=== PATIENT | male | born 1950 ===

== ENCOUNTER 2018-02-16 21:03 | Emergency (ER) | payer SELFPAY ==
[2018-02-16 21:11] VITALS: TEMP 98.4
[2018-02-16] MEDS ORDERED: Sodium Chloride 0.9% 1,000 ML IV STA (21:47)
[2018-02-16 22:34] LABS: BASO # 0.1 K/uL (0.0-0.2); BASO % 1.1 % (0.0-2.0); EOS # 0.2 K/uL (0.0-0.7); EOS % 3.4 % (0.0-4.0); HEMOGLOBIN 13.1 g/dL (12.0-18.0); LYMPH # 2.1 K/uL (1.0-4.3); LYMPH % 35.3 % (20.0-40.0); MEAN CELL VOLUME 96.8 fl (80.0-94.0); MEAN CORPUSCULAR HEMOGLOBIN 33.2 pg (27.0-31.0); MEAN CORPUSCULAR HGB CONC 34.3 g/dL (33.0-37.0); MEAN PLATELET VOLUME 9.1 fl (7.2-11.7); MONO # 0.5 K/uL (0.0-0.8); MONO % 8.6 % (0.0-10.0); NEUT % 51.6 % (50.0-75.0); NRBC % 0.1 % (0.0-0.0); RBC 3.94 Mil/uL (4.40-5.90); WHITE BLOOD COUNT 5.9 K/uL (4.8-10.8)
[2018-02-16 22:41] LABS: ALB/GLOB RATIO 1.3 (1.0-2.1); ALBUMIN 3.8 g/dL (3.5-5.0); ALT/SGPT 24 U/L (21-72); AST/SGOT 20 U/L (17-59); BLOOD UREA NITROGEN 29 mg/dl (9-20); GFR AFRICAN-AMERICAN > 60; GFR NON-AFRICAN AMERICAN 55
--- NOTE | 2018-02-16 23:06 | ED PDOC ---
HPI: Psych/Substance Abuse Time Seen by Provider: 02/16/18 21:17 Chief Complaint (Nursing): Alcohol Ingestion History Per: Patient (Felix is 68 yo male who is brought to the ER by EMS because of inability to walk due to chronic back pain. Patient has also been drinking. ) Past Medical History Reviewed: Historical Data, Nursing Documentation, Vital Signs Vital Signs: Last Vital Signs Temp 98.4 F 02/16/18 21:11 Pulse 81 02/16/18 21:11 Resp 18 02/16/18 21:11 BP 102/63 02/16/18 21:11 Pulse Ox 95 02/16/18 21:11 - Medical History PMH: No Chronic Diseases, Back Problems - Surgical History Surgical History: Coronary Stent - Family History Family History: States: No Known Family Hx - Living Arrangements Living Arrangements: Alone - Social History Alcohol: > 2 Drinks/Day Drugs: Denies - Allergies Allergies/Adverse Reactions: Allergies Allergy/AdvReac Type Severity Reaction Status Date / Time No Known Allergies Allergy Verified 02/16/18 21:02 Review of Systems ROS Statement: Except As Marked, All Systems Reviewed And Found Negative Constitutional: Negative for: Fever, Chills Musculoskeletal: Positive for: Back Pain Physical Exam - Reviewed Nursing Documentation Reviewed: Yes Vital Signs Reviewed: Yes - Physical Exam Appears: Positive for: Well, Non-toxic, No Acute Distress Head Exam: Positive for: ATRAUMATIC, NORMAL INSPECTION, NORMOCEPHALIC Skin: Positive for: Normal Color, Warm, DRY Eye Exam: Positive for: EOMI, Normal appearance, PERRL ENT: Positive for: Normal ENT Inspection Neck: Positive for: Normal, Painless ROM Cardiovascular/Chest: Positive for: Regular Rate, Rhythm Respiratory: Positive for: CNT, Normal Breath Sounds Gastrointestinal/Abdominal: Positive for: Normal Exam, Soft Back: Positive for: Normal Inspection Extremity: Positive for: Normal ROM Neurologic/Psych: Positive for: Alert, Oriented - Laboratory Results Result Diagrams: 02/16/18 22:20 02/16/18 22:20 - ECG O2 Sat by Pulse Oximetry: 95 Disposition - Clinical Impression Clinical Impression: Alcohol abuse - Patient ED Disposition Is Patient to be Admitted: No - Disposition Disposition: Routine/Home Disposition Time: 22:45 Condition: IMPROVED Instructions: Alcohol Abuse and Alcoholism (DC) - POA Present On Arrival: None
[2018-02-16 23:43] VITALS: BP 121/83; PULSE 84; RESP 20; O2SAT 99
== END 2018-02-16 23:44 | disposition home or self-care (01) ==
LOC: H.ER 21:03
DX: F10.10 Alcohol abuse, uncomplicated (principal); G89.29 Other chronic pain; Z95.5 Presence of coronary angioplasty implant and graft
CPT/HCPCS: 80053; 82948; 85025; 96360; 99283; G0480; J1885; J7030

== ENCOUNTER 2018-07-09 13:13 | Inpatient (IN) | payer MEDICARE, MEDICAID ==
[2018-07-09] MEDS ORDERED: Labetalol 5 mg/ml Inj 20ML IVP STA (13:58)
[2018-07-09] MEDS ORDERED: Labetalol 5mg/ml (4ml) IVP STA (14:04)
[2018-07-09 14:11] LABS: VENOUS BLOOD GAS BASE EXCESS -4.1 mmol/L (0.0-2.0); VENOUS BLOOD GAS PCO2 41 mmHg (40-60); VENOUS BLOOD GAS PO2 17 mm/Hg (30-55); VENOUS BLOOD PH 7.33 (7.32-7.43)
[2018-07-09] MEDS ORDERED: Insulin Regular 100 units/ml SC STA (14:12)
[2018-07-09 14:13] LABS: BASO # 0.1 K/uL (0.0-0.2); EOS # 0.1 K/uL (0.0-0.7); HEMOGLOBIN 13.4 g/dL (12.0-18.0); LYMPH # 0.9 K/uL (1.0-4.3); LYMPH % 13.7 % (20.0-40.0); MEAN CELL VOLUME 99.1 fl (80.0-94.0); MEAN CORPUSCULAR HEMOGLOBIN 32.4 pg (27.0-31.0); MEAN CORPUSCULAR HGB CONC 32.7 g/dL (33.0-37.0); MEAN PLATELET VOLUME 11.1 fl (7.2-11.7); MONO # 0.6 K/uL (0.0-0.8); MONO % 9.8 % (0.0-10.0); NEUT # 4.8 K/uL (1.8-7.0); NEUT % 74.5 % (50.0-75.0); NRBC % 0.2 % (0.0-0.0); RBC 4.13 Mil/uL (4.40-5.90); WHITE BLOOD COUNT 6.4 K/uL (4.8-10.8)
--- NOTE | 2018-07-09 14:19 | ED PDOC ---
HPI: SOB/CHF/COPD Time Seen by Provider: 07/09/18 13:35 Chief Complaint (Nursing): Shortness Of Breath Chief Complaint (Provider): Shortness Of Breath History Per: Non Destructive Evaluation Manager ([id number]) History/Exam Limitations: no limitations Onset/Duration Of Symptoms: Days (x2 weeks ) Additional Complaint(s): Felix Casas is a 68 year old male with a past medical history of type 2 diabetes and HTN, who presents to the emergency department complaining of worsening shortness of breath. Patient denies cough but states that since that time he has increased weakness. When asked about leg swelling he states he was treated for cellulitis of the legs for the last x2 months. At follow up patient still has the same compliant. Patient did have a stent placed x15 years ago but reports to have no cardiac complications since then. He further denies any chest pain, nausea or vomiting. PMD: Bolivar Zapata Past Medical History Reviewed: Historical Data, Nursing Documentation, Vital Signs Vital Signs: Last Vital Signs Temp 97 F L 07/09/18 13:18 Pulse 128 H 07/09/18 13:34 Resp 22 07/09/18 13:34 BP 135/89 07/09/18 13:34 Pulse Ox 95 07/09/18 13:37 - Medical History PMH: Asthma, Back Problems, Diabetes, HTN - Surgical History Surgical History: Coronary Stent - Family History Family History: States: Unknown Family Hx - Immunization History Hx Tetanus Toxoid Vaccination: No Hx Influenza Vaccination: No Hx Pneumococcal Vaccination: No - Home Medications Home Medications: Ambulatory Orders Medication Instructions Recorded Hydrocortisone 1% Cream [Cortizone 1 applic EXT BID #1 tube 04/23/18 1% Cream] - Allergies Allergies/Adverse Reactions: Allergies Allergy/AdvReac Type Severity Reaction Status Date / Time No Known Allergies Allergy Verified 07/09/18 13:17 Review of Systems ROS Statement: Except As Marked, All Systems Reviewed And Found Negative Cardiovascular: Negative for: Chest Pain Respiratory: Positive for: Cough, Shortness of Breath Gastrointestinal: Negative for: Nausea, Vomiting Neurological: Positive for: Weakness Physical Exam - Reviewed Nursing Documentation Reviewed: Yes Vital Signs Reviewed: Yes - Physical Exam Appears: Positive for: In Acute Distress Head Exam: Positive for: ATRAUMATIC, NORMOCEPHALIC Skin: Positive for: Normal Color, Warm, Dry Cardiovascular/Chest: Positive for: Tachycardia, Irregularly Irregular. Negative for: Gallop, Murmur, Friction Rub Respiratory: Positive for: Crackles (bilateral), Respiratory Distress (mild ), Other (O2 saturation fluctuating between 92-97% while on 4L nasal canula ) Gastrointestinal/Abdominal: Positive for: Normal Exam, Soft. Negative for: Tenderness Extremity: Positive for: Pedal Edema (bilateral pitting pedal edema from foot to knee), Other (no indication of cellulitis ) - Laboratory Results Result Diagrams: 07/09/18 14:06 07/09/18 14:36 - ECG O2 Sat by Pulse Oximetry: 95 (RA) Pulse Ox Interpretation: Normal Medical Decision Making Medical Decision Making: Time: 1358 A/P: 68 year old male with past medical history of HTN and diabetes, in A-fib (unclear if new onset), also with bilateral edema of the legs). Work up for CHF/fluid overload. Labetatol, Lasic, and labs including cardaic enzymes, Chest xray. --Type and screen --VBG --Ekg --Bmp --Bnp --Troponin I --Cbc with differential --PTT PT --Chest xray --Lasix 40 m gIVP --Insulin Human regular 4 units SC --Labetatol 20 mg IVp --Influenza A B Chest xray FINDINGS: LUNGS: Overall bronchovascular markings and interstitial markings appear slightly increased mainly right perihilar lesser left perihilar locations. No dense consolidation seen. Surgical clips right paratracheal, PLEURA: No significant pleural effusion identified, no pneumothorax apparent. CARDIOVASCULAR: There is absence of aortic atherosclerotic calcification on x-ray. Cardiomegaly . Mild pulmonary venous congestion. Midline sternotomy and coronary artery bypass clips present. OSSEOUS STRUCTURES: No significant abnormalities. VISUALIZED UPPER ABDOMEN: Normal. OTHER FINDINGS: None. IMPRESSION: Cardiomegaly and mild pulmonary venous congestion. Midline sternotomy coronary bypass surgery inferred. No consolidation pneumothorax or pleural effusion noted. 1556 Troponin level is 0.6 and chest xray shows bilateral infiltrates and cardi omegaly, most likely fluid overload with CHF. Vitals have improved with heart rate at 100 after Lasix. Will give additional Lasix and cardiology consultation was placed. Repeat EKG was ordered and patient will be admitted. [address] Upton who will evaluate the patient in the morning and suggests continuing with lasix for diuresis. Spoke with Dr. Olsen (Dr. Bhatti is out of town who normally admits for Dr. Jasmine). Pt to be admitted to telemetry. - Scribe Attestation: Documented by Davis Mayes, acting as a scribe for Amada Bloom MD. Provider Scribe Attestation: All medical record entries made by the Scribe were at my direction and personally dictated by me. I have reviewed the chart and agree that the record accurately reflects my personal performance of the history, physical exam, medical decision making, and the department course for this patient. I have also personally directed, reviewed, and agree with the discharge instructions and di sposition. Disposition - Disposition
[2018-07-09 14:20] LABS: INR 1.2
[2018-07-09 14:22] LABS: PARTIAL THROMBOPLASTIN TIME 30.6 Seconds (25.6-37.1)
[2018-07-09 14:24] LABS: PROTHROMBIN TIME 13.6 Seconds (9.8-13.1)
[2018-07-09 14:54] LABS: ALBUMIN 3.4 g/dL (3.5-5.0); CALCIUM 8.6 mg/dL (8.4-10.2)
[2018-07-09] MEDS ORDERED: Labetalol 5mg/ml (4ml) ONE (15:08)
[2018-07-09] MEDS ORDERED: Insulin Regular 100 units/ml ONE (15:09)
--- NOTE | 2018-07-09 15:27 | RAD ---
Date of service: 07/09/2018 HISTORY: possible admission COMPARISON: No prior. FINDINGS: LUNGS: Overall bronchovascular markings and interstitial markings appear slightly increased mainly right perihilar lesser left perihilar locations. No dense consolidation seen. Surgical clips right paratracheal, PLEURA: No significant pleural effusion identified, no pneumothorax apparent. CARDIOVASCULAR: There is absence of aortic atherosclerotic calcification on x-ray. Cardiomegaly . Mild pulmonary venous congestion. Midline sternotomy and coronary artery bypass clips present. OSSEOUS STRUCTURES: No significant abnormalities. VISUALIZED UPPER ABDOMEN: Normal. OTHER FINDINGS: None. IMPRESSION: Cardiomegaly and mild pulmonary venous congestion. Midline sternotomy coronary bypass surgery inferred. No consolidation pneumothorax or pleural effusion noted.
[2018-07-09 15:30] LABS: TROPONIN I 0.626 ng/mL (0.00-0.120)
--- NOTE | 2018-07-09 16:36 | CP.PCM.HP ---
History of Present Illness - History of Present Illness History of Present Illness: 68 y/o M with PMHx of DM-2, HTN, CAD, HLD presents to ED complaining of shortness of breath. Shortness of breath started about 2 weeks ago which progressively worsened up to the point when patient is feeling SOB with minimal walking/exertion and also reports feeling weak. He also reports cough with yellowish productive sputum for last 2 days. Patient also has bilateral lower extremity swelling. Patient has H/O stent placement 15 years ago and used to F/U with Dr. Aguillon in the past. Currently only taking Losartan and metformin. D enies any fever, chills, chest pain, headache, abdominal pain, nausea, vomiting, diarrhea or urinary symptoms. PMD: Dr. Jasmine Wood Drill Operator: Dr. Aguillon PMHx: CAD, HTN, DM, HLD PSHx: CABG, Colonoscopy Allergies: Denies F/H: Mother and father of heart disease in 70s, Brother and sister with as [facility] Social Hx - , Lives with brother, sister in law and 3 kids. Used to work in [employer] in past. - Reports drinking 10-15 beer on weekends, Denies smoking or illicit drug use Medications: Losartan 25 mg daily, Metformin 500 mg QD ED Course: - Vitals: Temp 97, HR 130, BP 135/73, RR 20, O2 100% RA - CBC, BMP, BNP, Troponin I, VBG, - CXR: bilateral infiltrates and cardiomegaly, most likely fluid overload with CHF - Medications: Lasix 40 m gIVP, Insulin Human regular 4 units SC, Labetatol 20 mg IVP - Influenza A B: Negative Patient to be admitted to Telemetry. Present on Admission - Present on Admission Any Indicators Present on Admission: Yes History of DVT/PE: No History of Uncontrolled Diabetes: No Urinary Catheter: No Decubitus Ulcer Present: No Review of Systems - Review of Systems Systems not reviewed;Unavailable: Respiratory Distress - Constitutional Constitutional: Weakness. absent: Fever, Headache - EENT Eyes: absent: Change in Vision - Cardiovascular Cardiovascular: Dyspnea, Dyspnea on Exertion, Pedal Edema. absent: Chest Pain, Chest Pain at Rest - Respiratory Respiratory: Cough, Dyspnea, Dyspnea on Exertion - Gastrointestinal Gastrointestinal: absent: Abdominal Pain, Constipation, Diarrhea, Nausea, Vomiting - Genitourinary Genitourinary: absent: Change in Urinary Stream Past Patient History - Past Social History Smoking Status: Never Smoked - CARDIAC Hx Hypertension: Yes - PULMONARY Hx Asthma: Yes - ENDOCRINE/METABOLIC Hx Diabetes Mellitus Type 2: Yes - PSYCHIATRIC Hx Substance Use: No - SURGICAL HISTORY Hx Coronary Stent: Yes - ANESTHESIA Hx Anesthesia: Yes Hx Anesthesia Reactions: No Hx Malignant Hyperthermia: No Meds Allergies/Adverse Reactions: Allergies Allergy/AdvReac Type Severity Reaction Status Date / Time No Known Allergies Allergy Verified 07/09/18 13:17 Physical Exam - Constitutional Appears: No Acute Distress - Head Exam Head Exam: ATRAUMATIC, NORMOCEPHALIC - Eye Exam Eye Exam: EOMI - ENT Exam ENT Exam: Mucous Membranes Moist - Neck Exam Neck exam: Positive for: Full Rom - Respiratory Exam Respiratory Exam: Rales, Respiratory Distress. absent: Decreased Breath Sounds, Rhonchi, Wheezes - Cardiovascular Exam Cardiovascular Exam: Tachycardia, Irregular Rhythm, +S1, +S2. absent: JVD - GI/Abdominal Exam GI & Abdominal Exam: Normal Bowel Sounds, Soft. absent: Distended, Tenderness - Extremities Exam Extremities exam: Positive for: pedal edema. Negative for: calf tenderness, tenderness Additional comments: +1 pitting edema B/L LE - Neurological Exam Neurological exam: Alert, Altered, Oriented x3 - Psychiatric Exam Psychiatric exam: Normal Affect, Normal Mood - Skin Skin Exam: Dry, Intact, Normal Color, Warm Results - Vital Signs Recent Vital Signs: Last Vital Signs Temp 98.6 F 07/09/18 16:35 Pulse 98 H 07/09/18 16:12 Resp 27 H 07/09/18 16:12 BP 111/79 07/09/18 16:15 Pulse Ox 95 07/09/18 16:26 - Labs Result Diagrams: 07/09/18 14:06 07/09/18 14:36 Labs: Laboratory Results - last 24 hr 07/09/18 07/09/18 07/09/18 14:00 14:06 14:06 WBC 6.4 RBC 4.13 L Hgb 13.4 Hct 41.0 MCV 99.1 H D MCH 32.4 H MCHC 32.7 L RDW 13.0 Plt Count 169 MPV 11.1 Neut % (Auto) 74.5 Lymph % (Auto) 13.7 L [place] % (Auto) 9.8 Eos % (Auto) 1.0 Baso % (Auto) 1.0 Neut # (Auto) 4.8 Lymph # (Auto) 0.9 L [place] # (Auto) 0.6 Eos # (Auto) 0.1 Baso # (Auto) 0.1 PT INR APTT pO2 17 L VBG pH 7.33 VBG pCO2 41 VBG HCO3 19.6 VBG Total CO2 22.9 VBG O2 Sat (Calc) 21.9 L VBG Base Excess -4.1 L VBG Potassium 4.5 Sodium 136.0 Chloride 105.0 Glucose 231 H Lactate 1.3 FiO2 21.0 Potassium Carbon Dioxide Anion Gap BUN Creatinine Est GFR ( Amer) Est GFR (Non-Af Amer) Random Glucose Calcium Total Bilirubin AST ALT Alkaline Phosphatase Troponin I NT-Pro-B Natriuret Pep Total Protein Albumin Globulin Albumin/Globulin Ratio Venous Blood Potassium 4.5 Influenza Typ A,B (EIA) Negative for flu a/b Blood Type Blood Type Confirm Antibody Screen BBK History Checked 07/09/18 07/09/18 07/09/18 14:06 14:06 14:36 WBC RBC Hgb Hct MCV MCH MCHC RDW Plt Count MPV Neut % (Auto) Lymph % (Auto) [place] % (Auto) Eos % (Auto) Baso % (Auto) Neut # (Auto) Lymph # (Auto) [place] # (Auto) Eos # (Auto) Baso # (Auto) PT 13.6 H INR 1.2 APTT 30.6 pO2 VBG pH VBG pCO2 VBG HCO3 VBG Total CO2 VBG O2 Sat (Calc) VBG Base Excess VBG Potassium Sodium 138 Chloride 108 H Glucose Lactate FiO2 Potassium 4.6 Carbon Dioxide 22 Anion Gap 13 BUN 44 H Creatinine 1.8 H Est GFR ( Amer) 46 Est GFR (Non-Af Amer) 38 Random Glucose 210 H Calcium 8.6 Total Bilirubin 1.1 AST 43 ALT 52 Alkaline Phosphatase 87 Troponin I 0.6260 H* NT-Pro-B Natriuret Pep 7210 H Total Protein 6.7 Albumin 3.4 L Globulin 3.3 Albumin/Globulin Ratio 1.0 Venous Blood Potassium Influenza Typ A,B (EIA) Blood Type O POSITIVE Blood Type Confirm Antibody Screen Negative BBK History Checked No verified bt 07/09/18 15:05 WBC RBC Hgb Hct MCV MCH MCHC RDW Plt Count MPV Neut % (Auto) Lymph % (Auto) [place] % (Auto) Eos % (Auto) Baso % (Auto) Neut # (Auto) Lymph # (Auto) [place] # (Auto) Eos # (Auto) Baso # (Auto) PT INR APTT pO2 VBG pH VBG pCO2 VBG HCO3 VBG Total CO2 VBG O2 Sat (Calc) VBG Base Excess VBG Potassium Sodium Chloride Glucose Lactate FiO2 Potassium Carbon Dioxide Anion Gap BUN Creatinine Est GFR ( Amer) Est GFR (Non-Af Amer) Random Glucose Calcium Total Bilirubin AST ALT Alkaline Phosphatase Troponin I NT-Pro-B Natriuret Pep Total Protein Albumin Globulin Albumin/Globulin Ratio Venous Blood Potassium Influenza Typ A,B (EIA) Blood Type Blood Type Confirm O POSITIVE Antibody Screen BBK History Checked Assessment & Plan - Assessment and Plan (Free Text) Assessment: 68 year old male with PMHx of HTN, diabetes, Stent 15 years ago, CFH presents with shortness of breath that started 2 weeks ago. Patient in A-fib (unclear if new onset), CHF/fluid overload and LUIS ARMANDO vs CKD type 3. Plan: CFH exacerbation - Admitted to telemetry - S/P Lasix 40mg, Insulin Human regular 4 units SC, Labetatol 20 mg IVP in ED - CXR: bilateral infiltrates and cardiomegaly, most likely fluid overload with CHF - On ASA, Lopressor 50 mg BID, Losartan. - Cardiology consulted. - Monitor vitals, strict I & Os, 2g Na diet, Fluid restriction 1500 ml Atrial fibrillation - Chronic vs New onset - Cardiology Dr. Gonzalez consulted: Appreciate recs - start Lopressor 50 mg BID - start Heparin 5000 SC BID - F/U TSH, trops x 2, cbc, bmp LUIS ARMANDO vs CKD III - BUN/Cr 44/1.8 - Monitor bmp HTN - Uncontrolled - C/W Losartan 25 mg PO daily - Start Lopressor 50 mg BID - Monitor vitals DM-2 - Uncontrolled - On sliding scale and hypoglycemic protocol - Metformin on hold due to LUIS ARMANDO/CKD - Monitor glucose ACHS - F/U A1c HLD - Started on atorvastatin 40 mg daily - F/U lipid panel DVT prophylaxis -Heparin 5000 unit SC BID -GI: Protonix 40 mg po daily Diet heart healthy, 2g Na, with fluid restriction 1500ml
[2018-07-09] MEDS ORDERED: Glucagon Recombinant 1 mg Inj IM PRN (17:25)
[2018-07-09] MEDS ORDERED: Dextrose 50% SYRINGE Inj (50 ml) IV PRN (17:25)
[2018-07-09] MEDS ORDERED: Pneumococcal 23-Valent Vaccine IM ONE (18:54)
[2018-07-09] MEDS ORDERED: Influenza Vaccine (5 YR UP)/PF 60 MCG/0.5 ML SYR IM ONE (18:55)
[2018-07-09] MEDS: Insulin Regular 100 units/ml SC SCH (22:58)
[2018-07-10 06:24] LABS: BASO % 0.7 % (0.0-2.0); EOS # 0.2 K/uL (0.0-0.7); EOS % 3.1 % (0.0-4.0); HEMOGLOBIN 12.6 g/dL (12.0-18.0); LYMPH # 1.3 K/uL (1.0-4.3); LYMPH % 19.7 % (20.0-40.0); MEAN CORPUSCULAR HEMOGLOBIN 32.5 pg (27.0-31.0); MEAN CORPUSCULAR HGB CONC 32.8 g/dL (33.0-37.0); MEAN PLATELET VOLUME 10.7 fl (7.2-11.7); MONO # 0.7 K/uL (0.0-0.8); MONO % 11.2 % (0.0-10.0); NEUT # 4.2 K/uL (1.8-7.0); NEUT % 65.3 % (50.0-75.0); NRBC % 0.1 % (0.0-0.0); RBC 3.87 Mil/uL (4.40-5.90); WHITE BLOOD COUNT 6.4 K/uL (4.8-10.8)
[2018-07-10 06:33] LABS: CALCIUM 8.7 mg/dL (8.4-10.2)
[2018-07-10] MEDS: Insulin Regular 100 units/ml SC SCH ×4 (08:57→22:00)
--- NOTE | 2018-07-10 10:03 | CARD ---
APPROVED REPORT Date of service: 07/10/2018 EXAM: Two-dimensional and M-mode echocardiogram with Doppler and color Doppler. Other Information Quality : GoodRhythm : Atrial Fibrillation INDICATION Dyspnea Hypertension/HCVD Congestive Heart Failure 2D DIMENSIONS IVSd1.26 (0.7-1.1cm)LVDd5.49 (3.9-5.9cm) LVOT Diameter1.68 (1.8-2.4cm)PWd0.86 (0.7-1.1cm) IVSs1.18 (0.8-1.2cm)LVDs5.63 (2.5-4.0cm) FS (%) 2.5 %PWs0.72 (0.8-1.2cm) M-Mode DIMENSIONS Left Atrium (MM)5.25 (2.5-4.0cm)IVSd0.84 (0.7-1.1cm) Aortic Root3.31 (2.2-3.7cm)LVDd6.13 (4.0-5.6cm) Aortic Cusp Exc.2.19 (1.5-2.0cm)PWd0.75 (0.7-1.1cm) IVSs0.72 cmFS (%) 11 % LVDs5.44 (2.0-3.8cm)PWs0.81 cm Mitral Valve E/A ratio0.0 TDI E/Lateral E'0.0E/Medial E'0.0 Tricuspid Valve TR Peak [id number]/sRAP [id number] Peak Gr.22mmHg [id number] LEFT VENTRICLE The Left Ventricle is moderately dilated. There is normal left ventricular wall thickness. Left ventricle systolic function is severely impaired. LVEF is 10-15%. There was mod to severe generalised hypokinesia particularly pronounced in the septum Could not be assesed due to A Fib. RIGHT VENTRICLE The right ventricle is normal size. There is normal right ventricular wall thickness. The right ventricular systolic function is normal. ATRIA The left atrium is moderately dilated. The right atrium is mildly dilated. AORTIC VALVE The aortic valve is normal in structure. No aortic regurgitation is present. There is no aortic valvular stenosis. MITRAL VALVE The mitral valve is normal in structure. There is no evidence of mitral valve prolapse. There is no mitral valve stenosis. Mitral regurgitation is moderate. TRICUSPID VALVE The tricuspid valve is normal in structure. There is mild to moderate tricuspid regurgitation. Right ventricular systolic pressure is estimated at 46 mmHg. There is mild-moderate pulmonary hypertension. PULMONIC VALVE The pulmonary valve is normal in structure. There is no pulmonic valvular regurgitation. GREAT VESSELS The aortic root is mildly enlarged. Due to poor image quality, the IVC could not be assessed. PERICARDIAL EFFUSION The pericardium appears normal. <Conclusion> The Left Ventricle is moderately dilated. There is normal left ventricular wall thickness. There was mod to severe generalised hypokinesia particularly pronounced in the septum Left ventricle systolic function is severely impaired. LVEF is 10-15%. Mitral regurgitation is moderate. There is mild-moderate pulmonary hypertension. The left atrium is moderately dilated.
--- NOTE | 2018-07-10 10:30 | CP.PCM.CON ---
History of Present Illness - History of Present Illness History of Present Illness: this 68-year-old man came to the emergency room after developing gradually worsening dyspnea with minimal exertion and describes walking in the room produced severe shortness of breath and he finally came to the emergency room. He is a long-standing hypertensive and diabetic and has undergone coronary bypass graft surgery 15 years back following a myocardial infarction. He had moved to [place] and had seen physicians erratically. He moved back to [place] 3 months back and was planning to resume seeing his physicians in July. The patient does admit to eating salty food every now and then. He is an ex-smoker. He denies any chest pain but admits to having experienced orthopnea. He denies any palpitations. The patient was found to be in atrial fibrillation with fast heart rates on arriving in the emergency room. Having received metoprolol and intravenous Diuretics the patient reports marked improvement his dyspnea. The telemetry shows persistent atrial fibrillation with a heart rate of 80-90 bpm. The patient was able to breathe comfortably while propped up in bed at 16 breaths per minute. His blood pressure was 120/70 mmHg. His jugular venous pressure was mildly elevated and there was no edema over his lower extremities. The pedal pulses were feeble felt but distinct of present. There were no carotid bruits. A scar of sternotomy was evident. The apex was in this 60 slightly heaving in character there was a faint S3 gallop. There were 5 basal rales. An apical systolic murmur of mitral regurgitation audible. His electro-cardiogram shows atrial fibrillation with evidence of an old septal wall myocardial infarction. There were diffuse T-wave inversions in chest leads. his echocardiogram reveals severe left ventricular wall motion abnormality in presence of moderate mitral regurgitation and a calculated pulmonary artery systolic pressure of 46 mmHg. his lab data was noted. From the time of his arrival in the emergency room the troponin levels have been elevated essentially the same amount during repeated assessment. His BUN/creatinine were elevated with a GFR suggestive of chronic kidney disease stage III. Impression: coronary artery disease with old septal wall myocardial infarction and states his post artery bypass graft surgery. Atrial fibrillation ( probably new onset )with congestive cardiac failure which was left ventricular systolic and acute on chronic. Chronic kidney disease stage III. Hypertension and diabetes. His heart rate is controlled with a beta becca and I have started the patient on an oral anticoagulation. The patient may be switched from intravenous diuretics to oral diuretics, when he is found to be euvolemic. The patient plans to see his medical lab technologist in early July. Past Patient History - Past Social History Smoking Status: Never Smoked - CARDIAC Hx Hypertension: Yes - PULMONARY Hx Asthma: Yes - ENDOCRINE/METABOLIC Hx Diabetes Mellitus Type 2: Yes - MUSCULOSKELETAL/RHEUMATOLOGICAL Hx Falls: No - PSYCHIATRIC Hx Substance Use: No - SURGICAL HISTORY Hx Coronary Stent: Yes - ANESTHESIA Hx Anesthesia: Yes Hx Anesthesia Reactions: No Hx Malignant Hyperthermia: No Meds Allergies/Adverse Reactions: Allergies Allergy/AdvReac Type Severity Reaction Status Date / Time No Known Allergies Allergy Verified 07/09/18 13:17 - Medications Medications: Current Medications Aspirin (Aspirin Chewable) 81 mg PO DAILY [facility] Last Admin: 07/10/18 08:59 Dose: 81 mg Atorvastatin Calcium (Lipitor) 40 mg PO DAILY [facility] Last Admin: 07/10/18 09:00 Dose: 40 mg Dextrose (Dextrose 50% Inj) 0 ml IV STAT PRN; Protocol PRN Reason: Hypoglycemia Protocol Dextrose (Glutose 15) 0 gm PO ONCE PRN; Protocol PRN Reason: Hypoglycemia Protocol Glucagon (Glucagen Diagnostic Kit) 0 mg IM STAT PRN; Protocol PRN Reason: Hypoglycemia Protocol Insulin Human Regular (Humulin R) 0 units SC ACCU-CHECK [facility]; Protocol Last Admin: 07/10/18 08:57 Dose: Not Given Losartan Potassium (Cozaar) 25 mg PO DAILY [facility] Last Admin: 07/10/18 08:59 Dose: 25 mg Metformin HCl (Glucophage) 500 mg PO DAILY [facility] Metoprolol Tartrate (Lopressor) 50 mg PO Q12 [facility] Last Admin: 07/10/18 09:00 Dose: 50 mg Rivaroxaban (Xarelto) 15 mg PO QD5 [facility]; Protocol Results - Vital Signs Recent Vital Signs: Last Vital Signs Temp 97.4 F L 07/10/18 08:14 Pulse 110 H 07/10/18 09:00 Resp 18 07/10/18 08:14 BP 113/77 07/10/18 09:00 Pulse Ox 97 07/10/18 08:14 - Labs Result Diagrams: 07/10/18 04:45 07/10/18 04:45 Labs: Laboratory Results - last 24 hr 07/09/18 07/09/18 07/09/18 14:00 14:06 14:06 WBC 6.4 RBC 4.13 L Hgb 13.4 Hct 41.0 MCV 99.1 H D MCH 32.4 H MCHC 32.7 L RDW 13.0 Plt Count 169 MPV 11.1 Neut % (Auto) 74.5 Lymph % (Auto) 13.7 L [place] % (Auto) 9.8 Eos % (Auto) 1.0 Baso % (Auto) 1.0 Neut # (Auto) 4.8 Lymph # (Auto) 0.9 L [place] # (Auto) 0.6 Eos # (Auto) 0.1 Baso # (Auto) 0.1 PT INR APTT pO2 17 L VBG pH 7.33 VBG pCO2 41 VBG HCO3 19.6 VBG Total CO2 22.9 VBG O2 Sat (Calc) 21.9 L VBG Base Excess -4.1 L VBG Potassium 4.5 Sodium 136.0 Chloride 105.0 Glucose 231 H Lactate 1.3 FiO2 21.0 Potassium Carbon Dioxide Anion Gap BUN Creatinine Est GFR ( Amer) Est GFR (Non-Af Amer) POC Glucose (mg/dL) Random Glucose Calcium Phosphorus Magnesium Total Bilirubin AST ALT Alkaline Phosphatase Troponin I NT-Pro-B Natriuret Pep Total Protein Albumin Globulin Albumin/Globulin Ratio Triglycerides Cholesterol LDL Cholesterol Direct HDL Cholesterol TSH 3rd Generation Venous Blood Potassium 4.5 Influenza Typ A,B (EIA) Negative for flu a/b Blood Type Blood Type Confirm Antibody Screen BBK History Checked 07/09/18 07/09/18 07/09/18 14:06 14:06 14:36 WBC RBC Hgb Hct MCV MCH MCHC RDW Plt Count MPV Neut % (Auto) Lymph % (Auto) [place] % (Auto) Eos % (Auto) Baso % (Auto) Neut # (Auto) Lymph # (Auto) [place] # (Auto) Eos # (Auto) Baso # (Auto) PT 13.6 H INR 1.2 APTT 30.6 pO2 VBG pH VBG pCO2 VBG HCO3 VBG Total CO2 VBG O2 Sat (Calc) VBG Base Excess VBG Potassium Sodium 138 Chloride 108 H Glucose Lactate FiO2 Potassium 4.6 Carbon Dioxide 22 Anion Gap 13 BUN 44 H Creatinine 1.8 H Est GFR ( Amer) 46 Est GFR (Non-Af Amer) 38 POC Glucose (mg/dL) Random Glucose 210 H Calcium 8.6 Phosphorus Magnesium Total Bilirubin 1.1 AST 43 ALT 52 Alkaline Phosphatase 87 Troponin I 0.6260 H* NT-Pro-B Natriuret Pep 7210 H Total Protein 6.7 Albumin 3.4 L Globulin 3.3 Albumin/Globulin Ratio 1.0 Triglycerides Cholesterol LDL Cholesterol Direct HDL Cholesterol TSH 3rd Generation Venous Blood Potassium Influenza Typ A,B (EIA) Blood Type O POSITIVE Blood Type Confirm Antibody Screen Negative BBK History Checked No verified bt 07/09/18 07/09/18 07/09/18 15:05 19:00 20:23 WBC RBC Hgb Hct MCV MCH MCHC RDW Plt Count MPV Neut % (Auto) Lymph % (Auto) [place] % (Auto) Eos % (Auto) Baso % (Auto) Neut # (Auto) Lymph # (Auto) [place] # (Auto) Eos # (Auto) Baso # (Auto) PT INR APTT pO2 VBG pH VBG pCO2 VBG HCO3 VBG Total CO2 VBG O2 Sat (Calc) VBG Base Excess VBG Potassium Sodium Chloride Glucose Lactate FiO2 Potassium Carbon Dioxide Anion Gap BUN Creatinine Est GFR ( Amer) Est GFR (Non-Af Amer) POC Glucose (mg/dL) Random Glucose Calcium Phosphorus 4.3 Magnesium 1.8 Total Bilirubin AST ALT Alkaline Phosphatase Troponin I 0.8270 H* NT-Pro-B Natriuret Pep Total Protein Albumin Globulin Albumin/Globulin Ratio Triglycerides Cholesterol LDL Cholesterol Direct HDL Cholesterol TSH 3rd Generation 1.39 Venous Blood Potassium Influenza Typ A,B (EIA) Blood Type Blood Type Confirm O POSITIVE Antibody Screen BBK History Checked 07/09/18 07/10/18 07/10/18 21:13 02:52 04:45 WBC 6.4 RBC 3.87 L Hgb 12.6 Hct 38.3 MCV 99.0 H MCH 32.5 H MCHC 32.8 L RDW 13.0 Plt Count 146 MPV 10.7 Neut % (Auto) 65.3 Lymph % (Auto) 19.7 L [place] % (Auto) 11.2 H Eos % (Auto) 3.1 Baso % (Auto) 0.7 Neut # (Auto) 4.2 Lymph # (Auto) 1.3 [place] # (Auto) 0.7 Eos # (Auto) 0.2 Baso # (Auto) 0.0 PT INR APTT pO2 VBG pH VBG pCO2 VBG HCO3 VBG Total CO2 VBG O2 Sat (Calc) VBG Base Excess VBG Potassium Sodium Chloride Glucose Lactate FiO2 Potassium Carbon Dioxide Anion Gap BUN Creatinine Est GFR ( Amer) Est GFR (Non-Af Amer) POC Glucose (mg/dL) 186 H Random Glucose Calcium Phosphorus Magnesium Total Bilirubin AST ALT Alkaline Phosphatase Troponin I 0.8280 H* NT-Pro-B Natriuret Pep Total Protein Albumin Globulin Albumin/Globulin Ratio Triglycerides Cholesterol LDL Cholesterol Direct HDL Cholesterol TSH 3rd Generation Venous Blood Potassium Influenza Typ A,B (EIA) Blood Type Blood Type Confirm Antibody Screen BBK History Checked 07/10/18 07/10/18 07/10/18 04:45 05:28 08:06 WBC RBC Hgb Hct MCV MCH MCHC RDW Plt Count MPV Neut % (Auto) Lymph % (Auto) [place] % (Auto) Eos % (Auto) Baso % (Auto) Neut # (Auto) Lymph # (Auto) [place] # (Auto) Eos # (Auto) Baso # (Auto) PT INR APTT pO2 VBG pH VBG pCO2 VBG HCO3 VBG Total CO2 VBG O2 Sat (Calc) VBG Base Excess VBG Potassium Sodium 138 Chloride 106 Glucose Lactate FiO2 Potassium 3.8 Carbon Dioxide 21 L Anion Gap 15 BUN 46 H Creatinine 1.7 H Est GFR ( Amer) 49 Est GFR (Non-Af Amer) 40 POC Glucose (mg/dL) 127 H Random Glucose 143 H Calcium 8.7 Phosphorus Magnesium Total Bilirubin AST ALT Alkaline Phosphatase Troponin I 0.7180 H* NT-Pro-B Natriuret Pep Total Protein Albumin Globulin Albumin/Globulin Ratio Triglycerides 48 Cholesterol 99 LDL Cholesterol Direct 49 HDL Cholesterol 55 TSH 3rd Generation Venous Blood Potassium Influenza Typ A,B (EIA) Blood Type Blood Type Confirm Antibody Screen BBK History Checked
--- NOTE | 2018-07-10 11:15 | CP.PCM.PN ---
<Rodney Casey - Last Filed: 07/10/18 13:37> Subjective - Date & Time of Evaluation Date of Evaluation: 07/10/18 Time of Evaluation: 08:55 - Subjective Subjective: Patient seen and evaluated in Telemetry during morning rounds. No acute events overnight. Patient reports significant improvement in shortness of breath and LE edema compare to yesterday. Patient able to walk to bathroom w/o getting SOB. Denies any chest pain, nausea, vomiting, dizziness, abdominal pain. Patient tolerating diet well PO. 1 BM yesterday, voiding well w/o difficulties. Objective - Vital Signs/Intake and Output Vital Signs (last 24 hours): Temp Pulse Resp BP Pulse Ox 97.4 F L 110 H 18 113/77 97 07/10/18 08:14 07/10/18 09:00 07/10/18 08:14 07/10/18 09:00 07/10/18 08:14 - Medications Medications: Current Medications Aspirin (Aspirin Chewable) 81 mg PO DAILY [facility] Last Admin: 07/10/18 08:59 Dose: 81 mg Atorvastatin Calcium (Lipitor) 40 mg PO DAILY [facility] Last Admin: 07/10/18 09:00 Dose: 40 mg Dextrose (Dextrose 50% Inj) 0 ml IV STAT PRN; Protocol PRN Reason: Hypoglycemia Protocol Dextrose (Glutose 15) 0 gm PO ONCE PRN; Protocol PRN Reason: Hypoglycemia Protocol Glucagon (Glucagen Diagnostic Kit) 0 mg IM STAT PRN; Protocol PRN Reason: Hypoglycemia Protocol Insulin Human Regular (Humulin R) 0 units SC ACCU-CHECK [facility]; Protocol Last Admin: 07/10/18 08:57 Dose: Not Given Losartan Potassium (Cozaar) 25 mg PO DAILY [facility] Last Admin: 07/10/18 08:59 Dose: 25 mg Metformin HCl (Glucophage) 500 mg PO DAILY [facility] Metoprolol Tartrate (Lopressor) 50 mg PO Q12 [facility] Last Admin: 07/10/18 09:00 Dose: 50 mg Rivaroxaban (Xarelto) 15 mg PO QD5 [facility]; Protocol - Labs Labs: 07/10/18 04:45 07/10/18 04:45 PT 13.6 Seconds (9.8-13.1) H 07/09/18 14:06 INR 1.2 07/09/18 14:06 APTT 30.6 Seconds (25.6-37.1) 07/09/18 14:06 - Constitutional Appears: Non-toxic, No Acute Distress - Head Exam Head Exam: ATRAUMATIC, NORMOCEPHALIC - Eye Exam Eye Exam: EOMI, Normal appearance - ENT Exam ENT Exam: Mucous Membranes Moist - Neck Exam Neck Exam: Full ROM - Respiratory Exam Respiratory Exam: Rales. absent: Prolonged Expiratory Phase, Respiratory D istress - Cardiovascular Exam Cardiovascular Exam: Tachycardia, Irregular Rhythm, JVD, +S1, +S2 - GI/Abdominal Exam GI & Abdominal Exam: Soft, Normal Bowel Sounds. absent: Distended, Tenderness - Extremities Exam Extremities Exam: Calf Tenderness, Pedal Edema. absent: Tenderness Additional comments: Trace B/L pedal edema - Neurological Exam Neurological Exam: Alert, Awake, Oriented x3 - Psychiatric Exam Psychiatric exam: Normal Affect, Normal Mood - Skin Skin Exam: Dry, Intact, Normal Color, Warm Assessment and Plan - Assessment and Plan (Free Text) Assessment: 68 year old male with PMHx of HTN, diabetes, HLD, CABG 15 years ago admitted for acute on chronic CHF exacerbation and atrial fibrillation(possibly new onset). Plan: Acute on chronic congestive heart failure, systolic dysfunction CAD with old septal wall DC Atrial fibrillation(Most likely new onset) - Dyspnea improving, Still tachycardic - Troponins: 0.62>0.8270>0.8280>0.7180 - EKG(07/09): AFib w/RVR, anteroseptal infract age undetermined, ST abnormality - EKG (07/10): Afib w/RVR, septal infract - CXR: bilateral infiltrates and cardiomegaly, most likely fluid overload with CHF - Echocardiogram: LV moderately dilated, Normal LV wall thickness, Mod-Severe septal hypokinesia, LVEF 10-15%, Moderate MR, RVSP 46 mm hg. - C/W ASA 81 mg, Lopressor 50 mg BID, Losartan 25 mg QD and Atorvastatin 40mg QD. - Started on Xarelto 15 mg PO QD - Started on Lasix 20 mg PO daily - Cardiology Dr. Gonzalez consulted: Will follow recs. - Monitor vitals, strict I & Os, 2g Na diet, Fluid restriction 1500 ml Chronic kidney disease, stage III - BUN/Cr 46/1.7 - Monitor bmp HTN - C/W Losartan 25 mg PO daily - C/W Lopressor 50 mg BID - Monitor vitals DM-2 - A1c 7.9 - On sliding scale and hypoglycemic protocol - Metformin DC due to CKD - Monitor glucose ACHS HLD - Started on atorvastatin 40 mg daily - F/U lipid panel DVT prophylaxis -D/C Heparin 5000 unit SC BID, Pt started on Xarelto Diet heart healthy, 2g Na, with fluid restriction 1500ml <Fadia Bacon - Last Filed: 07/12/18 00:33> Objective - Vital Signs/Intake and Output Vital Signs (last 24 hours): Temp Pulse Resp BP Pulse Ox 97.3 F L 104 H 20 102/75 98 07/11/18 12:22 07/11/18 12:22 07/11/18 12:22 07/11/18 12:22 07/11/18 12:22 Intake and Output: 07/11/18 07/12/18 18:59 06:59 Intake Total 600 Output Total 425 Balance 175 - Labs Labs: 07/11/18 04:50 07/11/18 04:50 PT 13.6 Seconds (9.8-13.1) H 07/09/18 14:06 INR 1.2 07/09/18 14:06 APTT 30.6 Seconds (25.6-37.1) 07/09/18 14:06 Attending/Attestation - Attestation I have personally seen and examined this patient.: Yes I have fully participated in the care of the patient.: Yes I have reviewed all pertinent clinical information, including history, physical exam and plan: Yes Notes (Text): 07/12/18 00:33 agree with findings and plan as above
--- NOTE | 2018-07-10 18:05 | CARD ---
APPROVED REPORT Date of service: 07/09/2018 EKG Measurement Heart [id number] <Conclusion> Atrial fibrillation with rapid ventricular response Septal infarct, age undetermined ST & T wave abnormality, consider lateral ischemia Abnormal ECG
--- NOTE | 2018-07-10 18:43 | CARD ---
APPROVED REPORT Date of service: 07/09/2018 EKG Measurement Heart [id number] <Conclusion> Atrial fibrillation Anteroseptal infarct, age undetermined T wave abnormality, consider lateral ischemia Abnormal ECG
--- NOTE | 2018-07-10 23:10 | CARD ---
APPROVED REPORT Date of service: 07/10/2018 EKG Measurement Heart [id number] <Conclusion> Atrial fibrillation with rapid ventricular response Septal infarct, age undetermined ST & T wave abnormality, consider lateral ischemia Abnormal ECG
--- NOTE | 2018-07-10 23:46 | CARD ---
APPROVED REPORT Date of service: 07/09/2018 EKG Measurement Heart [id number] <Conclusion> Atrial fibrillation with rapid ventricular response Anteroseptal infarct, age undetermined ST & T wave abnormality, consider lateral ischemia Abnormal ECG
[2018-07-11 06:08] LABS: BASO % 0.6 % (0.0-2.0); EOS # 0.3 K/uL (0.0-0.7); EOS % 3.6 % (0.0-4.0); HEMOGLOBIN 13.2 g/dL (12.0-18.0); LYMPH # 1.4 K/uL (1.0-4.3); LYMPH % 18.5 % (20.0-40.0); MEAN CELL VOLUME 97.2 fl (80.0-94.0); MEAN CORPUSCULAR HEMOGLOBIN 32.4 pg (27.0-31.0); MEAN CORPUSCULAR HGB CONC 33.4 g/dL (33.0-37.0); MEAN PLATELET VOLUME 10.9 fl (7.2-11.7); MONO # 0.8 K/uL (0.0-0.8); MONO % 10.2 % (0.0-10.0); NEUT # 5.1 K/uL (1.8-7.0); NEUT % 67.1 % (50.0-75.0); NRBC % 0.1 % (0.0-0.0); RBC 4.07 Mil/uL (4.40-5.90); RED CELL DISTRIBUTION WIDTH 12.7 % (11.5-14.5); WHITE BLOOD COUNT 7.6 K/uL (4.8-10.8)
[2018-07-11 06:23] LABS: CALCIUM 8.8 mg/dL (8.4-10.2)
[2018-07-11] MEDS: Insulin Regular 100 units/ml SC SCH ×2 (06:39→12:25)
[2018-07-11 07:54] VITALS: RESP 20; TEMP 97.3
[2018-07-11 12:04] VITALS: BP 102/75; PULSE 104
[2018-07-11 12:23] VITALS: O2SAT 98
--- NOTE | 2018-07-11 13:00 | RAD ---
Date of service: 07/11/2018 PROCEDURE: CHEST RADIOGRAPH, 1 VIEW HISTORY: CHF, dyspnea with activity COMPARISON: 07/09/2018 FINDINGS: LUNGS: Clear. PLEURA: No pneumothorax or pleural fluid seen. CARDIOVASCULAR: CABG. No congestive change. No atherosclerotic calcification of the thoracic aorta. OSSEOUS STRUCTURES: No significant abnormalities. VISUALIZED UPPER ABDOMEN: Normal. OTHER FINDINGS: None. IMPRESSION: No active disease.
--- NOTE | 2018-07-11 13:36 | US ---
Date of service: 07/11/2018 PROCEDURE: Ultrasound of the Kidneys HISTORY: abnormal renal function COMPARISON: None available. TECHNIQUE: Sonogram of the kidneys. FINDINGS: RIGHT KIDNEY: Measures: 10.5 cm. Normal in size, contour and echogenicity. No stone, solid mass lesion or hydronephrosis visualized. LEFT KIDNEY: Evaluation limited. Possible atrophic renal parenchyma. Moderate hydronephrosis. No definite mass. No calculus. OTHER FINDINGS: Left pleural effusion. IMPRESSION: Left hydronephrosis. Possible atrophic left kidney. Left pleural effusion.
--- NOTE | 2018-07-11 17:18 | CP.PCM.DIS ---
Provider - Provider Date of Admission: 07/09/18 16:04 Attending physician: Lisa Olsen MD Consults: 07/09/18 15:57 Cardiology Consult Stat Comment: Consulting Provider: [place] Gonzalez V Consulting Physician: Washington Gonzalez V Reason for Consult: Afib, CHF Time Spent in preparation of Discharge (in minutes): 35 Diagnosis - Discharge Diagnosis (1) Acute exacerbation of CHF (congestive heart failure) Status: Acute (2) Atrial fibrillation, new onset Status: Acute (3) CAD (coronary atherosclerotic disease) Status: Chronic (4) HTN (hypertension) Status: Chronic Hospital Course - Lab Results Lab Results: Most Recent Lab Values WBC 7.6 K/uL (4.8-10.8) 07/11/18 04:50 RBC 4.07 Mil/uL (4.40-5.90) L 07/11/18 04:50 Hgb 13.2 g/dL (12.0-18.0) 07/11/18 04:50 Hct 39.6 % (35.0-51.0) 07/11/18 04:50 MCV 97.2 fl (80.0-94.0) H 07/11/18 04:50 MCH 32.4 pg (27.0-31.0) H 07/11/18 04:50 MCHC 33.4 g/dL (33.0-37.0) 07/11/18 04:50 RDW 12.7 % (11.5-14.5) 07/11/18 04:50 Plt Count 143 K/uL (130-400) 07/11/18 04:50 MPV 10.9 fl (7.2-11.7) 07/11/18 04:50 Neut % (Auto) 67.1 % (50.0-75.0) 07/11/18 04:50 Lymph % (Auto) 18.5 % (20.0-40.0) L 07/11/18 04:50 [place] % (Auto) 10.2 % (0.0-10.0) H 07/11/18 04:50 Eos % (Auto) 3.6 % (0.0-4.0) 07/11/18 04:50 Baso % (Auto) 0.6 % (0.0-2.0) 07/11/18 04:50 Neut # (Auto) 5.1 K/uL (1.8-7.0) 07/11/18 04:50 Lymph # (Auto) 1.4 K/uL (1.0-4.3) 07/11/18 04:50 [place] # (Auto) 0.8 K/uL (0.0-0.8) 07/11/18 04:50 Eos # (Auto) 0.3 K/uL (0.0-0.7) 07/11/18 04:50 Baso # (Auto) 0.0 K/uL (0.0-0.2) 07/11/18 04:50 PT 13.6 Seconds (9.8-13.1) H 07/09/18 14:06 INR 1.2 07/09/18 14:06 APTT 30.6 Seconds (25.6-37.1) 07/09/18 14:06 pO2 17 mm/Hg (30-55) L 07/09/18 14:00 VBG pH 7.33 (7.32-7.43) 07/09/18 14:00 VBG pCO2 41 mmHg (40-60) 07/09/18 14:00 VBG HCO3 19.6 mmol/L 07/09/18 14:00 VBG Total CO2 22.9 mmol/L (22-28) 07/09/18 14:00 VBG O2 Sat (Calc) 21.9 % (40-65) L 07/09/18 14:00 VBG Base Excess -4.1 mmol/L (0.0-2.0) L 07/09/18 14:00 VBG Potassium 4.5 mmol/L (3.6-5.2) 07/09/18 14:00 Sodium 136.0 mmol/L (132-148) 07/09/18 14:00 Chloride 105.0 mmol/L (98-107) 07/09/18 14:00 Glucose 231 mg/dL (75-110) H 07/09/18 14:00 Lactate 1.3 mmol/L (0.7-2.1) 07/09/18 14:00 FiO2 21.0 % 07/09/18 14:00 Sodium 137 mmol/l (132-148) 07/11/18 04:50 Potassium 4.0 MMOL/L (3.6-5.0) 07/11/18 04:50 Chloride 104 mmol/L (98-107) 07/11/18 04:50 Carbon Dioxide 22 mmol/L (22-30) 07/11/18 04:50 Anion Gap 15 (10-20) 07/11/18 04:50 BUN 46 mg/dl (9-20) H 07/11/18 04:50 Creatinine 1.8 mg/dl (0.8-1.5) H 07/11/18 04:50 Est GFR ( Amer) 46 07/11/18 04:50 Est GFR (Non-Af Amer) 38 07/11/18 04:50 POC Glucose (mg/dL) 261 mg/dL (65-110) H 07/11/18 12:00 Random Glucose 165 mg/dL (75-110) H 07/11/18 04:50 Hemoglobin A1c 7.9 % (4.2-6.5) H 07/09/18 19:00 Calcium 8.8 mg/dL (8.4-10.2) 07/11/18 04:50 Phosphorus 4.3 mg/dl (2.5-4.5) 07/09/18 19:00 Magnesium 1.8 MG/DL (1.6-2.3) 07/09/18 19:00 Total Bilirubin 1.1 mg/dl (0.2-1.3) 07/09/18 14:36 AST 43 U/L (17-59) 07/09/18 14:36 ALT 52 U/L (21-72) 07/09/18 14:36 Alkaline Phosphatase 87 U/L (38-126) 07/09/18 14:36 Troponin I 0.7180 ng/mL (0.00-0.120) H* 07/10/18 08:06 NT-Pro-B Natriuret Pep 7210 pg/ml (0-900) H 07/09/18 14:36 Total Protein 6.7 G/DL (6.3-8.2) 07/09/18 14:36 Albumin 3.4 g/dL (3.5-5.0) L 07/09/18 14:36 Globulin 3.3 gm/dL (2.2-3.9) 07/09/18 14:36 Albumin/Globulin Ratio 1.0 (1.0-2.1) 07/09/18 14:36 Triglycerides 48 mg/DL (0-149) 07/10/18 04:45 Cholesterol 99 mg/dL (0-199) 07/10/18 04:45 LDL Cholesterol Direct 49 mg/dL (0-129) 07/10/18 04:45 HDL Cholesterol 55 MG/DL (30-70) 07/10/18 04:45 TSH 3rd Generation 1.39 mIU/ML (0.46-4.68) 07/09/18 19:00 Venous Blood Potassium 4.5 mmol/L (3.6-5.2) 07/09/18 14:00 Influenza Typ A,B (EIA) Negative for flu a/b (NEGATIVE) 07/09/18 14:06 Blood Type O POSITIVE 07/09/18 14:06 Blood Type Confirm O POSITIVE 07/09/18 15:05 Antibody Screen Negative 07/09/18 14:06 BBK History Checked No verified bt 07/09/18 14:06 - Hospital Course Hospital Course: 68 y/o M with PMHx of DM-2, HTN, CAD, HLD presents to ED complaining of dyspnea on minimal activity and weakness. Patient evaluated in ED. Vitals: Temp 97, HR 130, BP 135/73, RR 20, O2 100% RA. BNP 7210, Troponins: 0.62>0.8270>0.8280>0.7180. EKG: Afib with RVR, CXR: bilateral infiltrates and cardiomegaly, Influenza A B: Negative. Patient received Lasix 40 m gIVP, Insulin Human regular 4 units SC, Labetatol 20 mg IVP in ED. [employer] consulted who recommended echocardiogram. Patient diagnosed with CHF exacerbation and Paroxysmal Afib. Echocardiogram: LV moderately dilated, Normal LV wall thickness, Mod-Severe septal hypokinesia, LVEF 10-15%, Moderate MR. Patient received ASA 81 mg, Lopressor 50 mg BID, Losartan 25 mg QD and Atorvastatin 40mg QD and started on Xarelto 15 mg PO QD and Lasix 20 mg PO daily. Patient's dyspnea improved and VSS. Patient advised to F/U with [facility] Dr. Milligan for possible outpatient echo/cath followed by AICD placement. Patient stable to D/C home. Discharge Medications - ASA 325 mg PO Ddaily - Atorvastatin 40 mg PO daily - Losartan 25 mg PO daily - Metformin 1000 mg PO daily New Medications - Lasix 20 mg PO Daily - Xarelto 15 mg PO daily Discharge Exam - Head Exam Head Exam: ATRAUMATIC, NORMOCEPHALIC - Eye Exam Eye Exam: EOMI, Normal appearance - ENT Exam ENT Exam: Mucous Membranes Moist - Neck Exam Neck exam: Full Rom - Respiratory Exam Respiratory Exam: Clear to PA & Lateral. absent: Decreased Breath Sounds, Rales, Rhonchi, Respiratory Distress - Cardiovascular Exam Cardiovascular Exam: REGULAR RHYTHM, +S1, +S2 - GI/Abdominal Exam GI & Abdominal Exam: Normal Bowel Sounds, Soft. absent: Distended, Tenderness - Extremities Exam Additional comments: No pedal edema, calf tenderness - Neurological Exam Neurological exam: Alert, Altered, Oriented x3 - Psychiatric Exam Psychiatric exam: Normal Affect, Normal Mood - Skin Skin Exam: Dry, Intact, Normal Color, Warm Discharge Plan - Discharge Medications Prescriptions: Atorvastatin [Lipitor] 40 mg PO DAILY #30 tab Furosemide [Lasix] 20 mg PO DAILY #30 tab Metoprolol Tartrate [Lopressor] 50 mg PO Q12 #60 tab Rivaroxaban [Xarelto] 15 mg PO DAILY #30 tab - Follow Up Plan Condition: GUARDED Disposition: HOME/ ROUTINE Instructions: Atrial Fibrillation (DC), Heart Failure, Adult (DC) Additional Instructions: alison aguillon 07/16/18 12;30pm Referrals: Vincent Aguillon MD [Medical Doctor] -
== END 2018-07-11 14:38 | disposition home or self-care (01) | DRG 291 ==
LOC: H.ER 13:13 → H.ERHOLD 16:04 → H.TEL 16:57
PROVIDERS: ADMIT Hospitalist; ATTEND Hospitalist
DX: I13.0 Hypertensive heart and chronic kidney disease with heart failure and stage 1 through stage 4 chronic kidney disease, or unspecified chronic kidney disease (principal); I50.23 Acute on chronic systolic (congestive) heart failure; N18.3 Chronic kidney disease, stage 3 (moderate); E11.22 Type 2 diabetes mellitus with diabetic chronic kidney disease; Z95.1 Presence of aortocoronary bypass graft; I48.0 Paroxysmal atrial fibrillation; I25.2 Old myocardial infarction; I25.10 Atherosclerotic heart disease of native coronary artery without angina pectoris; E78.5 Hyperlipidemia, unspecified; Z95.5 Presence of coronary angioplasty implant and graft; Z87.891 Personal history of nicotine dependence; I34.0 Nonrheumatic mitral (valve) insufficiency; J44.9 Chronic obstructive pulmonary disease, unspecified; Z79.01 Long term (current) use of anticoagulants

== ENCOUNTER 2018-08-22 15:56 | Inpatient (IN) | payer OTHER ==
[2018-08-22 17:18] LABS: ABG ALLEN TEST YES; ARTERIAL BLOOD GAS HCO3 16.6 mmol/L (21-28); ARTERIAL BLOOD GAS O2 SAT 98.2 % (95-98); ARTERIAL BLOOD GAS PCO2 28 mm/Hg (35-45); ARTERIAL BLOOD GAS PH 7.31 (7.35-7.45); ARTERIAL BLOOD GAS PO2 84 mm/Hg (80-100)
[2018-08-22] MEDS ORDERED: Metoprolol 1 mg/ml Inj IVP STA (17:46)
[2018-08-22 17:51] LABS: INR 1.4; PROTHROMBIN TIME 16.1 Seconds (9.8-13.1)
[2018-08-22 17:54] LABS: PARTIAL THROMBOPLASTIN TIME 28.4 Seconds (25.6-37.1)
--- NOTE | 2018-08-22 18:02 | RAD ---
Date of service: 08/22/2018 HISTORY: sob COMPARISON: Comparison chest 07/11/2018 FINDINGS: LUNGS: Poor inspiration with low lung volumes, crowded bronchovascular markings and mild bibasilar atelectasis left greater than right. Mild elevation right hemidiaphragm; rule out eventration. PLEURA: No significant pleural effusion identified, no pneumothorax apparent. CARDIOVASCULAR: Sternotomy wires and CABG clips again noted. Metallic clips are also seen in the right suprahilar region heart remains enlarged. No significant aortic atherosclerotic calcification present. Normal cardiac size. No pulmonary vascular congestion. OSSEOUS STRUCTURES: No significant abnormalities. VISUALIZED UPPER ABDOMEN: Normal. OTHER FINDINGS: None. IMPRESSION: Poor inspiration with low lung volumes, crowded bronchovascular markings and mild bibasilar atelectasis left greater than right. Mild elevation right hemidiaphragm; rule out eventration. Cardiomegaly.
--- NOTE | 2018-08-22 18:05 | ED PDOC ---
HPI: SOB/CHF/COPD Time Seen by Provider: 08/22/18 16:46 Chief Complaint (Nursing): Shortness Of Breath Chief Complaint (Provider): Shortness of breath History Per: Patient History/Exam Limitations: no limitations Onset/Duration Of Symptoms: Days (x1) Current Symptoms Are (Timing): Still Present Additional Complaint(s): 68 year old male presents to the ED with shortness of breath for 1 day which has been worsening since onset. denies chest pain and cough. Patient also states having leg swelling which is intermittent for several days. reports compliance with medications. 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 Past Medical History Reviewed: Historical Data, Nursing Documentation, Vital Signs Vital Signs: Last Vital Signs Temp 98.4 F 08/22/18 16:00 Pulse 120 H 08/22/18 16:00 Resp 20 08/22/18 16:00 BP 113/93 H 08/22/18 16:00 Pulse Ox 97 08/22/18 16:00 - Medical History PMH: Asthma, Back Problems, Diabetes, HTN - Surgical History Surgical History: CABG, Coronary Stent - Family History Family History: States: No Known Family Hx - Social History Ex-Smoker (has not smoked in the last 12 months): Yes (Quit 15 years ago) - Immunization History Hx Tetanus Toxoid Vaccination: No Hx Influenza Vaccination: No Hx Pneumococcal Vaccination: No - Home Medications Home Medications: Ambulatory Orders Medication Instructions Recorded Losartan [Cozaar] 25 mg PO DAILY 07/09/18 Atorvastatin [Lipitor] 40 mg PO DAILY #30 tab 07/11/18 Furosemide [Lasix] 20 mg PO DAILY #30 tab 07/11/18 Metoprolol Tartrate [Lopressor] 50 mg PO Q12 #60 tab 07/11/18 Rivaroxaban [Xarelto] 15 mg PO DAILY #30 tab 07/11/18 Latanoprost 0.005% Opht [Xalatan 1 drop EACHEYE HS 08/22/18 Opht] Timolol 0.5% Ophth [Timoptic 0.5% 1 drop EACHEYE QAM 08/22/18 Ophth Soln] metFORMIN [glucOPHAGE] 500 mg PO BID 08/22/18 - Allergies Allergies/Adverse Reactions: Allergies Allergy/AdvReac Type Severity Reaction Status Date / Time No Known Allergies Allergy Verified 08/22/18 16:01 Review of Systems ROS Statement: Except As Marked, All Systems Reviewed And Found Negative (as per HPI) Cardiovascular: Negative for: Chest Pain Respiratory: Positive for: Shortness of Breath. Negative for: Cough Musculoskeletal: Positive for: Other (Leg swelling) Physical Exam - Reviewed Nursing Documentation Reviewed: Yes Vital Signs Reviewed: Yes - Physical Exam Appears: Positive for: In Acute Distress (Respiratory distress) Head Exam: Positive for: ATRAUMATIC, NORMOCEPHALIC Skin: Positive for: Warm, Dry Eye Exam: Positive for: EOMI, PERRL ENT: Positive for: Other (Tacky mucous membranes) Neck: Positive for: Painless ROM, Supple Cardiovascular/Chest: Positive for: Tachycardia, Irregularly Irregular Respiratory: Positive for: Respiratory Distress, Other (Clear to auscultation bilaterally; tachypnic). Negative for: Rales, Wheezing Gastrointestinal/Abdominal: Positive for: Soft. Negative for: Tenderness Back: Positive for: Normal Inspection. Negative for: Muscle Spasm Extremity: Positive for: Other (1+ pitting edema to bilateral lower legs) Lymphatic: Negative for: Adenopathy Neurologic/Psych: Positive for: Alert. Negative for: Motor/Sensory Deficits - Laboratory Results Result Diagrams: 08/23/18 05:00 08/23/18 05:00 Lab Results: pCO2 28 mm/Hg (35-45) L 08/22/18 16:57 pO2 84 mm/Hg (80-100) 08/22/18 16:57 HCO3 16.6 mmol/L (21-28) L 08/22/18 16:57 ABG pH 7.31 (7.35-7.45) L 08/22/18 16:57 ABG Total CO2 15.0 mmol/L (22-28) L 08/22/18 16:57 ABG O2 Saturation 98.2 % (95-98) H 08/22/18 16:57 ABG Base Excess -10.5 mmol/L (-2.0-3.0) L 08/22/18 16:57 Vick Test Yes 08/22/18 16:57 ABG Potassium 6.0 mmol/L (3.6-5.2) H 08/22/18 16:57 A-a O2 Difference 131.0 mm/Hg 08/22/18 16:57 Sodium 133.0 mmol/L (132-148) 08/22/18 16:57 Chloride 105.0 mmol/L (98-107) 08/22/18 16:57 Glucose 244 mg/dL (75-110) H 08/22/18 16:57 Lactate 6.7 mmol/L (0.7-2.1) H* 08/22/18 16:57 FiO2 35.0 % 08/22/18 16:57 Blood Gas Comments 3.5l/m nc.rr 08/22/18 16:57 Crit Value Called To Md elsa camara 08/22/18 16:57 Crit Value Called By 15 08/22/18 16:57 Crit Value Read Back Y 08/22/18 16:57 Blood Gas Notified Time 1717 08/22/18 16:57 PT 16.1 Seconds (9.8-13.1) H 08/22/18 17:39 INR 1.4 08/22/18 17:39 APTT 28.4 Seconds (25.6-37.1) 08/22/18 17:39 - ECG ECG Rhythm: Positive for: Atrial Fibrillation (with RVR) O2 Sat by Pulse Oximetry: 97 (RA) Pulse Ox Interpretation: Normal - Radiology X-Ray: Read By Radiologist X-Ray Interpretation: Cardiomegaly - Critical Care Total Time (In Min): 45 Documented Critical Care: Time excludes all time spent performint seperately billable procedures Medical Decision Making Medical Decision Making: Initial Impression: Atrial fibrillation with rapid heart rate Differential includes but not limited to ACS, CHF, and fluid overload Initial Plan: --Type and screen stat --Arterial blood gas shock panel --ECG --Alcohol serum stat --B-type natriuretic peptide stat --CMP --Drug screen --Lact acid stat --Magnesium stat --Phosphorous stat --Troponin stat --ED urine dipstick --CBC --D dimer --PTT --Prothrombin time --Chest X-ray --Influenza A B stat 1900 Pt's labs demonstrated elevated BUN/Cr, elevated lactic acid, elevated Troponin, markedly elevated probnp, all of which are worse than visit in Jun 2018 Reviewed echo from 06/2018. EF 10-15% Albuterol, insulin/d50, calcium gluconate, kayexalate ordered for hyperkalemia DW Dr Zhong Nephrology. Agrees with plan for management of hyperkalemia. LILIAN Bhatti admitting for PMD Dr Zapata. Reji Fam for Cardiology LILIAN Fam Cardiology. Concern for elevated troponin and probnp in setting of lower range of normal BP. Pt to be started on amiodarone drip. LILIAN Singh Hospitalist for ICU placement for multisystem organ failure. Scribe Attestation: Documented by Casper Prather acting as a scribe for Maya Echols MD. Provider Scribe Attestation: All medical record entries made by the Scribe were at my direction and personally dictated by me. I have reviewed the chart and agree that the record accurately reflects my personal performance of the history, physical exam, medical decision making, and the department course for this patient. I have also personally directed, reviewed, and agree with the discharge instructions and disposition. Disposition - Clinical Impression Clinical Impression: Atrial fibrillation with rapid ventricular response, Acute on chronic renal failure, Hyperkalemia - Disposition Disposition Time: 19:00 Condition: CRITICAL - Pt Status Changed To: Hospital Disposition Of: Inpatient - Admit Certification Admit to Inpatient:: After my assessment, the patient will require hospitalization for at least two midnights. This is because of the severity of symptoms shown, intensity of services needed, and/or the medical risk in this patient being treated as an outpatient. - POA Present On Arrival: None
[2018-08-22 18:06] LABS: BASO # 0.1 K/uL (0.0-0.2); BASO % 0.5 % (0.0-2.0); EOS % 0.2 % (0.0-4.0); HEMOGLOBIN 14.1 g/dL (12.0-18.0); LYMPH % 10.5 % (20.0-40.0); MEAN CELL VOLUME 96.6 fl (80.0-94.0); MEAN CORPUSCULAR HEMOGLOBIN 31.5 pg (27.0-31.0); MEAN CORPUSCULAR HGB CONC 32.6 g/dL (33.0-37.0); MEAN PLATELET VOLUME 10.2 fl (7.2-11.7); MONO # 0.6 K/uL (0.0-0.8); MONO % 6.5 % (0.0-10.0); NEUT # 8.1 K/uL (1.8-7.0); NEUT % 82.3 % (50.0-75.0); NRBC % 0.1 % (0.0-0.0); RBC 4.46 Mil/uL (4.40-5.90); RED CELL DISTRIBUTION WIDTH 13.5 % (11.5-14.5); WHITE BLOOD COUNT 9.8 K/uL (4.8-10.8)
[2018-08-22] MEDS ORDERED: Metoprolol 1 mg/ml Inj ONE (18:10)
[2018-08-22 18:18] LABS: ALB/GLOB RATIO 1.1 (1.0-2.1); ALBUMIN 4.1 g/dL (3.5-5.0); ALT/SGPT 106 U/L (21-72); AST/SGOT 66 U/L (17-59); B-TYPE NATRIURETIC PEPTIDE 20900 pg/ml (0-900); CALCIUM 9.3 mg/dL (8.4-10.2); GFR NON-AFRICAN AMERICAN 26
[2018-08-22 18:19] LABS: BLOOD UREA NITROGEN 60 mg/dl (9-20)
[2018-08-22] MEDS ORDERED: Dextrose 50% SYRINGE Inj (50 ml) IVP STA (18:20)
[2018-08-22] MEDS ORDERED: Insulin Regular 100 units/ml SC STA (18:20)
[2018-08-22] MEDS ORDERED: Albuterol 0.083% Inhal Sol (2.5 mg/3 mL) UD IH STA (18:20)
[2018-08-22] MEDS ORDERED: Calcium Gluconate 4.65 mEq/10 ml Inj IV STA (18:22)
[2018-08-22 18:33] LABS: D DIMER < 200 ng/mlDDU (0-230)
[2018-08-22] MEDS ORDERED: Sod Polystyrene Sulf 15 gm/60 ml Susp PO STA (18:37)
[2018-08-22] MEDS ORDERED: Albuterol 0.042% Inhal Sol (1.25 mg/3 mL) UD ONE (18:40)
[2018-08-22] MEDS ORDERED: Insulin Regular 100 units/ml ONE (18:41)
[2018-08-22] MEDS ORDERED: Dextrose 50% SYRINGE Inj (50 ml) ONE (18:41)
[2018-08-22] MEDS ORDERED: Albuterol 0.083% Inhal Sol (2.5 mg/3 mL) UD ONE (18:45)
[2018-08-22] MEDS ORDERED: Calcium Gluconate 4.6 MEQ in Sodium Chloride 0.9% 100 ML IV ONE (18:45)
[2018-08-22] MEDS ORDERED: Amiodarone 150 MG in Sodium Chloride 0.9% 100 ML IVPB ONE (18:58)
--- NOTE | 2018-08-22 19:51 | CP.PCM.CON ---
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 This is a 68 years old male who lives alone with questionable compliant with medication. He has hx of A Fib, CHF, CKD and DM. He comes with 2 weeks of SOB on mild exertion, becoming worse within the past few days. No Chest Pain nor palpitation. No fever,leg pain, urinary symptoms, nor diarrhea. PMH: Asthma, Back Problems, DM II; HTN; HLD; CAD; A Fib; Systolic CHF; CKD PSH: CABG, Coronary Stent SH: - , Lives with brother, sister in law and 3 kids. Used to work in [employer] in past. - Reports drinking 10-15 beer on weekends, Denies smoking or illicit drug use FH: Mother and father of heart disease in 70s, Brother and sister with asthma Allergy: NKDA Medication: Reviewed Review of Systems - Review of Systems Review of Systems: Review of system is limited as the patient is not giving the full hx as per the family - Constitutional Constitutional: absent: Chills - EENT Nose/Mouth/Throat: absent: Epistaxis, Nasal Congestion, Nasal Discharge - Cardiovascular Cardiovascular: Dyspnea, Edema. absent: Chest Pain - Respiratory Respiratory: Dyspnea - Gastrointestinal Gastrointestinal: absent: Abdominal Pain, Diarrhea, Nausea, Vomiting Past Patient History - Past Medical History & Family History Past Medical History?: Yes - Past Social History Smoking Status: Never Smoked Chewing Tobacco Use: No Cigar Use: No Alcohol: Occasional Drugs: Denies, Inhalants Home Situation {Lives}: Alone - CARDIAC Hx Atrial Fibrillation: Yes Hx Hypercholesterolemia: Yes Hx Hypertension: Yes - PULMONARY Hx Asthma: Yes - NEUROLOGICAL Hx Neurological Disorder: No - HEENT Hx HEENT Problems: No - RENAL Hx Chronic Kidney Disease: Yes - ENDOCRINE/METABOLIC Hx Diabetes Mellitus Type 2: Yes - HEMATOLOGICAL/ONCOLOGICAL Hx Blood Disorders: No - INTEGUMENTARY Hx Dermatological Problems: No - MUSCULOSKELETAL/RHEUMATOLOGICAL Hx Back Pain: Yes Hx Falls: No - GASTROINTESTINAL Hx Gastrointestinal Disorders: No - GENITOURINARY/GYNECOLOGICAL Hx Genitourinary Disorders: No - PSYCHIATRIC Hx Psychophysiologic Disorder: No Hx Substance Use: No - SURGICAL HISTORY Hx Coronary Artery Bypass Graft: Yes Hx Coronary Stent: Yes - ANESTHESIA Hx Anesthesia: Yes Hx Anesthesia Reactions: No Hx Malignant Hyperthermia: No Meds Allergies/Adverse Reactions: Allergies Allergy/AdvReac Type Severity Reaction Status Date / Time No Known Allergies Allergy Verified 08/22/18 16:01 - Medications Medications: Current Medications Amiodarone HCl 450 mg/ Sodium (Chloride) 259 mls @ 34.53 mls/hr IVPB .[id number] [facility]; Protocol Physical Exam - Constitutional Appears: No Acute Distress - Head Exam Head Exam: ATRAUMATIC, NORMAL INSPECTION, NORMOCEPHALIC - Eye Exam Eye Exam: EOMI, Normal appearance Pupil Exam: NORMAL ACCOMODATION, PERRL - ENT Exam ENT Exam: Mucous Membranes Moist, Normal Exam, Normal External Ear Exam - Neck Exam Neck exam: Positive for: Full Rom, Normal Inspection. Negative for: Lymphadenopathy, Tenderness - Respiratory Exam Respiratory Exam: Rales, Wheezes - Cardiovascular Exam Cardiovascular Exam: Irregular Rhythm, +S1, +S2 - GI/Abdominal Exam GI & Abdominal Exam: Normal Bowel Sounds, Soft. absent: Mass, Organomegaly, Tenderness - Rectal Exam Rectal Exam: Deferred - Extremities Exam Extremities exam: Positive for: full ROM, normal inspection. Negative for: calf tenderness, pedal edema - Back Exam Back exam: NORMAL INSPECTION. absent: CVA tenderness (L), CVA tenderness (R) - Neurological Exam Neurological exam: Alert, CN II-XII Intact, Oriented x3, Reflexes Normal - Psychiatric Exam Psychiatric exam: Normal Affect, Normal Mood - Skin Skin Exam: Dry, Intact, Normal Color, Warm Results - Vital Signs Recent Vital Signs: Last Vital Signs Temp 98.4 F 08/22/18 16:00 Pulse 114 H 08/22/18 18:11 Resp 20 08/22/18 16:00 BP 120/75 08/22/18 18:11 Pulse Ox 97 08/22/18 18:12 - Labs Result Diagrams: 08/22/18 17:39 08/22/18 22:55 Labs: Laboratory Results - last 24 hr 08/22/18 08/22/18 08/22/18 16:57 17:39 17:39 WBC 9.8 RBC 4.46 Hgb 14.1 Hct 43.1 MCV 96.6 H MCH 31.5 H MCHC 32.6 L RDW 13.5 Plt Count 216 MPV 10.2 Neut % (Auto) 82.3 H Lymph % (Auto) 10.5 L [place] % (Auto) 6.5 Eos % (Auto) 0.2 Baso % (Auto) 0.5 Neut # (Auto) 8.1 H Lymph # (Auto) 1.0 [place] # (Auto) 0.6 Eos # (Auto) 0.0 Baso # (Auto) 0.1 PT INR APTT D-Dimer, Quantitative pCO2 28 L pO2 84 HCO3 16.6 L ABG pH 7.31 L ABG Total CO2 15.0 L ABG O2 Saturation 98.2 H ABG Base Excess -10.5 L Vick Test Yes ABG Potassium 6.0 H A-a O2 Difference 131.0 Sodium 133.0 138 Chloride 105.0 100 Glucose 244 H Lactate 6.7 H* FiO2 35.0 Blood Gas Comments 3.5l/m nc.rr Crit Value Called To Md elsa camara Crit Value Called By 15 Crit Value Read Back Y Blood Gas Notified Time 1717 Potassium 6.3 H* D Carbon Dioxide 18 L Anion Gap 26 H BUN 60 H Creatinine 2.5 H Est GFR ( Amer) 31 Est GFR (Non-Af Amer) 26 Random Glucose 227 H Lactic Acid Calcium 9.3 Phosphorus 6.1 H Magnesium 2.3 Total Bilirubin 1.3 AST 66 H D ALT 106 H D Alkaline Phosphatase 172 H Troponin I 1.0500 H* NT-Pro-B Natriuret Pep 06421 H Total Protein 7.8 Albumin 4.1 Globulin 3.7 Albumin/Globulin Ratio 1.1 Arterial Blood Potassium 6.0 H Alcohol, Quantitative < 10 08/22/18 08/22/18 17:39 17:50 WBC RBC Hgb Hct MCV MCH MCHC RDW Plt Count MPV Neut % (Auto) Lymph % (Auto) [place] % (Auto) Eos % (Auto) Baso % (Auto) Neut # (Auto) Lymph # (Auto) [place] # (Auto) Eos # (Auto) Baso # (Auto) PT 16.1 H INR 1.4 APTT 28.4 D-Dimer, Quantitative < 200 pCO2 pO2 HCO3 ABG pH ABG Total CO2 ABG O2 Saturation ABG Base Excess Vick Test ABG Potassium A-a O2 Difference Sodium Chloride Glucose Lactate FiO2 Blood Gas Comments Crit Value Called To Crit Value Called By Crit Value Read Back Blood Gas Notified Time Potassium Carbon Dioxide Anion Gap BUN Creatinine Est GFR ( Amer) Est GFR (Non-Af Amer) Random Glucose Lactic Acid 5.6 H* Calcium Phosphorus Magnesium Total Bilirubin AST ALT Alkaline Phosphatase Troponin I NT-Pro-B Natriuret Pep Total Protein Albumin Globulin Albumin/Globulin Ratio Arterial Blood Potassium Alcohol, Quantitative - EKG Data EKG comments: A Fib with RVR 108/min Q wave in leads III and aVf T depression in leads I and aVL - Imaging and Cardiology Chest x-ray Status: Image reviewed by me Additional comment: Poor inspiration Cardiomegaly Surgical sutures in mid chest of the thoracotomy Assessment & Plan - Assessment and Plan (Free Text) Assessment: #. Metabolic Acidosis #. Acute on chronic renal failure #. Acute on chronic Systolic Heart Failure #. Hyperkalemia #. Elevated Troponin #. DM II #. A Fib with RVR Plan: 68 years old male who lives alone with questionable compliant with medication. He has hx of A Fib, CHF, CKD and DM. He comes with 2 weeks of SOB on mild exertion, becoming worse within the past few days. No Chest Pain nor p alpitation. No fever,leg pain, urinary symptoms, nor diarrhea. #. Respiratory insufficiency with Metabolic Acidosis and lactic acidosis, caused by the renal failure and congestive heart failure. The patient is in Randal and Adamson respiration. - Start CPAP - Sodium Bicarbonate IV push and a drip #. Acute on chronic renal failure from poor intake - Consult Nephrology Dr Zhong - Slow IV Fluid rehydration #. Acute on Chronic Heart Failure with elevated Pro BNP - ECHO -->EF 10-15% - Consult Cardiology Dr Fam - Metoprolol. - Lasix - Hold losartan #. Hyperkalemia. Ptient received Calcium carbonate, Sodium Bicarbonate - Monitor electrolyte #. DMII - Regular insulin sliding scale according to accucheck - hold Metformin - HbA1c #. Elevated Troponin probably due to the CHF r/o NSTEMI - EK - Serial Troponin -. Serial EKG - Cardiology on consult - Metoprolol -Change Xarelto because of reenal failureto Apixaban for anticoagulant. - DVT prophylaxis with SCD and patient on Apixaban Chele Singh MD - Date & Time Date: 08/22/18 Time: 19:50
[2018-08-22] MEDS ORDERED: Sodium Bicarbonate (8.4%) 50 Meq Syringe IVP ONE (20:58)
[2018-08-22] MEDS: Amiodarone 450 MG in Sodium Chloride 0.9% 250 ML IVPB SCH (22:09)
[2018-08-22] MEDS ORDERED: Sodium Bicarbonate (8.4%) 50 Meq Syringe ONE (22:18)
[2018-08-22 22:42] LABS: SQUAMOUS EPITHIAL 1 /hpf (0-5); URINE BACTERIA RARE (<OCC); URINE BILIRUBIN NEGATIVE (NEGATIVE); URINE BLOOD NEGATIVE (NEGATIVE); URINE CLARITY CLOUDY (Clear); URINE COLOR AMBER (YELLOW); URINE GLUCOSE (UA) 50 mg/dL (NEGATIVE); URINE LEUKOCYTE ESTERASE NEG Leu/uL (Negative); URINE PROTEIN >=500 mg/dL (NEGATIVE); URINE UROBILINOGEN 0.2-1.0 mg/dL (0.2-1.0)
[2018-08-22 22:55] LABS: BARBITURATES, UR NEGATIVE (NEGATIVE); BENZODIAZEPINES, UR NEGATIVE (NEGATIVE); OPIATES, UR NEGATIVE (NEGATIVE); PHENCYCLIDINE, UR NEGATIVE (NEGATIVE)
[2018-08-22 23:29] LABS: TROPONIN I 1.1 ng/mL (0.00-0.120)
[2018-08-23] MEDS: Latanoprost 0.005% Opht SOUTION OU SCH ×2 (00:07→22:16)
[2018-08-23] MEDS: Insulin Regular 100 units/ml SC SCH ×5 (00:08→22:01)
[2018-08-23 01:45] LABS: ABG ALLEN TEST YES; ARTERIAL BLOOD GAS HCO3 15.4 mmol/L (21-28); ARTERIAL BLOOD GAS HEMOGLOBIN 14.6 g/dL (11.7-17.4); ARTERIAL BLOOD GAS O2 CONTENT 19.4 ML/dL (15-23); ARTERIAL BLOOD GAS O2 SAT 97.1 % (95-98); ARTERIAL BLOOD GAS PCO2 22 mm/Hg (35-45); ARTERIAL BLOOD GAS PH 7.33 (7.35-7.45); ARTERIAL BLOOD GAS PO2 83 mm/Hg (80-100); ARTERIAL BLOOD GAS TCO2 12.3 mmol/L (22-28)
[2018-08-23] MEDS ORDERED: Sodium Bicarbonate (8.4%) 50 Meq Syringe IVP ONE (02:02)
[2018-08-23] MEDS: Amiodarone 450 MG in Sodium Chloride 0.9% 250 ML IVPB SCH ×2 (04:09→08:21)
[2018-08-23 05:19] LABS: HEMOGLOBIN 13.8 g/dL (12.0-18.0); MEAN CELL VOLUME 96.1 fl (80.0-94.0); MEAN CORPUSCULAR HEMOGLOBIN 31.5 pg (27.0-31.0); MEAN CORPUSCULAR HGB CONC 32.8 g/dL (33.0-37.0); RBC 4.37 Mil/uL (4.40-5.90); RED CELL DISTRIBUTION WIDTH 13.8 % (11.5-14.5); WHITE BLOOD COUNT 14.1 K/uL (4.8-10.8)
[2018-08-23 05:58] LABS: TROPONIN I 1.27 ng/mL (0.00-0.120)
[2018-08-23 06:11] LABS: ALBUMIN 3.7 g/dL (3.5-5.0); CALCIUM 9.1 mg/dL (8.4-10.2)
[2018-08-23] MEDS: Heparin 25,000units in D5W 25,000 UNITS/250 ML BAG IV SCH (08:31)
--- NOTE | 2018-08-23 10:32 | RAD ---
Date of service: 08/23/2018 HISTORY: SOB COMPARISON: Chest radiograph dated 08/22/2018. FINDINGS: LUNGS: Pulmonary vascular congestion. Right basilar atelectasis. PLEURA: Questionable small bilateral pleural effusions. No pneumothorax apparent. CARDIOVASCULAR: Prior sternotomy with sternal wires and surgical clips in place. Aortic atherosclerotic calcifications. Cardiomediastinal silhouette stably enlarged. OSSEOUS STRUCTURES: Unchanged. VISUALIZED UPPER ABDOMEN: Normal. OTHER FINDINGS: Right suprahilar surgical clips. IMPRESSION: Pulmonary vascular congestion with questionable small bilateral pleural effusions.
--- NOTE | 2018-08-23 11:32 | CP.PCM.CON ---
History of Present Illness - History of Present Illness History of Present Illness: RENAL CONSULT Consult for LUIS ARMANDO HPI: 68 yo M w/ pmh of advanced CHF that presented to ER w/ sob. He was found to be in afib w/ rvr and brought in for further evaluation. He was also found to have AoCKD and hyperkalemia. He is in the ICU- he was started on bicarb gtt and metoprolol for afib. He denies n/v. He endorses SOB. He has nto been seen yet by cardiology. Denies naids. Denies fever or chills. Endorses reduced uop. ros: a full detailed ros is negative except as above PMH: CHF CKD Afib CAD HTN DM PSH: CABG, Coronary Stent SH: - + etoh, no ivdu, no smoke FH: Mother and father of heart disease in 70s, Brother and sister with asthma Allergy: NKDA Medication: Reviewed pe: vs as below gen: nad sclera: anicteric op: clear neck: supple cv: +s1+s2 no rub abd: soft nt nd ] lungs :reduced at bases abd: soft nt nd ext: no edema neuro: a+Ox3 no focal defecit psych: flat skin no rash labs and imaging reviewed imp: ARF / Acute on chronic systolic heart failure/ metabolic acidosis/ respiratory alkalosis/ hyperkalemia/ anemia plan: LUIS ARMANDO - is likely cardiorenal - suspect given very poor cardiac perfusion causing shock liver type picture + luis armando. UA does have 4+ protein - will start serologic work up. Perhaps diabetic nephropathy last a1c quite high. renal us ordered Awaiting cardiology input- may beneft from some sort of ionotropic therapy to help cardiac perfusion. acidosis - 2/2 lactic acid (prob from poor cardiac output/shock liver not met abolizing) + luis armando respiratory alk - etiology not clear? could consider v/q r/o pe f/u cardiology eval medical management of hyperkalemia for now Past Patient History - Past Medical History & Family History Past Medical History?: Yes - Past Social History Smoking Status: Never Smoked Chewing Tobacco Use: No Cigar Use: No Alcohol: Occasional Drugs: Denies, Inhalants Home Situation {Lives}: Alone - CARDIAC Hx Atrial Fibrillation: Yes Hx Hypercholesterolemia: Yes Hx Hypertension: Yes - PULMONARY Hx Asthma: Yes - NEUROLOGICAL Hx Neurological Disorder: No - HEENT Hx HEENT Problems: No - RENAL Hx Chronic Kidney Disease: Yes - ENDOCRINE/METABOLIC Hx Diabetes Mellitus Type 2: Yes - HEMATOLOGICAL/ONCOLOGICAL Hx Blood Disorders: No - INTEGUMENTARY Hx Dermatological Problems: No - MUSCULOSKELETAL/RHEUMATOLOGICAL Hx Back Pain: Yes Hx Falls: No - GASTROINTESTINAL Hx Gastrointestinal Disorders: No - GENITOURINARY/GYNECOLOGICAL Hx Genitourinary Disorders: No - PSYCHIATRIC Hx Psychophysiologic Disorder: No Hx Substance Use: No - SURGICAL HISTORY Hx Coronary Artery Bypass Graft: Yes Hx Coronary Stent: Yes - ANESTHESIA Hx Anesthesia: Yes Hx Anesthesia Reactions: No Hx Malignant Hyperthermia: No Meds Allergies/Adverse Reactions: Allergies Allergy/AdvReac Type Severity Reaction Status Date / Time No Known Allergies Allergy Verified 08/22/18 16:01 - Medications Medications: Current Medications Atorvastatin Calcium (Lipitor) 40 mg PO HS [facility] Docusate Sodium (Colace) 100 mg PO BID [facility] Last Admin: 08/23/18 10:52 Dose: 100 mg Amiodarone HCl 450 mg/ Sodium (Chloride) 259 mls @ 34.53 mls/hr IVPB .[id number] [facility]; Protocol Last Admin: 08/23/18 08:21 Dose: 17.2 mls/hr Heparin Sodium/Dextrose (Heparin 25,000 Units/250ml In D5w) 25,000 units in 250 mls @ 8 mls/hr IV .Q24H [facility]; Protocol Last Admin: 08/23/18 08:31 Dose: 8 mls/hr Insulin Human Regular (Humulin R) 0 units SC ACHS [facility]; Protocol Last Admin: 08/23/18 08:52 Dose: Not Given Latanoprost (Xalatan Opht) 1 drop OU HS [facility] Last Admin: 08/23/18 00:07 Dose: 1 drop Levalbuterol HCl (Xopenex) 0.63 mg INH RQ8 FLASH Metoprolol Tartrate (Lopressor) 50 mg PO Q12 [facility] Last Admin: 08/23/18 08:54 Dose: 50 mg Timolol Maleate (Timoptic 0.5% Ophth Soln) 1 drop OD QAM [facility] Last Admin: 08/23/18 08:53 Dose: 1 drop Results - Vital Signs Recent Vital Signs: Last Vital Signs Temp 96.1 F L 08/23/18 08:00 Pulse 95 H 08/23/18 10:00 Resp 26 H 08/23/18 10:00 BP 107/75 08/23/18 10:00 Pulse Ox 91 L 08/23/18 10:00 - Labs Result Diagrams: 08/23/18 05:00 08/23/18 05:00 Labs: Laboratory Results - last 24 hr 08/22/18 08/22/18 08/22/18 16:57 17:39 17:39 WBC 9.8 RBC 4.46 Hgb 14.1 Hct 43.1 MCV 96.6 H MCH 31.5 H MCHC 32.6 L RDW 13.5 Plt Count 216 MPV 10.2 Neut % (Auto) 82.3 H Lymph % (Auto) 10.5 L [place] % (Auto) 6.5 Eos % (Auto) 0.2 Baso % (Auto) 0.5 Neut # (Auto) 8.1 H Lymph # (Auto) 1.0 [place] # (Auto) 0.6 Eos # (Auto) 0.0 Baso # (Auto) 0.1 PT INR APTT D-Dimer, Quantitative pCO2 28 L pO2 84 HCO3 16.6 L ABG pH 7.31 L ABG Total CO2 15.0 L ABG O2 Saturation 98.2 H ABG O2 Content ABG Base Excess -10.5 L ABG Hemoglobin ABG Carboxyhemoglobin POC ABG HHb (Measured) ABG Methemoglobin ABG O2 Capacity Vick Test Yes ABG Potassium 6.0 H A-a O2 Difference 131.0 Hgb O2 Saturation Sodium 133.0 138 Chloride 105.0 100 Glucose 244 H Lactate 6.7 H* Vent Mode FiO2 35.0 Blood Gas Comments 3.5l/m nc.rr Crit Value Called To Md elsa camara Crit Value Called By 15 Crit Value Read Back Y Blood Gas Notified Time 1717 Potassium 6.3 H* D Carbon Dioxide 18 L Anion Gap 26 H BUN 60 H Creatinine 2.5 H Est GFR ( Amer) 31 Est GFR (Non-Af Amer) 26 POC Glucose (mg/dL) Random Glucose 227 H Lactic Acid Calcium 9.3 Phosphorus 6.1 H Magnesium 2.3 Total Bilirubin 1.3 AST 66 H D ALT 106 H D Alkaline Phosphatase 172 H Troponin I 1.0500 H* NT-Pro-B Natriuret Pep 32904 H Total Protein 7.8 Albumin 4.1 Globulin 3.7 Albumin/Globulin Ratio 1.1 Arterial Blood Potassium 6.0 H Urine Color Urine Clarity Urine pH Ur Specific Hiko Urine Protein Urine Glucose (UA) Urine Ketones Urine Blood Urine Nitrate Urine Bilirubin Urine Urobilinogen Ur Leukocyte Esterase Urine RBC (Auto) Urine Microscopic WBC Ur Squamous Epith Cells Urine Bacteria Hyaline Casts Urine Opiates Screen Urine Methadone Screen Ur Barbiturates Screen Ur Phencyclidine Scrn Ur Amphetamines Screen U Benzodiazepines Scrn U Oth Cocaine Metabols U Cannabinoids Screen Alcohol, Quantitative < 10 Influenza Typ A,B (EIA) 08/22/18 08/22/18 08/22/18 17:39 17:50 22:27 WBC RBC Hgb Hct MCV MCH MCHC RDW Plt Count MPV Neut % (Auto) Lymph % (Auto) [place] % (Auto) Eos % (Auto) Baso % (Auto) Neut # (Auto) Lymph # (Auto) [place] # (Auto) Eos # (Auto) Baso # (Auto) PT 16.1 H INR 1.4 APTT 28.4 D-Dimer, Quantitative < 200 pCO2 pO2 HCO3 ABG pH ABG Total CO2 ABG O2 Saturation ABG O2 Content ABG Base Excess ABG Hemoglobin ABG Carboxyhemoglobin POC ABG HHb (Measured) ABG Methemoglobin ABG O2 Capacity Vick Test ABG Potassium A-a O2 Difference Hgb O2 Saturation Sodium Chloride Glucose Lactate Vent Mode FiO2 Blood Gas Comments Crit Value Called To Crit Value Called By Crit Value Read Back Blood Gas Notified Time Potassium Carbon Dioxide Anion Gap BUN Creatinine Est GFR ( Amer) Est GFR (Non-Af Amer) POC Glucose (mg/dL) Random Glucose Lactic Acid 5.6 H* Calcium Phosphorus Magnesium Total Bilirubin AST ALT Alkaline Phosphatase Troponin I NT-Pro-B Natriuret Pep Total Protein Albumin Globulin Albumin/Globulin Ratio Arterial Blood Potassium Urine Color Janna Urine Clarity Cloudy Urine pH 5.0 Ur Specific Hiko 1.020 Urine Protein >=500 Urine Glucose (UA) 50 Urine Ketones Negative Urine Blood Negative Urine Nitrate Negative Urine Bilirubin Negative Urine Urobilinogen 0.2-1.0 Ur Leukocyte Esterase Neg Urine RBC (Auto) 2 Urine Microscopic WBC 3 Ur Squamous Epith Cells 1 Urine Bacteria Rare Hyaline Casts 6-10 H Urine Opiates Screen Urine Methadone Screen Ur Barbiturates Screen Ur Phencyclidine Scrn Ur Amphetamines Screen U Benzodiazepines Scrn U Oth Cocaine Metabols U Cannabinoids Screen Alcohol, Quantitative Influenza Typ A,B (EIA) 08/22/18 08/22/18 08/22/18 22:27 22:55 23:15 WBC RBC Hgb Hct MCV MCH MCHC RDW Plt Count MPV Neut % (Auto) Lymph % (Auto) [place] % (Auto) Eos % (Auto) Baso % (Auto) Neut # (Auto) Lymph # (Auto) [place] # (Auto) Eos # (Auto) Baso # (Auto) PT INR APTT D-Dimer, Quantitative pCO2 pO2 HCO3 ABG pH ABG Total CO2 ABG O2 Saturation ABG O2 Content ABG Base Excess ABG Hemoglobin ABG Carboxyhemoglobin POC ABG HHb (Measured) ABG Methemoglobin ABG O2 Capacity Vick Test ABG Potassium A-a O2 Difference Hgb O2 Saturation Sodium Chloride Glucose Lactate Vent Mode FiO2 Blood Gas Comments Crit Value Called To Crit Value Called By Crit Value Read Back Blood Gas Notified Time Potassium 5.6 H Carbon Dioxide Anion Gap BUN Creatinine Est GFR ( Amer) Est GFR (Non-Af Amer) POC Glucose (mg/dL) Random Glucose Lactic Acid Calcium Phosphorus Magnesium Total Bilirubin AST ALT Alkaline Phosphatase Troponin I 1.1000 H* NT-Pro-B Natriuret Pep Total Protein Albumin Globulin Albumin/Globulin Ratio Arterial Blood Potassium Urine Color Urine Clarity Urine pH Ur Specific Hiko Urine Protein Urine Glucose (UA) Urine Ketones Urine Blood Urine Nitrate Urine Bilirubin Urine Urobilinogen Ur Leukocyte Esterase Urine RBC (Auto) Urine Microscopic WBC Ur Squamous Epith Cells Urine Bacteria Hyaline Casts Urine Opiates Screen Negative Urine Methadone Screen Negative Ur Barbiturates Screen Negative Ur Phencyclidine Scrn Negative Ur Amphetamines Screen Negative U Benzodiazepines Scrn Negative U Oth Cocaine Metabols Negative U Cannabinoids Screen Negative Alcohol, Quantitative Influenza Typ A,B (EIA) Negative for flu a/b 08/22/18 08/23/18 08/23/18 23:26 01:40 04:59 WBC RBC Hgb Hct MCV MCH MCHC RDW Plt Count MPV Neut % (Auto) Lymph % (Auto) [place] % (Auto) Eos % (Auto) Baso % (Auto) Neut # (Auto) Lymph # (Auto) [place] # (Auto) Eos # (Auto) Baso # (Auto) PT INR APTT D-Dimer, Quantitative pCO2 22 L pO2 83 HCO3 15.4 L ABG pH 7.33 L ABG Total CO2 12.3 L ABG O2 Saturation 97.1 ABG O2 Content 19.4 ABG Base Excess -12.1 L ABG Hemoglobin 14.6 ABG Carboxyhemoglobin 2.0 H POC ABG HHb (Measured) 2.8 ABG Methemoglobin 0.9 ABG O2 Capacity 20.0 Vick Test Yes ABG Potassium A-a O2 Difference 175.0 Hgb O2 Saturation 94.4 L Sodium Chloride Glucose Lactate Vent Mode Vm FiO2 40.0 Blood Gas Comments Crit Value Called To Crit Value Called By Crit Value Read Back Blood Gas Notified Time Potassium Carbon Dioxide Anion Gap BUN Creatinine Est GFR ( Amer) Est GFR (Non-Af Amer) POC Glucose (mg/dL) 155 H 61 L Random Glucose Lactic Acid Calcium Phosphorus Magnesium Total Bilirubin AST ALT Alkaline Phosphatase Troponin I NT-Pro-B Natriuret Pep Total Protein Albumin Globulin Albumin/Globulin Ratio Arterial Blood Potassium Urine Color Urine Clarity Urine pH Ur Specific Hiko Urine Protein Urine Glucose (UA) Urine Ketones Urine Blood Urine Nitrate Urine Bilirubin Urine Urobilinogen Ur Leukocyte Esterase Urine RBC (Auto) Urine Microscopic WBC Ur Squamous Epith Cells Urine Bacteria Hyaline Casts Urine Opiates Screen Urine Methadone Screen Ur Barbiturates Screen Ur Phencyclidine Scrn Ur Amphetamines Screen U Benzodiazepines Scrn U Oth Cocaine Metabols U Cannabinoids Screen Alcohol, Quantitative Influenza Typ A,B (EIA) 08/23/18 08/23/18 08/23/18 05:00 05:00 06:34 WBC 14.1 H RBC 4.37 L Hgb 13.8 Hct 42.0 MCV 96.1 H MCH 31.5 H MCHC 32.8 L RDW 13.8 Plt Count 181 MPV Neut % (Auto) Lymph % (Auto) [place] % (Auto) Eos % (Auto) Baso % (Auto) Neut # (Auto) Lymph # (Auto) [place] # (Auto) Eos # (Auto) Baso # (Auto) PT INR APTT D-Dimer, Quantitative pCO2 pO2 HCO3 ABG pH ABG Total CO2 ABG O2 Saturation ABG O2 Content ABG Base Excess ABG Hemoglobin ABG Carboxyhemoglobin POC ABG HHb (Measured) ABG Methemoglobin ABG O2 Capacity Vick Test ABG Potassium A-a O2 Difference Hgb O2 Saturation Sodium 140 Chloride 101 Glucose Lactate Vent Mode FiO2 Blood Gas Comments Crit Value Called To Crit Value Called By Crit Value Read Back Blood Gas Notified Time Potassium 5.2 H Carbon Dioxide 16 L Anion Gap 28 H BUN 64 H Creatinine 2.9 H Est GFR ( Amer) 26 Est GFR (Non-Af Amer) 22 POC Glucose (mg/dL) 121 H Random Glucose 66 L Lactic Acid Calcium 9.1 Phosphorus Magnesium Total Bilirubin 2.3 H AST 493 H D ALT 419 H D Alkaline Phosphatase 145 H Troponin I 1.2700 H* NT-Pro-B Natriuret Pep Total Protein 7.3 Albumin 3.7 Globulin 3.7 Albumin/Globulin Ratio 1.0 Arterial Blood Potassium Urine Color Urine Clarity Urine pH Ur Specific Hiko Urine Protein Urine Glucose (UA) Urine Ketones Urine Blood Urine Nitrate Urine Bilirubin Urine Urobilinogen Ur Leukocyte Esterase Urine RBC (Auto) Urine Microscopic WBC Ur Squamous Epith Cells Urine Bacteria Hyaline Casts Urine Opiates Screen Urine Methadone Screen Ur Barbiturates Screen Ur Phencyclidine Scrn Ur Amphetamines Screen U Benzodiazepines Scrn U Oth Cocaine Metabols U Cannabinoids Screen Alcohol, Quantitative Influenza Typ A,B (EIA) 08/23/18 11:16 WBC RBC Hgb Hct MCV MCH MCHC RDW Plt Count MPV Neut % (Auto) Lymph % (Auto) [place] % (Auto) Eos % (Auto) Baso % (Auto) Neut # (Auto) Lymph # (Auto) [place] # (Auto) Eos # (Auto) Baso # (Auto) PT INR APTT D-Dimer, Quantitative pCO2 pO2 HCO3 ABG pH ABG Total CO2 ABG O2 Saturation ABG O2 Content ABG Base Excess ABG Hemoglobin ABG Carboxyhemoglobin POC ABG HHb (Measured) ABG Methemoglobin ABG O2 Capacity Vick Test ABG Potassium A-a O2 Difference Hgb O2 Saturation Sodium Chloride Glucose Lactate Vent Mode FiO2 Blood Gas Comments Crit Value Called To Crit Value Called By Crit Value Read Back Blood Gas Notified Time Potassium Carbon Dioxide Anion Gap BUN Creatinine Est GFR ( Amer) Est GFR (Non-Af Amer) POC Glucose (mg/dL) 102 Random Glucose Lactic Acid Calcium Phosphorus Magnesium Total Bilirubin AST ALT Alkaline Phosphatase Troponin I NT-Pro-B Natriuret Pep Total Protein Albumin Globulin Albumin/Globulin Ratio Arterial Blood Potassium Urine Color Urine Clarity Urine pH Ur Specific Hiko Urine Protein Urine Glucose (UA) Urine Ketones Urine Blood Urine Nitrate Urine Bilirubin Urine Urobilinogen Ur Leukocyte Esterase Urine RBC (Auto) Urine Microscopic WBC Ur Squamous Epith Cells Urine Bacteria Hyaline Casts Urine Opiates Screen Urine Methadone Screen Ur Barbiturates Screen Ur Phencyclidine Scrn Ur Amphetamines Screen U Benzodiazepines Scrn U Oth Cocaine Metabols U Cannabinoids Screen Alcohol, Quantitative Influenza Typ A,B (EIA)
[2018-08-23] MEDS ORDERED: DOPamine 400mg/250ml D5W 400 MG/250 ML BAG IV ONE (13:16)
[2018-08-23] MEDS: DOPamine 400mg/250ml D5W 400 MG/250 ML BAG IV ONE (13:20)
[2018-08-23] MEDS: Levalbuterol 0.63 MG/3 ML Inhal Soln UD INH SCH (15:09)
--- NOTE | 2018-08-23 17:34 | CP.PCM.CON ---
History of Present Illness - History of Present Illness History of Present Illness: This is an HPI Past Patient History - Past Medical History & Family History Past Medical History?: Yes - Past Social History Smoking Status: Never Smoked Chewing Tobacco Use: No Cigar Use: No Alcohol: Occasional Drugs: Denies, Inhalants Home Situation {Lives}: Alone - CARDIAC Hx Hypertension: Yes - PULMONARY Hx Asthma: Yes - NEUROLOGICAL Hx Neurological Disorder: No - HEENT Hx HEENT Problems: No - RENAL Hx Chronic Kidney Disease: Yes - ENDOCRINE/METABOLIC Hx Diabetes Mellitus Type 2: Yes - HEMATOLOGICAL/ONCOLOGICAL Hx Blood Disorders: No - INTEGUMENTARY Hx Dermatological Problems: No - MUSCULOSKELETAL/RHEUMATOLOGICAL Hx Back Pain: Yes Hx Falls: No - GASTROINTESTINAL Hx Gastrointestinal Disorders: No - GENITOURINARY/GYNECOLOGICAL Hx Genitourinary Disorders: No - PSYCHIATRIC Hx Psychophysiologic Disorder: No Hx Substance Use: No - SURGICAL HISTORY Hx Coronary Artery Bypass Graft: Yes Hx Coronary Stent: Yes - ANESTHESIA Hx Anesthesia: Yes Hx Anesthesia Reactions: No Hx Malignant Hyperthermia: No Meds Allergies/Adverse Reactions: Allergies Allergy/AdvReac Type Severity Reaction Status Date / Time No Known Allergies Allergy Verified 08/22/18 16:01 - Medications Medications: Current Medications Atorvastatin Calcium (Lipitor) 40 mg PO HS FLASH Docusate Sodium (Colace) 100 mg PO BID FLASH Last Admin: 08/23/18 16:14 Dose: 100 mg Heparin Sodium/Dextrose (Heparin 25,000 Units/250ml In D5w) 25,000 units in 250 mls @ 8 mls/hr IV .Q24H FLASH; Protocol Last Titration: 08/23/18 16:20 Dose: 7 mls/hr Dopamine HCl/Dextrose (Dopamine 400mg/250ml D5w) 400 mg in 250 mls @ 5.613 mls/hr IV .Q24H ONE; Protocol Stop: 08/24/18 13:11 Last Titration: 08/23/18 14:16 Dose: 4.5 mcg/kg/min, 10.104 mls/hr Insulin Human Regular (Humulin R) 0 units SC ACHS [facility]; Protocol Last Admin: 08/23/18 16:15 Dose: Not Given Latanoprost (Xalatan Opht) 1 drop OU HS FLASH Last Admin: 08/23/18 00:07 Dose: 1 drop Levalbuterol HCl (Xopenex) 0.63 mg INH RQ8 FLASH Last Admin: 08/23/18 15:09 Dose: 0.63 mg Metoprolol Tartrate (Lopressor) 50 mg PO Q12 [facility] Last Admin: 08/23/18 08:54 Dose: 50 mg Timolol Maleate (Timoptic 0.5% Ophth Soln) 1 drop OD QAM [facility] Last Admin: 08/23/18 08:53 Dose: 1 drop Results - Vital Signs Recent Vital Signs: Last Vital Signs Temp 98 F 08/23/18 16:00 Pulse 73 08/23/18 16:00 Resp 32 H 08/23/18 16:00 BP 115/74 08/23/18 16:00 Pulse Ox 91 L 08/23/18 16:00 - Labs Result Diagrams: 08/24/18 05:00 08/24/18 05:00 Labs: Laboratory Results - last 24 hr 08/22/18 08/22/18 08/22/18 17:39 17:39 17:39 WBC 9.8 RBC 4.46 Hgb 14.1 Hct 43.1 MCV 96.6 H MCH 31.5 H MCHC 32.6 L RDW 13.5 Plt Count 216 MPV 10.2 Neut % (Auto) 82.3 H Lymph % (Auto) 10.5 L [place] % (Auto) 6.5 Eos % (Auto) 0.2 Baso % (Auto) 0.5 Neut # (Auto) 8.1 H Lymph # (Auto) 1.0 [place] # (Auto) 0.6 Eos # (Auto) 0.0 Baso # (Auto) 0.1 PT 16.1 H INR 1.4 APTT 28.4 D-Dimer, Quantitative < 200 pCO2 pO2 HCO3 ABG pH ABG Total CO2 ABG O2 Saturation ABG O2 Content ABG Base Excess ABG Hemoglobin ABG Carboxyhemoglobin POC ABG HHb (Measured) ABG Methemoglobin ABG O2 Capacity Vick Test A-a O2 Difference Hgb O2 Saturation Vent Mode FiO2 Sodium 138 Potassium 6.3 H* D Chloride 100 Carbon Dioxide 18 L Anion Gap 26 H BUN 60 H Creatinine 2.5 H Est GFR ( Amer) 31 Est GFR (Non-Af Amer) 26 POC Glucose (mg/dL) Random Glucose 227 H Lactic Acid Calcium 9.3 Phosphorus 6.1 H Magnesium 2.3 Total Bilirubin 1.3 AST 66 H D ALT 106 H D Alkaline Phosphatase 172 H Troponin I 1.0500 H* NT-Pro-B Natriuret Pep 26395 H Total Protein 7.8 Albumin 4.1 Globulin 3.7 Albumin/Globulin Ratio 1.1 Urine Color Urine Clarity Urine pH Ur Specific [place] Urine Protein Urine Glucose (UA) Urine Ketones Urine Blood Urine Nitrate Urine Bilirubin Urine Urobilinogen Ur Leukocyte Esterase Urine RBC (Auto) Urine Microscopic WBC Ur Squamous Epith Cells Urine Bacteria Hyaline Casts Urine Opiates Screen Urine Methadone Screen Ur Barbiturates Screen Ur Phencyclidine Scrn Ur Amphetamines Screen U Benzodiazepines Scrn U Oth Cocaine Metabols U Cannabinoids Screen Alcohol, Quantitative < 10 Influenza Typ A,B (EIA) 08/22/18 08/22/18 08/22/18 17:50 22:27 22:27 WBC RBC Hgb Hct MCV MCH MCHC RDW Plt Count MPV Neut % (Auto) Lymph % (Auto) [place] % (Auto) Eos % (Auto) Baso % (Auto) Neut # (Auto) Lymph # (Auto) [place] # (Auto) Eos # (Auto) Baso # (Auto) PT INR APTT D-Dimer, Quantitative pCO2 pO2 HCO3 ABG pH ABG Total CO2 ABG O2 Saturation ABG O2 Content ABG Base Excess ABG Hemoglobin ABG Carboxyhemoglobin POC ABG HHb (Measured) ABG Methemoglobin ABG O2 Capacity Vick Test A-a O2 Difference Hgb O2 Saturation Vent Mode FiO2 Sodium Potassium Chloride Carbon Dioxide Anion Gap BUN Creatinine Est GFR ( Amer) Est GFR (Non-Af Amer) POC Glucose (mg/dL) Random Glucose Lactic Acid 5.6 H* Calcium Phosphorus Magnesium Total Bilirubin AST ALT Alkaline Phosphatase Troponin I NT-Pro-B Natriuret Pep Total Protein Albumin Globulin Albumin/Globulin Ratio Urine Color Janna Urine Clarity Cloudy Urine pH 5.0 Ur Specific [place] 1.020 Urine Protein >=500 Urine Glucose (UA) 50 Urine Ketones Negative Urine Blood Negative Urine Nitrate Negative Urine Bilirubin Negative Urine Urobilinogen 0.2-1.0 Ur Leukocyte Esterase Neg Urine RBC (Auto) 2 Urine Microscopic WBC 3 Ur Squamous Epith Cells 1 Urine Bacteria Rare Hyaline Casts 6-10 H Urine Opiates Screen Negative Urine Methadone Screen Negative Ur Barbiturates Screen Negative Ur Phencyclidine Scrn Negative Ur Amphetamines Screen Negative U Benzodiazepines Scrn Negative U Oth Cocaine Metabols Negative U Cannabinoids Screen Negative Alcohol, Quantitative Influenza Typ A,B (EIA) 08/22/18 08/22/18 08/22/18 22:55 23:15 23:26 WBC RBC Hgb Hct MCV MCH MCHC RDW Plt Count MPV Neut % (Auto) Lymph % (Auto) [place] % (Auto) Eos % (Auto) Baso % (Auto) Neut # (Auto) Lymph # (Auto) [place] # (Auto) Eos # (Auto) Baso # (Auto) PT INR APTT D-Dimer, Quantitative pCO2 pO2 HCO3 ABG pH ABG Total CO2 ABG O2 Saturation ABG O2 Content ABG Base Excess ABG Hemoglobin ABG Carboxyhemoglobin POC ABG HHb (Measured) ABG Methemoglobin ABG O2 Capacity Vick Test A-a O2 Difference Hgb O2 Saturation Vent Mode FiO2 Sodium Potassium 5.6 H Chloride Carbon Dioxide Anion Gap BUN Creatinine Est GFR ( Amer) Est GFR (Non-Af Amer) POC Glucose (mg/dL) 155 H Random Glucose Lactic Acid Calcium Phosphorus Magnesium Total Bilirubin AST ALT Alkaline Phosphatase Troponin I 1.1000 H* NT-Pro-B Natriuret Pep Total Protein Albumin Globulin Albumin/Globulin Ratio Urine Color Urine Clarity Urine pH Ur Specific [place] Urine Protein Urine Glucose (UA) Urine Ketones Urine Blood Urine Nitrate Urine Bilirubin Urine Urobilinogen Ur Leukocyte Esterase Urine RBC (Auto) Urine Microscopic WBC Ur Squamous Epith Cells Urine Bacteria Hyaline Casts Urine Opiates Screen Urine Methadone Screen Ur Barbiturates Screen Ur Phencyclidine Scrn Ur Amphetamines Screen U Benzodiazepines Scrn U Oth Cocaine Metabols U Cannabinoids Screen Alcohol, Quantitative Influenza Typ A,B (EIA) Negative for flu a/b 08/23/18 08/23/18 08/23/18 01:40 04:59 05:00 WBC RBC Hgb Hct MCV MCH MCHC RDW Plt Count MPV Neut % (Auto) Lymph % (Auto) [place] % (Auto) Eos % (Auto) Baso % (Auto) Neut # (Auto) Lymph # (Auto) [place] # (Auto) Eos # (Auto) Baso # (Auto) PT INR APTT D-Dimer, Quantitative pCO2 22 L pO2 83 HCO3 15.4 L ABG pH 7.33 L ABG Total CO2 12.3 L ABG O2 Saturation 97.1 ABG O2 Content 19.4 ABG Base Excess -12.1 L ABG Hemoglobin 14.6 ABG Carboxyhemoglobin 2.0 H POC ABG HHb (Measured) 2.8 ABG Methemoglobin 0.9 ABG O2 Capacity 20.0 Vick Test Yes A-a O2 Difference 175.0 Hgb O2 Saturation 94.4 L Vent Mode Vm FiO2 40.0 Sodium 140 Potassium 5.2 H Chloride 101 Carbon Dioxide 16 L Anion Gap 28 H BUN 64 H Creatinine 2.9 H Est GFR ( Amer) 26 Est GFR (Non-Af Amer) 22 POC Glucose (mg/dL) 61 L Random Glucose 66 L Lactic Acid Calcium 9.1 Phosphorus Magnesium Total Bilirubin 2.3 H AST 493 H D ALT 419 H D Alkaline Phosphatase 145 H Troponin I 1.2700 H* NT-Pro-B Natriuret Pep Total Protein 7.3 Albumin 3.7 Globulin 3.7 Albumin/Globulin Ratio 1.0 Urine Color Urine Clarity Urine pH Ur Specific [place] Urine Protein Urine Glucose (UA) Urine Ketones Urine Blood Urine Nitrate Urine Bilirubin Urine Urobilinogen Ur Leukocyte Esterase Urine RBC (Auto) Urine Microscopic WBC Ur Squamous Epith Cells Urine Bacteria Hyaline Casts Urine Opiates Screen Urine Methadone Screen Ur Barbiturates Screen Ur Phencyclidine Scrn Ur Amphetamines Screen U Benzodiazepines Scrn U Oth Cocaine Metabols U Cannabinoids Screen Alcohol, Quantitative Influenza Typ A,B (EIA) 08/23/18 08/23/18 08/23/18 05:00 06:34 11:16 WBC 14.1 H RBC 4.37 L Hgb 13.8 Hct 42.0 MCV 96.1 H MCH 31.5 H MCHC 32.8 L RDW 13.8 Plt Count 181 MPV Neut % (Auto) Lymph % (Auto) [place] % (Auto) Eos % (Auto) Baso % (Auto) Neut # (Auto) Lymph # (Auto) [place] # (Auto) Eos # (Auto) Baso # (Auto) PT INR APTT D-Dimer, Quantitative pCO2 pO2 HCO3 ABG pH ABG Total CO2 ABG O2 Saturation ABG O2 Content ABG Base Excess ABG Hemoglobin ABG Carboxyhemoglobin POC ABG HHb (Measured) ABG Methemoglobin ABG O2 Capacity Vick Test A-a O2 Difference Hgb O2 Saturation Vent Mode FiO2 Sodium Potassium Chloride Carbon Dioxide Anion Gap BUN Creatinine Est GFR ( Amer) Est GFR (Non-Af Amer) POC Glucose (mg/dL) 121 H 102 Random Glucose Lactic Acid Calcium Phosphorus Magnesium Total Bilirubin AST ALT Alkaline Phosphatase Troponin I NT-Pro-B Natriuret Pep Total Protein Albumin Globulin Albumin/Globulin Ratio Urine Color Urine Clarity Urine pH Ur Specific [place] Urine Protein Urine Glucose (UA) Urine Ketones Urine Blood Urine Nitrate Urine Bilirubin Urine Urobilinogen Ur Leukocyte Esterase Urine RBC (Auto) Urine Microscopic WBC Ur Squamous Epith Cells Urine Bacteria Hyaline Casts Urine Opiates Screen Urine Methadone Screen Ur Barbiturates Screen Ur Phencyclidine Scrn Ur Amphetamines Screen U Benzodiazepines Scrn U Oth Cocaine Metabols U Cannabinoids Screen Alcohol, Quantitative Influenza Typ A,B (EIA) 08/23/18 08/23/18 08/23/18 14:25 14:25 15:56 WBC RBC Hgb Hct MCV MCH MCHC RDW Plt Count MPV Neut % (Auto) Lymph % (Auto) [place] % (Auto) Eos % (Auto) Baso % (Auto) Neut # (Auto) Lymph # (Auto) [place] # (Auto) Eos # (Auto) Baso # (Auto) PT INR APTT 93.2 H D-Dimer, Quantitative pCO2 pO2 HCO3 ABG pH ABG Total CO2 ABG O2 Saturation ABG O2 Content ABG Base Excess ABG Hemoglobin ABG Carboxyhemoglobin POC ABG HHb (Measured) ABG Methemoglobin ABG O2 Capacity Vick Test A-a O2 Difference Hgb O2 Saturation Vent Mode FiO2 Sodium Potassium Chloride Carbon Dioxide Anion Gap BUN Creatinine Est GFR ( Amer) Est GFR (Non-Af Amer) POC Glucose (mg/dL) 112 H Random Glucose Lactic Acid Calcium Phosphorus 9.8 H Magnesium Total Bilirubin AST ALT Alkaline Phosphatase Troponin I NT-Pro-B Natriuret Pep Total Protein Albumin Globulin Albumin/Globulin Ratio Urine Color Urine Clarity Urine pH Ur Specific [place] Urine Protein Urine Glucose (UA) Urine Ketones Urine Blood Urine Nitrate Urine Bilirubin Urine Urobilinogen Ur Leukocyte Esterase Urine RBC (Auto) Urine Microscopic WBC Ur Squamous Epith Cells Urine Bacteria Hyaline Casts Urine Opiates Screen Urine Methadone Screen Ur Barbiturates Screen Ur Phencyclidine Scrn Ur Amphetamines Screen U Benzodiazepines Scrn U Oth Cocaine Metabols U Cannabinoids Screen Alcohol, Quantitative Influenza Typ A,B (EIA)
--- NOTE | 2018-08-23 19:20 | PN ---
DATE: 08/23/2018 CRITICAL CARE PROGRESS NOTE LOCATION: The patient is in ICU, bed 424. TIME SPENT: 45 minutes. SUBJECTIVE: The patient is seen and evaluated at the bedside. Past medical, surgical, family, and social history reviewed. Events in the ER noted. A 68-year-old male with history significant for chronic systolic heart failure, chronic atrial fibrillation, chronic kidney disease, diabetes mellitus type 2, hypertension, hyperlipidemia and asthma, status post coronary artery bypass graft surgery and coronary artery stent, admitted with increasing shortness of breath on mild exertion, becoming worse within the last few days. Overnight, on amiodarone and heparin drip. This morning, still remains with shortness of breath and tired and weak. No cough, chest pain, or palpitation. No abdominal discomfort. Has not had bowel movement, but feels the urge but straining to move the stool. Quiroz in place with clear urine, but limited in quantity. PHYSICAL EXAMINATION: VITAL SIGNS: Temperature 96.1, heart rate 88, blood pressure 130/84, mean arterial pressure 93, respiratory rate 19, oxygen saturation 94% on oxygen supplement 2 liters nasal cannula. Intake and output to be documented. Weight 132 pounds. HEAD, EYES, EARS, NOSE AND THROAT: Pupils reactive. Conjunctivae pink. Sclerae white. NECK: Positive for jugular venous distention. CHEST: Bilateral wheezing, bilateral crepitations at the bases. HEART: Rhythm irregular. No audible murmur. ABDOMEN: Bowel sounds present. Soft, mildly distended. EXTREMITIES: Trace edema. DP palpable. Capillary refill less than 2 seconds. NEUROLOGIC: Alert and awake, follows commands appropriately. No cranial nerve deficit. No motor deficit. Sensory exam incomplete due to lack of cooperation from the patient being lethargic. SKIN: Without rash. CURRENT MEDICATIONS: Amiodarone drip at 1 mg/minute, Lipitor 40 mg daily, Colace 100 mg twice daily, heparin drip at 8000 units on _ protocol, Accu-Chek with regular insulin coverage, Xalatan ophthalmic eyedrops one drop once daily, Xopenex of 0.63 mg every 8 hours, Lopressor on hold due to bradycardia, timolol eyedrops one drop daily. LABORATORY DATA: WBC 14.1, hemoglobin 13.8, hematocrit 42, platelet count 181. PT 16.1, INR 1.4, PTT 28.4. D-dimer less than 200. ABG: PH 7.33, pCO2 of 22, pO2 of 83, saturation 97.1 on FIO2 of 40%. SMA-7: Sodium 140, potassium 5.2, chloride 101, CO2 of 16, BUN 64, creatinine 2.9, random glucose of 121, total bilirubin 2.3, AST 493, ALT 419, alkaline phosphatase 145. Troponin 1.1, 1.27. Albumin is 3.7. Urinalysis: Leukocyte esterase negative, WBC 3, urine bacteria rare. Urine drug screen negative. Influenza A and B are negative. Microbiology, none reported. Chest x-ray done this morning shows pulmonary vascular congestion with possible small bilateral pleural effusion. Electrocardiogram shows atrial fibrillation with rapid ventricular response, Q in II, III, and aVF, possible inferior infarct, anteroseptal poor R-wave progression in V1, V2, and V3, possible anterior septal infarct age indeterminate with nonspecific ST-T wave abnormality. Echocardiogram report pending. IMPRESSION: 1. Neurologic: Alert and awake, but lethargic. Appears sleepy. Follow commands appropriately. Able to communicate through a statistical clerk advertising. 2. Pulmonary: Bilateral pulmonary vascular congestion with possible bilateral pleural effusion. Arterial blood gas shows hypoxemia with wide alveolar-arterial gradient. 3. Renal: Acute on chronic renal insufficiency. Consider cardiorenal syndrome and diabetic nephropathy. Appreciate renal followup. Renal ultrasound pending. 4. Gastrointestinal: Elevated liver enzymes, likely secondary to hepatic congestion from a chronic systolic heart failure. Albumin preserved. 5. Endocrine: History of for diabetes mellitus type 2. Maintain a blood sugar between 90-110 on Accu-Chek with regular insulin coverage. 6. Hematology: Borderline leukocytosis with likely reactive hemoglobin and hematocrit. Platelet count within normal limits. 7. Cardiac: The patient is noted to be bradycardic. Metoprolol on hold. Amiodarone discontinued. Will follow recommendations from Cardiology, awaiting evaluation. Keep the head of bed 30 degrees up. Heparin drip. Prognosis remains guarded. Candido De Guzman MD MTDD
[2018-08-23 19:40] LABS: HEPATITIS B SURFACE AG Negative (NEGATIVE)
[2018-08-23 19:45] LABS: HEPATITIS A IGM NEGATIVE (NEGATIVE); HEPATITIS B CORE AB NEGATIVE (NEGATIVE)
[2018-08-23 19:57] LABS: HEPATITIS C ANTIBODY NEGATIVE (NEGATIVE)
--- NOTE | 2018-08-23 21:49 | CARD ---
APPROVED REPORT Date of service: 08/22/2018 EKG Measurement Heart [id number] <Conclusion> Atrial fibrillation with rapid ventricular response Inferior infarct, age undetermined Anteroseptal infarct, age undetermined ST & T wave abnormalities Abnormal ECG
[2018-08-24] MEDS: Levalbuterol 0.63 MG/3 ML Inhal Soln UD INH SCH ×3 (00:04→15:22)
[2018-08-24 06:23] LABS: BASO # 0.1 K/uL (0.0-0.2); BASO % 0.3 % (0.0-2.0); HEMOGLOBIN 14.1 g/dL (12.0-18.0); LYMPH # 0.7 K/uL (1.0-4.3); LYMPH % 3.3 % (20.0-40.0); MEAN CORPUSCULAR HEMOGLOBIN 31.8 pg (27.0-31.0); MEAN CORPUSCULAR HGB CONC 32.8 g/dL (33.0-37.0); MEAN PLATELET VOLUME 10.9 fl (7.2-11.7); MONO # 1.3 K/uL (0.0-0.8); NEUT # 19.9 K/uL (1.8-7.0); NEUT % 90.4 % (50.0-75.0); NRBC % 0.2 % (0.0-0.0); PLATELET COUNT 130 K/uL (130-400); RBC 4.45 Mil/uL (4.40-5.90); RED CELL DISTRIBUTION WIDTH 13.9 % (11.5-14.5)
[2018-08-24 06:45] LABS: ALBUMIN 3.6 g/dL (3.5-5.0); CALCIUM 7.6 mg/dL (8.4-10.2)
[2018-08-24] MEDS: DOPamine 400mg/250ml D5W 400 MG/250 ML BAG IV ONE ×2 (08:56→19:00)
[2018-08-24] MEDS: Heparin 25,000units in D5W 25,000 UNITS/250 ML BAG IV SCH (09:05)
[2018-08-24] MEDS: Insulin Regular 100 units/ml SC SCH ×4 (09:06→22:13)
[2018-08-24 10:09] LABS: BANDS 2 % (0-2); LYMPHOCYTE 3 % (20-50); MONOCYTE 7 % (0-10); NEUTROPHIL 88 % (42-75); TOTAL CELLS COUNTED 100
[2018-08-24 10:10] LABS: LARGE PLATELETS PRESENT; PLATELET ESTIMATE NORMAL (NORMAL); TOXIC GRANULATION PRESENT
[2018-08-24] MEDS ORDERED: Sodium Chloride 3% for Inhalation 4 ML VIAL.NEB IH PRN (10:40)
--- NOTE | 2018-08-24 11:58 | US ---
Date of service: 08/24/2018 PROCEDURE: Ultrasound of the Kidneys HISTORY: arf COMPARISON: Renal ultrasound dated 07/11/2018. TECHNIQUE: Sonogram of the kidneys. FINDINGS: RIGHT KIDNEY: Measures: 10.3 x 4.7 x 5.5 cm. Mildly increased echogenicity. Normal in size and contour. No stone, solid mass lesion or hydronephrosis visualized. LEFT KIDNEY: Not visualized OTHER FINDINGS: None. IMPRESSION: Nonvisualization of the left kidney. Mildly increased echogenicity of the right kidney which can be seen in the setting of medical renal disease. No hydronephrosis or nephrolithiasis.
--- NOTE | 2018-08-24 12:16 | CP.PCM.CON ---
History of Present Illness - History of Present Illness History of Present Illness: Infectious Disease Consultation Note- asked to see this patient at the request of for leukocytosis rule out sepsis. HPI- History obtained mostly from the medical chart and the nurse as patient is not a good historian. Patient is a 68 year old male with PMH of CHF, A.fib, CKD, DM II, CAD s/p CABg who was admitted with c/o worsening sob. As per patietn he has been having sob and dry cough for past 2 weeks. denies any fever or chills, denies any chest pain, denies any nausea or vomiting, denies any abd. pain, denies any diarrhea, denies any dysurea. he is currently on dopamine as per legal services manager and I'm asked to evaluate the patient because he has increase in wbc today. PMH: Asthma, Back Problems, DM II; HTN; HLD; CAD; A Fib; Systolic CHF; CKD PSH: CABG, Coronary Stent SH: - , Lives with brother, sister in law and 3 kids. Used to work in [place] in past. - Reports drinking 10-15 beer on weekends, Denies smoking or illicit drug use FH: Mother and father of heart disease in 70s, Brother and sister with asthma Allergy: NKDA Review of Systems - Review of Systems Review of Systems: ROS- denies any fever or chills, denies any ARELLANO, denies any chest pain, c/o sob and cough for past 2 weeks, cough not productive, denies any abd. pain, denies any nausea or vomiting, denies any diarrhea, denies any dysurea. Past Patient History - Past Medical History & Family History Past Medical History?: Yes - Past Social History Smoking Status: Never Smoked Chewing Tobacco Use: No Cigar Use: No Alcohol: Occasional Drugs: Denies Home Situation {Lives}: Alone - CARDIAC Hx Hypertension: Yes - PULMONARY Hx Asthma: Yes - NEUROLOGICAL Hx Neurological Disorder: No - HEENT Hx HEENT Problems: No - RENAL Hx Chronic Kidney Disease: Yes - ENDOCRINE/METABOLIC Hx Diabetes Mellitus Type 2: Yes - HEMATOLOGICAL/ONCOLOGICAL Hx Blood Disorders: No - INTEGUMENTARY Hx Dermatological Problems: No - MUSCULOSKELETAL/RHEUMATOLOGICAL Hx Back Pain: Yes Hx Falls: No - GASTROINTESTINAL Hx Gastrointestinal Disorders: No - GENITOURINARY/GYNECOLOGICAL Hx Genitourinary Disorders: No - PSYCHIATRIC Hx Psychophysiologic Disorder: No Hx Substance Use: No - SURGICAL HISTORY Hx Coronary Artery Bypass Graft: Yes Hx Coronary Stent: Yes - ANESTHESIA Hx Anesthesia: Yes Hx Anesthesia Reactions: No Hx Malignant Hyperthermia: No Meds Allergies/Adverse Reactions: Allergies Allergy/AdvReac Type Severity Reaction Status Date / Time No Known Allergies Allergy Verified 08/22/18 16:01 - Medications Medications: Current Medications Atorvastatin Calcium (Lipitor) 40 mg PO HS [facility] Last Admin: 08/23/18 22:01 Dose: 40 mg Docusate Sodium (Colace) 100 mg PO BID [facility] Last Admin: 08/24/18 08:32 Dose: 100 mg Dopamine HCl/Dextrose (Dopamine 400mg/250ml D5w) 400 mg in 250 mls @ 5.613 mls/hr IV .Q24H ONE; Protocol Stop: 08/24/18 13:11 Last Admin: 08/24/18 08:56 Dose: 6.5 mcg/kg/min, 14.594 mls/hr Piperacillin Sod/Tazobactam (Sod 2.25 gm/ Sodium Chloride) 100 mls @ 100 mls/hr IVPB Q8 [facility]; Protocol Insulin Human Regular (Humulin R) 0 units SC ACHS [facility]; Protocol Last Admin: 08/24/18 09:06 Dose: 3 units Latanoprost (Xalatan Opht) 1 drop OU HS [facility] Last Admin: 08/23/18 22:16 Dose: 1 drop Levalbuterol HCl (Xopenex) 0.63 mg INH RQ8 [facility] Last Admin: 08/24/18 07:17 Dose: 0.63 mg Metoprolol Tartrate (Lopressor) 50 mg PO Q12 [facility] Last Admin: 08/24/18 08:33 Dose: Not Given Sevelamer Carbonate (Renvela) 2,400 mg PO TID [facility] Last Admin: 08/24/18 08:33 Dose: 2,400 mg Timolol Maleate (Timoptic 0.5% Ophth Soln) 1 drop OD QAM [facility] Last Admin: 08/24/18 08:34 Dose: 1 drop Physical Exam - Constitutional Appears: No Acute Distress - Head Exam Head Exam: ATRAUMATIC - Eye Exam Eye Exam: EOMI - ENT Exam Additional comments: poor dentition - Neck Exam Neck exam: Positive for: Full Rom - Respiratory Exam Additional comments: slight tachypnea decreased breath sounds bibasilar no wheezing - Cardiovascular Exam Cardiovascular Exam: RRR, +S1, +S2 - GI/Abdominal Exam GI & Abdominal Exam: Normal Bowel Sounds, Soft Additional comments: NT, ND - Extremities Exam Extremities exam: Positive for: normal inspection - Neurological Exam Neurological exam: Alert, Oriented x3 Results - Vital Signs Recent Vital Signs: Last Vital Signs Temp 97 F L 08/24/18 12:00 Pulse 79 08/24/18 12:00 Resp 16 08/24/18 12:00 BP 120/74 08/24/18 12:00 Pulse Ox 92 L 08/24/18 12:00 - Labs Result Diagrams: 08/24/18 05:00 08/24/18 05:00 Labs: Laboratory Results - last 24 hr 08/23/18 08/23/18 08/23/18 05:00 14:25 14:25 WBC RBC Hgb Hct MCV MCH MCHC RDW Plt Count MPV Neut % (Auto) Lymph % (Auto) [place] % (Auto) Eos % (Auto) Baso % (Auto) Neut # (Auto) Lymph # (Auto) [place] # (Auto) Eos # (Auto) Baso # (Auto) Neutrophils % (Manual) Band Neutrophils % Lymphocytes % (Manual) Monocytes % (Manual) Toxic Granulation Platelet Estimate Large Platelets APTT 93.2 H Sodium Potassium Chloride Carbon Dioxide Anion Gap BUN Creatinine Est GFR ( Amer) Est GFR (Non-Af Amer) POC Glucose (mg/dL) Random Glucose Hemoglobin A1c 10.0 H Calcium Phosphorus 9.8 H Total Bilirubin AST ALT Alkaline Phosphatase Total Protein Albumin Globulin Albumin/Globulin Ratio Ur Random Sodium Hepatitis A IgM Ab Hep Bs Antigen Hep B Core IgM Ab Hepatitis C Antibody 08/23/18 08/23/18 08/23/18 14:25 15:56 20:46 WBC RBC Hgb Hct MCV MCH MCHC RDW Plt Count MPV Neut % (Auto) Lymph % (Auto) [place] % (Auto) Eos % (Auto) Baso % (Auto) Neut # (Auto) Lymph # (Auto) [place] # (Auto) Eos # (Auto) Baso # (Auto) Neutrophils % (Manual) Band Neutrophils % Lymphocytes % (Manual) Monocytes % (Manual) Toxic Granulation Platelet Estimate Large Platelets APTT Sodium Potassium Chloride Carbon Dioxide Anion Gap BUN Creatinine Est GFR ( Amer) Est GFR (Non-Af Amer) POC Glucose (mg/dL) 112 H 156 H Random Glucose Hemoglobin A1c Calcium Phosphorus Total Bilirubin AST ALT Alkaline Phosphatase Total Protein Albumin Globulin Albumin/Globulin Ratio Ur Random Sodium Hepatitis A IgM Ab Negative Hep Bs Antigen Negative Hep B Core IgM Ab Negative Hepatitis C Antibody Negative 08/23/18 08/24/18 08/24/18 23:11 05:00 05:00 WBC 22.0 H D RBC 4.45 Hgb 14.1 Hct 43.1 MCV 97.0 H MCH 31.8 H MCHC 32.8 L RDW 13.9 Plt Count 130 MPV 10.9 Neut % (Auto) 90.4 H Lymph % (Auto) 3.3 L [place] % (Auto) 6.0 Eos % (Auto) 0.0 Baso % (Auto) 0.3 Neut # (Auto) 19.9 H Lymph # (Auto) 0.7 L [place] # (Auto) 1.3 H Eos # (Auto) 0.0 Baso # (Auto) 0.1 Neutrophils % (Manual) 88 H Band Neutrophils % 2 Lymphocytes % (Manual) 3 L Monocytes % (Manual) 7 Toxic Granulation Present Platelet Estimate Normal Large Platelets Present APTT 50.3 H Sodium 129 L Potassium 5.0 Chloride 89 L Carbon Dioxide 18 L Anion Gap 27 H BUN 84 H Creatinine 3.4 H Est GFR ( Amer) 22 Est GFR (Non-Af Amer) 18 POC Glucose (mg/dL) Random Glucose 240 H Hemoglobin A1c Calcium 7.6 L Phosphorus Total Bilirubin 2.5 H AST 4962 H ALT 2790 H Alkaline Phosphatase 147 H Total Protein 7.2 Albumin 3.6 Globulin 3.6 Albumin/Globulin Ratio 1.0 Ur Random Sodium Hepatitis A IgM Ab Hep Bs Antigen Hep B Core IgM Ab Hepatitis C Antibody 08/24/18 08/24/18 08/24/18 05:10 06:15 06:48 WBC RBC Hgb Hct MCV MCH MCHC RDW Plt Count MPV Neut % (Auto) Lymph % (Auto) [place] % (Auto) Eos % (Auto) Baso % (Auto) Neut # (Auto) Lymph # (Auto) [place] # (Auto) Eos # (Auto) Baso # (Auto) Neutrophils % (Manual) Band Neutrophils % Lymphocytes % (Manual) Monocytes % (Manual) Toxic Granulation Platelet Estimate Large Platelets APTT 50.3 H Sodium Potassium Chloride Carbon Dioxide Anion Gap BUN Creatinine Est GFR ( Amer) Est GFR (Non-Af Amer) POC Glucose (mg/dL) 231 H Random Glucose Hemoglobin A1c Calcium Phosphorus Total Bilirubin AST ALT Alkaline Phosphatase Total Protein Albumin Globulin Albumin/Globulin Ratio Ur Random Sodium 5 Hepatitis A IgM Ab Hep Bs Antigen Hep B Core IgM Ab Hepatitis C Antibody Laboratory Results - last 72 hr 08/22/18 08/22/18 08/22/18 16:57 17:39 17:39 WBC 9.8 RBC 4.46 Hgb 14.1 Hct 43.1 MCV 96.6 H MCH 31.5 H MCHC 32.6 L RDW 13.5 Plt Count 216 MPV 10.2 Neut % (Auto) 82.3 H Lymph % (Auto) 10.5 L [place] % (Auto) 6.5 Eos % (Auto) 0.2 Baso % (Auto) 0.5 Neut # (Auto) 8.1 H Lymph # (Auto) 1.0 [place] # (Auto) 0.6 Eos # (Auto) 0.0 Baso # (Auto) 0.1 Neutrophils % (Manual) Band Neutrophils % Lymphocytes % (Manual) Monocytes % (Manual) Toxic Granulation Platelet Estimate Large Platelets PT INR APTT D-Dimer, Quantitative pCO2 28 L pO2 84 HCO3 16.6 L ABG pH 7.31 L ABG Total CO2 15.0 L ABG O2 Saturation 98.2 H ABG O2 Content ABG Base Excess -10.5 L ABG Hemoglobin ABG Carboxyhemoglobin POC ABG HHb (Measured) ABG Methemoglobin ABG O2 Capacity Vick Test Yes ABG Potassium 6.0 H A-a O2 Difference 131.0 Hgb O2 Saturation Sodium 133.0 138 Chloride 105.0 100 Glucose 244 H Lactate 6.7 H* Vent Mode FiO2 35.0 Blood Gas Comments 3.5l/m nc.rr Crit Value Called To Md elsa camara Crit Value Called By 15 Crit Value Read Back Y Blood Gas Notified Time 1717 Potassium 6.3 H* D Carbon Dioxide 18 L Anion Gap 26 H BUN 60 H Creatinine 2.5 H Est GFR ( Amer) 31 Est GFR (Non-Af Amer) 26 POC Glucose (mg/dL) Random Glucose 227 H Hemoglobin A1c Lactic Acid Calcium 9.3 Phosphorus 6.1 H Magnesium 2.3 Total Bilirubin 1.3 AST 66 H D ALT 106 H D Alkaline Phosphatase 172 H Troponin I 1.0500 H* NT-Pro-B Natriuret Pep 36056 H Total Protein 7.8 Albumin 4.1 Globulin 3.7 Albumin/Globulin Ratio 1.1 Arterial Blood Potassium 6.0 H Urine Color Urine Clarity Urine pH Ur Specific [place] Urine Protein Urine Glucose (UA) Urine Ketones Urine Blood Urine Nitrate Urine Bilirubin Urine Urobilinogen Ur Leukocyte Esterase Urine RBC (Auto) Urine Microscopic WBC Ur Squamous Epith Cells Urine Bacteria Hyaline Casts Ur Random Sodium Urine Opiates Screen Urine Methadone Screen Ur Barbiturates Screen Ur Phencyclidine Scrn Ur Amphetamines Screen U Benzodiazepines Scrn U Oth Cocaine Metabols U Cannabinoids Screen Alcohol, Quantitative < 10 Hepatitis A IgM Ab Hep Bs Antigen Hep B Core IgM Ab Hepatitis C Antibody Influenza Typ A,B (EIA) 08/22/18 08/22/18 08/22/18 17:39 17:50 22:27 WBC RBC Hgb Hct MCV MCH MCHC RDW Plt Count MPV Neut % (Auto) Lymph % (Auto) [place] % (Auto) Eos % (Auto) Baso % (Auto) Neut # (Auto) Lymph # (Auto) [place] # (Auto) Eos # (Auto) Baso # (Auto) Neutrophils % (Manual) Band Neutrophils % Lymphocytes % (Manual) Monocytes % (Manual) Toxic Granulation Platelet Estimate Large Platelets PT 16.1 H INR 1.4 APTT 28.4 D-Dimer, Quantitative < 200 pCO2 pO2 HCO3 ABG pH ABG Total CO2 ABG O2 Saturation ABG O2 Content ABG Base Excess ABG Hemoglobin ABG Carboxyhemoglobin POC ABG HHb (Measured) ABG Methemoglobin ABG O2 Capacity Vick Test ABG Potassium A-a O2 Difference Hgb O2 Saturation Sodium Chloride Glucose Lactate Vent Mode FiO2 Blood Gas Comments Crit Value Called To Crit Value Called By Crit Value Read Back Blood Gas Notified Time Potassium Carbon Dioxide Anion Gap BUN Creatinine Est GFR ( Amer) Est GFR (Non-Af Amer) POC Glucose (mg/dL) Random Glucose Hemoglobin A1c Lactic Acid 5.6 H* Calcium Phosphorus Magnesium Total Bilirubin AST ALT Alkaline Phosphatase Troponin I NT-Pro-B Natriuret Pep Total Protein Albumin Globulin Albumin/Globulin Ratio Arterial Blood Potassium Urine Color Janna Urine Clarity Cloudy Urine pH 5.0 Ur Specific [place] 1.020 Urine Protein >=500 Urine Glucose (UA) 50 Urine Ketones Negative Urine Blood Negative Urine Nitrate Negative Urine Bilirubin Negative Urine Urobilinogen 0.2-1.0 Ur Leukocyte Esterase Neg Urine RBC (Auto) 2 Urine Microscopic WBC 3 Ur Squamous Epith Cells 1 Urine Bacteria Rare Hyaline Casts 6-10 H Ur Random Sodium Urine Opiates Screen Urine Methadone Screen Ur Barbiturates Screen Ur Phencyclidine Scrn Ur Amphetamines Screen U Benzodiazepines Scrn U Oth Cocaine Metabols U Cannabinoids Screen Alcohol, Quantitative Hepatitis A IgM Ab Hep Bs Antigen Hep B Core IgM Ab Hepatitis C Antibody Influenza Typ A,B (EIA) 08/22/18 08/22/18 08/22/18 22:27 22:55 23:15 WBC RBC Hgb Hct MCV MCH MCHC RDW Plt Count MPV Neut % (Auto) Lymph % (Auto) [place] % (Auto) Eos % (Auto) Baso % (Auto) Neut # (Auto) Lymph # (Auto) [place] # (Auto) Eos # (Auto) Baso # (Auto) Neutrophils % (Manual) Band Neutrophils % Lymphocytes % (Manual) Monocytes % (Manual) Toxic Granulation Platelet Estimate Large Platelets PT INR APTT D-Dimer, Quantitative pCO2 pO2 HCO3 ABG pH ABG Total CO2 ABG O2 Saturation ABG O2 Content ABG Base Excess ABG Hemoglobin ABG Carboxyhemoglobin POC ABG HHb (Measured) ABG Methemoglobin ABG O2 Capacity Vick Test ABG Potassium A-a O2 Difference Hgb O2 Saturation Sodium Chloride Glucose Lactate Vent Mode FiO2 Blood Gas Comments Crit Value Called To Crit Value Called By Crit Value Read Back Blood Gas Notified Time Potassium 5.6 H Carbon Dioxide Anion Gap BUN Creatinine Est GFR ( Amer) Est GFR (Non-Af Amer) POC Glucose (mg/dL) Random Glucose Hemoglobin A1c Lactic Acid Calcium Phosphorus Magnesium Total Bilirubin AST ALT Alkaline Phosphatase Troponin I 1.1000 H* NT-Pro-B Natriuret Pep Total Protein Albumin Globulin Albumin/Globulin Ratio Arterial Blood Potassium Urine Color Urine Clarity Urine pH Ur Specific [place] Urine Protein Urine Glucose (UA) Urine Ketones Urine Blood Urine Nitrate Urine Bilirubin Urine Urobilinogen Ur Leukocyte Esterase Urine RBC (Auto) Urine Microscopic WBC Ur Squamous Epith Cells Urine Bacteria Hyaline Casts Ur Random Sodium Urine Opiates Screen Negative Urine Methadone Screen Negative Ur Barbiturates Screen Negative Ur Phencyclidine Scrn Negative Ur Amphetamines Screen Negative U Benzodiazepines Scrn Negative U Oth Cocaine Metabols Negative U Cannabinoids Screen Negative Alcohol, Quantitative Hepatitis A IgM Ab Hep Bs Antigen Hep B Core IgM Ab Hepatitis C Antibody Influenza Typ A,B (EIA) Negative for flu a/b 08/22/18 08/23/18 08/23/18 23:26 01:40 04:59 WBC RBC Hgb Hct MCV MCH MCHC RDW Plt Count MPV Neut % (Auto) Lymph % (Auto) [place] % (Auto) Eos % (Auto) Baso % (Auto) Neut # (Auto) Lymph # (Auto) [place] # (Auto) Eos # (Auto) Baso # (Auto) Neutrophils % (Manual) Band Neutrophils % Lymphocytes % (Manual) Monocytes % (Manual) Toxic Granulation Platelet Estimate Large Platelets PT INR APTT D-Dimer, Quantitative pCO2 22 L pO2 83 HCO3 15.4 L ABG pH 7.33 L ABG Total CO2 12.3 L ABG O2 Saturation 97.1 ABG O2 Content 19.4 ABG Base Excess -12.1 L ABG Hemoglobin 14.6 ABG Carboxyhemoglobin 2.0 H POC ABG HHb (Measured) 2.8 ABG Methemoglobin 0.9 ABG O2 Capacity 20.0 Vick Test Yes ABG Potassium A-a O2 Difference 175.0 Hgb O2 Saturation 94.4 L Sodium Chloride Glucose Lactate Vent Mode Vm FiO2 40.0 Blood Gas Comments Crit Value Called To Crit Value Called By Crit Value Read Back Blood Gas Notified Time Potassium Carbon Dioxide Anion Gap BUN Creatinine Est GFR ( Amer) Est GFR (Non-Af Amer) POC Glucose (mg/dL) 155 H 61 L Random Glucose Hemoglobin A1c Lactic Acid Calcium Phosphorus Magnesium Total Bilirubin AST ALT Alkaline Phosphatase Troponin I NT-Pro-B Natriuret Pep Total Protein Albumin Globulin Albumin/Globulin Ratio Arterial Blood Potassium Urine Color Urine Clarity Urine pH Ur Specific [place] Urine Protein Urine Glucose (UA) Urine Ketones Urine Blood Urine Nitrate Urine Bilirubin Urine Urobilinogen Ur Leukocyte Esterase Urine RBC (Auto) Urine Microscopic WBC Ur Squamous Epith Cells Urine Bacteria Hyaline Casts Ur Random Sodium Urine Opiates Screen Urine Methadone Screen Ur Barbiturates Screen Ur Phencyclidine Scrn Ur Amphetamines Screen U Benzodiazepines Scrn U Oth Cocaine Metabols U Cannabinoids Screen Alcohol, Quantitative Hepatitis A IgM Ab Hep Bs Antigen Hep B Core IgM Ab Hepatitis C Antibody Influenza Typ A,B (EIA) 08/23/18 08/23/18 08/23/18 05:00 05:00 05:00 WBC 14.1 H RBC 4.37 L Hgb 13.8 Hct 42.0 MCV 96.1 H MCH 31.5 H MCHC 32.8 L RDW 13.8 Plt Count 181 MPV Neut % (Auto) Lymph % (Auto) [place] % (Auto) Eos % (Auto) Baso % (Auto) Neut # (Auto) Lymph # (Auto) [place] # (Auto) Eos # (Auto) Baso # (Auto) Neutrophils % (Manual) Band Neutrophils % Lymphocytes % (Manual) Monocytes % (Manual) Toxic Granulation Platelet Estimate Large Platelets PT INR APTT D-Dimer, Quantitative pCO2 pO2 HCO3 ABG pH ABG Total CO2 ABG O2 Saturation ABG O2 Content ABG Base Excess ABG Hemoglobin ABG Carboxyhemoglobin POC ABG HHb (Measured) ABG Methemoglobin ABG O2 Capacity Vick Test ABG Potassium A-a O2 Difference Hgb O2 Saturation Sodium 140 Chloride 101 Glucose Lactate Vent Mode FiO2 Blood Gas Comments Crit Value Called To Crit Value Called By Crit Value Read Back Blood Gas Notified Time Potassium 5.2 H Carbon Dioxide 16 L Anion Gap 28 H BUN 64 H Creatinine 2.9 H Est GFR ( Amer) 26 Est GFR (Non-Af Amer) 22 POC Glucose (mg/dL) Random Glucose 66 L Hemoglobin A1c 10.0 H Lactic Acid Calcium 9.1 Phosphorus Magnesium Total Bilirubin 2.3 H AST 493 H D ALT 419 H D Alkaline Phosphatase 145 H Troponin I 1.2700 H* NT-Pro-B Natriuret Pep Total Protein 7.3 Albumin 3.7 Globulin 3.7 Albumin/Globulin Ratio 1.0 Arterial Blood Potassium Urine Color Urine Clarity Urine pH Ur Specific [place] Urine Protein Urine Glucose (UA) Urine Ketones Urine Blood Urine Nitrate Urine Bilirubin Urine Urobilinogen Ur Leukocyte Esterase Urine RBC (Auto) Urine Microscopic WBC Ur Squamous Epith Cells Urine Bacteria Hyaline Casts Ur Random Sodium Urine Opiates Screen Urine Methadone Screen Ur Barbiturates Screen Ur Phencyclidine Scrn Ur Amphetamines Screen U Benzodiazepines Scrn U Oth Cocaine Metabols U Cannabinoids Screen Alcohol, Quantitative Hepatitis A IgM Ab Hep Bs Antigen Hep B Core IgM Ab Hepatitis C Antibody Influenza Typ A,B (EIA) 08/23/18 08/23/18 08/23/18 06:34 11:16 14:25 WBC RBC Hgb Hct MCV MCH MCHC RDW Plt Count MPV Neut % (Auto) Lymph % (Auto) [place] % (Auto) Eos % (Auto) Baso % (Auto) Neut # (Auto) Lymph # (Auto) [place] # (Auto) Eos # (Auto) Baso # (Auto) Neutrophils % (Manual) Band Neutrophils % Lymphocytes % (Manual) Monocytes % (Manual) Toxic Granulation Platelet Estimate Large Platelets PT INR APTT 93.2 H D-Dimer, Quantitative pCO2 pO2 HCO3 ABG pH ABG Total CO2 ABG O2 Saturation ABG O2 Content ABG Base Excess ABG Hemoglobin ABG Carboxyhemoglobin POC ABG HHb (Measured) ABG Methemoglobin ABG O2 Capacity Vick Test ABG Potassium A-a O2 Difference Hgb O2 Saturation Sodium Chloride Glucose Lactate Vent Mode FiO2 Blood Gas Comments Crit Value Called To Crit Value Called By Crit Value Read Back Blood Gas Notified Time Potassium Carbon Dioxide Anion Gap BUN Creatinine Est GFR ( Amer) Est GFR (Non-Af Amer) POC Glucose (mg/dL) 121 H 102 Random Glucose Hemoglobin A1c Lactic Acid Calcium Phosphorus Magnesium Total Bilirubin AST ALT Alkaline Phosphatase Troponin I NT-Pro-B Natriuret Pep Total Protein Albumin Globulin Albumin/Globulin Ratio Arterial Blood Potassium Urine Color Urine Clarity Urine pH Ur Specific [place] Urine Protein Urine Glucose (UA) Urine Ketones Urine Blood Urine Nitrate Urine Bilirubin Urine Urobilinogen Ur Leukocyte Esterase Urine RBC (Auto) Urine Microscopic WBC Ur Squamous Epith Cells Urine Bacteria Hyaline Casts Ur Random Sodium Urine Opiates Screen Urine Methadone Screen Ur Barbiturates Screen Ur Phencyclidine Scrn Ur Amphetamines Screen U Benzodiazepines Scrn U Oth Cocaine Metabols U Cannabinoids Screen Alcohol, Quantitative Hepatitis A IgM Ab Hep Bs Antigen Hep B Core IgM Ab Hepatitis C Antibody Influenza Typ A,B (EIA) 08/23/18 08/23/18 08/23/18 14:25 14:25 15:56 WBC RBC Hgb Hct MCV MCH MCHC RDW Plt Count MPV Neut % (Auto) Lymph % (Auto) [place] % (Auto) Eos % (Auto) Baso % (Auto) Neut # (Auto) Lymph # (Auto) [place] # (Auto) Eos # (Auto) Baso # (Auto) Neutrophils % (Manual) Band Neutrophils % Lymphocytes % (Manual) Monocytes % (Manual) Toxic Granulation Platelet Estimate Large Platelets PT INR APTT D-Dimer, Quantitative pCO2 pO2 HCO3 ABG pH ABG Total CO2 ABG O2 Saturation ABG O2 Content ABG Base Excess ABG Hemoglobin ABG Carboxyhemoglobin POC ABG HHb (Measured) ABG Methemoglobin ABG O2 Capacity Vick Test ABG Potassium A-a O2 Difference Hgb O2 Saturation Sodium Chloride Glucose Lactate Vent Mode FiO2 Blood Gas Comments Crit Value Called To Crit Value Called By Crit Value Read Back Blood Gas Notified Time Potassium Carbon Dioxide Anion Gap BUN Creatinine Est GFR ( Amer) Est GFR (Non-Af Amer) POC Glucose (mg/dL) 112 H Random Glucose Hemoglobin A1c Lactic Acid Calcium Phosphorus 9.8 H Magnesium Total Bilirubin AST ALT Alkaline Phosphatase Troponin I NT-Pro-B Natriuret Pep Total Protein Albumin Globulin Albumin/Globulin Ratio Arterial Blood Potassium Urine Color Urine Clarity Urine pH Ur Specific [place] Urine Protein Urine Glucose (UA) Urine Ketones Urine Blood Urine Nitrate Urine Bilirubin Urine Urobilinogen Ur Leukocyte Esterase Urine RBC (Auto) Urine Microscopic WBC Ur Squamous Epith Cells Urine Bacteria Hyaline Casts Ur Random Sodium Urine Opiates Screen Urine Methadone Screen Ur Barbiturates Screen Ur Phencyclidine Scrn Ur Amphetamines Screen U Benzodiazepines Scrn U Oth Cocaine Metabols U Cannabinoids Screen Alcohol, Quantitative Hepatitis A IgM Ab Negative Hep Bs Antigen Negative Hep B Core IgM Ab Negative Hepatitis C Antibody Negative Influenza Typ A,B (EIA) 08/23/18 08/23/18 08/24/18 20:46 23:11 05:00 WBC 22.0 H D RBC 4.45 Hgb 14.1 Hct 43.1 MCV 97.0 H MCH 31.8 H MCHC 32.8 L RDW 13.9 Plt Count 130 MPV 10.9 Neut % (Auto) 90.4 H Lymph % (Auto) 3.3 L [place] % (Auto) 6.0 Eos % (Auto) 0.0 Baso % (Auto) 0.3 Neut # (Auto) 19.9 H Lymph # (Auto) 0.7 L [place] # (Auto) 1.3 H Eos # (Auto) 0.0 Baso # (Auto) 0.1 Neutrophils % (Manual) 88 H Band Neutrophils % 2 Lymphocytes % (Manual) 3 L Monocytes % (Manual) 7 Toxic Granulation Present Platelet Estimate Normal Large Platelets Present PT INR APTT 50.3 H D-Dimer, Quantitative pCO2 pO2 HCO3 ABG pH ABG Total CO2 ABG O2 Saturation ABG O2 Content ABG Base Excess ABG Hemoglobin ABG Carboxyhemoglobin POC ABG HHb (Measured) ABG Methemoglobin ABG O2 Capacity Vick Test ABG Potassium A-a O2 Difference Hgb O2 Saturation Sodium Chloride Glucose Lactate Vent Mode FiO2 Blood Gas Comments Crit Value Called To Crit Value Called By Crit Value Read Back Blood Gas Notified Time Potassium Carbon Dioxide Anion Gap BUN Creatinine Est GFR ( Amer) Est GFR (Non-Af Amer) POC Glucose (mg/dL) 156 H Random Glucose Hemoglobin A1c Lactic Acid Calcium Phosphorus Magnesium Total Bilirubin AST ALT Alkaline Phosphatase Troponin I NT-Pro-B Natriuret Pep Total Protein Albumin Globulin Albumin/Globulin Ratio Arterial Blood Potassium Urine Color Urine Clarity Urine pH Ur Specific [place] Urine Protein Urine Glucose (UA) Urine Ketones Urine Blood Urine Nitrate Urine Bilirubin Urine Urobilinogen Ur Leukocyte Esterase Urine RBC (Auto) Urine Microscopic WBC Ur Squamous Epith Cells Urine Bacteria Hyaline Casts Ur Random Sodium Urine Opiates Screen Urine Methadone Screen Ur Barbiturates Screen Ur Phencyclidine Scrn Ur Amphetamines Screen U Benzodiazepines Scrn U Oth Cocaine Metabols U Cannabinoids Screen Alcohol, Quantitative Hepatitis A IgM Ab Hep Bs Antigen Hep B Core IgM Ab Hepatitis C Antibody Influenza Typ A,B (EIA) 08/24/18 08/24/18 08/24/18 05:00 05:10 06:15 WBC RBC Hgb Hct MCV MCH MCHC RDW Plt Count MPV Neut % (Auto) Lymph % (Auto) [place] % (Auto) Eos % (Auto) Baso % (Auto) Neut # (Auto) Lymph # (Auto) [place] # (Auto) Eos # (Auto) Baso # (Auto) Neutrophils % (Manual) Band Neutrophils % Lymphocytes % (Manual) Monocytes % (Manual) Toxic Granulation Platelet Estimate Large Platelets PT INR APTT 50.3 H D-Dimer, Quantitative pCO2 pO2 HCO3 ABG pH ABG Total CO2 ABG O2 Saturation ABG O2 Content ABG Base Excess ABG Hemoglobin ABG Carboxyhemoglobin POC ABG HHb (Measured) ABG Methemoglobin ABG O2 Capacity Vick Test ABG Potassium A-a O2 Difference Hgb O2 Saturation Sodium 129 L Chloride 89 L Glucose Lactate Vent Mode FiO2 Blood Gas Comments Crit Value Called To Crit Value Called By Crit Value Read Back Blood Gas Notified Time Potassium 5.0 Carbon Dioxide 18 L Anion Gap 27 H BUN 84 H Creatinine 3.4 H Est GFR ( Amer) 22 Est GFR (Non-Af Amer) 18 POC Glucose (mg/dL) Random Glucose 240 H Hemoglobin A1c Lactic Acid Calcium 7.6 L Phosphorus Magnesium Total Bilirubin 2.5 H AST 4962 H ALT 2790 H Alkaline Phosphatase 147 H Troponin I NT-Pro-B Natriuret Pep Total Protein 7.2 Albumin 3.6 Globulin 3.6 Albumin/Globulin Ratio 1.0 Arterial Blood Potassium Urine Color Urine Clarity Urine pH Ur Specific [place] Urine Protein Urine Glucose (UA) Urine Ketones Urine Blood Urine Nitrate Urine Bilirubin Urine Urobilinogen Ur Leukocyte Esterase Urine RBC (Auto) Urine Microscopic WBC Ur Squamous Epith Cells Urine Bacteria Hyaline Casts Ur Random Sodium 5 Urine Opiates Screen Urine Methadone Screen Ur Barbiturates Screen Ur Phencyclidine Scrn Ur Amphetamines Screen U Benzodiazepines Scrn U Oth Cocaine Metabols U Cannabinoids Screen Alcohol, Quantitative Hepatitis A IgM Ab Hep Bs Antigen Hep B Core IgM Ab Hepatitis C Antibody Influenza Typ A,B (EIA) 08/24/18 06:48 WBC RBC Hgb Hct MCV MCH MCHC RDW Plt Count MPV Neut % (Auto) Lymph % (Auto) [place] % (Auto) Eos % (Auto) Baso % (Auto) Neut # (Auto) Lymph # (Auto) [place] # (Auto) Eos # (Auto) Baso # (Auto) Neutrophils % (Manual) Band Neutrophils % Lymphocytes % (Manual) Monocytes % (Manual) Toxic Granulation Platelet Estimate Large Platelets PT INR APTT D-Dimer, Quantitative pCO2 pO2 HCO3 ABG pH ABG Total CO2 ABG O2 Saturation ABG O2 Content ABG Base Excess ABG Hemoglobin ABG Carboxyhemoglobin POC ABG HHb (Measured) ABG Methemoglobin ABG O2 Capacity Vick Test ABG Potassium A-a O2 Difference Hgb O2 Saturation Sodium Chloride Glucose Lactate Vent Mode FiO2 Blood Gas Comments Crit Value Called To Crit Value Called By Crit Value Read Back Blood Gas Notified Time Potassium Carbon Dioxide Anion Gap BUN Creatinine Est GFR ( Amer) Est GFR (Non-Af Amer) POC Glucose (mg/dL) 231 H Random Glucose Hemoglobin A1c Lactic Acid Calcium Phosphorus Magnesium Total Bilirubin AST ALT Alkaline Phosphatase Troponin I NT-Pro-B Natriuret Pep Total Protein Albumin Globulin Albumin/Globulin Ratio Arterial Blood Potassium Urine Color Urine Clarity Urine pH Ur Specific [place] Urine Protein Urine Glucose (UA) Urine Ketones Urine Blood Urine Nitrate Urine Bilirubin Urine Urobilinogen Ur Leukocyte Esterase Urine RBC (Auto) Urine Microscopic WBC Ur Squamous Epith Cells Urine Bacteria Hyaline Casts Ur Random Sodium Urine Opiates Screen Urine Methadone Screen Ur Barbiturates Screen Ur Phencyclidine Scrn Ur Amphetamines Screen U Benzodiazepines Scrn U Oth Cocaine Metabols U Cannabinoids Screen Alcohol, Quantitative Hepatitis A IgM Ab Hep Bs Antigen Hep B Core IgM Ab Hepatitis C Antibody Influenza Typ A,B (EIA) Microbiology 08/22/18 22:27 Urine,Catheterized Urine Culture - Final No Growth (<1,000 CFU/ML) Assessment & Plan (1) Acute on chronic renal failure Status: Acute (2) Acute exacerbation of CHF (congestive heart failure) Status: Acute (3) CAD (coronary atherosclerotic disease) Status: Chronic (4) Leukocytosis Status: Acute - Assessment and Plan (Free Text) Assessment: A/P- 68 year old male with multiple medical conditions including CAD, CHF, DM II, admitted with sob and cough. could be secondary to CHF exacervbation afebrile wbc rising today CXR as per report - developing bilateral pleural effusions renal US- as per report no hydronephrosis. Plan- check blood cx x 2. check sputum cx. check urine legionella AG. check mycoplasma serology. advise to cover empirically for pneumonia pending further results. advise to start patient on IV ceftriaxone and oral zithromax. all labs and imaging and chart notes reviewed. Thank you for allowing me to take part in the care of this patietn. Critical care time spent 60 minutes.
--- NOTE | 2018-08-24 12:36 | CP.PCM.PN ---
Subjective - Date & Time of Evaluation Date of Evaluation: 08/24/18 Time of Evaluation: 12:34 - Subjective Subjective: RENAL seen and examined denies n/v less osb pe: vs as below gen: nad sclera: anicteric op: clear neck: supple cv: +s1+s2 no rub abd: soft nt nd no organomegaly lungs :reduced at bases ext: no edema neuro: a+Ox3 no focal deficit psych: flat skin no rash labs and imaging reviewed imp: ARF / Acute on chronic systolic heart failure/ metabolic acidosis/ respiratory alkalosis/ hyperkalemia/ anemia /hyponatremia plan: LUIS ARMANDO - is likely cardiorenal - suspect given very poor cardiac perfusion causing shock liver type picture + luis armando. UA does have 4+ protein - serologic studies ordered renal us reviewed - nonvisulazation of L kidney - will consider CT to better visualize UOP is improving since dopamine started yesterday evening - monitor for now. 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 d/c hco3 gtt f/u cardiology eval k stable monitor na will see if improves w/ diuresis and pressors Objective - Vital Signs/Intake and Output Vital Signs (last 24 hours): Temp Pulse Resp BP Pulse Ox 97 F L 79 16 120/74 92 L 08/24/18 12:00 08/24/18 12:00 08/24/18 12:00 08/24/18 12:00 08/24/18 12:00 Intake and Output: 08/24/18 08/24/18 06:59 18:59 Intake Total 1084 Output Total 800 Balance 284 - Medications Medications: Current Medications Atorvastatin Calcium (Lipitor) 40 mg PO HS [facility] Last Admin: 08/23/18 22:01 Dose: 40 mg Docusate Sodium (Colace) 100 mg PO BID [facility] Last Admin: 08/24/18 08:32 Dose: 100 mg Dopamine HCl/Dextrose (Dopamine 400mg/250ml D5w) 400 mg in 250 mls @ 5.613 mls/hr IV .Q24H ONE; Protocol Stop: 08/24/18 13:11 Last Admin: 08/24/18 08:56 Dose: 6.5 mcg/kg/min, 14.594 mls/hr Piperacillin Sod/Tazobactam (Sod 2.25 gm/ Sodium Chloride) 100 mls @ 100 mls/hr IVPB Q8 [facility]; Protocol Insulin Human Regular (Humulin R) 0 units SC ACHS [facility]; Protocol Last Admin: 08/24/18 12:16 Dose: 6 units Latanoprost (Xalatan Opht) 1 drop OU HS [facility] Last Admin: 08/23/18 22:16 Dose: 1 drop Levalbuterol HCl (Xopenex) 0.63 mg INH RQ8 [facility] Last Admin: 08/24/18 07:17 Dose: 0.63 mg Metoprolol Tartrate (Lopressor) 50 mg PO Q12 [facility] Last Admin: 08/24/18 08:33 Dose: Not Given Sevelamer Carbonate (Renvela) 2,400 mg PO TID [facility] Last Admin: 08/24/18 12:17 Dose: 2,400 mg Timolol Maleate (Timoptic 0.5% Ophth Soln) 1 drop OD QAM [facility] Last Admin: 08/24/18 08:34 Dose: 1 drop - Labs Labs: 08/24/18 05:00 08/24/18 05:00 PT 16.1 Seconds (9.8-13.1) H 08/22/18 17:39 INR 1.4 08/22/18 17:39 APTT 50.3 Seconds (25.6-37.1) H 08/24/18 05:10
--- NOTE | 2018-08-24 13:42 | CP.PCM.HP ---
History of Present Illness - History of Present Illness History of Present Illness: PATIENT WAS SEEN FOR THIS HPI ON 08/24/18. (A consult was open instead of HPI) CC: SOB. 6 y/o M, with PMHx: CAD, HTN, Asthma, CKD, DM, HLD, s/p CABG and Hx of Stent p lacement 15 yrs ago, Pt was brought to ER [facility] on 08/22/18 via EMS to be evaluated for increased SOB from 2 days, started one week CLAIM REP, SOB described as severe, associated to dry cough and wheezing with no relief. Worsening symptoms: AQUINO, tachycardia, c/o of legs swelling. Found with c ritical labs values; Protonin: 1.2700 Potassium: 6.3 Lactate: 6.7 Lactic Acid: 5.6 AST: 493 ALT: 419 Aggravated factor: Walking/exercise. Pt denied: Fever, chills, CP, headache, n/v/d, abdominal pain, urinary symptoms, sick contact, recent travel out of [facility]. CXR: Pulmonary vascular congestion with questionable small b/l pleural effusion. EKG: A Fib with RVR. Inferior infarct, age undetermined. Anteroseptal infarct, age undetermined. ST and T waves abnormalities. Renal U-S: Increased echogenicity of R kidney, non visualization of the L kidney. Present on Admission - Present on Admission Any Indicators Present on Admission: No Review of Systems - Constitutional Constitutional: Other (none) - EENT Eyes: Other (glaucoma) Ears: Other (negative) Nose/Mouth/Throat: Other (negative) - Cardiovascular Cardiovascular: Rapid Heart Rate - Respiratory Respiratory: Cough, Dyspnea, Dyspnea on Exertion, Wheezing - Gastrointestinal Gastrointestinal: Other (negative) - Musculoskeletal Musculoskeletal: Other (negative) - Integumentary Integumentary: Other (negative) - Neurological Neurological: Other (negative) - Psychiatric Psychiatric: Other (negative) - Endocrine Endocrine: Other (negative) - Hematologic/Lymphatic Hematologic: Other (negative) Past Patient History - Past Medical History & Family History Past Medical History?: Yes Pertinent Family History: Mother and father from heart disease in 70s, Sister and brother with asthma. - Past Social History Smoking Status: Never Smoked Chewing Tobacco Use: No Cigar Use: No Alcohol: Occasional Drugs: Denies, Inhalants Home Situation {Lives}: Alone - CARDIAC Hx Cardiac Disorders: Yes Hx Atrial Fibrillation: Yes Hx Hypercholesterolemia: Yes Hx Hypertension: Yes - PULMONARY Hx Respiratory Disorders: Yes Hx Asthma: Yes - NEUROLOGICAL Hx Neurological Disorder: No - HEENT Hx HEENT Problems: No - RENAL Hx Chronic Kidney Disease: Yes - ENDOCRINE/METABOLIC Hx Endocrine Disorders: Yes Hx Diabetes Mellitus Type 2: Yes - HEMATOLOGICAL/ONCOLOGICAL Hx Blood Disorders: No - INTEGUMENTARY Hx Dermatological Problems: No - MUSCULOSKELETAL/RHEUMATOLOGICAL Hx Musculoskeletal Disorders: Yes Hx Back Pain: Yes Hx Falls: No - GASTROINTESTINAL Hx Gastrointestinal Disorders: No - GENITOURINARY/GYNECOLOGICAL Hx Genitourinary Disorders: No - PSYCHIATRIC Hx Psychophysiologic Disorder: No Hx Substance Use: No - SURGICAL HISTORY Hx Surgeries: Yes Hx Coronary Artery Bypass Graft: Yes Hx Coronary Stent: Yes - ANESTHESIA Hx Anesthesia: Yes Hx Anesthesia Reactions: No Hx Malignant Hyperthermia: No Meds Allergies/Adverse Reactions: Allergies Allergy/AdvReac Type Severity Reaction Status Date / Time No Known Allergies Allergy Verified 08/22/18 16:01 Physical Exam - Constitutional Appears: No Acute Distress - Head Exam Head Exam: NORMAL INSPECTION - Eye Exam Eye Exam: PERRL - ENT Exam ENT Exam: Normal Exam - Neck Exam Neck exam: Positive for: Normal Inspection - Respiratory Exam Respiratory Exam: Decreased Breath Sounds (at bases) - Cardiovascular Exam Cardiovascular Exam: Irregular Rhythm - GI/Abdominal Exam GI & Abdominal Exam: Normal Bowel Sounds, Soft - Extremities Exam Extremities exam: Positive for: normal inspection - Back Exam Back exam: NORMAL INSPECTION - Neurological Exam Neurological exam: Alert, Oriented x3 Additional comments: No motor/sensory deficit. - Psychiatric Exam Psychiatric exam: Normal Mood - Skin Skin Exam: Normal Color Results - Vital Signs Recent Vital Signs: Last Vital Signs Temp 97 F L 08/24/18 12:00 Pulse 76 08/24/18 13:00 Resp 19 08/24/18 13:00 BP 120/76 08/24/18 13:00 Pulse Ox 95 08/24/18 13:00 reviewed Leigh Ann - Labs Result Diagrams: 08/24/18 05:00 08/24/18 05:00 Labs: Laboratory Results - last 24 hr 08/23/18 08/23/18 08/23/18 05:00 14:25 14:25 WBC RBC Hgb Hct MCV MCH MCHC RDW Plt Count MPV Neut % (Auto) Lymph % (Auto) [place] % (Auto) Eos % (Auto) Baso % (Auto) Neut # (Auto) Lymph # (Auto) [place] # (Auto) Eos # (Auto) Baso # (Auto) Neutrophils % (Manual) Band Neutrophils % Lymphocytes % (Manual) Monocytes % (Manual) Toxic Granulation Platelet Estimate Large Platelets APTT 93.2 H Sodium Potassium Chloride Carbon Dioxide Anion Gap BUN Creatinine Est GFR ( Amer) Est GFR (Non-Af Amer) POC Glucose (mg/dL) Random Glucose Hemoglobin A1c 10.0 H Calcium Phosphorus 9.8 H Total Bilirubin AST ALT Alkaline Phosphatase Total Protein Albumin Globulin Albumin/Globulin Ratio Ur Random Sodium Hepatitis A IgM Ab Hep Bs Antigen Hep B Core IgM Ab Hepatitis C Antibody 08/23/18 08/23/18 08/23/18 14:25 15:56 20:46 WBC RBC Hgb Hct MCV MCH MCHC RDW Plt Count MPV Neut % (Auto) Lymph % (Auto) [place] % (Auto) Eos % (Auto) Baso % (Auto) Neut # (Auto) Lymph # (Auto) [place] # (Auto) Eos # (Auto) Baso # (Auto) Neutrophils % (Manual) Band Neutrophils % Lymphocytes % (Manual) Monocytes % (Manual) Toxic Granulation Platelet Estimate Large Platelets APTT Sodium Potassium Chloride Carbon Dioxide Anion Gap BUN Creatinine Est GFR ( Amer) Est GFR (Non-Af Amer) POC Glucose (mg/dL) 112 H 156 H Random Glucose Hemoglobin A1c Calcium Phosphorus Total Bilirubin AST ALT Alkaline Phosphatase Total Protein Albumin Globulin Albumin/Globulin Ratio Ur Random Sodium Hepatitis A IgM Ab Negative Hep Bs Antigen Negative Hep B Core IgM Ab Negative Hepatitis C Antibody Negative 08/23/18 08/24/18 08/24/18 23:11 05:00 05:00 WBC 22.0 H D RBC 4.45 Hgb 14.1 Hct 43.1 MCV 97.0 H MCH 31.8 H MCHC 32.8 L RDW 13.9 Plt Count 130 MPV 10.9 Neut % (Auto) 90.4 H Lymph % (Auto) 3.3 L [place] % (Auto) 6.0 Eos % (Auto) 0.0 Baso % (Auto) 0.3 Neut # (Auto) 19.9 H Lymph # (Auto) 0.7 L [place] # (Auto) 1.3 H Eos # (Auto) 0.0 Baso # (Auto) 0.1 Neutrophils % (Manual) 88 H Band Neutrophils % 2 Lymphocytes % (Manual) 3 L Monocytes % (Manual) 7 Toxic Granulation Present Platelet Estimate Normal Large Platelets Present APTT 50.3 H Sodium 129 L Potassium 5.0 Chloride 89 L Carbon Dioxide 18 L Anion Gap 27 H BUN 84 H Creatinine 3.4 H Est GFR ( Amer) 22 Est GFR (Non-Af Amer) 18 POC Glucose (mg/dL) Random Glucose 240 H Hemoglobin A1c Calcium 7.6 L Phosphorus Total Bilirubin 2.5 H AST 4962 H ALT 2790 H Alkaline Phosphatase 147 H Total Protein 7.2 Albumin 3.6 Globulin 3.6 Albumin/Globulin Ratio 1.0 Ur Random Sodium Hepatitis A IgM Ab Hep Bs Antigen Hep B Core IgM Ab Hepatitis C Antibody 08/24/18 08/24/18 08/24/18 05:10 06:15 06:48 WBC RBC Hgb Hct MCV MCH MCHC RDW Plt Count MPV Neut % (Auto) Lymph % (Auto) [place] % (Auto) Eos % (Auto) Baso % (Auto) Neut # (Auto) Lymph # (Auto) [place] # (Auto) Eos # (Auto) Baso # (Auto) Neutrophils % (Manual) Band Neutrophils % Lymphocytes % (Manual) Monocytes % (Manual) Toxic Granulation Platelet Estimate Large Platelets APTT 50.3 H Sodium Potassium Chloride Carbon Dioxide Anion Gap BUN Creatinine Est GFR ( Amer) Est GFR (Non-Af Amer) POC Glucose (mg/dL) 231 H Random Glucose Hemoglobin A1c Calcium Phosphorus Total Bilirubin AST ALT Alkaline Phosphatase Total Protein Albumin Globulin Albumin/Globulin Ratio Ur Random Sodium 5 Hepatitis A IgM Ab Hep Bs Antigen Hep B Core IgM Ab Hepatitis C Antibody 08/24/18 11:03 WBC RBC Hgb Hct MCV MCH MCHC RDW Plt Count MPV Neut % (Auto) Lymph % (Auto) [place] % (Auto) Eos % (Auto) Baso % (Auto) Neut # (Auto) Lymph # (Auto) [place] # (Auto) Eos # (Auto) Baso # (Auto) Neutrophils % (Manual) Band Neutrophils % Lymphocytes % (Manual) Monocytes % (Manual) Toxic Granulation Platelet Estimate Large Platelets APTT Sodium Potassium Chloride Carbon Dioxide Anion Gap BUN Creatinine Est GFR ( Amer) Est GFR (Non-Af Amer) POC Glucose (mg/dL) 310 H Random Glucose Hemoglobin A1c Calcium Phosphorus Total Bilirubin AST ALT Alkaline Phosphatase Total Protein Albumin Globulin Albumin/Globulin Ratio Ur Random Sodium Hepatitis A IgM Ab Hep Bs Antigen Hep B Core IgM Ab Hepatitis C Antibody reviewed J.P. - EKG Data EKG comments: reviewed J.P. - Imaging and Cardiology Chest x-ray Status: Report reviewed by me (Irineo.) rRenal U-S Status: Report reviewed by me Assessment & Plan (1) Respiratory insufficiency Status: Acute Priority: High (2) Acute exacerbation of CHF (congestive heart failure) Status: Acute Priority: High Comment: Acute o chronic (3) Asthma Status: Chronic Priority: High (4) Acute on chronic renal failure Status: Chronic Priority: High (5) DM2 (diabetes mellitus, type 2) Status: Chronic Priority: High (6) Atrial fibrillation with rapid ventricular response Status: Acute Priority: High (7) Hyperkalemia Status: Acute Priority: High (8) CAD (coronary atherosclerotic disease) Status: Chronic Priority: Medium (9) HTN (hypertension) Status: Chronic Priority: Medium (10) Hx of CABG Status: Chronic Priority: High (11) History of coronary artery stent placement Status: Chronic Priority: High - Assessment and Plan (Free Text) Plan: F/U Blood C-S, Sputum C-S, U C-S, continue O2 NC, Zosyn, Lopressor, Lipitor, Insulin, Xopenex and rest of Tx. Cardiology and nephrology consult appreciated. ID consult. - Date & Time Date: 08/23/18 Time: 15:00
[2018-08-24 14:58] LABS: SQUAMOUS EPITHIAL < 1 /hpf (0-5); URINE BACTERIA OCC (<OCC); URINE BILIRUBIN NEGATIVE (NEGATIVE); URINE BLOOD LARGE (NEGATIVE); URINE CLARITY CLOUDY (Clear); URINE COLOR YELLOW (YELLOW); URINE GLUCOSE (UA) 50 mg/dL (NEGATIVE); URINE HYALINE CAST 0-2 /hpf (0-2); URINE LEUKOCYTE ESTERASE SMALL Leu/uL (Negative); URINE PROTEIN 30 mg/dL (NEGATIVE); URINE UROBILINOGEN 0.2-1.0 mg/dL (0.2-1.0)
--- NOTE | 2018-08-24 17:19 | CP.PCM.PN ---
Subjective - Date & Time of Evaluation Date of Evaluation: 08/24/18 Time of Evaluation: 15:50 - Subjective Subjective: F/U Respiratory Insufficiency Pt awake, answering questions, no specific complaint, no pain. Objective - Vital Signs/Intake and Output Vital Signs (last 24 hours): Temp Pulse Resp BP Pulse Ox 98.0 F 74 19 102/64 92 L 08/24/18 16:00 08/24/18 17:00 08/24/18 17:00 08/24/18 17:00 08/24/18 17:00 Intake and Output: 08/24/18 08/24/18 06:59 18:59 Intake Total 1934 Output Total 1100 Balance 834 - Medications Medications: Current Medications Atorvastatin Calcium (Lipitor) 40 mg PO HS [facility] Last Admin: 08/23/18 22:01 Dose: 40 mg Docusate Sodium (Colace) 100 mg PO BID [facility] Last Admin: 08/24/18 16:23 Dose: 100 mg Piperacillin Sod/Tazobactam (Sod 2.25 gm/ Sodium Chloride) 100 mls @ 100 mls/hr IVPB Q6 [facility]; Protocol Last Admin: 08/24/18 16:24 Dose: 100 mls/hr Insulin Human Regular (Humulin R) 0 units SC ACHS [facility]; Protocol Last Admin: 08/24/18 17:09 Dose: 10 units Latanoprost (Xalatan Opht) 1 drop OU HS [facility] Last Admin: 08/23/18 22:16 Dose: 1 drop Levalbuterol HCl (Xopenex) 0.63 mg INH RQ8 [facility] Last Admin: 08/24/18 15:22 Dose: 0.63 mg Metoprolol Tartrate (Lopressor) 50 mg PO Q12 [facility] Last Admin: 08/24/18 08:33 Dose: Not Given Sevelamer Carbonate (Renvela) 2,400 mg PO TID [facility] Last Admin: 08/24/18 16:24 Dose: 2,400 mg Timolol Maleate (Timoptic 0.5% Ophth Soln) 1 drop OD QAM [facility] Last Admin: 08/24/18 08:34 Dose: 1 drop - Labs Labs: 08/24/18 05:00 08/24/18 05:00 PT 16.1 Seconds (9.8-13.1) H 08/22/18 17:39 INR 1.4 08/22/18 17:39 APTT 50.3 Seconds (25.6-37.1) H 08/24/18 05:10 - Constitutional Appears: No Acute Distress - Head Exam Head Exam: NORMAL INSPECTION - Eye Exam Eye Exam: PERRL - ENT Exam ENT Exam: Normal Exam - Neck Exam Neck Exam: Normal Inspection - Respiratory Exam Respiratory Exam: Decreased Breath Sounds (at bases) - Cardiovascular Exam Cardiovascular Exam: Irregular Rhythm - GI/Abdominal Exam GI & Abdominal Exam: Soft, Normal Bowel Sounds - Extremities Exam Extremities Exam: Normal Inspection - Back Exam Back Exam: NORMAL INSPECTION - Neurological Exam Neurological Exam: Alert, Oriented x3. absent: Motor Sensory Deficit - Psychiatric Exam Psychiatric exam: Normal Mood - Skin Skin Exam: Warm Assessment and Plan (1) Respiratory insufficiency Status: Acute (2) Acute exacerbation of CHF (congestive heart failure) Status: Acute (3) Asthma Status: Chronic (4) Acute on chronic renal failure Status: Chronic (5) DM2 (diabetes mellitus, type 2) Status: Chronic (6) Atrial fibrillation with rapid ventricular response Status: Acute (7) Hyperkalemia Status: Acute (8) CAD (coronary atherosclerotic disease) Status: Chronic (9) HTN (hypertension) Status: Chronic (10) Hx of CABG Status: Chronic (11) History of coronary artery stent placement Status: Chronic - Assessment and Plan (Free Text) Plan: Continue O2 NC 4 L/M, Zosyn, Xopenex, Lopressor, Humulin, Levemir, Lipitor and rest of tx.
[2018-08-24] MEDS: Insulin Detemir 100 Units/ml Inj SC SCH (22:13)
[2018-08-24] MEDS: Latanoprost 0.005% Opht SOUTION OU SCH (22:13)
[2018-08-25] MEDS: Levalbuterol 0.63 MG/3 ML Inhal Soln UD INH SCH ×4 (00:01→23:39)
--- NOTE | 2018-08-25 01:26 | PN ---
DATE: 08/24/2018 CRITICAL CARE PROGRESS NOTE LOCATION: The patient is in ICU, bed 424. TIME SPENT: 35 minutes. The patient was seen and evaluated at the bedside. Past medical, surgical, family, social history reviewed. SUBJECTIVE: A 68-year-old male with history significant for diabetes mellitus type 2, hypertension, hyperlipidemia, coronary artery disease, chronic atrial fibrillation, systolic heart failure, chronic kidney disease, and asthma, status post coronary artery bypass graft surgery and coronary artery stent, admitted with shortness of breath, noted to have shortness of breath overnight, amiodarone drip discontinued secondary to hypotension and bradycardia, on dopamine. This morning, alert and awake, follows commands appropriate. Denies fever, chills, cough. Moderate shortness of breath. No chest pain or palpitation. Denies abdominal discomfort. No diarrhea. No dysuria. PHYSICAL EXAMINATION: VITAL SIGNS: Temperature 97, heart rate 76, respiratory rate 19, blood pressure 120/76, oxygen saturation 95%, oxygen supplement 2 liters nasal cannula. Intake 1084, output 800, positive balance 284. Weight 132 pounds. HEAD, EYES, EARS, NOSE AND THROAT: Atraumatic, normocephalic. Pupils are reactive. Conjunctivae pale. Sclerae anicteric. CHEST: Bilateral breath sounds. Fine crepitations at the bases. HEART: Rhythm irregular. No audible murmur. ABDOMEN: Bowel sounds present. Soft. No palpable mass. EXTREMITIES: No clubbing or cyanosis. 1+ edema. DP palpable. Capillary refill less than 2 seconds. NEUROLOGIC: Alert and oriented to name, place and time. No cranial nerve deficit. Reflexes 2+ bilaterally. SKIN: Intact, normal color, warm to touch. CURRENT MEDICATIONS: Lipitor 40 mg p.o. daily, Colace 100 mg p.o. twice daily, Accu-Chek with regular insulin coverage, Xalatan eyedrops 1 drop both eyes h.s., Xopenex 0.63 mg inhalation every 8 hours, Lopressor 50 mg p.o. every 12 hours on hold due to bradycardia, Zosyn 2.25 g IV every 6 hours, Renvela 2400 mg three times daily, Timoptic 0.5% ophthalmic solution 1 drop right eye once in the morning. LABORATORY DATA: WBC 22, hemoglobin 14.1, hematocrit 43.1, platelet count 130, neutrophils 90.4, lymphocytes 3.3, monocytes 6, PTT 50.3. Blood gas, pH of 7.33, pCO2 of 22, pO2 of 83, oxygen saturation 97.1 on FIO2 of 40%. SMA-7: Sodium 129, potassium 5, chloride 89, CO2 of 18, blood urea nitrogen 84, creatinine 3.4, random glucose 310, calcium 7.6, phosphorus 9.8, total bilirubin 2.5, AST 4962, ALT 2790, alkaline phosphatase 147. Urinalysis, urine bacteria rare. Urine drug screen negative. Serology: Hepatitis B surface antigen negative, hepatitis B core antibody negative, hepatitis C antibody negative. Influenza A and B negative. Microbiology: Urine no growth, colony less than 1000 CFU/mL. Renal ultrasound, non-visualization of left kidney, mildly increased echogenicity of right kidney which can be seen in the setting of medical renal disease. No hydronephrosis or nephrolithiasis. Chest x-ray, pulmonary vascular congestion with bilateral small pleural effusion. IMPRESSION AND PLAN: 1. Neurologic: Septic metabolic encephalopathy, low cardiac output syndrome but more awake than before, likely due to improved perfusion since on dopamine. 2. Pulmonary: Bilateral pulmonary vascular congestion with bilateral pleural effusion secondary to acute on chronic systolic heart failure. 3. Cardiac: Acute on chronic systolic heart failure, elevated troponin, probably related to renal failure. 4. Infectious Disease: Leukocytosis, persistent, seen by Infectious Disease consult. Empirically on Zosyn. Chest x-ray: No new infiltrate but for pulmonary vascular congestion. Blood culture no growth. Urinalysis is negative. Urine culture less than 1000 CFU/mL. 5. Elevated liver enzymes: Likely related to hepatic congestion, however, given elevated lactate, though related to poor clearance secondary to the chronic liver congestion. We will evaluate for possible cholelithiasis or cholecystitis. Hepatitis B and C serology so far negative. Ultrasound of the liver and gallbladder ordered. Abdominal CT needs with contrast. We will schedule once cleared by renal consult. 6. Asfkh-[id number] renal failure. Seen by renal consult. Increased urine output over the last 24 hours. Recommended to give Lasix 40 mg IV x1. 7. Gastrointestinal: Elevated liver enzymes likely due to hepatic congestion, hepatitis B and C serology negative. We will do ultrasound of the liver and gallbladder to evaluate further. May need CT abdomen but concerned about the renal failure and the use of contrast. For better evaluation of CT abdomen with contrast, we will discuss with renal. 8. Endocrine: Blood sugar in the 240-300. Continue Accu-Chek with regular insulin coverage. Keep the head of bed 30 degrees up. Deep venous thrombosis prophylaxis, currently on heparin drip. Candido De Guzman MD
[2018-08-25] MEDS ORDERED: DOPamine 400mg/250ml D5W 400 MG/250 ML BAG IV ONE ×3 (01:33→23:16)
[2018-08-25 05:41] LABS: ALB/GLOB RATIO 0.9 (1.0-2.1); CALCIUM 6.5 mg/dL (8.4-10.2)
[2018-08-25 06:07] LABS: HEMOGLOBIN 14.7 g/dL (12.0-18.0); MEAN CELL VOLUME 93.3 fl (80.0-94.0); MEAN CORPUSCULAR HEMOGLOBIN 31.2 pg (27.0-31.0); MEAN CORPUSCULAR HGB CONC 33.5 g/dL (33.0-37.0); RBC 4.7 Mil/uL (4.40-5.90); WHITE BLOOD COUNT 14.5 K/uL (4.8-10.8)
[2018-08-25] MEDS: Insulin Regular 100 units/ml SC SCH ×4 (06:54→21:33)
--- NOTE | 2018-08-25 09:13 | CP.PCM.CON ---
History of Present Illness - History of Present Illness History of Present Illness: Consulation for evaluation of CHF HPI: Review of Systems - Review of Systems Systems not reviewed;Unavailable: Acuity of Condition - Constitutional Constitutional: As Per HPI - EENT Eyes: As Per HPI Ears: As Per HPI Nose/Mouth/Throat: As Per HPI - Cardiovascular Cardiovascular: As Per HPI - Respiratory Respiratory: As Per HPI - Gastrointestinal Gastrointestinal: As Per HPI - Genitourinary Genitourinary: As Per HPI - Reproductive: Male Reproductive:Male: As Per HPI - Musculoskeletal Musculoskeletal: As Per HPI - Integumentary Integumentary: As Per HPI - Neurological Neurological: As Per HPI - Psychiatric Psychiatric: As Per HPI - Endocrine Endocrine: As Per HPI - Hematologic/Lymphatic Hematologic: As Per HPI Past Patient History - Past Medical History & Family History Past Medical History?: Yes - Past Social History Smoking Status: Never Smoked Chewing Tobacco Use: No Cigar Use: No Alcohol: Occasional Drugs: Denies, Inhalants Home Situation {Lives}: Alone - CARDIAC Hx Cardiac Disorders: Yes Hx Atrial Fibrillation: Yes Hx Hypercholesterolemia: Yes Hx Hypertension: Yes - PULMONARY Hx Respiratory Disorders: Yes Hx Asthma: Yes - NEUROLOGICAL Hx Neurological Disorder: No - HEENT Hx HEENT Problems: No - RENAL Hx Chronic Kidney Disease: Yes - ENDOCRINE/METABOLIC Hx Endocrine Disorders: Yes Hx Diabetes Mellitus Type 2: Yes - HEMATOLOGICAL/ONCOLOGICAL Hx Blood Disorders: No - INTEGUMENTARY Hx Dermatological Problems: No - MUSCULOSKELETAL/RHEUMATOLOGICAL Hx Musculoskeletal Disorders: Yes Hx Back Pain: Yes Hx Falls: No - GASTROINTESTINAL Hx Gastrointestinal Disorders: No - GENITOURINARY/GYNECOLOGICAL Hx Genitourinary Disorders: No - PSYCHIATRIC Hx Psychophysiologic Disorder: No Hx Substance Use: No - SURGICAL HISTORY Hx Surgeries: Yes Hx Coronary Artery Bypass Graft: Yes Hx Coronary Stent: Yes - ANESTHESIA Hx Anesthesia: Yes Hx Anesthesia Reactions: No Hx Malignant Hyperthermia: No Meds Allergies/Adverse Reactions: Allergies Allergy/AdvReac Type Severity Reaction Status Date / Time No Known Allergies Allergy Verified 08/22/18 16:01 - Medications Medications: Current Medications Atorvastatin Calcium (Lipitor) 40 mg PO HS [facility] Last Admin: 08/24/18 22:13 Dose: 40 mg Docusate Sodium (Colace) 100 mg PO BID [facility] Last Admin: 08/24/18 16:23 Dose: 100 mg Piperacillin Sod/Tazobactam (Sod 2.25 gm/ Sodium Chloride) 100 mls @ 100 mls/hr IVPB Q6 [facility]; Protocol Last Admin: 08/25/18 04:13 Dose: 100 mls/hr Dopamine HCl/Dextrose (Dopamine 400mg/250ml D5w) 400 mg in 250 mls @ 19.085 mls/hr IV .Q13H6M ONE; Protocol Stop: 08/25/18 14:38 Last Admin: 08/25/18 02:00 Dose: 8.5 mcg/kg/min, 19.085 mls/hr Insulin Detemir (Levemir) 15 units SC HS [facility] Last Admin: 08/24/18 22:13 Dose: 15 units Insulin Human Regular (Humulin R) 0 units SC ACHS [facility]; Protocol Last Admin: 08/25/18 06:54 Dose: 3 units Latanoprost (Xalatan Opht) 1 drop OU HS [facility] Last Admin: 08/24/18 22:13 Dose: 1 drop Levalbuterol HCl (Xopenex) 0.63 mg INH RQ8 [facility] Last Admin: 08/25/18 07:26 Dose: 0.63 mg Metoprolol Tartrate (Lopressor) 50 mg PO Q12 [facility] Last Admin: 08/24/18 21:05 Dose: Not Given Sevelamer Carbonate (Renvela) 2,400 mg PO TID [facility] Last Admin: 08/24/18 16:24 Dose: 2,400 mg Timolol Maleate (Timoptic 0.5% Ophth Soln) 1 drop OD QAM [facility] Last Admin: 08/24/18 08:34 Dose: 1 drop Physical Exam - Constitutional Appears: Well, In Acute Distress - Head Exam Head Exam: ATRAUMATIC, NORMAL INSPECTION, NORMOCEPHALIC - Eye Exam Eye Exam: EOMI, Normal appearance, PERRL Pupil Exam: NORMAL ACCOMODATION, PERRL - ENT Exam ENT Exam: Mucous Membranes Moist, Normal Exam - Neck Exam Neck exam: Positive for: Normal Inspection - Respiratory Exam Respiratory Exam: Clear to Auscultation Bilateral, NORMAL BREATHING PATTERN - Cardiovascular Exam Cardiovascular Exam: REGULAR RHYTHM, RRR, +S1, +S2, Systolic Murmur - GI/Abdominal Exam GI & Abdominal Exam: Normal Bowel Sounds, Soft. absent: Tenderness - Extremities Exam Extremities exam: Positive for: normal inspection - Back Exam Back exam: NORMAL INSPECTION - Neurological Exam Neurological exam: Alert, CN II-XII Intact, Normal Gait, Oriented x3, Reflexes Normal - Psychiatric Exam Psychiatric exam: Normal Affect, Normal Mood - Skin Skin Exam: Dry, Intact, Normal Color, Warm Results - Vital Signs Recent Vital Signs: Last Vital Signs Temp 97.9 F 08/25/18 08:00 Pulse 91 H 08/25/18 08:00 Resp 16 08/25/18 08:00 BP 120/79 08/25/18 08:00 Pulse Ox 93 L 08/25/18 08:00 - Labs Result Diagrams: 08/25/18 04:55 08/25/18 04:55 Labs: Laboratory Results - last 24 hr 08/23/18 08/24/18 08/24/18 05:00 05:00 11:03 WBC RBC Hgb Hct MCV MCH MCHC RDW Plt Count Neutrophils % (Manual) 88 H Band Neutrophils % 2 Lymphocytes % (Manual) 3 L Monocytes % (Manual) 7 Toxic Granulation Present Platelet Estimate Normal Large Platelets Present APTT Sodium Potassium Chloride Carbon Dioxide Anion Gap BUN Creatinine Est GFR ( Amer) Est GFR (Non-Af Amer) POC Glucose (mg/dL) 310 H Random Glucose Hemoglobin A1c 10.0 H Lactic Acid Calcium Total Bilirubin AST ALT Alkaline Phosphatase Total Protein Albumin Globulin Albumin/Globulin Ratio Urine Color Urine Clarity Urine pH Ur Specific Dike Urine Protein Urine Glucose (UA) Urine Ketones Urine Blood Urine Nitrate Urine Bilirubin Urine Urobilinogen Ur Leukocyte Esterase Urine RBC (Auto) Urine Microscopic WBC Ur Squamous Epith Cells Urine Bacteria Hyaline Casts Ur L.pneumophila Ag 08/24/18 08/24/18 08/24/18 14:40 14:40 14:50 WBC RBC Hgb Hct MCV MCH MCHC RDW Plt Count Neutrophils % (Manual) Band Neutrophils % Lymphocytes % (Manual) Monocytes % (Manual) Toxic Granulation Platelet Estimate Large Platelets APTT Sodium Potassium Chloride Carbon Dioxide Anion Gap BUN Creatinine Est GFR ( Amer) Est GFR (Non-Af Amer) POC Glucose (mg/dL) Random Glucose Hemoglobin A1c Lactic Acid 3.4 H Calcium Total Bilirubin AST ALT Alkaline Phosphatase Total Protein Albumin Globulin Albumin/Globulin Ratio Urine Color Yellow Urine Clarity Cloudy Urine pH 6.0 Ur Specific Dike 1.010 Urine Protein 30 Urine Glucose (UA) 50 Urine Ketones Negative Urine Blood Large Urine Nitrate Negative Urine Bilirubin Negative Urine Urobilinogen 0.2-1.0 Ur Leukocyte Esterase Small Urine RBC (Auto) 64 H Urine Microscopic WBC 13 H Ur Squamous Epith Cells < 1 Urine Bacteria Occ H Hyaline Casts 0-2 Ur L.pneumophila Ag Negative 08/24/18 08/24/18 08/25/18 16:30 20:49 04:55 WBC RBC Hgb Hct MCV MCH MCHC RDW Plt Count Neutrophils % (Manual) Band Neutrophils % Lymphocytes % (Manual) Monocytes % (Manual) Toxic Granulation Platelet Estimate Large Platelets APTT 54.2 H Sodium Potassium Chloride Carbon Dioxide Anion Gap BUN Creatinine Est GFR ( Amer) Est GFR (Non-Af Amer) POC Glucose (mg/dL) > 500 H* 462 H* Random Glucose Hemoglobin A1c Lactic Acid Calcium Total Bilirubin AST ALT Alkaline Phosphatase Total Protein Albumin Globulin Albumin/Globulin Ratio Urine Color Urine Clarity Urine pH Ur Specific Dike Urine Protein Urine Glucose (UA) Urine Ketones Urine Blood Urine Nitrate Urine Bilirubin Urine Urobilinogen Ur Leukocyte Esterase Urine RBC (Auto) Urine Microscopic WBC Ur Squamous Epith Cells Urine Bacteria Hyaline Casts Ur L.pneumophila Ag 08/25/18 08/25/18 08/25/18 04:55 04:55 04:55 WBC 14.5 H RBC 4.70 Hgb 14.7 Hct 43.9 MCV 93.3 D MCH 31.2 H MCHC 33.5 RDW 14.0 Plt Count 152 Neutrophils % (Manual) Band Neutrophils % Lymphocytes % (Manual) Monocytes % (Manual) Toxic Granulation Platelet Estimate Large Platelets APTT Sodium 130 L Potassium 3.6 Chloride 87 L Carbon Dioxide 26 Anion Gap 21 H BUN 103 H* D Creatinine 3.1 H Est GFR ( Amer) 24 Est GFR (Non-Af Amer) 20 POC Glucose (mg/dL) Random Glucose 269 H Hemoglobin A1c Lactic Acid 2.4 H Calcium 6.5 L Total Bilirubin 2.2 H AST 2992 H ALT 2596 H Alkaline Phosphatase 141 H Total Protein 6.3 Albumin 3.0 L Globulin 3.3 Albumin/Globulin Ratio 0.9 L Urine Color Urine Clarity Urine pH Ur Specific Dike Urine Protein Urine Glucose (UA) Urine Ketones Urine Blood Urine Nitrate Urine Bilirubin Urine Urobilinogen Ur Leukocyte Esterase Urine RBC (Auto) Urine Microscopic WBC Ur Squamous Epith Cells Urine Bacteria Hyaline Casts Ur L.pneumophila Ag 08/25/18 06:45 WBC RBC Hgb Hct MCV MCH MCHC RDW Plt Count Neutrophils % (Manual) Band Neutrophils % Lymphocytes % (Manual) Monocytes % (Manual) Toxic Granulation Platelet Estimate Large Platelets APTT Sodium Potassium Chloride Carbon Dioxide Anion Gap BUN Creatinine Est GFR ( Amer) Est GFR (Non-Af Amer) POC Glucose (mg/dL) 230 H Random Glucose Hemoglobin A1c Lactic Acid Calcium Total Bilirubin AST ALT Alkaline Phosphatase Total Protein Albumin Globulin Albumin/Globulin Ratio Urine Color Urine Clarity Urine pH Ur Specific Dike Urine Protein Urine Glucose (UA) Urine Ketones Urine Blood Urine Nitrate Urine Bilirubin Urine Urobilinogen Ur Leukocyte Esterase Urine RBC (Auto) Urine Microscopic WBC Ur Squamous Epith Cells Urine Bacteria Hyaline Casts Ur L.pneumophila Ag Assessment & Plan (1) Acute exacerbation of CHF (congestive heart failure) Assessment and Plan: start on IV dopamine cont IV lasix given 1 dose of bumex Status: Acute Priority: High (2) Atrial fibrillation with rapid ventricular response Assessment and Plan: started on IV amiodarone in the ED Status: Acute Priority: High (3) Respiratory insufficiency Assessment and Plan: 2' to CHF Status: Acute Priority: High (4) Acute on chronic renal failure Status: Chronic Priority: High (5) History of coronary artery stent placement Status: Chronic Priority: High (6) Hx of CABG Status: Chronic Priority: High (7) CAD (coronary atherosclerotic disease) Status: Chronic Priority: Medium (8) HTN (hypertension) Status: Chronic Priority: Medium
--- NOTE | 2018-08-25 10:08 | CP.PCM.PN ---
Subjective - Date & Time of Evaluation Date of Evaluation: 08/25/18 Time of Evaluation: 10:08 - Subjective Subjective: Patient is awake and conscious Not in acute distress he appears to be more comfortable less shortness of breath. Vital signs noted to be stable Objective - Vital Signs/Intake and Output Vital Signs (last 24 hours): Temp Pulse Resp BP Pulse Ox 97.9 F 92 H 16 131/56 L 93 L 08/25/18 08:00 08/25/18 09:40 08/25/18 08:00 08/25/18 09:40 08/25/18 08:00 Intake and Output: 08/25/18 08/25/18 06:59 18:59 Intake Total 726 Output Total 3250 Balance -2524 - Medications Medications: Current Medications Atorvastatin Calcium (Lipitor) 40 mg PO HS [facility] Last Admin: 08/24/18 22:13 Dose: 40 mg Docusate Sodium (Colace) 100 mg PO BID [facility] Last Admin: 08/25/18 09:39 Dose: 100 mg Piperacillin Sod/Tazobactam (Sod 2.25 gm/ Sodium Chloride) 100 mls @ 100 mls/hr IVPB Q6 [facility]; Protocol Last Admin: 08/25/18 09:45 Dose: 100 mls/hr Dopamine HCl/Dextrose (Dopamine 400mg/250ml D5w) 400 mg in 250 mls @ 19.085 mls/hr IV .Q13H6M [facility]; Protocol Stop: 08/25/18 14:38 Last Admin: 08/25/18 02:00 Dose: 8.5 mcg/kg/min, 19.085 mls/hr Insulin Detemir (Levemir) 15 units SC [facility] Last Admin: 08/24/18 22:13 Dose: 15 units Insulin Human Regular (Humulin R) 0 units SC ACHS [facility]; Protocol Last Admin: 08/25/18 06:54 Dose: 3 units Latanoprost (Xalatan Opht) 1 drop OU HS [facility] Last Admin: 08/24/18 22:13 Dose: 1 drop Levalbuterol HCl (Xopenex) 0.63 mg INH RQ8 [facility] Last Admin: 08/25/18 07:26 Dose: 0.63 mg Metoprolol Tartrate (Lopressor) 50 mg PO Q12 [facility] Last Admin: 08/25/18 09:40 Dose: 50 mg Sevelamer Carbonate (Renvela) 2,400 mg PO TID [facility] Last Admin: 08/25/18 09:44 Dose: 2,400 mg Timolol Maleate (Timoptic 0.5% Ophth Soln) 1 drop OD QAM [facility] Last Admin: 08/25/18 09:44 Dose: 1 drop - Labs Labs: 08/25/18 04:55 08/25/18 04:55 PT 16.1 Seconds (9.8-13.1) H 08/22/18 17:39 INR 1.4 08/22/18 17:39 APTT 54.2 Seconds (25.6-37.1) H 08/25/18 04:55 - Constitutional Appears: No Acute Distress - Eye Exam Eye Exam: Conjunctival injection - ENT Exam ENT Exam: Mucous Membranes Moist - Neck Exam Neck Exam: absent: Lymphadenopathy - Respiratory Exam Respiratory Exam: NORMAL BREATHING PATTERN - Cardiovascular Exam Cardiovascular Exam: absent: Gallop, JVD, Rubs - GI/Abdominal Exam GI & Abdominal Exam: Soft, Normal Bowel Sounds - Extremities Exam Extremities Exam: absent: Calf Tenderness - Back Exam Back Exam: absent: CVA tenderness (L), CVA tenderness (R) - Neurological Exam Neurological Exam: Alert - Psychiatric Exam Psychiatric exam: Normal Affect - Skin Skin Exam: absent: Cyanosis Assessment and Plan (1) Hyperkalemia Status: Acute (2) Leukocytosis Status: Acute (3) Acute on chronic renal failure Assessment & Plan: imp: ARF / Acute on chronic systolic heart failure/ metabolic acidosis / respiratory alkalosis/ hyperkalemia/ anemia / hyponatremia Hyperphosphatemia Hypocalcemia The plan Acute renal failure perhaps related to cardiorenal syndrome Urine output improving patient making very good amount of urine and continue to improve however BUN rising related to intravascular volume depletion perhaps PTH level Calcitriol 0.5 mcg daily and oral calcium Continue phosphorus binder Status: Chronic
--- NOTE | 2018-08-25 10:28 | US ---
Date of service: 08/25/2018 HISTORY: abnormal LFT COMPARISON: None. TECHNIQUE: Sonographic evaluation of the right upper quadrant of the abdomen. FINDINGS: LIVER: Measures 12.4 cm in length. Normal echogenicity of the liver parenchyma. No mass. No intrahepatic bile duct dilatation. Incidental note is made of right pleural effusion immediately cephalad to the dome of the liver with there is also trace perihepatic ascites as well. GALLBLADDER: Gallbladder is largely contracted and poorly evaluated. Borderline mural thickening may be due to trace perihepatic ascites related hydrops. No cholelithiasis identified. COMMON BILE DUCT: Measures 3.3 mm. No stones. No dilatation. PANCREAS: The head and tail of the pancreas is obscured by overlying bowel gas with remainder unremarkable. RIGHT KIDNEY: Measures 11.1 x 6.2 x 5.1 cm in length. Normal size and contour however poor corticomedullary differentiation is appreciated which may indicate intrinsic medical renal disease. No calculus, mass, or hydronephrosis. AORTA: No aneurysmal dilatation. Atherosclerotic mural changes are seen related to the abdominal aorta IVC: Unremarkable. OTHER FINDINGS: None . IMPRESSION: 1. Trace perihepatic ascites without focal pathology identified directly related to the liver. Likely gallbladder hydrops with the gallbladder mostly contracted. No cholelithiasis. Limited evaluation the gallbladder. 2. No biliary tree dilatation appreciated grossly. 3. Partial imaging of the pancreas. 4. Potential intrinsic medical renal disease right kidney. No obstructive uropathy or solid renal mass appreciable.
--- NOTE | 2018-08-25 11:13 | CP.PCM.PN ---
Subjective - Date & Time of Evaluation Date of Evaluation: 08/25/18 Time of Evaluation: 11:12 - Subjective Subjective: ID Note- Patient seen and examined today in ICU. pt. feeling less sob. afebrile. being diuresed by renal. Objective - Vital Signs/Intake and Output Vital Signs (last 24 hours): Temp Pulse Resp BP Pulse Ox 97.9 F 92 H 16 131/56 L 93 L 08/25/18 08:00 08/25/18 09:40 08/25/18 08:00 08/25/18 09:40 08/25/18 08:00 Intake and Output: 08/25/18 08/25/18 06:59 18:59 Intake Total 726 Output Total 3250 Balance -2524 - Medications Medications: Current Medications Atorvastatin Calcium (Lipitor) 40 mg PO HS [facility] Last Admin: 08/24/18 22:13 Dose: 40 mg Calcitriol (Rocaltrol) 0.5 mcg PO DAILY [facility] Calcium Carbonate (Oscal) 500 mg PO BIDWM [facility] Docusate Sodium (Colace) 100 mg PO BID [facility] Last Admin: 08/25/18 09:39 Dose: 100 mg Piperacillin Sod/Tazobactam (Sod 2.25 gm/ Sodium Chloride) 100 mls @ 100 mls/hr IVPB Q6 [facility]; Protocol Last Admin: 08/25/18 09:45 Dose: 100 mls/hr Dopamine HCl/Dextrose (Dopamine 400mg/250ml D5w) 400 mg in 250 mls @ 19.085 mls/hr IV .[id number] ONE; Protocol Stop: 08/25/18 14:38 Last Admin: 08/25/18 02:00 Dose: 8.5 mcg/kg/min, 19.085 mls/hr Insulin Detemir (Levemir) 15 units SC [facility] Last Admin: 08/24/18 22:13 Dose: 15 units Insulin Human Regular (Humulin R) 0 units SC [facility]; Protocol Last Admin: 08/25/18 06:54 Dose: 3 units Latanoprost (Xalatan Opht) 1 drop OU HS [facility] Last Admin: 08/24/18 22:13 Dose: 1 drop Levalbuterol HCl (Xopenex) 0.63 mg INH RQ8 [facility] Last Admin: 08/25/18 07:26 Dose: 0.63 mg Metoprolol Tartrate (Lopressor) 50 mg PO Q12 [facility] Last Admin: 08/25/18 09:40 Dose: 50 mg Sevelamer Carbonate (Renvela) 2,400 mg PO TID [facility] Last Admin: 08/25/18 09:44 Dose: 2,400 mg Timolol Maleate (Timoptic 0.5% Ophth Soln) 1 drop OD QAM [facility] Last Admin: 08/25/18 09:44 Dose: 1 drop - Labs Labs: - Additional Findings Additional findings: - Constitutional Appears: No Acute Distress - Head Exam Head Exam: ATRAUMATIC - Eye Exam Eye Exam: EOMI - ENT Exam Additional comments: poor dentition - Neck Exam Neck exam: Positive for: Full Rom - Respiratory Exam Additional comments: better breathing decreased breath sounds bibasilar no wheezing - Cardiovascular Exam Cardiovascular Exam: RRR, +S1, +S2 - GI/Abdominal Exam GI & Abdominal Exam: Normal Bowel Sounds, Soft Additional comments: NT, ND - Extremities Exam Extremities exam: Positive for: normal inspection - Neurological Exam Neurological exam: Alert, Oriented x 3 Laboratory Results - last 72 hr 08/22/18 08/22/18 08/22/18 16:57 17:39 17:39 WBC 9.8 RBC 4.46 Hgb 14.1 Hct 43.1 MCV 96.6 H MCH 31.5 H MCHC 32.6 L RDW 13.5 Plt Count 216 MPV 10.2 Neut % (Auto) 82.3 H Lymph % (Auto) 10.5 L [place] % (Auto) 6.5 Eos % (Auto) 0.2 Baso % (Auto) 0.5 Neut # (Auto) 8.1 H Lymph # (Auto) 1.0 [place] # (Auto) 0.6 Eos # (Auto) 0.0 Baso # (Auto) 0.1 Neutrophils % (Manual) Band Neutrophils % Lymphocytes % (Manual) Monocytes % (Manual) Toxic Granulation Platelet Estimate Large Platelets PT INR APTT D-Dimer, Quantitative pCO2 28 L pO2 84 HCO3 16.6 L ABG pH 7.31 L ABG Total CO2 15.0 L ABG O2 Saturation 98.2 H ABG O2 Content ABG Base Excess -10.5 L ABG Hemoglobin ABG Carboxyhemoglobin POC ABG HHb (Measured) ABG Methemoglobin ABG O2 Capacity Vick Test Yes ABG Potassium 6.0 H A-a O2 Difference 131.0 Hgb O2 Saturation Sodium 133.0 138 Chloride 105.0 100 Glucose 244 H Lactate 6.7 H* Vent Mode FiO2 35.0 Blood Gas Comments 3.5l/m nc.rr Crit Value Called To Md elsa camara Crit Value Called By 15 Crit Value Read Back Y Blood Gas Notified Time 1717 Potassium 6.3 H* D Carbon Dioxide 18 L Anion Gap 26 H BUN 60 H Creatinine 2.5 H Est GFR ( Amer) 31 Est GFR (Non-Af Amer) 26 POC Glucose (mg/dL) Random Glucose 227 H Hemoglobin A1c Lactic Acid Calcium 9.3 Phosphorus 6.1 H Magnesium 2.3 Total Bilirubin 1.3 AST 66 H D ALT 106 H D Alkaline Phosphatase 172 H Troponin I 1.0500 H* NT-Pro-B Natriuret Pep 45473 H Total Protein 7.8 Albumin 4.1 Globulin 3.7 Albumin/Globulin Ratio 1.1 PTH Intact Whole Molec Arterial Blood Potassium 6.0 H Urine Color Urine Clarity Urine pH Ur Specific [place] Urine Protein Urine Glucose (UA) Urine Ketones Urine Blood Urine Nitrate Urine Bilirubin Urine Urobilinogen Ur Leukocyte Esterase Urine RBC (Auto) Urine Microscopic WBC Ur Squamous Epith Cells Urine Bacteria Hyaline Casts Ur Random Sodium Urine Opiates Screen Urine Methadone Screen Ur Barbiturates Screen Ur Phencyclidine Scrn Ur Amphetamines Screen U Benzodiazepines Scrn U Oth Cocaine Metabols U Cannabinoids Screen Alcohol, Quantitative < 10 Hepatitis A IgM Ab Hep Bs Antigen Hep B Core IgM Ab Hepatitis C Antibody Influenza Typ A,B (EIA) Ur L.pneumophila Ag 08/22/18 08/22/18 08/22/18 17:39 17:50 22:27 WBC RBC Hgb Hct MCV MCH MCHC RDW Plt Count MPV Neut % (Auto) Lymph % (Auto) [place] % (Auto) Eos % (Auto) Baso % (Auto) Neut # (Auto) Lymph # (Auto) [place] # (Auto) Eos # (Auto) Baso # (Auto) Neutrophils % (Manual) Band Neutrophils % Lymphocytes % (Manual) Monocytes % (Manual) Toxic Granulation Platelet Estimate Large Platelets PT 16.1 H INR 1.4 APTT 28.4 D-Dimer, Quantitative < 200 pCO2 pO2 HCO3 ABG pH ABG Total CO2 ABG O2 Saturation ABG O2 Content ABG Base Excess ABG Hemoglobin ABG Carboxyhemoglobin POC ABG HHb (Measured) ABG Methemoglobin ABG O2 Capacity Vick Test ABG Potassium A-a O2 Difference Hgb O2 Saturation Sodium Chloride Glucose Lactate Vent Mode FiO2 Blood Gas Comments Crit Value Called To Crit Value Called By Crit Value Read Back Blood Gas Notified Time Potassium Carbon Dioxide Anion Gap BUN Creatinine Est GFR ( Amer) Est GFR (Non-Af Amer) POC Glucose (mg/dL) Random Glucose Hemoglobin A1c Lactic Acid 5.6 H* Calcium Phosphorus Magnesium Total Bilirubin AST ALT Alkaline Phosphatase Troponin I NT-Pro-B Natriuret Pep Total Protein Albumin Globulin Albumin/Globulin Ratio PTH Intact Whole Molec Arterial Blood Potassium Urine Color Janna Urine Clarity Cloudy Urine pH 5.0 Ur Specific [place] 1.020 Urine Protein >=500 Urine Glucose (UA) 50 Urine Ketones Negative Urine Blood Negative Urine Nitrate Negative Urine Bilirubin Negative Urine Urobilinogen 0.2-1.0 Ur Leukocyte Esterase Neg Urine RBC (Auto) 2 Urine Microscopic WBC 3 Ur Squamous Epith Cells 1 Urine Bacteria Rare Hyaline Casts 6-10 H Ur Random Sodium Urine Opiates Screen Urine Methadone Screen Ur Barbiturates Screen Ur Phencyclidine Scrn Ur Amphetamines Screen U Benzodiazepines Scrn U Oth Cocaine Metabols U Cannabinoids Screen Alcohol, Quantitative Hepatitis A IgM Ab Hep Bs Antigen Hep B Core IgM Ab Hepatitis C Antibody Influenza Typ A,B (EIA) Ur L.pneumophila Ag 08/22/18 08/22/18 08/22/18 22:27 22:55 23:15 WBC RBC Hgb Hct MCV MCH MCHC RDW Plt Count MPV Neut % (Auto) Lymph % (Auto) [place] % (Auto) Eos % (Auto) Baso % (Auto) Neut # (Auto) Lymph # (Auto) [place] # (Auto) Eos # (Auto) Baso # (Auto) Neutrophils % (Manual) Band Neutrophils % Lymphocytes % (Manual) Monocytes % (Manual) Toxic Granulation Platelet Estimate Large Platelets PT INR APTT D-Dimer, Quantitative pCO2 pO2 HCO3 ABG pH ABG Total CO2 ABG O2 Saturation ABG O2 Content ABG Base Excess ABG Hemoglobin ABG Carboxyhemoglobin POC ABG HHb (Measured) ABG Methemoglobin ABG O2 Capacity Vick Test ABG Potassium A-a O2 Difference Hgb O2 Saturation Sodium Chloride Glucose Lactate Vent Mode FiO2 Blood Gas Comments Crit Value Called To Crit Value Called By Crit Value Read Back Blood Gas Notified Time Potassium 5.6 H Carbon Dioxide Anion Gap BUN Creatinine Est GFR ( Amer) Est GFR (Non-Af Amer) POC Glucose (mg/dL) Random Glucose Hemoglobin A1c Lactic Acid Calcium Phosphorus Magnesium Total Bilirubin AST ALT Alkaline Phosphatase Troponin I 1.1000 H* NT-Pro-B Natriuret Pep Total Protein Albumin Globulin Albumin/Globulin Ratio PTH Intact Whole Molec Arterial Blood Potassium Urine Color Urine Clarity Urine pH Ur Specific [place] Urine Protein Urine Glucose (UA) Urine Ketones Urine Blood Urine Nitrate Urine Bilirubin Urine Urobilinogen Ur Leukocyte Esterase Urine RBC (Auto) Urine Microscopic WBC Ur Squamous Epith Cells Urine Bacteria Hyaline Casts Ur Random Sodium Urine Opiates Screen Negative Urine Methadone Screen Negative Ur Barbiturates Screen Negative Ur Phencyclidine Scrn Negative Ur Amphetamines Screen Negative U Benzodiazepines Scrn Negative U Oth Cocaine Metabols Negative U Cannabinoids Screen Negative Alcohol, Quantitative Hepatitis A IgM Ab Hep Bs Antigen Hep B Core IgM Ab Hepatitis C Antibody Influenza Typ A,B (EIA) Negative for flu a/b Ur L.pneumophila Ag 08/22/18 08/23/18 08/23/18 23:26 01:40 04:59 WBC RBC Hgb Hct MCV MCH MCHC RDW Plt Count MPV Neut % (Auto) Lymph % (Auto) [place] % (Auto) Eos % (Auto) Baso % (Auto) Neut # (Auto) Lymph # (Auto) [place] # (Auto) Eos # (Auto) Baso # (Auto) Neutrophils % (Manual) Band Neutrophils % Lymphocytes % (Manual) Monocytes % (Manual) Toxic Granulation Platelet Estimate Large Platelets PT INR APTT D-Dimer, Quantitative pCO2 22 L pO2 83 HCO3 15.4 L ABG pH 7.33 L ABG Total CO2 12.3 L ABG O2 Saturation 97.1 ABG O2 Content 19.4 ABG Base Excess -12.1 L ABG Hemoglobin 14.6 ABG Carboxyhemoglobin 2.0 H POC ABG HHb (Measured) 2.8 ABG Methemoglobin 0.9 ABG O2 Capacity 20.0 Vick Test Yes ABG Potassium A-a O2 Difference 175.0 Hgb O2 Saturation 94.4 L Sodium Chloride Glucose Lactate Vent Mode Vm FiO2 40.0 Blood Gas Comments Crit Value Called To Crit Value Called By Crit Value Read Back Blood Gas Notified Time Potassium Carbon Dioxide Anion Gap BUN Creatinine Est GFR ( Amer) Est GFR (Non-Af Amer) POC Glucose (mg/dL) 155 H 61 L Random Glucose Hemoglobin A1c Lactic Acid Calcium Phosphorus Magnesium Total Bilirubin AST ALT Alkaline Phosphatase Troponin I NT-Pro-B Natriuret Pep Total Protein Albumin Globulin Albumin/Globulin Ratio PTH Intact Whole Molec Arterial Blood Potassium Urine Color Urine Clarity Urine pH Ur Specific [place] Urine Protein Urine Glucose (UA) Urine Ketones Urine Blood Urine Nitrate Urine Bilirubin Urine Urobilinogen Ur Leukocyte Esterase Urine RBC (Auto) Urine Microscopic WBC Ur Squamous Epith Cells Urine Bacteria Hyaline Casts Ur Random Sodium Urine Opiates Screen Urine Methadone Screen Ur Barbiturates Screen Ur Phencyclidine Scrn Ur Amphetamines Screen U Benzodiazepines Scrn U Oth Cocaine Metabols U Cannabinoids Screen Alcohol, Quantitative Hepatitis A IgM Ab Hep Bs Antigen Hep B Core IgM Ab Hepatitis C Antibody Influenza Typ A,B (EIA) Ur L.pneumophila Ag 08/23/18 08/23/18 08/23/18 05:00 05:00 05:00 WBC 14.1 H RBC 4.37 L Hgb 13.8 Hct 42.0 MCV 96.1 H MCH 31.5 H MCHC 32.8 L RDW 13.8 Plt Count 181 MPV Neut % (Auto) Lymph % (Auto) [place] % (Auto) Eos % (Auto) Baso % (Auto) Neut # (Auto) Lymph # (Auto) [place] # (Auto) Eos # (Auto) Baso # (Auto) Neutrophils % (Manual) Band Neutrophils % Lymphocytes % (Manual) Monocytes % (Manual) Toxic Granulation Platelet Estimate Large Platelets PT INR APTT D-Dimer, Quantitative pCO2 pO2 HCO3 ABG pH ABG Total CO2 ABG O2 Saturation ABG O2 Content ABG Base Excess ABG Hemoglobin ABG Carboxyhemoglobin POC ABG HHb (Measured) ABG Methemoglobin ABG O2 Capacity Vick Test ABG Potassium A-a O2 Difference Hgb O2 Saturation Sodium 140 Chloride 101 Glucose Lactate Vent Mode FiO2 Blood Gas Comments Crit Value Called To Crit Value Called By Crit Value Read Back Blood Gas Notified Time Potassium 5.2 H Carbon Dioxide 16 L Anion Gap 28 H BUN 64 H Creatinine 2.9 H Est GFR ( Amer) 26 Est GFR (Non-Af Amer) 22 POC Glucose (mg/dL) Random Glucose 66 L Hemoglobin A1c 10.0 H Lactic Acid Calcium 9.1 Phosphorus Magnesium Total Bilirubin 2.3 H AST 493 H D ALT 419 H D Alkaline Phosphatase 145 H Troponin I 1.2700 H* NT-Pro-B Natriuret Pep Total Protein 7.3 Albumin 3.7 Globulin 3.7 Albumin/Globulin Ratio 1.0 PTH Intact Whole Molec Arterial Blood Potassium Urine Color Urine Clarity Urine pH Ur Specific [place] Urine Protein Urine Glucose (UA) Urine Ketones Urine Blood Urine Nitrate Urine Bilirubin Urine Urobilinogen Ur Leukocyte Esterase Urine RBC (Auto) Urine Microscopic WBC Ur Squamous Epith Cells Urine Bacteria Hyaline Casts Ur Random Sodium Urine Opiates Screen Urine Methadone Screen Ur Barbiturates Screen Ur Phencyclidine Scrn Ur Amphetamines Screen U Benzodiazepines Scrn U Oth Cocaine Metabols U Cannabinoids Screen Alcohol, Quantitative Hepatitis A IgM Ab Hep Bs Antigen Hep B Core IgM Ab Hepatitis C Antibody Influenza Typ A,B (EIA) Ur L.pneumophila Ag 08/23/18 08/23/18 08/23/18 06:34 11:16 14:25 WBC RBC Hgb Hct MCV MCH MCHC RDW Plt Count MPV Neut % (Auto) Lymph % (Auto) [place] % (Auto) Eos % (Auto) Baso % (Auto) Neut # (Auto) Lymph # (Auto) [place] # (Auto) Eos # (Auto) Baso # (Auto) Neutrophils % (Manual) Band Neutrophils % Lymphocytes % (Manual) Monocytes % (Manual) Toxic Granulation Platelet Estimate Large Platelets PT INR APTT 93.2 H D-Dimer, Quantitative pCO2 pO2 HCO3 ABG pH ABG Total CO2 ABG O2 Saturation ABG O2 Content ABG Base Excess ABG Hemoglobin ABG Carboxyhemoglobin POC ABG HHb (Measured) ABG Methemoglobin ABG O2 Capacity Vick Test ABG Potassium A-a O2 Difference Hgb O2 Saturation Sodium Chloride Glucose Lactate Vent Mode FiO2 Blood Gas Comments Crit Value Called To Crit Value Called By Crit Value Read Back Blood Gas Notified Time Potassium Carbon Dioxide Anion Gap BUN Creatinine Est GFR ( Amer) Est GFR (Non-Af Amer) POC Glucose (mg/dL) 121 H 102 Random Glucose Hemoglobin A1c Lactic Acid Calcium Phosphorus Magnesium Total Bilirubin AST ALT Alkaline Phosphatase Troponin I NT-Pro-B Natriuret Pep Total Protein Albumin Globulin Albumin/Globulin Ratio PTH Intact Whole Molec Arterial Blood Potassium Urine Color Urine Clarity Urine pH Ur Specific [place] Urine Protein Urine Glucose (UA) Urine Ketones Urine Blood Urine Nitrate Urine Bilirubin Urine Urobilinogen Ur Leukocyte Esterase Urine RBC (Auto) Urine Microscopic WBC Ur Squamous Epith Cells Urine Bacteria Hyaline Casts Ur Random Sodium Urine Opiates Screen Urine Methadone Screen Ur Barbiturates Screen Ur Phencyclidine Scrn Ur Amphetamines Screen U Benzodiazepines Scrn U Oth Cocaine Metabols U Cannabinoids Screen Alcohol, Quantitative Hepatitis A IgM Ab Hep Bs Antigen Hep B Core IgM Ab Hepatitis C Antibody Influenza Typ A,B (EIA) Ur L.pneumophila Ag 08/23/18 08/23/18 08/23/18 14:25 14:25 14:25 WBC RBC Hgb Hct MCV MCH MCHC RDW Plt Count MPV Neut % (Auto) Lymph % (Auto) [place] % (Auto) Eos % (Auto) Baso % (Auto) Neut # (Auto) Lymph # (Auto) [place] # (Auto) Eos # (Auto) Baso # (Auto) Neutrophils % (Manual) Band Neutrophils % Lymphocytes % (Manual) Monocytes % (Manual) Toxic Granulation Platelet Estimate Large Platelets PT INR APTT D-Dimer, Quantitative pCO2 pO2 HCO3 ABG pH ABG Total CO2 ABG O2 Saturation ABG O2 Content ABG Base Excess ABG Hemoglobin ABG Carboxyhemoglobin POC ABG HHb (Measured) ABG Methemoglobin ABG O2 Capacity Vick Test ABG Potassium A-a O2 Difference Hgb O2 Saturation Sodium Chloride Glucose Lactate Vent Mode FiO2 Blood Gas Comments Crit Value Called To Crit Value Called By Crit Value Read Back Blood Gas Notified Time Potassium Carbon Dioxide Anion Gap BUN Creatinine Est GFR ( Amer) Est GFR (Non-Af Amer) POC Glucose (mg/dL) Random Glucose Hemoglobin A1c Lactic Acid Calcium Phosphorus 9.8 H Magnesium Total Bilirubin AST ALT Alkaline Phosphatase Troponin I NT-Pro-B Natriuret Pep Total Protein Albumin Globulin Albumin/Globulin Ratio PTH Intact Whole Molec 435 H Arterial Blood Potassium Urine Color Urine Clarity Urine pH Ur Specific [place] Urine Protein Urine Glucose (UA) Urine Ketones Urine Blood Urine Nitrate Urine Bilirubin Urine Urobilinogen Ur Leukocyte Esterase Urine RBC (Auto) Urine Microscopic WBC Ur Squamous Epith Cells Urine Bacteria Hyaline Casts Ur Random Sodium Urine Opiates Screen Urine Methadone Screen Ur Barbiturates Screen Ur Phencyclidine Scrn Ur Amphetamines Screen U Benzodiazepines Scrn U Oth Cocaine Metabols U Cannabinoids Screen Alcohol, Quantitative Hepatitis A IgM Ab Negative Hep Bs Antigen Negative Hep B Core IgM Ab Negative Hepatitis C Antibody Negative Influenza Typ A,B (EIA) Ur L.pneumophila Ag 08/23/18 08/23/18 08/23/18 15:56 20:46 23:11 WBC RBC Hgb Hct MCV MCH MCHC RDW Plt Count MPV Neut % (Auto) Lymph % (Auto) [place] % (Auto) Eos % (Auto) Baso % (Auto) Neut # (Auto) Lymph # (Auto) [place] # (Auto) Eos # (Auto) Baso # (Auto) Neutrophils % (Manual) Band Neutrophils % Lymphocytes % (Manual) Monocytes % (Manual) Toxic Granulation Platelet Estimate Large Platelets PT INR APTT 50.3 H D-Dimer, Quantitative pCO2 pO2 HCO3 ABG pH ABG Total CO2 ABG O2 Saturation ABG O2 Content ABG Base Excess ABG Hemoglobin ABG Carboxyhemoglobin POC ABG HHb (Measured) ABG Methemoglobin ABG O2 Capacity Vick Test ABG Potassium A-a O2 Difference Hgb O2 Saturation Sodium Chloride Glucose Lactate Vent Mode FiO2 Blood Gas Comments Crit Value Called To Crit Value Called By Crit Value Read Back Blood Gas Notified Time Potassium Carbon Dioxide Anion Gap BUN Creatinine Est GFR ( Amer) Est GFR (Non-Af Amer) POC Glucose (mg/dL) 112 H 156 H Random Glucose Hemoglobin A1c Lactic Acid Calcium Phosphorus Magnesium Total Bilirubin AST ALT Alkaline Phosphatase Troponin I NT-Pro-B Natriuret Pep Total Protein Albumin Globulin Albumin/Globulin Ratio PTH Intact Whole Molec Arterial Blood Potassium Urine Color Urine Clarity Urine pH Ur Specific [place] Urine Protein Urine Glucose (UA) Urine Ketones Urine Blood Urine Nitrate Urine Bilirubin Urine Urobilinogen Ur Leukocyte Esterase Urine RBC (Auto) Urine Microscopic WBC Ur Squamous Epith Cells Urine Bacteria Hyaline Casts Ur Random Sodium Urine Opiates Screen Urine Methadone Screen Ur Barbiturates Screen Ur Phencyclidine Scrn Ur Amphetamines Screen U Benzodiazepines Scrn U Oth Cocaine Metabols U Cannabinoids Screen Alcohol, Quantitative Hepatitis A IgM Ab Hep Bs Antigen Hep B Core IgM Ab Hepatitis C Antibody Influenza Typ A,B (EIA) Ur L.pneumophila Ag 08/24/18 08/24/18 08/24/18 05:00 05:00 05:10 WBC 22.0 H D RBC 4.45 Hgb 14.1 Hct 43.1 MCV 97.0 H MCH 31.8 H MCHC 32.8 L RDW 13.9 Plt Count 130 MPV 10.9 Neut % (Auto) 90.4 H Lymph % (Auto) 3.3 L [place] % (Auto) 6.0 Eos % (Auto) 0.0 Baso % (Auto) 0.3 Neut # (Auto) 19.9 H Lymph # (Auto) 0.7 L [place] # (Auto) 1.3 H Eos # (Auto) 0.0 Baso # (Auto) 0.1 Neutrophils % (Manual) 88 H Band Neutrophils % 2 Lymphocytes % (Manual) 3 L Monocytes % (Manual) 7 Toxic Granulation Present Platelet Estimate Normal Large Platelets Present PT INR APTT 50.3 H D-Dimer, Quantitative pCO2 pO2 HCO3 ABG pH ABG Total CO2 ABG O2 Saturation ABG O2 Content ABG Base Excess ABG Hemoglobin ABG Carboxyhemoglobin POC ABG HHb (Measured) ABG Methemoglobin ABG O2 Capacity Vick Test ABG Potassium A-a O2 Difference Hgb O2 Saturation Sodium 129 L Chloride 89 L Glucose Lactate Vent Mode FiO2 Blood Gas Comments Crit Value Called To Crit Value Called By Crit Value Read Back Blood Gas Notified Time Potassium 5.0 Carbon Dioxide 18 L Anion Gap 27 H BUN 84 H Creatinine 3.4 H Est GFR ( Amer) 22 Est GFR (Non-Af Amer) 18 POC Glucose (mg/dL) Random Glucose 240 H Hemoglobin A1c Lactic Acid Calcium 7.6 L Phosphorus Magnesium Total Bilirubin 2.5 H AST 4962 H ALT 2790 H Alkaline Phosphatase 147 H Troponin I NT-Pro-B Natriuret Pep Total Protein 7.2 Albumin 3.6 Globulin 3.6 Albumin/Globulin Ratio 1.0 PTH Intact Whole Molec Arterial Blood Potassium Urine Color Urine Clarity Urine pH Ur Specific [place] Urine Protein Urine Glucose (UA) Urine Ketones Urine Blood Urine Nitrate Urine Bilirubin Urine Urobilinogen Ur Leukocyte Esterase Urine RBC (Auto) Urine Microscopic WBC Ur Squamous Epith Cells Urine Bacteria Hyaline Casts Ur Random Sodium Urine Opiates Screen Urine Methadone Screen Ur Barbiturates Screen Ur Phencyclidine Scrn Ur Amphetamines Screen U Benzodiazepines Scrn U Oth Cocaine Metabols U Cannabinoids Screen Alcohol, Quantitative Hepatitis A IgM Ab Hep Bs Antigen Hep B Core IgM Ab Hepatitis C Antibody Influenza Typ A,B (EIA) Ur L.pneumophila Ag 08/24/18 08/24/18 08/24/18 06:15 06:48 11:03 WBC RBC Hgb Hct MCV MCH MCHC RDW Plt Count MPV Neut % (Auto) Lymph % (Auto) [place] % (Auto) Eos % (Auto) Baso % (Auto) Neut # (Auto) Lymph # (Auto) [place] # (Auto) Eos # (Auto) Baso # (Auto) Neutrophils % (Manual) Band Neutrophils % Lymphocytes % (Manual) Monocytes % (Manual) Toxic Granulation Platelet Estimate Large Platelets PT INR APTT D-Dimer, Quantitative pCO2 pO2 HCO3 ABG pH ABG Total CO2 ABG O2 Saturation ABG O2 Content ABG Base Excess ABG Hemoglobin ABG Carboxyhemoglobin POC ABG HHb (Measured) ABG Methemoglobin ABG O2 Capacity Vick Test ABG Potassium A-a O2 Difference Hgb O2 Saturation Sodium Chloride Glucose Lactate Vent Mode FiO2 Blood Gas Comments Crit Value Called To Crit Value Called By Crit Value Read Back Blood Gas Notified Time Potassium Carbon Dioxide Anion Gap BUN Creatinine Est GFR ( Amer) Est GFR (Non-Af Amer) POC Glucose (mg/dL) 231 H 310 H Random Glucose Hemoglobin A1c Lactic Acid Calcium Phosphorus Magnesium Total Bilirubin AST ALT Alkaline Phosphatase Troponin I NT-Pro-B Natriuret Pep Total Protein Albumin Globulin Albumin/Globulin Ratio PTH Intact Whole Molec Arterial Blood Potassium Urine Color Urine Clarity Urine pH Ur Specific [place] Urine Protein Urine Glucose (UA) Urine Ketones Urine Blood Urine Nitrate Urine Bilirubin Urine Urobilinogen Ur Leukocyte Esterase Urine RBC (Auto) Urine Microscopic WBC Ur Squamous Epith Cells Urine Bacteria Hyaline Casts Ur Random Sodium 5 Urine Opiates Screen Urine Methadone Screen Ur Barbiturates Screen Ur Phencyclidine Scrn Ur Amphetamines Screen U Benzodiazepines Scrn U Oth Cocaine Metabols U Cannabinoids Screen Alcohol, Quantitative Hepatitis A IgM Ab Hep Bs Antigen Hep B Core IgM Ab Hepatitis C Antibody Influenza Typ A,B (EIA) Ur L.pneumophila Ag 08/24/18 08/24/18 08/24/18 14:40 14:40 14:50 WBC RBC Hgb Hct MCV MCH MCHC RDW Plt Count MPV Neut % (Auto) Lymph % (Auto) [place] % (Auto) Eos % (Auto) Baso % (Auto) Neut # (Auto) Lymph # (Auto) [place] # (Auto) Eos # (Auto) Baso # (Auto) Neutrophils % (Manual) Band Neutrophils % Lymphocytes % (Manual) Monocytes % (Manual) Toxic Granulation Platelet Estimate Large Platelets PT INR APTT D-Dimer, Quantitative pCO2 pO2 HCO3 ABG pH ABG Total CO2 ABG O2 Saturation ABG O2 Content ABG Base Excess ABG Hemoglobin ABG Carboxyhemoglobin POC ABG HHb (Measured) ABG Methemoglobin ABG O2 Capacity Vick Test ABG Potassium A-a O2 Difference Hgb O2 Saturation Sodium Chloride Glucose Lactate Vent Mode FiO2 Blood Gas Comments Crit Value Called To Crit Value Called By Crit Value Read Back Blood Gas Notified Time Potassium Carbon Dioxide Anion Gap BUN Creatinine Est GFR ( Amer) Est GFR (Non-Af Amer) POC Glucose (mg/dL) Random Glucose Hemoglobin A1c Lactic Acid 3.4 H Calcium Phosphorus Magnesium Total Bilirubin AST ALT Alkaline Phosphatase Troponin I NT-Pro-B Natriuret Pep Total Protein Albumin Globulin Albumin/Globulin Ratio PTH Intact Whole Molec Arterial Blood Potassium Urine Color Yellow Urine Clarity Cloudy Urine pH 6.0 Ur Specific [place] 1.010 Urine Protein 30 Urine Glucose (UA) 50 Urine Ketones Negative Urine Blood Large Urine Nitrate Negative Urine Bilirubin Negative Urine Urobilinogen 0.2-1.0 Ur Leukocyte Esterase Small Urine RBC (Auto) 64 H Urine Microscopic WBC 13 H Ur Squamous Epith Cells < 1 Urine Bacteria Occ H Hyaline Casts 0-2 Ur Random Sodium Urine Opiates Screen Urine Methadone Screen Ur Barbiturates Screen Ur Phencyclidine Scrn Ur Amphetamines Screen U Benzodiazepines Scrn U Oth Cocaine Metabols U Cannabinoids Screen Alcohol, Quantitative Hepatitis A IgM Ab Hep Bs Antigen Hep B Core IgM Ab Hepatitis C Antibody Influenza Typ A,B (EIA) Ur L.pneumophila Ag Negative 08/24/18 08/24/18 08/24/18 14:50 16:30 20:49 WBC RBC Hgb Hct MCV MCH MCHC RDW Plt Count MPV Neut % (Auto) Lymph % (Auto) [place] % (Auto) Eos % (Auto) Baso % (Auto) Neut # (Auto) Lymph # (Auto) [place] # (Auto) Eos # (Auto) Baso # (Auto) Neutrophils % (Manual) Band Neutrophils % Lymphocytes % (Manual) Monocytes % (Manual) Toxic Granulation Platelet Estimate Large Platelets PT INR APTT D-Dimer, Quantitative pCO2 pO2 HCO3 ABG pH ABG Total CO2 ABG O2 Saturation ABG O2 Content ABG Base Excess ABG Hemoglobin ABG Carboxyhemoglobin POC ABG HHb (Measured) ABG Methemoglobin ABG O2 Capacity Vick Test ABG Potassium A-a O2 Difference Hgb O2 Saturation Sodium Chloride Glucose Lactate Vent Mode FiO2 Blood Gas Comments Crit Value Called To Crit Value Called By Crit Value Read Back Blood Gas Notified Time Potassium Carbon Dioxide Anion Gap BUN Creatinine Est GFR ( Amer) Est GFR (Non-Af Amer) POC Glucose (mg/dL) > 500 H* 462 H* Random Glucose Hemoglobin A1c Lactic Acid Calcium Phosphorus Magnesium Total Bilirubin AST ALT Alkaline Phosphatase Troponin I NT-Pro-B Natriuret Pep Total Protein Albumin Globulin Albumin/Globulin Ratio PTH Intact Whole Molec Arterial Blood Potassium Urine Color Urine Clarity Urine pH Ur Specific [place] Urine Protein Urine Glucose (UA) Urine Ketones Urine Blood Urine Nitrate Urine Bilirubin Urine Urobilinogen Ur Leukocyte Esterase Urine RBC (Auto) Urine Microscopic WBC Ur Squamous Epith Cells Urine Bacteria Hyaline Casts Ur Random Sodium Urine Opiates Screen Urine Methadone Screen Ur Barbiturates Screen Ur Phencyclidine Scrn Ur Amphetamines Screen U Benzodiazepines Scrn U Oth Cocaine Metabols U Cannabinoids Screen Alcohol, Quantitative Hepatitis A IgM Ab Negative Hep Bs Antigen Negative Hep B Core IgM Ab Negative Hepatitis C Antibody Negative Influenza Typ A,B (EIA) Ur L.pneumophila Ag 08/25/18 08/25/18 08/25/18 04:55 04:55 04:55 WBC 14.5 H RBC 4.70 Hgb 14.7 Hct 43.9 MCV 93.3 D MCH 31.2 H MCHC 33.5 RDW 14.0 Plt Count 152 MPV Neut % (Auto) Lymph % (Auto) [place] % (Auto) Eos % (Auto) Baso % (Auto) Neut # (Auto) Lymph # (Auto) [place] # (Auto) Eos # (Auto) Baso # (Auto) Neutrophils % (Manual) Band Neutrophils % Lymphocytes % (Manual) Monocytes % (Manual) Toxic Granulation Platelet Estimate Large Platelets PT INR APTT 54.2 H D-Dimer, Quantitative pCO2 pO2 HCO3 ABG pH ABG Total CO2 ABG O2 Saturation ABG O2 Content ABG Base Excess ABG Hemoglobin ABG Carboxyhemoglobin POC ABG HHb (Measured) ABG Methemoglobin ABG O2 Capacity Vick Test ABG Potassium A-a O2 Difference Hgb O2 Saturation Sodium Chloride Glucose Lactate Vent Mode FiO2 Blood Gas Comments Crit Value Called To Crit Value Called By Crit Value Read Back Blood Gas Notified Time Potassium Carbon Dioxide Anion Gap BUN Creatinine Est GFR ( Amer) Est GFR (Non-Af Amer) POC Glucose (mg/dL) Random Glucose Hemoglobin A1c Lactic Acid 2.4 H Calcium Phosphorus Magnesium Total Bilirubin AST ALT Alkaline Phosphatase Troponin I NT-Pro-B Natriuret Pep Total Protein Albumin Globulin Albumin/Globulin Ratio PTH Intact Whole Molec Arterial Blood Potassium Urine Color Urine Clarity Urine pH Ur Specific [place] Urine Protein Urine Glucose (UA) Urine Ketones Urine Blood Urine Nitrate Urine Bilirubin Urine Urobilinogen Ur Leukocyte Esterase Urine RBC (Auto) Urine Microscopic WBC Ur Squamous Epith Cells Urine Bacteria Hyaline Casts Ur Random Sodium Urine Opiates Screen Urine Methadone Screen Ur Barbiturates Screen Ur Phencyclidine Scrn Ur Amphetamines Screen U Benzodiazepines Scrn U Oth Cocaine Metabols U Cannabinoids Screen Alcohol, Quantitative Hepatitis A IgM Ab Hep Bs Antigen Hep B Core IgM Ab Hepatitis C Antibody Influenza Typ A,B (EIA) Ur L.pneumophila Ag 08/25/18 08/25/18 08/25/18 04:55 06:45 12:47 WBC RBC Hgb Hct MCV MCH MCHC RDW Plt Count MPV Neut % (Auto) Lymph % (Auto) [place] % (Auto) Eos % (Auto) Baso % (Auto) Neut # (Auto) Lymph # (Auto) [place] # (Auto) Eos # (Auto) Baso # (Auto) Neutrophils % (Manual) Band Neutrophils % Lymphocytes % (Manual) Monocytes % (Manual) Toxic Granulation Platelet Estimate Large Platelets PT INR APTT D-Dimer, Quantitative pCO2 pO2 HCO3 ABG pH ABG Total CO2 ABG O2 Saturation ABG O2 Content ABG Base Excess ABG Hemoglobin ABG Carboxyhemoglobin POC ABG HHb (Measured) ABG Methemoglobin ABG O2 Capacity Vick Test ABG Potassium A-a O2 Difference Hgb O2 Saturation Sodium 130 L Chloride 87 L Glucose Lactate Vent Mode FiO2 Blood Gas Comments Crit Value Called To Crit Value Called By Crit Value Read Back Blood Gas Notified Time Potassium 3.6 Carbon Dioxide 26 Anion Gap 21 H BUN 103 H* D Creatinine 3.1 H Est GFR ( Amer) 24 Est GFR (Non-Af Amer) 20 POC Glucose (mg/dL) 230 H 342 H Random Glucose 269 H Hemoglobin A1c Lactic Acid Calcium 6.5 L Phosphorus Magnesium Total Bilirubin 2.2 H AST 2992 H ALT 2596 H Alkaline Phosphatase 141 H Troponin I NT-Pro-B Natriuret Pep Total Protein 6.3 Albumin 3.0 L Globulin 3.3 Albumin/Globulin Ratio 0.9 L PTH Intact Whole Molec Arterial Blood Potassium Urine Color Urine Clarity Urine pH Ur Specific [place] Urine Protein Urine Glucose (UA) Urine Ketones Urine Blood Urine Nitrate Urine Bilirubin Urine Urobilinogen Ur Leukocyte Esterase Urine RBC (Auto) Urine Microscopic WBC Ur Squamous Epith Cells Urine Bacteria Hyaline Casts Ur Random Sodium Urine Opiates Screen Urine Methadone Screen Ur Barbiturates Screen Ur Phencyclidine Scrn Ur Amphetamines Screen U Benzodiazepines Scrn U Oth Cocaine Metabols U Cannabinoids Screen Alcohol, Quantitative Hepatitis A IgM Ab Hep Bs Antigen Hep B Core IgM Ab Hepatitis C Antibody Influenza Typ A,B (EIA) Ur L.pneumophila Ag Microbiology 08/24/18 12:10 Blood-Venous Blood Culture - Preliminary NO GROWTH AFTER 24 HOURS 08/24/18 12:30 Blood-Venous Blood Culture - Preliminary NO GROWTH AFTER 24 HOURS 08/22/18 11:30 Nose MRSA Culture (Admit) - Final MRSA NOT DETECTED 08/22/18 22:27 Urine,Catheterized Urine Culture - Final No Growth (<1,000 CFU/ML) Assessment and Plan (1) Acute on chronic renal failure Status: Chronic (2) Acute exacerbation of CHF (congestive heart failure) Status: Acute (3) CAD (coronary atherosclerotic disease) Status: Chronic (4) Leukocytosis Status: Acute - Assessment and Plan (Free Text) Assessment: A/P- 68 year old male with multiple medical conditions including CAD, CHF, DM II, admitted with sob and cough. clinically improving. afebrile wbc trending down. CXR as per report - developing bilateral pleural effusions renal US- as per report no hydronephrosis. creatinine increasing could be secondary to diuretic. blood cx- neg x 2 Urine cx- neg urine Legionalle AG- neg very high liver enzymes again hepatitis panel - Negative Plan- await sputum cx. increased LFTs most likely from low cardiac output. check mycoplasma serology. advise to continue with zosyn day #2. critical care time 40 minutes.
--- NOTE | 2018-08-25 11:23 | CP.PCM.PN ---
Subjective - Date & Time of Evaluation Date of Evaluation: 08/25/18 Time of Evaluation: 11:19 - Subjective Subjective: Pt seen and examined at bedside in the ICU this morning. Per nursing, BS 500 will follow sliding scale insulin coverage, Dr.Abraham altamirano. Objective - Vital Signs/Intake and Output Vital Signs (last 24 hours): Temp Pulse Resp BP Pulse Ox 97.9 F 92 H 16 131/56 L 93 L 08/25/18 08:00 08/25/18 09:40 08/25/18 08:00 08/25/18 09:40 08/25/18 08:00 Intake and Output: 08/25/18 08/25/18 06:59 18:59 Intake Total 726 Output Total 3250 Balance -2524 - Medications Medications: Current Medications Atorvastatin Calcium (Lipitor) 40 mg PO HS [facility] Last Admin: 08/24/18 22:13 Dose: 40 mg Calcitriol (Rocaltrol) 0.5 mcg PO DAILY [facility] Calcium Carbonate (Oscal) 500 mg PO BIDWM [facility] Docusate Sodium (Colace) 100 mg PO BID [facility] Last Admin: 08/25/18 09:39 Dose: 100 mg Piperacillin Sod/Tazobactam (Sod 2.25 gm/ Sodium Chloride) 100 mls @ 100 mls/hr IVPB Q6 [facility]; Protocol Last Admin: 08/25/18 09:45 Dose: 100 mls/hr Dopamine HCl/Dextrose (Dopamine 400mg/250ml D5w) 400 mg in 250 mls @ 19.085 mls/hr IV .[id number] ONE; Protocol Stop: 08/25/18 14:38 Last Admin: 08/25/18 02:00 Dose: 8.5 mcg/kg/min, 19.085 mls/hr Insulin Detemir (Levemir) 15 units SC [facility] Last Admin: 08/24/18 22:13 Dose: 15 units Insulin Human Regular (Humulin R) 0 units SC [facility]; Protocol Last Admin: 08/25/18 06:54 Dose: 3 units Latanoprost (Xalatan Opht) 1 drop OU HS [facility] Last Admin: 08/24/18 22:13 Dose: 1 drop Levalbuterol HCl (Xopenex) 0.63 mg INH RQ8 [facility] Last Admin: 08/25/18 07:26 Dose: 0.63 mg Metoprolol Tartrate (Lopressor) 50 mg PO Q12 [facility] Last Admin: 08/25/18 09:40 Dose: 50 mg Sevelamer Carbonate (Renvela) 2,400 mg PO TID [facility] Last Admin: 08/25/18 09:44 Dose: 2,400 mg Timolol Maleate (Timoptic 0.5% Ophth Soln) 1 drop OD QAM [facility] Last Admin: 08/25/18 09:44 Dose: 1 drop - Labs Labs: 08/25/18 04:55 08/25/18 04:55 PT 16.1 Seconds (9.8-13.1) H 08/22/18 17:39 INR 1.4 08/22/18 17:39 APTT 54.2 Seconds (25.6-37.1) H 08/25/18 04:55 - Constitutional Appears: No Acute Distress - Head Exam Head Exam: ATRAUMATIC, NORMOCEPHALIC - Eye Exam Eye Exam: EOMI Pupil Exam: PERRL - ENT Exam ENT Exam: Mucous Membranes Moist - Neck Exam Neck Exam: Full ROM - Respiratory Exam Respiratory Exam: Clear to Ausculation Bilateral, NORMAL BREATHING PATTERN. absent: Accessory Muscle Use, Respiratory Distress - Cardiovascular Exam Cardiovascular Exam: RRR, +S1, +S2. absent: Diastolic murmur, Murmur - GI/Abdominal Exam GI & Abdominal Exam: Soft, Normal Bowel Sounds. absent: Tenderness - Extremities Exam Extremities Exam: Full ROM, Pedal Edema. absent: Calf Tenderness - Neurological Exam Neurological Exam: Alert, Awake, Oriented x3 - Psychiatric Exam Psychiatric exam: Agitated, Normal Affect, Normal Mood - Skin Skin Exam: Dry, Normal Color, Warm Assessment and Plan - Assessment and Plan (Free Text) Assessment: Assessment & Plan (1) Acute exacerbation of CHF (congestive heart failure) Status: Acute Priority: High (2) Atrial fibrillation with rapid ventricular response Assessment and Plan: Status: Acute Priority: High (3) Respiratory insufficiency Assessment and Plan: Status: Acute Priority: High (4) Acute on chronic renal failure Status: Chronic Priority: High (5) History of coronary artery stent placement Status: Chronic Priority: High (6) Hx of CABG Status: Chronic Priority: High (7) CAD (coronary atherosclerotic disease) Status: Chronic Priority: Medium (8) HTN (hypertension) Status: Chronic Priority: Medium Plan: discontinue IV dopamine given 1 dose of bumex HR well controlled at this time Pt seen, examined, assessment and plan discussed with Dr Sarwat Serra PGY1, Internal Medicine Resident
--- NOTE | 2018-08-25 11:45 | CP.CCUPN ---
CCU Subjective - Physician Review Subjective (Free Text): 08/25/18 17:15 The patient was Seen and examined by me at the bedside, Medical records reviewed and Management issues were discussed and formulated with the house staff. Events reviewed Patient is 68 years old male with past medical history significant for hypertension, type 2 diabetes mellitus, hyperlipidemia, coronary artery disease, chronic atrial fibrillation, systolic congestive heart failure, chronic kidney disease and asthma Patient also status post coronary artery bypass graft and coronary artery stent Patient was admitted with worsening shortness of breath and he was noted to be hypotensive and tachycardic He was started on dopamine drip Looks more comfortable this morning Afebrile Blood pressure is better but he remains requiring dopamine drip Less shortness of breath, denies chest pain, fever/chills CCU Objective - Vital Signs / Intake & Output Vital Signs (Last 4 hours): Vital Signs Temp Pulse Resp BP Pulse Ox 08/25/18 09:40 92 H 131/56 L 08/25/18 08:00 97.9 F 91 H 16 120/79 93 L Intake and Output (Last 8hrs): Intake & Output 08/24/18 08/25/18 08/25/18 22:59 06:59 14:59 Intake Total 1272 204 Output Total 200 3250 Balance 1072 -3046 Weight 133 lb 12.8 oz Intake: IV 302 104 Intake, Piggyback 200 100 Oral 770 Output: Urine 200 3250 Urethral (Quiroz) 200 3250 Other: # Bowel Movements 0 0 - Physical Exam Head: Positive for: Atraumatic, Normocephalic Pupils: Positive for: PERRL Extroacular Muscles: Positive for: EOMI Conjunctiva: Positive for: Normal. Negative for: Injected, Icteric - Medications Active Medications: Active Medications Generic Name Dose Route Start Last Admin Trade Name Freq PRN Reason Stop Dose Admin Atorvastatin Calcium 40 mg 08/23/18 22:00 08/24/18 22:13 Lipitor PO 40 mg HS FLASH Administration Calcitriol 0.5 mcg 08/25/18 10:15 08/25/18 11:42 Rocaltrol PO 0.5 mcg DAILY FLASH Administration Calcium Carbonate 500 mg 08/25/18 10:15 08/25/18 11:42 Oscal PO 500 mg BIDWM FLASH Administration Docusate Sodium 100 mg 08/23/18 09:30 08/25/18 09:39 Colace PO 100 mg BID FLASH Administration Piperacillin Sod/Tazobactam 100 mls @ 100 mls/hr 08/24/18 16:00 08/25/18 09:45 Sod 2.25 gm/ Sodium Chloride IVPB 100 mls/hr Q6 FLASH Administration Protocol Dopamine HCl/Dextrose 400 mg in 250 mls @ 19.085 mls/hr 08/25/18 01:33 08/25/18 02:00 Dopamine 400mg/250ml D5w IV 08/25/18 14:38 8.5 mcg/kg/min .Q13H6M ONE 19.085 mls/hr Administration Protocol 8.5 MCG/KG/MIN Insulin Detemir 15 units 08/24/18 22:00 08/24/18 22:13 Levemir SC 15 units HS FLASH Administration Insulin Human Regular 0 units 08/22/18 22:00 08/25/18 06:54 Humulin R SC 3 units ACHS FLASH Administration Protocol Latanoprost 1 drop 08/22/18 22:00 08/24/18 22:13 Xalatan Opht OU 1 drop HS FLASH Administration Levalbuterol HCl 0.63 mg 08/23/18 16:00 08/25/18 07:26 Xopenex INH 0.63 mg RQ8 FLASH Administration Metoprolol Tartrate 50 mg 08/22/18 21:00 08/25/18 09:40 Lopressor PO 50 mg Q12 FLASH Administration Sevelamer Carbonate 2,400 mg 08/24/18 09:00 08/25/18 09:44 Renvela PO 2,400 mg TID FLASH Administration Timolol Maleate 1 drop 08/23/18 09:00 08/25/18 09:44 Timoptic 0.5% Ophth Soln OD 1 drop QAM FLASH Administration - Patient Studies Lab Studies: Microbiology Studies 08/22/18 11:30 MRSA Culture (Admit) - Final Nose MRSA NOT DETECTED 08/22/18 22:27 Urine Culture - Final Urine,Catheterized No Growth (<1,000 CFU/ML) Lab Studies 08/25/18 08/25/18 08/25/18 Range/Units 06:45 04:55 04:55 WBC 14.5 H (4.8-10.8) K/uL RBC 4.70 (4.40-5.90) Mil/uL Hgb 14.7 (12.0-18.0) g/dL Hct 43.9 (35.0-51.0) % MCV 93.3 D (80.0-94.0) fl MCH 31.2 H (27.0-31.0) pg MCHC 33.5 (33.0-37.0) g/dL RDW 14.0 (11.5-14.5) % Plt Count 152 (130-400) K/uL APTT (25.6-37.1) Seconds Sodium 130 L (132-148) mmol/l Potassium 3.6 (3.6-5.0) MMOL/L Chloride 87 L (98-107) mmol/L Carbon Dioxide 26 (22-30) mmol/L Anion Gap 21 H (10-20) BUN 103 H* D (9-20) mg/dl Creatinine 3.1 H (0.8-1.5) mg/dl Est GFR ( Amer) 24 Est GFR (Non-Af Amer) 20 POC Glucose (mg/dL) 230 H (65-110) mg/dL Random Glucose 269 H (75-110) mg/dL Lactic Acid (0.7-2.1) mmol/L Calcium 6.5 L (8.4-10.2) mg/dL Total Bilirubin 2.2 H (0.2-1.3) mg/dl AST 2992 H (17-59) U/L ALT 2596 H (21-72) U/L Alkaline Phosphatase 141 H (38-126) U/L Total Protein 6.3 (6.3-8.2) G/DL Albumin 3.0 L (3.5-5.0) g/dL Globulin 3.3 (2.2-3.9) gm/dL Albumin/Globulin Ratio 0.9 L (1.0-2.1) Urine Color (YELLOW) Urine Clarity (Clear) Urine pH (5.0-8.0) Ur Specific [place] (1.003-1.030) Urine Protein (NEGATIVE) mg/dL Urine Glucose (UA) (NEGATIVE) mg/dL Urine Ketones (NEGATIVE) mg/dL Urine Blood (NEGATIVE) Urine Nitrate (NEGATIVE) Urine Bilirubin (NEGATIVE) Urine Urobilinogen (0.2-1.0) mg/dL Ur Leukocyte Esterase (Negative) Aurelia/uL Urine RBC (Auto) (0-3) /hpf Urine Microscopic WBC (0-5) /hpf Ur Squamous Epith Cells (0-5) /hpf Urine Bacteria (<OCC) Hyaline Casts (0-2) /hpf Ur L.pneumophila Ag (NEGATIVE) 08/25/18 08/25/18 08/24/18 Range/Units 04:55 04:55 20:49 WBC (4.8-10.8) K/uL RBC (4.40-5.90) Mil/uL Hgb (12.0-18.0) g/dL Hct (35.0-51.0) % MCV (80.0-94.0) fl MCH (27.0-31.0) pg MCHC (33.0-37.0) g/dL RDW (11.5-14.5) % Plt Count (130-400) K/uL APTT 54.2 H (25.6-37.1) Seconds Sodium (132-148) mmol/l Potassium (3.6-5.0) MMOL/L Chloride (98-107) mmol/L Carbon Dioxide (22-30) mmol/L Anion Gap (10-20) BUN (9-20) mg/dl Creatinine (0.8-1.5) mg/dl Est GFR ( Amer) Est GFR (Non-Af Amer) POC Glucose (mg/dL) 462 H* (65-110) mg/dL Random Glucose (75-110) mg/dL Lactic Acid 2.4 H (0.7-2.1) mmol/L Calcium (8.4-10.2) mg/dL Total Bilirubin (0.2-1.3) mg/dl AST (17-59) U/L ALT (21-72) U/L Alkaline Phosphatase (38-126) U/L Total Protein (6.3-8.2) G/DL Albumin (3.5-5.0) g/dL Globulin (2.2-3.9) gm/dL Albumin/Globulin Ratio (1.0-2.1) Urine Color (YELLOW) Urine Clarity (Clear) Urine pH (5.0-8.0) Ur Specific [place] (1.003-1.030) Urine Protein (NEGATIVE) mg/dL Urine Glucose (UA) (NEGATIVE) mg/dL Urine Ketones (NEGATIVE) mg/dL Urine Blood (NEGATIVE) Urine Nitrate (NEGATIVE) Urine Bilirubin (NEGATIVE) Urine Urobilinogen (0.2-1.0) mg/dL Ur Leukocyte Esterase (Negative) Aurelia/uL Urine RBC (Auto) (0-3) /hpf Urine Microscopic WBC (0-5) /hpf Ur Squamous Epith Cells (0-5) /hpf Urine Bacteria (<OCC) Hyaline Casts (0-2) /hpf Ur L.pneumophila Ag (NEGATIVE) 08/24/18 08/24/18 08/24/18 Range/Units 16:30 14:50 14:40 WBC (4.8-10.8) K/uL RBC (4.40-5.90) Mil/uL Hgb (12.0-18.0) g/dL Hct (35.0-51.0) % MCV (80.0-94.0) fl MCH (27.0-31.0) pg MCHC (33.0-37.0) g/dL RDW (11.5-14.5) % Plt Count (130-400) K/uL APTT (25.6-37.1) Seconds Sodium (132-148) mmol/l Potassium (3.6-5.0) MMOL/L Chloride (98-107) mmol/L Carbon Dioxide (22-30) mmol/L Anion Gap (10-20) BUN (9-20) mg/dl Creatinine (0.8-1.5) mg/dl Est GFR ( Amer) Est GFR (Non-Af Amer) POC Glucose (mg/dL) > 500 H* (65-110) mg/dL Random Glucose (75-110) mg/dL Lactic Acid 3.4 H (0.7-2.1) mmol/L Calcium (8.4-10.2) mg/dL Total Bilirubin (0.2-1.3) mg/dl AST (17-59) U/L ALT (21-72) U/L Alkaline Phosphatase (38-126) U/L Total Protein (6.3-8.2) G/DL Albumin (3.5-5.0) g/dL Globulin (2.2-3.9) gm/dL Albumin/Globulin Ratio (1.0-2.1) Urine Color (YELLOW) Urine Clarity (Clear) Urine pH (5.0-8.0) Ur Specific [place] (1.003-1.030) Urine Protein (NEGATIVE) mg/dL Urine Glucose (UA) (NEGATIVE) mg/dL Urine Ketones (NEGATIVE) mg/dL Urine Blood (NEGATIVE) Urine Nitrate (NEGATIVE) Urine Bilirubin (NEGATIVE) Urine Urobilinogen (0.2-1.0) mg/dL Ur Leukocyte Esterase (Negative) [place]/uL Urine RBC (Auto) (0-3) /hpf Urine Microscopic WBC (0-5) /hpf Ur Squamous Epith Cells (0-5) /hpf Urine Bacteria (<OCC) Hyaline Casts (0-2) /hpf Ur L.pneumophila Ag Negative (NEGATIVE) 08/24/18 08/24/18 Range/Units 14:40 11:03 WBC (4.8-10.8) K/uL RBC (4.40-5.90) Mil/uL Hgb (12.0-18.0) g/dL Hct (35.0-51.0) % MCV (80.0-94.0) fl MCH (27.0-31.0) pg MCHC (33.0-37.0) g/dL RDW (11.5-14.5) % Plt Count (130-400) K/uL APTT (25.6-37.1) Seconds Sodium (132-148) mmol/l Potassium (3.6-5.0) MMOL/L Chloride (98-107) mmol/L Carbon Dioxide (22-30) mmol/L Anion Gap (10-20) BUN (9-20) mg/dl Creatinine (0.8-1.5) mg/dl Est GFR ( Amer) Est GFR (Non-Af Amer) POC Glucose (mg/dL) 310 H (65-110) mg/dL Random Glucose (75-110) mg/dL Lactic Acid (0.7-2.1) mmol/L Calcium (8.4-10.2) mg/dL Total Bilirubin (0.2-1.3) mg/dl AST (17-59) U/L ALT (21-72) U/L Alkaline Phosphatase (38-126) U/L Total Protein (6.3-8.2) G/DL Albumin (3.5-5.0) g/dL Globulin (2.2-3.9) gm/dL Albumin/Globulin Ratio (1.0-2.1) Urine Color Yellow (YELLOW) Urine Clarity Cloudy (Clear) Urine pH 6.0 (5.0-8.0) Ur Specific [place] 1.010 (1.003-1.030) Urine Protein 30 (NEGATIVE) mg/dL Urine Glucose (UA) 50 (NEGATIVE) mg/dL Urine Ketones Negative (NEGATIVE) mg/dL Urine Blood Large (NEGATIVE) Urine Nitrate Negative (NEGATIVE) Urine Bilirubin Negative (NEGATIVE) Urine Urobilinogen 0.2-1.0 (0.2-1.0) mg/dL Ur Leukocyte Esterase Small (Negative) [place]/uL Urine RBC (Auto) 64 H (0-3) /hpf Urine Microscopic WBC 13 H (0-5) /hpf Ur Squamous Epith Cells < 1 (0-5) /hpf Urine Bacteria Occ H (<OCC) Hyaline Casts 0-2 (0-2) /hpf Ur L.pneumophila Ag (NEGATIVE) Laboratory Results - last 24 hr 08/24/18 08/24/18 08/24/18 11:03 14:40 14:40 WBC RBC Hgb Hct MCV MCH MCHC RDW Plt Count APTT Sodium Potassium Chloride Carbon Dioxide Anion Gap BUN Creatinine Est GFR ( Amer) Est GFR (Non-Af Amer) POC Glucose (mg/dL) 310 H Random Glucose Lactic Acid Calcium Total Bilirubin AST ALT Alkaline Phosphatase Total Protein Albumin Globulin Albumin/Globulin Ratio Urine Color Yellow Urine Clarity Cloudy Urine pH 6.0 Ur Specific [place] 1.010 Urine Protein 30 Urine Glucose (UA) 50 Urine Ketones Negative Urine Blood Large Urine Nitrate Negative Urine Bilirubin Negative Urine Urobilinogen 0.2-1.0 Ur Leukocyte Esterase Small Urine RBC (Auto) 64 H Urine Microscopic WBC 13 H Ur Squamous Epith Cells < 1 Urine Bacteria Occ H Hyaline Casts 0-2 Ur L.pneumophila Ag Negative 08/24/18 08/24/18 08/24/18 14:50 16:30 20:49 WBC RBC Hgb Hct MCV MCH MCHC RDW Plt Count APTT Sodium Potassium Chloride Carbon Dioxide Anion Gap BUN Creatinine Est GFR ( Amer) Est GFR (Non-Af Amer) POC Glucose (mg/dL) > 500 H* 462 H* Random Glucose Lactic Acid 3.4 H Calcium Total Bilirubin AST ALT Alkaline Phosphatase Total Protein Albumin Globulin Albumin/Globulin Ratio Urine Color Urine Clarity Urine pH Ur Specific [place] Urine Protein Urine Glucose (UA) Urine Ketones Urine Blood Urine Nitrate Urine Bilirubin Urine Urobilinogen Ur Leukocyte Esterase Urine RBC (Auto) Urine Microscopic WBC Ur Squamous Epith Cells Urine Bacteria Hyaline Casts Ur L.pneumophila Ag 08/25/18 08/25/18 08/25/18 04:55 04:55 04:55 WBC 14.5 H RBC 4.70 Hgb 14.7 Hct 43.9 MCV 93.3 D MCH 31.2 H MCHC 33.5 RDW 14.0 Plt Count 152 APTT 54.2 H Sodium Potassium Chloride Carbon Dioxide Anion Gap BUN Creatinine Est GFR ( Amer) Est GFR (Non-Af Amer) POC Glucose (mg/dL) Random Glucose Lactic Acid 2.4 H Calcium Total Bilirubin AST ALT Alkaline Phosphatase Total Protein Albumin Globulin Albumin/Globulin Ratio Urine Color Urine Clarity Urine pH Ur Specific [place] Urine Protein Urine Glucose (UA) Urine Ketones Urine Blood Urine Nitrate Urine Bilirubin Urine Urobilinogen Ur Leukocyte Esterase Urine RBC (Auto) Urine Microscopic WBC Ur Squamous Epith Cells Urine Bacteria Hyaline Casts Ur L.pneumophila Ag 08/25/18 08/25/18 04:55 06:45 WBC RBC Hgb Hct MCV MCH MCHC RDW Plt Count APTT Sodium 130 L Potassium 3.6 Chloride 87 L Carbon Dioxide 26 Anion Gap 21 H BUN 103 H* D Creatinine 3.1 H Est GFR ( Amer) 24 Est GFR (Non-Af Amer) 20 POC Glucose (mg/dL) 230 H Random Glucose 269 H Lactic Acid Calcium 6.5 L Total Bilirubin 2.2 H AST 2992 H ALT 2596 H Alkaline Phosphatase 141 H Total Protein 6.3 Albumin 3.0 L Globulin 3.3 Albumin/Globulin Ratio 0.9 L Urine Color Urine Clarity Urine pH Ur Specific [place] Urine Protein Urine Glucose (UA) Urine Ketones Urine Blood Urine Nitrate Urine Bilirubin Urine Urobilinogen Ur Leukocyte Esterase Urine RBC (Auto) Urine Microscopic WBC Ur Squamous Epith Cells Urine Bacteria Hyaline Casts Ur L.pneumophila Ag Radiology Impressions: Radiology Impressions Renal Ultrasound 08/23/18 11:38 IMPRESSION: Nonvisualization of the left kidney. Mildly increased echogenicity of the right kidney which can be seen in the setting of medical renal disease. No hydronephrosis or nephrolithiasis. Gallbladder Ultrasound 08/24/18 13:06 IMPRESSION: 1. Trace perihepatic ascites without focal pathology identified directly related to the liver. Likely gallbladder hydrops with the gallbladder mostly contracted. No cholelithiasis. Limited evaluation the gallbladder. 2. No biliary tree dilatation appreciated grossly. 3. Partial imaging of the pancreas. 4. Potential intrinsic medical renal disease right kidney. No obstructive uropathy or solid renal mass appreciable. Fingerstick Blood Sugar Results: 230 Review of Systems - Cardiovascular Cardiovascular: absent: As Per HPI, Acrocyanosis, Chest Pain, Chest Pain at Rest, Chest Pain with Activity, Claudication, Diaphoresis, Dyspnea, Dyspnea on Exertion, Edema, Irregular Heart Rhythm, Pain Radiating to Arm/Neck/Jaw, Leg Edema, Leg Ulcers, Lightheadedness, Orthopnea, Palpitations, Paroxysmal Nocturnal Dyspnea, Pedal Edema, Radiating Pain, Rapid Heart Rate, Slow Heart Rate, Syncope, Other, UNREMARKABLE - Respiratory Respiratory: absent: As Per HPI, Cough, Dyspnea, Hemoptysis, Dyspnea on Exert ion, Wheezing, Snoring, Stridor, Pain on Inspiration, Chest Congestion, Excessive Mucous Production, Change in Mucous Color, Pain with Coughing, Other, UNREMARKABLE Critical Care Progress Note - Extremities/Vascular Does the Patient have a Central Venous Catheter?: No Does the Patient need a Central Venous Catheter?: No Does the Patient have a Quiroz Catheter?: No Does the Patient need a Quiroz Catheter?: No - Nutrition Nutrition: Nutrition Category Date Time Status Heart Healthy Diet [DIET] Diets 08/23/18 Breakfast Active Assessment/Plan (1) Acute exacerbation of CHF (congestive heart failure) Current Visit: Yes Status: Acute Priority: High Comment: Chest x-ray consistent with bilateral pulmonary vascular congestion with bilateral pleural effusion secondary to acute on chronic systolic congestive heart failure Labs with elevated troponin level Continue ICU care for hemodynamic cardiac and respiratory monitoring As needed diuresis as blood pressure permits Dopamine drip (2) Elevated liver enzymes Current Visit: Yes Status: Acute Priority: High Comment: Elevated liver enzymes likely due to hepatic congestion in the setting of acute CHF Also Hypotension on admission Hepatitis B and C serology negative Scheduled for ultrasound of the liver and gallbladder today May need abdomen CT scan but will defer that in the setting of Acute kidney injury (3) Acute on chronic renal failure Current Visit: Yes Status: Chronic Priority: High Comment: Acute renal failure due to circulatory failure severe sepsis and possible cardiorenal syndrome Hemodynamic monitoring and support Optimize volume status Avoid nephrotoxic medication (4) Severe sepsis Current Visit: Yes Status: Acute Comment: Persistent leukocytosis patient was started empirically on broad-spectrum antibiotic coverage with IV Zosyn Follow-up blood culture, no growth to date Chest x-ray negative for acute infiltrate Urine analysis is negative Infectious disease consult appreciated (5) Atrial fibrillation with rapid ventricular response Current Visit: Yes Status: Acute Priority: High
[2018-08-25 12:06] LABS: HEPATITIS B SURFACE AG Negative (NEGATIVE)
[2018-08-25 12:12] LABS: HEPATITIS A IGM NEGATIVE (NEGATIVE); HEPATITIS B CORE AB NEGATIVE (NEGATIVE)
[2018-08-25 12:23] LABS: HEPATITIS C ANTIBODY NEGATIVE (NEGATIVE)
--- NOTE | 2018-08-25 12:57 | CP.PCM.PN ---
Subjective - Date & Time of Evaluation Date of Evaluation: 08/25/18 Time of Evaluation: 13:40 - Subjective Subjective: F/U respiratory Insufficiency. Objective - Vital Signs/Intake and Output Vital Signs (last 24 hours): Temp Pulse Resp BP Pulse Ox 98.6 F 80 18 131/56 L 91 L 08/25/18 12:00 08/25/18 12:00 08/25/18 12:00 08/25/18 09:40 08/25/18 12:00 Intake and Output: 08/25/18 08/25/18 06:59 18:59 Intake Total 726 Output Total 3250 Balance -2524 - Medications Medications: Current Medications Atorvastatin Calcium (Lipitor) 40 mg PO HS [facility] Last Admin: 08/24/18 22:13 Dose: 40 mg Calcitriol (Rocaltrol) 0.5 mcg PO DAILY [facility] Last Admin: 08/25/18 11:42 Dose: 0.5 mcg Calcium Carbonate (Oscal) 500 mg PO BIDWM [facility] Last Admin: 08/25/18 11:42 Dose: 500 mg Docusate Sodium (Colace) 100 mg PO BID [facility] Last Admin: 08/25/18 09:39 Dose: 100 mg Piperacillin Sod/Tazobactam (Sod 2.25 gm/ Sodium Chloride) 100 mls @ 100 mls/hr IVPB Q6 [facility]; Protocol Last Admin: 08/25/18 09:45 Dose: 100 mls/hr Dopamine HCl/Dextrose (Dopamine 400mg/250ml D5w) 400 mg in 250 mls @ 19.085 m ls/hr IV .Q13H6M ONE; Protocol Stop: 08/25/18 14:38 Last Admin: 08/25/18 02:00 Dose: 8.5 mcg/kg/min, 19.085 mls/hr Insulin Detemir (Levemir) 15 units SC [facility] Last Admin: 08/24/18 22:13 Dose: 15 units Insulin Human Regular (Humulin R) 0 units SC [facility]; Protocol Last Admin: 08/25/18 06:54 Dose: 3 units Latanoprost (Xalatan Opht) 1 drop OU HS [facility] Last Admin: 08/24/18 22:13 Dose: 1 drop Levalbuterol HCl (Xopenex) 0.63 mg INH RQ8 [facility] Last Admin: 08/25/18 07:26 Dose: 0.63 mg Metoprolol Tartrate (Lopressor) 50 mg PO Q12 [facility] Last Admin: 08/25/18 09:40 Dose: 50 mg Sevelamer Carbonate (Renvela) 2,400 mg PO TID [facility] Last Admin: 08/25/18 09:44 Dose: 2,400 mg Timolol Maleate (Timoptic 0.5% Oph Soln) 1 drop OD QAM [facility] Last Admin: 08/25/18 09:44 Dose: 1 drop - Labs Labs: 08/25/18 04:55 08/25/18 04:55 PT 16.1 Seconds (9.8-13.1) H 08/22/18 17:39 INR 1.4 08/22/18 17:39 APTT 54.2 Seconds (25.6-37.1) H 08/25/18 04:55 - Constitutional Appears: No Acute Distress - Head Exam Head Exam: NORMAL INSPECTION - Eye Exam Eye Exam: PERRL - ENT Exam ENT Exam: Normal Exam - Neck Exam Neck Exam: Normal Inspection - Respiratory Exam Respiratory Exam: Decreased Breath Sounds (at bases) - Cardiovascular Exam Cardiovascular Exam: REGULAR RHYTHM - GI/Abdominal Exam GI & Abdominal Exam: Soft, Normal Bowel Sounds - Extremities Exam Extremities Exam: Normal Inspection - Back Exam Back Exam: NORMAL INSPECTION - Neurological Exam Neurological Exam: Alert, Oriented x3. absent: Motor Sensory Deficit - Psychiatric Exam Psychiatric exam: Normal Affect, Normal Mood - Skin Skin Exam: Normal Color, Warm Assessment and Plan (1) Respiratory insufficiency Status: Acute (2) Acute exacerbation of CHF (congestive heart failure) Status: Acute (3) Asthma Status: Chronic (4) Acute on chronic renal failure Status: Chronic (5) DM2 (diabetes mellitus, type 2) Status: Chronic (6) Atrial fibrillation with rapid ventricular response Status: Acute (7) Hyperkalemia Status: Acute (8) CAD (coronary atherosclerotic disease) Status: Chronic (9) HTN (hypertension) Status: Chronic (10) Hx of CABG Status: Chronic (11) History of coronary artery stent placement Status: Chronic
[2018-08-25 17:16] LABS: BASO % 0.3 % (0.0-2.0); EOS % 0.3 % (0.0-4.0); HEMOGLOBIN 15.2 g/dL (12.0-18.0); LYMPH # 0.3 K/uL (1.0-4.3); LYMPH % 3.1 % (20.0-40.0); MEAN CELL VOLUME 93.1 fl (80.0-94.0); MEAN CORPUSCULAR HEMOGLOBIN 31.7 pg (27.0-31.0); MEAN PLATELET VOLUME 9.5 fl (7.2-11.7); MONO # 0.1 K/uL (0.0-0.8); MONO % 0.7 % (0.0-10.0); NEUT # 9.6 K/uL (1.8-7.0); NEUT % 95.6 % (50.0-75.0); NRBC % 0.9 % (0.0-0.0); PLATELET COUNT 145 K/uL (130-400); RBC 4.79 Mil/uL (4.40-5.90)
[2018-08-25 17:28] LABS: ALB/GLOB RATIO 0.9 (1.0-2.1); ALBUMIN 2.9 g/dL (3.5-5.0); CALCIUM 7.2 mg/dL (8.4-10.2)
[2018-08-25] MEDS ORDERED: Sodium Chloride 0.9% 1,000 ML IV SCH ×2 (17:30→20:00)
[2018-08-25] MEDS ORDERED: Heparin25000 units/250ml 1/2NS 25,000 UNITS/250 ML BAG IV ONE (18:56)
[2018-08-25] MEDS ORDERED: Heparin 25,000units in D5W 25,000 UNITS/250 ML BAG IV SCH (19:00)
[2018-08-25 19:07] LABS: BANDS 4 % (0-2); LYMPHOCYTE 3 % (20-50); MONOCYTE 2 % (0-10); NEUTROPHIL 91 % (42-75); PLATELET ESTIMATE NORMAL (NORMAL); TOTAL CELLS COUNTED 100
[2018-08-25] MEDS: Latanoprost 0.005% Opht SOUTION OU SCH (21:20)
[2018-08-25] MEDS: Insulin Detemir 100 Units/ml Inj SC SCH (21:33)
[2018-08-26 04:48] LABS: BASO % 0.1 % (0.0-2.0); EOS % 0.6 % (0.0-4.0); HEMOGLOBIN 14.3 g/dL (12.0-18.0); LYMPH # 0.3 K/uL (1.0-4.3); LYMPH % 4.2 % (20.0-40.0); MEAN CORPUSCULAR HEMOGLOBIN 31.5 pg (27.0-31.0); MEAN CORPUSCULAR HGB CONC 33.8 g/dL (33.0-37.0); MEAN PLATELET VOLUME 9.6 fl (7.2-11.7); MONO % 0.7 % (0.0-10.0); NEUT # 7.2 K/uL (1.8-7.0); NEUT % 94.4 % (50.0-75.0); NRBC % 0.3 % (0.0-0.0); PLATELET COUNT 116 K/uL (130-400); RBC 4.56 Mil/uL (4.40-5.90); WHITE BLOOD COUNT 7.6 K/uL (4.8-10.8)
[2018-08-26 05:06] LABS: ALB/GLOB RATIO 0.8 (1.0-2.1); ALBUMIN 2.6 g/dL (3.5-5.0); CALCIUM 7.5 mg/dL (8.4-10.2)
[2018-08-26] MEDS ORDERED: Potassium Chloride 20 mEq ER Tab PO ONE (05:44)
[2018-08-26] MEDS: Potassium CL 10 MEQ/50 ML 50 ML IVPB SCH ×3 (06:03→09:52)
[2018-08-26 07:04] LABS: BANDS 3 % (0-2); EOSINOPHIL 1 % (0-7); LYMPHOCYTE 2 % (20-50); NEUTROPHIL 94 % (42-75); TOTAL CELLS COUNTED 100
[2018-08-26 07:05] LABS: ACANTHOCYTES MODERATE; ANISOCYTOSIS SLIGHT; PLATELET ESTIMATE SLIGHTLY DECREASED (NORMAL)
[2018-08-26 07:06] LABS: HYPOCHROMIC SLIGHT; MONOCYTE 0 % (0-10)
--- NOTE | 2018-08-26 07:20 | CP.CCUPN ---
CCU Subjective - Physician Review Subjective (Free Text): 08/25/18 17:15 The patient was Seen and examined by me at the bedside, Medical records reviewed and Management issues were discussed and formulated with the house staff. Events reviewed Patient is 68 years old male with past medical history significant for hypertension, type 2 diabetes mellitus, hyperlipidemia, coronary artery disease, chronic atrial fibrillation, systolic congestive heart failure, chronic kidney disease and asthma Patient also status post coronary artery bypass graft and coronary artery stent Patient was admitted with worsening shortness of breath and he was noted to be hypotensive and tachycardic He was started on dopamine drip Looks more comfortable this morning Afebrile Blood pressure is better but he remains requiring dopamine drip Less shortness of breath, denies chest pain, fever/chills CCU Objective - Vital Signs / Intake & Output Intake and Output (Last 8hrs): Intake & Output 08/25/18 08/26/18 08/26/18 22:59 06:59 14:59 Intake Total 215 150 Output Total 1600 2500 Balance -1385 -2350 Weight 126 lb 9.6 oz Intake: IV 0 Oral 215 150 Output: Urine 1600 2500 Urethral (Quiroz) 1600 2500 - Physical Exam Head: Positive for: Atraumatic, Normocephalic Pupils: Positive for: PERRL Extroacular Muscles: Positive for: EOMI Conjunctiva: Positive for: Normal. Negative for: Injected, Icteric - Medications Active Medications: Active Medications Generic Name Dose Route Start Last Admin Trade Name Freq PRN Reason Stop Dose Admin Atorvastatin Calcium 40 mg 08/23/18 22:00 08/25/18 21:20 Lipitor PO 40 mg HS FLASH Administration Calcitriol 0.5 mcg 08/25/18 10:15 08/25/18 11:42 Rocaltrol PO 0.5 mcg DAILY FLASH Administration Calcium Carbonate 500 mg 08/25/18 10:15 08/25/18 18:18 Oscal PO 500 mg BIDWM FLASH Administration Docusate Sodium 100 mg 08/23/18 09:30 08/25/18 18:16 Colace PO 100 mg BID FLASH Administration Piperacillin Sod/Tazobactam 100 mls @ 100 mls/hr 08/24/18 16:00 08/26/18 04:15 Sod 2.25 gm/ Sodium Chloride IVPB 100 mls/hr Q6 FLASH Administration Protocol Sodium Chloride 1,000 mls @ 999 mls/hr 08/25/18 17:30 08/25/18 18:21 Sodium Chloride 0.9% IV 08/26/18 17:22 999 mls/hr .Q1H1M FLASH Administration Heparin Sodium/Dextrose 25,000 units in 250 mls @ 7 mls/hr 08/25/18 19:00 08/26/18 05:49 Heparin 25,000 Units/250ml In D5w IV 6 mls/hr .Q24H FLASH Titration Protocol Sodium Chloride 1,000 mls @ 999 mls/hr 08/25/18 20:00 Sodium Chloride 0.9% IV 08/26/18 19:55 .Q1H1M FLASH Dopamine HCl/Dextrose 400 mg in 250 mls @ 4.552 mls/hr 08/25/18 23:16 08/25/18 23:45 Dopamine 400mg/250ml D5w IV 08/26/18 23:15 2 mcg/kg/min .Q24H ONE 4.552 mls/hr Administration Protocol 2 MCG/KG/MIN Potassium Chloride 50 mls @ 50 mls/hr 08/26/18 06:00 08/26/18 06:03 Potassium Cl 10meq/50ml Sterile Water IVPB 08/26/18 08:59 50 mls/hr Q1 FLASH Administration Insulin Detemir 15 units 08/24/18 22:00 08/25/18 21:33 Levemir SC 15 units HS FLASH Administration Insulin Human Regular 0 units 08/22/18 22:00 08/25/18 21:33 Humulin R SC Not Given ACHS FLASH Protocol Latanoprost 1 drop 08/22/18 22:00 08/25/18 21:20 Xalatan Opht OU 1 drop HS FLASH Administration Levalbuterol HCl 0.63 mg 08/23/18 16:00 08/25/18 23:39 Xopenex INH 0.63 mg RQ8 FLASH Administration Sevelamer Carbonate 2,400 mg 08/24/18 09:00 08/25/18 18:19 Renvela PO 2,400 mg TID FLASH Administration Timolol Maleate 1 drop 08/23/18 09:00 08/25/18 09:44 Timoptic 0.5% Ophth Soln OD 1 drop QAM FLASH Administration - Patient Studies Lab Studies: Microbiology Studies 08/24/18 12:10 Blood Culture - Preliminary Blood-Venous NO GROWTH AFTER 24 HOURS 08/24/18 12:30 Blood Culture - Preliminary Blood-Venous NO GROWTH AFTER 24 HOURS Lab Studies 08/26/18 08/26/18 08/26/18 Range/Units 06:31 04:15 04:15 WBC (4.8-10.8) K/uL RBC (4.40-5.90) Mil/uL Hgb (12.0-18.0) g/dL Hct (35.0-51.0) % MCV (80.0-94.0) fl MCH (27.0-31.0) pg MCHC (33.0-37.0) g/dL RDW (11.5-14.5) % Plt Count (130-400) K/uL MPV (7.2-11.7) fl Neut % (Auto) (50.0-75.0) % Lymph % (Auto) (20.0-40.0) % [place] % (Auto) (0.0-10.0) % Eos % (Auto) (0.0-4.0) % Baso % (Auto) (0.0-2.0) % Neut # (Auto) (1.8-7.0) K/uL Lymph # (Auto) (1.0-4.3) K/uL [place] # (Auto) (0.0-0.8) K/uL Eos # (Auto) (0.0-0.7) K/uL Baso # (Auto) (0.0-0.2) K/uL Neutrophils % (Manual) (42-75) % Band Neutrophils % (0-2) % Lymphocytes % (Manual) (20-50) % Monocytes % (Manual) (0-10) % Eosinophils % (Manual) (0-7) % Platelet Estimate (NORMAL) RBC Morphology (NORMAL) Hypochromasia (manual) Anisocytosis (manual) Acanthocytes (Spur) APTT 79.2 H (25.6-37.1) Seconds Sodium 129 L (132-148) mmol/l Potassium 2.7 L (3.6-5.0) MMOL/L Chloride 87 L (98-107) mmol/L Carbon Dioxide 32 H (22-30) mmol/L Anion Gap 13 (10-20) BUN 74 H (9-20) mg/dl Creatinine 2.2 H (0.8-1.5) mg/dl Est GFR ( Amer) 36 Est GFR (Non-Af Amer) 30 POC Glucose (mg/dL) 196 H (65-110) mg/dL Random Glucose 236 H (75-110) mg/dL Calcium 7.5 L (8.4-10.2) mg/dL Phosphorus 3.4 (2.5-4.5) mg/dl Magnesium 1.7 (1.6-2.3) MG/DL Total Bilirubin 2.2 H (0.2-1.3) mg/dl Direct Bilirubin (0.0-0.4) mg/ml AST 726 H D (17-59) U/L ALT 1646 H (21-72) U/L Alkaline Phosphatase 134 H (38-126) U/L Total Protein 5.7 L (6.3-8.2) G/DL Albumin 2.6 L (3.5-5.0) g/dL Globulin 3.1 (2.2-3.9) gm/dL Albumin/Globulin Ratio 0.8 L (1.0-2.1) PTH Intact Whole Molec (14-64) pg/mL Hepatitis A IgM Ab (NEGATIVE) Hep Bs Antigen (NEGATIVE) Hep B Core IgM Ab (NEGATIVE) Hepatitis C Antibody (NEGATIVE) 08/26/18 08/25/18 08/25/18 Range/Units 04:15 21:28 17:19 WBC 7.6 (4.8-10.8) K/uL RBC 4.56 (4.40-5.90) Mil/uL Hgb 14.3 (12.0-18.0) g/dL Hct 42.4 (35.0-51.0) % MCV 93.0 (80.0-94.0) fl MCH 31.5 H (27.0-31.0) pg MCHC 33.8 (33.0-37.0) g/dL RDW 14.0 (11.5-14.5) % Plt Count 116 L D (130-400) K/uL MPV 9.6 (7.2-11.7) fl Neut % (Auto) 94.4 H (50.0-75.0) % Lymph % (Auto) 4.2 L (20.0-40.0) % [place] % (Auto) 0.7 (0.0-10.0) % Eos % (Auto) 0.6 (0.0-4.0) % Baso % (Auto) 0.1 (0.0-2.0) % Neut # (Auto) 7.2 H (1.8-7.0) K/uL Lymph # (Auto) 0.3 L (1.0-4.3) K/uL [place] # (Auto) 0.0 (0.0-0.8) K/uL Eos # (Auto) 0.0 (0.0-0.7) K/uL Baso # (Auto) 0.0 (0.0-0.2) K/uL Neutrophils % (Manual) 94 H (42-75) % Band Neutrophils % 3 H (0-2) % Lymphocytes % (Manual) 2 L (20-50) % Monocytes % (Manual) 0 (0-10) % Eosinophils % (Manual) 1 (0-7) % Platelet Estimate Slightly decreased L (NORMAL) RBC Morphology (NORMAL) Hypochromasia (manual) Slight Anisocytosis (manual) Slight Acanthocytes (Spur) Moderate APTT (25.6-37.1) Seconds Sodium (132-148) mmol/l Potassium (3.6-5.0) MMOL/L Chloride (98-107) mmol/L Carbon Dioxide (22-30) mmol/L Anion Gap (10-20) BUN (9-20) mg/dl Creatinine (0.8-1.5) mg/dl Est GFR ( Amer) Est GFR (Non-Af Amer) POC Glucose (mg/dL) 170 H 124 H (65-110) mg/dL Random Glucose (75-110) mg/dL Calcium (8.4-10.2) mg/dL Phosphorus (2.5-4.5) mg/dl Magnesium (1.6-2.3) MG/DL Total Bilirubin (0.2-1.3) mg/dl Direct Bilirubin (0.0-0.4) mg/ml AST (17-59) U/L ALT (21-72) U/L Alkaline Phosphatase (38-126) U/L Total Protein (6.3-8.2) G/DL Albumin (3.5-5.0) g/dL Globulin (2.2-3.9) gm/dL Albumin/Globulin Ratio (1.0-2.1) PTH Intact Whole Molec (14-64) pg/mL Hepatitis A IgM Ab (NEGATIVE) Hep Bs Antigen (NEGATIVE) Hep B Core IgM Ab (NEGATIVE) Hepatitis C Antibody (NEGATIVE) 08/25/18 08/25/18 08/25/18 Range/Units 16:45 16:45 12:47 WBC 10.0 (4.8-10.8) K/uL RBC 4.79 (4.40-5.90) Mil/uL Hgb 15.2 (12.0-18.0) g/dL Hct 44.6 (35.0-51.0) % MCV 93.1 (80.0-94.0) fl MCH 31.7 H (27.0-31.0) pg MCHC 34.0 (33.0-37.0) g/dL RDW 14.0 (11.5-14.5) % Plt Count 145 (130-400) K/uL MPV 9.5 (7.2-11.7) fl Neut % (Auto) 95.6 H (50.0-75.0) % Lymph % (Auto) 3.1 L (20.0-40.0) % [place] % (Auto) 0.7 (0.0-10.0) % Eos % (Auto) 0.3 (0.0-4.0) % Baso % (Auto) 0.3 (0.0-2.0) % Neut # (Auto) 9.6 H (1.8-7.0) K/uL Lymph # (Auto) 0.3 L (1.0-4.3) K/uL [place] # (Auto) 0.1 (0.0-0.8) K/uL Eos # (Auto) 0.0 (0.0-0.7) K/uL Baso # (Auto) 0.0 (0.0-0.2) K/uL Neutrophils % (Manual) 91 H (42-75) % Band Neutrophils % 4 H (0-2) % Lymphocytes % (Manual) 3 L (20-50) % Monocytes % (Manual) 2 (0-10) % Eosinophils % (Manual) (0-7) % Platelet Estimate Normal (NORMAL) RBC Morphology Normal (NORMAL) Hypochromasia (manual) Anisocytosis (manual) Acanthocytes (Spur) APTT (25.6-37.1) Seconds Sodium 133 (132-148) mmol/l Potassium 2.8 L (3.6-5.0) MMOL/L Chloride 86 L (98-107) mmol/L Carbon Dioxide 31 H (22-30) mmol/L Anion Gap 19 (10-20) BUN 93 H (9-20) mg/dl Creatinine 2.8 H (0.8-1.5) mg/dl Est GFR ( Amer) 27 Est GFR (Non-Af Amer) 23 POC Glucose (mg/dL) 342 H (65-110) mg/dL Random Glucose 152 H (75-110) mg/dL Calcium 7.2 L (8.4-10.2) mg/dL Phosphorus 4.8 H (2.5-4.5) mg/dl Magnesium (1.6-2.3) MG/DL Total Bilirubin 2.5 H (0.2-1.3) mg/dl Direct Bilirubin 1.0 H (0.0-0.4) mg/ml AST 1373 H (17-59) U/L ALT 1946 H (21-72) U/L Alkaline Phosphatase 146 H (38-126) U/L Total Protein 6.2 L (6.3-8.2) G/DL Albumin 2.9 L (3.5-5.0) g/dL Globulin 3.3 (2.2-3.9) gm/dL Albumin/Globulin Ratio 0.9 L (1.0-2.1) PTH Intact Whole Molec (14-64) pg/mL Hepatitis A IgM Ab (NEGATIVE) Hep Bs Antigen (NEGATIVE) Hep B Core IgM Ab (NEGATIVE) Hepatitis C Antibody (NEGATIVE) 08/24/18 08/23/18 Range/Units 14:50 14:25 WBC (4.8-10.8) K/uL RBC (4.40-5.90) Mil/uL Hgb (12.0-18.0) g/dL Hct (35.0-51.0) % MCV (80.0-94.0) fl MCH (27.0-31.0) pg MCHC (33.0-37.0) g/dL RDW (11.5-14.5) % Plt Count (130-400) K/uL MPV (7.2-11.7) fl Neut % (Auto) (50.0-75.0) % Lymph % (Auto) (20.0-40.0) % [place] % (Auto) (0.0-10.0) % Eos % (Auto) (0.0-4.0) % Baso % (Auto) (0.0-2.0) % Neut # (Auto) (1.8-7.0) K/uL Lymph # (Auto) (1.0-4.3) K/uL [place] # (Auto) (0.0-0.8) K/uL Eos # (Auto) (0.0-0.7) K/uL Baso # (Auto) (0.0-0.2) K/uL Neutrophils % (Manual) (42-75) % Band Neutrophils % (0-2) % Lymphocytes % (Manual) (20-50) % Monocytes % (Manual) (0-10) % Eosinophils % (Manual) (0-7) % Platelet Estimate (NORMAL) RBC Morphology (NORMAL) Hypochromasia (manual) Anisocytosis (manual) Acanthocytes (Spur) APTT (25.6-37.1) Seconds Sodium (132-148) mmol/l Potassium (3.6-5.0) MMOL/L Chloride (98-107) mmol/L Carbon Dioxide (22-30) mmol/L Anion Gap (10-20) BUN (9-20) mg/dl Creatinine (0.8-1.5) mg/dl Est GFR ( Amer) Est GFR (Non-Af Amer) POC Glucose (mg/dL) (65-110) mg/dL Random Glucose (75-110) mg/dL Calcium (8.4-10.2) mg/dL Phosphorus (2.5-4.5) mg/dl Magnesium (1.6-2.3) MG/DL Total Bilirubin (0.2-1.3) mg/dl Direct Bilirubin (0.0-0.4) mg/ml AST (17-59) U/L ALT (21-72) U/L Alkaline Phosphatase (38-126) U/L Total Protein (6.3-8.2) G/DL Albumin (3.5-5.0) g/dL Globulin (2.2-3.9) gm/dL Albumin/Globulin Ratio (1.0-2.1) PTH Intact Whole Molec 435 H (14-64) pg/mL Hepatitis A IgM Ab Negative (NEGATIVE) Hep Bs Antigen Negative (NEGATIVE) Hep B Core IgM Ab Negative (NEGATIVE) Hepatitis C Antibody Negative (NEGATIVE) Laboratory Results - last 24 hr 08/23/18 08/24/18 08/25/18 14:25 14:50 12:47 WBC RBC Hgb Hct MCV MCH MCHC RDW Plt Count MPV Neut % (Auto) Lymph % (Auto) [place] % (Auto) Eos % (Auto) Baso % (Auto) Neut # (Auto) Lymph # (Auto) [place] # (Auto) Eos # (Auto) Baso # (Auto) Neutrophils % (Manual) Band Neutrophils % Lymphocytes % (Manual) Monocytes % (Manual) Eosinophils % (Manual) Platelet Estimate RBC Morphology Hypochromasia (manual) Anisocytosis (manual) Acanthocytes (Spur) APTT Sodium Potassium Chloride Carbon Dioxide Anion Gap BUN Creatinine Est GFR ( Amer) Est GFR (Non-Af Amer) POC Glucose (mg/dL) 342 H Random Glucose Calcium Phosphorus Magnesium Total Bilirubin Direct Bilirubin AST ALT Alkaline Phosphatase Total Protein Albumin Globulin Albumin/Globulin Ratio PTH Intact Whole Molec 435 H Hepatitis A IgM Ab Negative Hep Bs Antigen Negative Hep B Core IgM Ab Negative Hepatitis C Antibody Negative 08/25/18 08/25/18 08/25/18 16:45 16:45 17:19 WBC 10.0 RBC 4.79 Hgb 15.2 Hct 44.6 MCV 93.1 MCH 31.7 H MCHC 34.0 RDW 14.0 Plt Count 145 MPV 9.5 Neut % (Auto) 95.6 H Lymph % (Auto) 3.1 L [place] % (Auto) 0.7 Eos % (Auto) 0.3 Baso % (Auto) 0.3 Neut # (Auto) 9.6 H Lymph # (Auto) 0.3 L [place] # (Auto) 0.1 Eos # (Auto) 0.0 Baso # (Auto) 0.0 Neutrophils % (Manual) 91 H Band Neutrophils % 4 H Lymphocytes % (Manual) 3 L Monocytes % (Manual) 2 Eosinophils % (Manual) Platelet Estimate Normal RBC Morphology Normal Hypochromasia (manual) Anisocytosis (manual) Acanthocytes (Spur) APTT Sodium 133 Potassium 2.8 L Chloride 86 L Carbon Dioxide 31 H Anion Gap 19 BUN 93 H Creatinine 2.8 H Est GFR ( Amer) 27 Est GFR (Non-Af Amer) 23 POC Glucose (mg/dL) 124 H Random Glucose 152 H Calcium 7.2 L Phosphorus 4.8 H Magnesium Total Bilirubin 2.5 H Direct Bilirubin 1.0 H AST 1373 H ALT 1946 H Alkaline Phosphatase 146 H Total Protein 6.2 L Albumin 2.9 L Globulin 3.3 Albumin/Globulin Ratio 0.9 L PTH Intact Whole Molec Hepatitis A IgM Ab Hep Bs Antigen Hep B Core IgM Ab Hepatitis C Antibody 08/25/18 08/26/18 08/26/18 21:28 04:15 04:15 WBC 7.6 RBC 4.56 Hgb 14.3 Hct 42.4 MCV 93.0 MCH 31.5 H MCHC 33.8 RDW 14.0 Plt Count 116 L D MPV 9.6 Neut % (Auto) 94.4 H Lymph % (Auto) 4.2 L [place] % (Auto) 0.7 Eos % (Auto) 0.6 Baso % (Auto) 0.1 Neut # (Auto) 7.2 H Lymph # (Auto) 0.3 L [place] # (Auto) 0.0 Eos # (Auto) 0.0 Baso # (Auto) 0.0 Neutrophils % (Manual) 94 H Band Neutrophils % 3 H Lymphocytes % (Manual) 2 L Monocytes % (Manual) 0 Eosinophils % (Manual) 1 Platelet Estimate Slightly decreased L RBC Morphology Hypochromasia (manual) Slight Anisocytosis (manual) Slight Acanthocytes (Spur) Moderate APTT Sodium 129 L Potassium 2.7 L Chloride 87 L Carbon Dioxide 32 H Anion Gap 13 BUN 74 H Creatinine 2.2 H Est GFR ( Amer) 36 Est GFR (Non-Af Amer) 30 POC Glucose (mg/dL) 170 H Random Glucose 236 H Calcium 7.5 L Phosphorus 3.4 Magnesium 1.7 Total Bilirubin 2.2 H Direct Bilirubin AST 726 H D ALT 1646 H Alkaline Phosphatase 134 H Total Protein 5.7 L Albumin 2.6 L Globulin 3.1 Albumin/Globulin Ratio 0.8 L PTH Intact Whole Molec Hepatitis A IgM Ab Hep Bs Antigen Hep B Core IgM Ab Hepatitis C Antibody 08/26/18 08/26/18 04:15 06:31 WBC RBC Hgb Hct MCV MCH MCHC RDW Plt Count MPV Neut % (Auto) Lymph % (Auto) [place] % (Auto) Eos % (Auto) Baso % (Auto) Neut # (Auto) Lymph # (Auto) [place] # (Auto) Eos # (Auto) Baso # (Auto) Neutrophils % (Manual) Band Neutrophils % Lymphocytes % (Manual) Monocytes % (Manual) Eosinophils % (Manual) Platelet Estimate RBC Morphology Hypochromasia (manual) Anisocytosis (manual) Acanthocytes (Spur) APTT 79.2 H Sodium Potassium Chloride Carbon Dioxide Anion Gap BUN Creatinine Est GFR ( Amer) Est GFR (Non-Af Amer) POC Glucose (mg/dL) 196 H Random Glucose Calcium Phosphorus Magnesium Total Bilirubin Direct Bilirubin AST ALT Alkaline Phosphatase Total Protein Albumin Globulin Albumin/Globulin Ratio PTH Intact Whole Molec Hepatitis A IgM Ab Hep Bs Antigen Hep B Core IgM Ab Hepatitis C Antibody Radiology Impressions: Radiology Impressions Gallbladder Ultrasound 08/24/18 13:06 IMPRESSION: 1. Trace perihepatic ascites without focal pathology identified directly related to the liver. Likely gallbladder hydrops with the gallbladder mostly contracted. No cholelithiasis. Limited evaluation the gallbladder. 2. No biliary tree dilatation appreciated grossly. 3. Partial imaging of the pancreas. 4. Potential intrinsic medical renal disease right kidney. No obstructive uropathy or solid renal mass appreciable. Fingerstick Blood Sugar Results: 170 Critical Care Progress Note - Nutrition Nutrition: Nutrition Category Date Time Status Heart Healthy Diet [DIET] Diets 08/23/18 Breakfast Active Assessment/Plan (1) Acute exacerbation of CHF (congestive heart failure) Current Visit: Yes Status: Acute Priority: High Comment: Chest x-ray consistent with bilateral pulmonary vascular congestion with bilateral pleural effusion secondary to acute on chronic systolic congestive heart failure Labs with elevated troponin level Continue ICU care for hemodynamic cardiac and respiratory monitoring As needed diuresis as blood pressure permits Dopamine drip (2) Elevated liver enzymes Current Visit: Yes Status: Acute Priority: High Comment: Elevated liver enzymes likely due to hepatic congestion in the setting of acute CHF Also Hypotension on admission Hepatitis B and C serology negative Scheduled for ultrasound of the liver and gallbladder today May need abdomen CT scan but will defer that in the setting of Acute kidney injury (3) Acute on chronic renal failure Current Visit: Yes Status: Chronic Priority: High Comment: Acute renal failure due to circulatory failure severe sepsis and possible cardiorenal sy ndrome Hemodynamic monitoring and support Optimize volume status Avoid nephrotoxic medication (4) Severe sepsis Current Visit: Yes Status: Acute Comment: Persistent leukocytosis patient was started empirically on broad-spectrum antibiotic coverage with IV Zosyn Follow-up blood culture, no growth to date Chest x-ray negative for acute infiltrate Urine analysis is negative Infectious disease consult appreciated (5) Atrial fibrillation with rapid ventricular response Current Visit: Yes Status: Acute Priority: High
[2018-08-26] MEDS: Insulin Regular 100 units/ml SC SCH ×3 (08:50→17:24)
--- NOTE | 2018-08-26 08:56 | CP.PCM.PN ---
Subjective - Date & Time of Evaluation Date of Evaluation: 08/26/18 Time of Evaluation: 08:59 - Subjective Subjective: Patient is awake and conscious Patient feeling much better less shortness of breath Urine output noted to be very good Vital signs stable Objective - Vital Signs/Intake and Output Vital Signs (last 24 hours): Temp Pulse Resp BP Pulse Ox 98.4 F 111 H 15 103/81 98 08/26/18 04:00 08/26/18 07:00 08/26/18 07:00 08/26/18 07:00 08/26/18 07:00 Intake and Output: 08/26/18 08/26/18 06:59 18:59 Intake Total 365 Output Total 4100 Balance -3735 - Medications Medications: Current Medications Atorvastatin Calcium (Lipitor) 40 mg PO HS [facility] Last Admin: 08/25/18 21:20 Dose: 40 mg Calcitriol (Rocaltrol) 0.5 mcg PO DAILY [facility] Last Admin: 08/25/18 11:42 Dose: 0.5 mcg Calcium Carbonate (Oscal) 500 mg PO BIDWM [facility] Last Admin: 08/25/18 18:18 Dose: 500 mg Docusate Sodium (Colace) 100 mg PO BID [facility] Last Admin: 08/25/18 18:16 Dose: 100 mg Piperacillin Sod/Tazobactam (Sod 2.25 gm/ Sodium Chloride) 100 mls @ 100 mls/hr IVPB Q6 [facility]; Protocol Last Admin: 08/26/18 04:15 Dose: 100 mls/hr Sodium Chloride (Sodium Chloride 0.9%) 1,000 mls @ 999 mls/hr IV .Q1H1M [facility] Stop: 08/26/18 17:22 Last Admin: 08/25/18 18:21 Dose: 999 mls/hr Heparin Sodium/Dextrose (Heparin 25,000 Units/250ml In D5w) 25,000 units in 250 mls @ 7 mls/hr IV .Q24H [facility]; Protocol Last Titration: 08/26/18 05:49 Dose: 6 mls/hr Sodium Chloride (Sodium Chloride 0.9%) 1,000 mls @ 999 mls/hr IV .Q1H1M [facility] Stop: 08/26/18 19:55 Dopamine HCl/Dextrose (Dopamine 400mg/250ml D5w) 400 mg in 250 mls @ 4.552 mls/hr IV .Q24H ONE; Protocol Stop: 08/26/18 23:15 Last Admin: 08/25/18 23:45 Dose: 2 mcg/kg/min, 4.552 mls/hr Potassium Chloride (Potassium Cl 10meq/50ml Sterile Water) 50 mls @ 50 mls/hr IVPB Q1 [facility] Stop: 08/26/18 08:59 Last Admin: 08/26/18 06:03 Dose: 50 mls/hr Insulin Detemir (Levemir) 15 units SC HS [facility] Last Admin: 08/25/18 21:33 Dose: 15 units Insulin Human Regular (Humulin R) 0 units SC ACHS [facility]; Protocol Last Admin: 08/25/18 21:33 Dose: Not Given Latanoprost (Xalatan Opht) 1 drop OU HS [facility] Last Admin: 08/25/18 21:20 Dose: 1 drop Levalbuterol HCl (Xopenex) 0.63 mg INH RQ8 [facility] Last Admin: 08/25/18 23:39 Dose: 0.63 mg Sevelamer Carbonate (Renvela) 2,400 mg PO TID [facility] Last Admin: 08/25/18 18:19 Dose: 2,400 mg Timolol Maleate (Timoptic 0.5% Ophth Soln) 1 drop OD QAM [facility] Last Admin: 08/25/18 09:44 Dose: 1 drop - Labs Labs: 08/26/18 04:15 08/26/18 04:15 PT 16.1 Seconds (9.8-13.1) H 08/22/18 17:39 INR 1.4 08/22/18 17:39 APTT 79.2 Seconds (25.6-37.1) H 08/26/18 04:15 - Constitutional Appears: No Acute Distress - Eye Exam Eye Exam: Conjunctival injection - ENT Exam ENT Exam: Mucous Membranes Moist - Neck Exam Neck Exam: absent: Lymphadenopathy - Respiratory Exam Respiratory Exam: Rhonchi, NORMAL BREATHING PATTERN. absent: Chest Wall Tenderness - Cardiovascular Exam Cardiovascular Exam: absent: Gallop, JVD, Rubs - GI/Abdominal Exam GI & Abdominal Exam: Soft, Normal Bowel Sounds - Extremities Exam Extremities Exam: absent: Calf Tenderness - Back Exam Back Exam: absent: CVA tenderness (L), CVA tenderness (R) - Neurological Exam Neurological Exam: Alert - Skin Skin Exam: absent: Cyanosis Assessment and Plan (1) Hyperkalemia Status: Acute (2) Leukocytosis Status: Acute (3) Acute on chronic renal failure Assessment & Plan: ARF / Acute on chronic systolic heart failure/ metabolic acidosis / respiratory alkalosis/ Hypokalemia anemia / hyponatremia Hyperphosphatemia Hypocalcemia medical history significant for hypertension, type 2 diabetes mellitus, hyperlipidemia, coronary artery disease, chronic atrial fibrillation, systolic congestive heart failure, chronic kidney disease and asthma Patient also status post coronary artery bypass graft and coronary artery stent The plan Acute renal failure perhaps related to cardiorenal syndrome. Improving Urine output improving patient making very good urine and fluid balance has been negative. Potassium chloride supplement Hypocalcemia improving slowly continue the same treatment Status: Chronic
--- NOTE | 2018-08-26 12:08 | CP.PCM.PN ---
Subjective - Date & Time of Evaluation Date of Evaluation: 08/26/18 Time of Evaluation: 10:20 - Subjective Subjective: alert, N/C, no C/P, no abdominal pain, no headache Objective - Vital Signs/Intake and Output Vital Signs (last 24 hours): Temp Pulse Resp BP Pulse Ox 98.4 F 128 H 16 108/71 98 08/26/18 09:00 08/26/18 09:00 08/26/18 09:00 08/26/18 09:00 08/26/18 07:00 Intake and Output: 08/26/18 08/26/18 06:59 18:59 Intake Total 365 Output Total 4100 Balance -3735 - Medications Medications: Current Medications Atorvastatin Calcium (Lipitor) 40 mg PO HS [facility] Last Admin: 08/25/18 21:20 Dose: 40 mg Calcitriol (Rocaltrol) 0.5 mcg PO DAILY [facility] Last Admin: 08/26/18 08:48 Dose: 0.5 mcg Calcium Carbonate (Oscal) 500 mg PO BIDWM [facility] Last Admin: 08/26/18 08:47 Dose: 500 mg Docusate Sodium (Colace) 100 mg PO BID [facility] Last Admin: 08/26/18 08:47 Dose: 100 mg Piperacillin Sod/Tazobactam (Sod 2.25 gm/ Sodium Chloride) 100 mls @ 100 mls/hr IVPB Q6 [facility]; Protocol Last Admin: 08/26/18 04:15 Dose: 100 mls/hr Sodium Chloride (Sodium Chloride 0.9%) 1,000 mls @ 999 mls/hr IV .Q1H1M [facility] Stop: 08/26/18 17:22 Last Admin: 08/25/18 18:21 Dose: 999 mls/hr Heparin Sodium/Dextrose (Heparin 25,000 Units/250ml In D5w) 25,000 units in 250 mls @ 7 mls/hr IV .Q24H [facility]; Protocol Last Titration: 08/26/18 05:49 Dose: 6 mls/hr Sodium Chloride (Sodium Chloride 0.9%) 1,000 mls @ 999 mls/hr IV .Q1H1M [facility] Stop: 08/26/18 19:55 Dopamine HCl/Dextrose (Dopamine 400mg/250ml D5w) 400 mg in 250 mls @ 4.552 mls/hr IV .Q24H [facility]; Protocol Stop: 08/26/18 23:15 Last Admin: 08/25/18 23:45 Dose: 2 mcg/kg/min, 4.552 mls/hr Insulin Detemir (Levemir) 15 units SC HS [facility] Last Admin: 08/25/18 21:33 Dose: 15 units Insulin Human Regular (Humulin R) 0 units SC ACHS [facility]; Protocol Last Admin: 08/26/18 08:50 Dose: 2 units Latanoprost (Xalatan Opht) 1 drop OU HS [facility] Last Admin: 08/25/18 21:20 Dose: 1 drop Levalbuterol HCl (Xopenex) 0.63 mg INH RQ8 [facility] Last Admin: 08/25/18 23:39 Dose: 0.63 mg Sevelamer Carbonate (Renvela) 2,400 mg PO TID [facility] Last Admin: 08/26/18 08:48 Dose: 2,400 mg Timolol Maleate (Timoptic 0.5% Ophth Soln) 1 drop OD QAM [facility] Last Admin: 08/26/18 08:49 Dose: 1 drop - Labs Labs: 08/26/18 04:15 08/26/18 04:15 PT 16.1 Seconds (9.8-13.1) H 08/22/18 17:39 INR 1.4 08/22/18 17:39 APTT 79.2 Seconds (25.6-37.1) H 08/26/18 04:15 - Constitutional Appears: No Acute Distress - Head Exam Head Exam: NORMAL INSPECTION - Eye Exam Eye Exam: PERRL - ENT Exam ENT Exam: Normal Exam - Neck Exam Neck Exam: Normal Inspection - Respiratory Exam Respiratory Exam: NORMAL BREATHING PATTERN - Cardiovascular Exam Cardiovascular Exam: Irregular Rhythm - GI/Abdominal Exam GI & Abdominal Exam: Soft, Normal Bowel Sounds - Extremities Exam Extremities Exam: Normal Inspection - Back Exam Back Exam: NORMAL INSPECTION - Neurological Exam Neurological Exam: Alert, CN II-XII Intact Additional comments: no focal motor.sensory deficit - Psychiatric Exam Additional comments: calm - Skin Skin Exam: Warm Assessment and Plan (1) Respiratory insufficiency Status: Acute (2) Acute exacerbation of CHF (congestive heart failure) Status: Acute (3) Asthma Status: Chronic (4) Acute on chronic renal failure Status: Chronic (5) DM2 (diabetes mellitus, type 2) Status: Chronic (6) Atrial fibrillation with rapid ventricular response Status: Acute (7) Hyperkalemia Status: Acute (8) CAD (coronary atherosclerotic disease) Status: Chronic (9) HTN (hypertension) Status: Chronic (10) Hx of CABG Status: Chronic (11) History of coronary artery stent placement Status: Chronic - Assessment and Plan (Free Text) Assessment: continue Heparin drip for Tx A Fib, heart rate still elevated, Dopamine drip to be DC, BP stable, , IVF, Zosyn, Levemir and rest of TX, blood and U C-S negative, Zosyn empiric Tx, no leukocytosis for 2 days
--- NOTE | 2018-08-26 12:12 | CP.PCM.PN ---
Subjective - Date & Time of Evaluation Date of Evaluation: 08/26/18 Time of Evaluation: 12:12 - Subjective Subjective: ID Note- Patient seen and examined today in ICU. awake, alert. denies any fever or chills. states his breathing has improved. Objective - Vital Signs/Intake and Output Vital Signs (last 24 hours): Temp Pulse Resp BP Pulse Ox 98.4 F 128 H 16 108/71 98 08/26/18 09:00 08/26/18 09:00 08/26/18 09:00 08/26/18 09:00 08/26/18 07:00 Intake and Output: 08/26/18 08/26/18 06:59 18:59 Intake Total 365 Output Total 4100 Balance -3735 - Medications Medications: Current Medications Atorvastatin Calcium (Lipitor) 40 mg PO HS [facility] Last Admin: 08/25/18 21:20 Dose: 40 mg Calcitriol (Rocaltrol) 0.5 mcg PO DAILY [facility] Last Admin: 08/26/18 08:48 Dose: 0.5 mcg Calcium Carbonate (Oscal) 500 mg PO BIDWM [facility] Last Admin: 08/26/18 08:47 Dose: 500 mg Docusate Sodium (Colace) 100 mg PO BID [facility] Last Admin: 08/26/18 08:47 Dose: 100 mg Piperacillin Sod/Tazobactam (Sod 2.25 gm/ Sodium Chloride) 100 mls @ 100 mls/hr IVPB Q6 [facility]; Protocol Last Admin: 08/26/18 04:15 Dose: 100 mls/hr Sodium Chloride (Sodium Chloride 0.9%) 1,000 mls @ 999 mls/hr IV .Q1H1M FLASH Stop: 08/26/18 17:22 Last Admin: 08/25/18 18:21 Dose: 999 mls/hr Heparin Sodium/Dextrose (Heparin 25,000 Units/250ml In D5w) 25,000 units in 250 mls @ 7 mls/hr IV .Q24H [facility]; Protocol Last Titration: 08/26/18 05:49 Dose: 6 mls/hr Sodium Chloride (Sodium Chloride 0.9%) 1,000 mls @ 999 mls/hr IV .Q1H1M FLASH Stop: 08/26/18 19:55 Dopamine HCl/Dextrose (Dopamine 400mg/250ml D5w) 400 mg in 250 mls @ 4.552 mls/hr IV .Q24H [facility]; Protocol Stop: 08/26/18 23:15 Last Admin: 08/25/18 23:45 Dose: 2 mcg/kg/min, 4.552 mls/hr Insulin Detemir (Levemir) 15 units SC HS [facility] Last Admin: 08/25/18 21:33 Dose: 15 units Insulin Human Regular (Humulin R) 0 units SC ACHS [facility]; Protocol Last Admin: 08/26/18 08:50 Dose: 2 units Latanoprost (Xalatan Opht) 1 drop OU HS [facility] Last Admin: 08/25/18 21:20 Dose: 1 drop Levalbuterol HCl (Xopenex) 0.63 mg INH RQ8 [facility] Last Admin: 08/25/18 23:39 Dose: 0.63 mg Sevelamer Carbonate (Renvela) 2,400 mg PO TID [facility] Last Admin: 08/26/18 08:48 Dose: 2,400 mg Timolol Maleate (Timoptic 0.5% Oph Soln) 1 drop OD QAM [facility] Last Admin: 08/26/18 08:49 Dose: 1 drop - Labs Labs: - Additional Findings Additional findings: - Constitutional Appears: No Acute Distress - Head Exam Head Exam: ATRAUMATIC - Eye Exam Eye Exam: EOMI - ENT Exam Additional comments: poor dentition - Neck Exam Neck exam: Positive for: Full Rom - Respiratory Exam Additional comments: better breathing decreased breath sounds bibasilar no wheezing - Cardiovascular Exam Cardiovascular Exam: RRR, +S1, +S2 - GI/Abdominal Exam GI & Abdominal Exam: Normal Bowel Sounds, Soft Additional comments: NT, ND - Extremities Exam Extremities exam: Positive for: normal inspection - Neurological Exam Neurological exam: Alert, Oriented x 3 Laboratory Results - last 72 hr 08/23/18 08/23/18 08/23/18 05:00 14:25 14:25 WBC RBC Hgb Hct MCV MCH MCHC RDW Plt Count MPV Neut % (Auto) Lymph % (Auto) Fallon % (Auto) Eos % (Auto) Baso % (Auto) Neut # (Auto) Lymph # (Auto) [place] # (Auto) Eos # (Auto) Baso # (Auto) Neutrophils % (Manual) Band Neutrophils % Lymphocytes % (Manual) Monocytes % (Manual) Eosinophils % (Manual) Toxic Granulation Platelet Estimate Large Platelets RBC Morphology Hypochromasia (manual) Anisocytosis (manual) Acanthocytes (Spur) APTT 93.2 H Sodium Potassium Chloride Carbon Dioxide Anion Gap BUN Creatinine Est GFR ( Amer) Est GFR (Non-Af Amer) POC Glucose (mg/dL) Random Glucose Hemoglobin A1c 10.0 H Lactic Acid Calcium Phosphorus 9.8 H Magnesium Total Bilirubin Direct Bilirubin AST ALT Alkaline Phosphatase Total Protein Albumin Globulin Albumin/Globulin Ratio PTH Intact Whole Molec Urine Color Urine Clarity Urine pH Ur Specific [place] Urine Protein Urine Glucose (UA) Urine Ketones Urine Blood Urine Nitrate Urine Bilirubin Urine Urobilinogen Ur Leukocyte Esterase Urine RBC (Auto) Urine Microscopic WBC Ur Squamous Epith Cells Urine Bacteria Hyaline Casts Ur Random Sodium Hepatitis A IgM Ab Hep Bs Antigen Hep B Core IgM Ab Hepatitis C Antibody Ur L.pneumophila Ag 08/23/18 08/23/18 08/23/18 14:25 14:25 15:56 WBC RBC Hgb Hct MCV MCH MCHC RDW Plt Count MPV Neut % (Auto) Lymph % (Auto) [place] % (Auto) Eos % (Auto) Baso % (Auto) Neut # (Auto) Lymph # (Auto) [place] # (Auto) Eos # (Auto) Baso # (Auto) Neutrophils % (Manual) Band Neutrophils % Lymphocytes % (Manual) Monocytes % (Manual) Eosinophils % (Manual) Toxic Granulation Platelet Estimate Large Platelets RBC Morphology Hypochromasia (manual) Anisocytosis (manual) Acanthocytes (Spur) APTT Sodium Potassium Chloride Carbon Dioxide Anion Gap BUN Creatinine Est GFR ( Amer) Est GFR (Non-Af Amer) POC Glucose (mg/dL) 112 H Random Glucose Hemoglobin A1c Lactic Acid Calcium Phosphorus Magnesium Total Bilirubin Direct Bilirubin AST ALT Alkaline Phosphatase Total Protein Albumin Globulin Albumin/Globulin Ratio PTH Intact Whole Molec 435 H Urine Color Urine Clarity Urine pH Ur Specific [place] Urine Protein Urine Glucose (UA) Urine Ketones Urine Blood Urine Nitrate Urine Bilirubin Urine Urobilinogen Ur Leukocyte Esterase Urine RBC (Auto) Urine Microscopic WBC Ur Squamous Epith Cells Urine Bacteria Hyaline Casts Ur Random Sodium Hepatitis A IgM Ab Negative Hep Bs Antigen Negative Hep B Core IgM Ab Negative Hepatitis C Antibody Negative Ur L.pneumophila Ag 08/23/18 08/23/18 08/24/18 20:46 23:11 05:00 WBC 22.0 H D RBC 4.45 Hgb 14.1 Hct 43.1 MCV 97.0 H MCH 31.8 H MCHC 32.8 L RDW 13.9 Plt Count 130 MPV 10.9 Neut % (Auto) 90.4 H Lymph % (Auto) 3.3 L Fallon % (Auto) 6.0 Eos % (Auto) 0.0 Baso % (Auto) 0.3 Neut # (Auto) 19.9 H Lymph # (Auto) 0.7 L [place]on # (Auto) 1.3 H Eos # (Auto) 0.0 Baso # (Auto) 0.1 Neutrophils % (Manual) 88 H Band Neutrophils % 2 Lymphocytes % (Manual) 3 L Monocytes % (Manual) 7 Eosinophils % (Manual) Toxic Granulation Present Platelet Estimate Normal Large Platelets Present RBC Morphology Hypochromasia (manual) Anisocytosis (manual) Acanthocytes (Spur) APTT 50.3 H Sodium Potassium Chloride Carbon Dioxide Anion Gap BUN Creatinine Est GFR ( Amer) Est GFR (Non-Af Amer) POC Glucose (mg/dL) 156 H Random Glucose Hemoglobin A1c Lactic Acid Calcium Phosphorus Magnesium Total Bilirubin Direct Bilirubin AST ALT Alkaline Phosphatase Total Protein Albumin Globulin Albumin/Globulin Ratio PTH Intact Whole Molec Urine Color Urine Clarity Urine pH Ur Specific [place] Urine Protein Urine Glucose (UA) Urine Ketones Urine Blood Urine Nitrate Urine Bilirubin Urine Urobilinogen Ur Leukocyte Esterase Urine RBC (Auto) Urine Microscopic WBC Ur Squamous Epith Cells Urine Bacteria Hyaline Casts Ur Random Sodium Hepatitis A IgM Ab Hep Bs Antigen Hep B Core IgM Ab Hepatitis C Antibody Ur L.pneumophila Ag 08/24/18 08/24/18 08/24/18 05:00 05:10 06:15 WBC RBC Hgb Hct MCV MCH MCHC RDW Plt Count MPV Neut % (Auto) Lymph % (Auto) [place] % (Auto) Eos % (Auto) Baso % (Auto) Neut # (Auto) Lymph # (Auto) [place] # (Auto) Eos # (Auto) Baso # (Auto) Neutrophils % (Manual) Band Neutrophils % Lymphocytes % (Manual) Monocytes % (Manual) Eosinophils % (Manual) Toxic Granulation Platelet Estimate Large Platelets RBC Morphology Hypochromasia (manual) Anisocytosis (manual) Acanthocytes (Spur) APTT 50.3 H Sodium 129 L Potassium 5.0 Chloride 89 L Carbon Dioxide 18 L Anion Gap 27 H BUN 84 H Creatinine 3.4 H Est GFR ( Amer) 22 Est GFR (Non-Af Amer) 18 POC Glucose (mg/dL) Random Glucose 240 H Hemoglobin A1c Lactic Acid Calcium 7.6 L Phosphorus Magnesium Total Bilirubin 2.5 H Direct Bilirubin AST 4962 H ALT 2790 H Alkaline Phosphatase 147 H Total Protein 7.2 Albumin 3.6 Globulin 3.6 Albumin/Globulin Ratio 1.0 PTH Intact Whole Molec Urine Color Urine Clarity Urine pH Ur Specific [place] Urine Protein Urine Glucose (UA) Urine Ketones Urine Blood Urine Nitrate Urine Bilirubin Urine Urobilinogen Ur Leukocyte Esterase Urine RBC (Auto) Urine Microscopic WBC Ur Squamous Epith Cells Urine Bacteria Hyaline Casts Ur Random Sodium 5 Hepatitis A IgM Ab Hep Bs Antigen Hep B Core IgM Ab Hepatitis C Antibody Ur L.pneumophila Ag 08/24/18 08/24/18 08/24/18 06:48 11:03 14:40 WBC RBC Hgb Hct MCV MCH MCHC RDW Plt Count MPV Neut % (Auto) Lymph % (Auto) [place] % (Auto) Eos % (Auto) Baso % (Auto) Neut # (Auto) Lymph # (Auto) [place] # (Auto) Eos # (Auto) Baso # (Auto) Neutrophils % (Manual) Band Neutrophils % Lymphocytes % (Manual) Monocytes % (Manual) Eosinophils % (Manual) Toxic Granulation Platelet Estimate Large Platelets RBC Morphology Hypochromasia (manual) Anisocytosis (manual) Acanthocytes (Spur) APTT Sodium Potassium Chloride Carbon Dioxide Anion Gap BUN Creatinine Est GFR ( Amer) Est GFR (Non-Af Amer) POC Glucose (mg/dL) 231 H 310 H Random Glucose Hemoglobin A1c Lactic Acid Calcium Phosphorus Magnesium Total Bilirubin Direct Bilirubin AST ALT Alkaline Phosphatase Total Protein Albumin Globulin Albumin/Globulin Ratio PTH Intact Whole Molec Urine Color Yellow Urine Clarity Cloudy Urine pH 6.0 Ur Specific [place] 1.010 Urine Protein 30 Urine Glucose (UA) 50 Urine Ketones Negative Urine Blood Large Urine Nitrate Negative Urine Bilirubin Negative Urine Urobilinogen 0.2-1.0 Ur Leukocyte Esterase Small Urine RBC (Auto) 64 H Urine Microscopic WBC 13 H Ur Squamous Epith Cells < 1 Urine Bacteria Occ H Hyaline Casts 0-2 Ur Random Sodium Hepatitis A IgM Ab Hep Bs Antigen Hep B Core IgM Ab Hepatitis C Antibody Ur L.pneumophila Ag 08/24/18 08/24/18 08/24/18 14:40 14:50 14:50 WBC RBC Hgb Hct MCV MCH MCHC RDW Plt Count MPV Neut % (Auto) Lymph % (Auto) [place] % (Auto) Eos % (Auto) Baso % (Auto) Neut # (Auto) Lymph # (Auto) [place] # (Auto) Eos # (Auto) Baso # (Auto) Neutrophils % (Manual) Band Neutrophils % Lymphocytes % (Manual) Monocytes % (Manual) Eosinophils % (Manual) Toxic Granulation Platelet Estimate Large Platelets RBC Morphology Hypochromasia (manual) Anisocytosis (manual) Acanthocytes (Spur) APTT Sodium Potassium Chloride Carbon Dioxide Anion Gap BUN Creatinine Est GFR ( Amer) Est GFR (Non-Af Amer) POC Glucose (mg/dL) Random Glucose Hemoglobin A1c Lactic Acid 3.4 H Calcium Phosphorus Magnesium Total Bilirubin Direct Bilirubin AST ALT Alkaline Phosphatase Total Protein Albumin Globulin Albumin/Globulin Ratio PTH Intact Whole Molec Urine Color Urine Clarity Urine pH Ur Specific [place] Urine Protein Urine Glucose (UA) Urine Ketones Urine Blood Urine Nitrate Urine Bilirubin Urine Urobilinogen Ur Leukocyte Esterase Urine RBC (Auto) Urine Microscopic WBC Ur Squamous Epith Cells Urine Bacteria Hyaline Casts Ur Random Sodium Hepatitis A IgM Ab Negative Hep Bs Antigen Negative Hep B Core IgM Ab Negative Hepatitis C Antibody Negative Ur L.pneumophila Ag Negative 08/24/18 08/24/18 08/25/18 16:30 20:49 04:55 WBC RBC Hgb Hct MCV MCH MCHC RDW Plt Count MPV Neut % (Auto) Lymph % (Auto) [place] % (Auto) Eos % (Auto) Baso % (Auto) Neut # (Auto) Lymph # (Auto) [place] # (Auto) Eos # (Auto) Baso # (Auto) Neutrophils % (Manual) Band Neutrophils % Lymphocytes % (Manual) Monocytes % (Manual) Eosinophils % (Manual) Toxic Granulation Platelet Estimate Large Platelets RBC Morphology Hypochromasia (manual) Anisocytosis (manual) Acanthocytes (Spur) APTT 54.2 H Sodium Potassium Chloride Carbon Dioxide Anion Gap BUN Creatinine Est GFR ( Amer) Est GFR (Non-Af Amer) POC Glucose (mg/dL) > 500 H* 462 H* Random Glucose Hemoglobin A1c Lactic Acid Calcium Phosphorus Magnesium Total Bilirubin Direct Bilirubin AST ALT Alkaline Phosphatase Total Protein Albumin Globulin Albumin/Globulin Ratio PTH Intact Whole Molec Urine Color Urine Clarity Urine pH Ur Specific [place] Urine Protein Urine Glucose (UA) Urine Ketones Urine Blood Urine Nitrate Urine Bilirubin Urine Urobilinogen Ur Leukocyte Esterase Urine RBC (Auto) Urine Microscopic WBC Ur Squamous Epith Cells Urine Bacteria Hyaline Casts Ur Random Sodium Hepatitis A IgM Ab Hep Bs Antigen Hep B Core IgM Ab Hepatitis C Antibody Ur L.pneumophila Ag 08/25/18 08/25/18 08/25/18 04:55 04:55 04:55 WBC 14.5 H RBC 4.70 Hgb 14.7 Hct 43.9 MCV 93.3 D MCH 31.2 H MCHC 33.5 RDW 14.0 Plt Count 152 MPV Neut % (Auto) Lymph % (Auto) [place] % (Auto) Eos % (Auto) Baso % (Auto) Neut # (Auto) Lymph # (Auto) [place] # (Auto) Eos # (Auto) Baso # (Auto) Neutrophils % (Manual) Band Neutrophils % Lymphocytes % (Manual) Monocytes % (Manual) Eosinophils % (Manual) Toxic Granulation Platelet Estimate Large Platelets RBC Morphology Hypochromasia (manual) Anisocytosis (manual) Acanthocytes (Spur) APTT Sodium 130 L Potassium 3.6 Chloride 87 L Carbon Dioxide 26 Anion Gap 21 H BUN 103 H* D Creatinine 3.1 H Est GFR ( Amer) 24 Est GFR (Non-Af Amer) 20 POC Glucose (mg/dL) Random Glucose 269 H Hemoglobin A1c Lactic Acid 2.4 H Calcium 6.5 L Phosphorus Magnesium Total Bilirubin 2.2 H Direct Bilirubin AST 2992 H ALT 2596 H Alkaline Phosphatase 141 H Total Protein 6.3 Albumin 3.0 L Globulin 3.3 Albumin/Globulin Ratio 0.9 L PTH Intact Whole Molec Urine Color Urine Clarity Urine pH Ur Specific [place] Urine Protein Urine Glucose (UA) Urine Ketones Urine Blood Urine Nitrate Urine Bilirubin Urine Urobilinogen Ur Leukocyte Esterase Urine RBC (Auto) Urine Microscopic WBC Ur Squamous Epith Cells Urine Bacteria Hyaline Casts Ur Random Sodium Hepatitis A IgM Ab Hep Bs Antigen Hep B Core IgM Ab Hepatitis C Antibody Ur L.pneumophila Ag 08/25/18 08/25/18 08/25/18 06:45 12:47 16:45 WBC 10.0 RBC 4.79 Hgb 15.2 Hct 44.6 MCV 93.1 MCH 31.7 H MCHC 34.0 RDW 14.0 Plt Count 145 MPV 9.5 Neut % (Auto) 95.6 H Lymph % (Auto) 3.1 L [place] % (Auto) 0.7 Eos % (Auto) 0.3 Baso % (Auto) 0.3 Neut # (Auto) 9.6 H Lymph # (Auto) 0.3 L [place] # (Auto) 0.1 Eos # (Auto) 0.0 Baso # (Auto) 0.0 Neutrophils % (Manual) 91 H Band Neutrophils % 4 H Lymphocytes % (Manual) 3 L Monocytes % (Manual) 2 Eosinophils % (Manual) Toxic Granulation Platelet Estimate Normal Large Platelets RBC Morphology Normal Hypochromasia (manual) Anisocytosis (manual) Acanthocytes (Spur) APTT Sodium Potassium Chloride Carbon Dioxide Anion Gap BUN Creatinine Est GFR ( Amer) Est GFR (Non-Af Amer) POC Glucose (mg/dL) 230 H 342 H Random Glucose Hemoglobin A1c Lactic Acid Calcium Phosphorus Magnesium Total Bilirubin Direct Bilirubin AST ALT Alkaline Phosphatase Total Protein Albumin Globulin Albumin/Globulin Ratio PTH Intact Whole Molec Urine Color Urine Clarity Urine pH Ur Specific [place] Urine Protein Urine Glucose (UA) Urine Ketones Urine Blood Urine Nitrate Urine Bilirubin Urine Urobilinogen Ur Leukocyte Esterase Urine RBC (Auto) Urine Microscopic WBC Ur Squamous Epith Cells Urine Bacteria Hyaline Casts Ur Random Sodium Hepatitis A IgM Ab Hep Bs Antigen Hep B Core IgM Ab Hepatitis C Antibody Ur L.pneumophila Ag 08/25/18 08/25/18 08/25/18 16:45 17:19 21:28 WBC RBC Hgb Hct MCV MCH MCHC RDW Plt Count MPV Neut % (Auto) Lymph % (Auto) [place] % (Auto) Eos % (Auto) Baso % (Auto) Neut # (Auto) Lymph # (Auto) [place] # (Auto) Eos # (Auto) Baso # (Auto) Neutrophils % (Manual) Band Neutrophils % Lymphocytes % (Manual) Monocytes % (Manual) Eosinophils % (Manual) Toxic Granulation Platelet Estimate Large Platelets RBC Morphology Hypochromasia (manual) Anisocytosis (manual) Acanthocytes (Spur) APTT Sodium 133 Potassium 2.8 L Chloride 86 L Carbon Dioxide 31 H Anion Gap 19 BUN 93 H Creatinine 2.8 H Est GFR ( Amer) 27 Est GFR (Non-Af Amer) 23 POC Glucose (mg/dL) 124 H 170 H Random Glucose 152 H Hemoglobin A1c Lactic Acid Calcium 7.2 L Phosphorus 4.8 H Magnesium Total Bilirubin 2.5 H Direct Bilirubin 1.0 H AST 1373 H ALT 1946 H Alkaline Phosphatase 146 H Total Protein 6.2 L Albumin 2.9 L Globulin 3.3 Albumin/Globulin Ratio 0.9 L PTH Intact Whole Molec Urine Color Urine Clarity Urine pH Ur Specific [place] Urine Protein Urine Glucose (UA) Urine Ketones Urine Blood Urine Nitrate Urine Bilirubin Urine Urobilinogen Ur Leukocyte Esterase Urine RBC (Auto) Urine Microscopic WBC Ur Squamous Epith Cells Urine Bacteria Hyaline Casts Ur Random Sodium Hepatitis A IgM Ab Hep Bs Antigen Hep B Core IgM Ab Hepatitis C Antibody Ur L.pneumophila Ag 08/26/18 08/26/18 08/26/18 04:15 04:15 04:15 WBC 7.6 RBC 4.56 Hgb 14.3 Hct 42.4 MCV 93.0 MCH 31.5 H MCHC 33.8 RDW 14.0 Plt Count 116 L D MPV 9.6 Neut % (Auto) 94.4 H Lymph % (Auto) 4.2 L [place] % (Auto) 0.7 Eos % (Auto) 0.6 Baso % (Auto) 0.1 Neut # (Auto) 7.2 H Lymph # (Auto) 0.3 L [place] # (Auto) 0.0 Eos # (Auto) 0.0 Baso # (Auto) 0.0 Neutrophils % (Manual) 94 H Band Neutrophils % 3 H Lymphocytes % (Manual) 2 L Monocytes % (Manual) 0 Eosinophils % (Manual) 1 Toxic Granulation Platelet Estimate Slightly decreased L Large Platelets RBC Morphology Hypochromasia (manual) Slight Anisocytosis (manual) Slight Acanthocytes (Spur) Moderate APTT 79.2 H Sodium 129 L Potassium 2.7 L Chloride 87 L Carbon Dioxide 32 H Anion Gap 13 BUN 74 H Creatinine 2.2 H Est GFR ( Amer) 36 Est GFR (Non-Af Amer) 30 POC Glucose (mg/dL) Random Glucose 236 H Hemoglobin A1c Lactic Acid Calcium 7.5 L Phosphorus 3.4 Magnesium 1.7 Total Bilirubin 2.2 H Direct Bilirubin AST 726 H D ALT 1646 H Alkaline Phosphatase 134 H Total Protein 5.7 L Albumin 2.6 L Globulin 3.1 Albumin/Globulin Ratio 0.8 L PTH Intact Whole Molec Urine Color Urine Clarity Urine pH Ur Specific [place] Urine Protein Urine Glucose (UA) Urine Ketones Urine Blood Urine Nitrate Urine Bilirubin Urine Urobilinogen Ur Leukocyte Esterase Urine RBC (Auto) Urine Microscopic WBC Ur Squamous Epith Cells Urine Bacteria Hyaline Casts Ur Random Sodium Hepatitis A IgM Ab Hep Bs Antigen Hep B Core IgM Ab Hepatitis C Antibody Ur L.pneumophila Ag 08/26/18 08/26/1808/26/19 06:31 12:00 13:02 WBC RBC Hgb Hct MCV MCH MCHC RDW Plt Count MPV Neut % (Auto) Lymph % (Auto) [place] % (Auto) Eos % (Auto) Baso % (Auto) Neut # (Auto) Lymph # (Auto) [place] # (Auto) Eos # (Auto) Baso # (Auto) Neutrophils % (Manual) Band Neutrophils % Lymphocytes % (Manual) Monocytes % (Manual) Eosinophils % (Manual) Toxic Granulation Platelet Estimate Large Platelets RBC Morphology Hypochromasia (manual) Anisocytosis (manual) Acanthocytes (Spur) APTT 61.5 H Sodium Potassium Chloride Carbon Dioxide Anion Gap BUN Creatinine Est GFR ( Amer) Est GFR (Non-Af Amer) POC Glucose (mg/dL) 196 H 333 H Random Glucose Hemoglobin A1c Lactic Acid Calcium Phosphorus Magnesium Total Bilirubin Direct Bilirubin AST ALT Alkaline Phosphatase Total Protein Albumin Globulin Albumin/Globulin Ratio PTH Intact Whole Molec Urine Color Urine Clarity Urine pH Ur Specific [place] Urine Protein Urine Glucose (UA) Urine Ketones Urine Blood Urine Nitrate Urine Bilirubin Urine Urobilinogen Ur Leukocyte Esterase Urine RBC (Auto) Urine Microscopic WBC Ur Squamous Epith Cells Urine Bacteria Hyaline Casts Ur Random Sodium Hepatitis A IgM Ab Hep Bs Antigen Hep B Core IgM Ab Hepatitis C Antibody Ur L.pneumophila Ag Microbiology 08/24/18 12:10 Blood-Venous Blood Culture - Preliminary NO GROWTH AFTER 48 HOURS 08/24/18 12:30 Blood-Venous Blood Culture - Preliminary NO GROWTH AFTER 48 HOURS 08/24/18 14:40 Urine,Quiroz Urine Culture - Final No Growth (<1,000 CFU/ML) 08/22/18 11:30 Nose MRSA Culture (Admit) - Final MRSA NOT DETECTED 08/22/18 22:27 Urine,Catheterized Urine Culture - Final No Growth (<1,000 CFU/ML) Accession No. : [id number] Patient Name / ID : CHERI DEAN / [id number] Exam Date : 08/25/2018 08:39:47 ( Approved ) Study Comment : Sex / Age : M / [id number] Creator : Tenzin Kirk MD Dictator : Tenzin Kirk MD Signal Operator Linguist : Director Of Psychology : Tenzin Kirk MD Approver2 : Report Date : 08/25/2018 10:23:13 My Comment : Date of service: 08/25/2018 HISTORY: abnormal LFT COMPARISON: None. TECHNIQUE: Sonographic evaluation of the right upper quadrant of the abdomen. FINDINGS: LIVER: Measures 12.4 cm in length. Normal echogenicity of the liver parenchyma. No mass. No intrahepatic bile duct dilatation. Incidental note is made of right pleural effusion immediately cephalad to the dome of the liver with there is also trace perihepatic ascites as well. GALLBLADDER: Gallbladder is largely contracted and poorly evaluated. Borderline mural thickening may be due to trace perihepatic ascites related hydrops. No cholelithiasis identified. COMMON BILE DUCT: Measures 3.3 mm. No stones. No dilatation. PANCREAS: The head and tail of the pancreas is obscured by overlying bowel gas with remainder unremarkable. RIGHT KIDNEY: Measures 11.1 x 6.2 x 5.1 cm in length. Normal size and contour however poor corticomedullary differentiation is appreciated which may indicate intrinsic medical renal disease. No calculus, mass, or hydronephrosis. AORTA: No aneurysmal dilatation. Atherosclerotic mural changes are seen related to the abdominal aorta IVC: Unremarkable. OTHER FINDINGS: None . IMPRESSION: 1. Trace perihepatic ascites without focal pathology identified directly related to the liver. Likely gallbladder hydrops with the gallbladder mostly contracted. No cholelithiasis. Limited evaluation the gallbladder. 2. No biliary tree dilatation appreciated grossly. 3. Partial imaging of the pancreas. 4. Potential intrinsic medical renal disease right kidney. No obstructive uropathy or solid renal mass appreciable. Assessment and Plan (1) Acute on chronic renal failure Status: Chronic (2) Acute exacerbation of CHF (congestive heart failure) Status: Acute (3) CAD (coronary atherosclerotic disease) Status: Chronic (4) Leukocytosis Status: Acute - Assessment and Plan (Free Text) Assessment: A/P- 68 year old male with multiple medical conditions including CAD, CHF, DM II, admitted with sob and cough. clinically improving. afebrile leukocytosis has resolved. CXR as per report - developing bilateral pleural effusions renal US- as per report no hydronephrosis. creatinine increasing could be secondary to diuretic. blood cx- neg x 2 Urine cx- neg urine Legionalle AG- neg liver enzymes trending down today. hepatitis panel - Negative GB US- no cholelithiasis as per report. Plan- advise to continue with zosyn day #3 await sputum cx. clinically betetr with diuresis. critical care time 40 minutes.
--- NOTE | 2018-08-26 12:24 | CP.CCUPN ---
CCU Subjective - Physician Review Subjective (Free Text): 08/26/18 12:20 The patient was Seen and examined by me at the bedside, Medical records reviewed and Management issues were discussed and formulated with the house staff. Events reviewed Patient is 68 years old male with past medical history significant for hypertension, type 2 diabetes mellitus, hyperlipidemia, coronary artery disease, chronic atrial fibrillation, systolic congestive heart failure, chronic kidney disease and asthma Patient also status post coronary artery bypass graft and coronary artery stent Patient was admitted with worsening shortness of breath and he was noted to be hypotensive and tachycardic He was started on dopamine drip Looks more comfortable this morning Awake, Alert and oriented Comfortable, NAD Afebrile Blood pressure is better but he remains requiringvery small dopamine drip HR slowly coming down Last 24H I&O 3060/4450 Less shortness of breath, denies chest pain, fever/chills 08/26/18 12:28 This morning labs revealed Leucocytosis trending down, improved renal and liver function BUN/Cr down to 74/2.2 AST/ALT/AP down to 726/1646/134, Nikolai 2.2 CCU Objective - Vital Signs / Intake & Output Vital Signs (Last 4 hours): Vital Signs Temp Pulse Resp BP 08/26/18 09:00 98.4 F 128 H 16 108/71 Intake and Output (Last 8hrs): Intake & Output 08/25/18 08/26/18 08/26/18 22:59 06:59 14:59 Intake Total 215 150 Output Total 1600 2500 Balance -1385 -2350 Weight 126 lb 9.6 oz Intake: IV 0 Oral 215 150 Output: Urine 1600 2500 Urethral (Quiroz) 1600 2500 - Physical Exam Head: Positive for: Atraumatic, Normocephalic Pupils: Positive for: PERRL Extroacular Muscles: Positive for: EOMI Conjunctiva: Positive for: Normal. Negative for: Injected, Icteric Nose (Internal): Positive for: Normal Inspection Neck: Positive for: Normal Range of Motion, Trachea Midline. Negative for: Meningeal Signs, MIDLINE TENDERNESS, Paraspinal Tenderness, JVD, Lymphadenopathy, Bruit, Other Respiratory/Chest: Positive for: Rales, Rhonchi. Negative for: Respiratory Distress, Accessory Muscle Use, Wheezes, Tachypneic Cardiovascular: Positive for: Irregular Rhythm, Peripheal Pulses Present. Negative for: Regular Rate and Rhythm, Murmurs, Normal S1, S2 Abdomen: Positive for: Normal Bowel Sounds. Negative for: Tenderness, Distention Lower Extremity: Positive for: Edema, NORMAL PULSES. Negative for: Normal Inspection, CALF TENDERNESS Psychiatric: Positive for: Alert, Oriented x 3 - Medications Active Medications: Active Medications Generic Name Dose Route Start Last Admin Trade Name Freq PRN Reason Stop Dose Admin Atorvastatin Calcium 40 mg 08/23/18 22:00 08/25/18 21:20 Lipitor PO 40 mg HS FLASH Administration Calcitriol 0.5 mcg 08/25/18 10:15 08/26/18 08:48 Rocaltrol PO 0.5 mcg DAILY FLASH Administration Calcium Carbonate 500 mg 08/25/18 10:15 08/26/18 08:47 Oscal PO 500 mg BIDWM FALSH Administration Docusate Sodium 100 mg 08/23/18 09:30 08/26/18 08:47 Colace PO 100 mg BID FLASH Administration Piperacillin Sod/Tazobactam 100 mls @ 100 mls/hr 08/24/18 16:00 08/26/18 04:15 Sod 2.25 gm/ Sodium Chloride IVPB 100 mls/hr Q6 FLASH Administration Protocol Sodium Chloride 1,000 mls @ 999 mls/hr 08/25/18 17:30 08/25/18 18:21 Sodium Chloride 0.9% IV 08/26/18 17:22 999 mls/hr .Q1H1M FLASH Administration Heparin Sodium/Dextrose 25,000 units in 250 mls @ 7 mls/hr 08/25/18 19:00 08/26/18 05:49 Heparin 25,000 Units/250ml In D5w IV 6 mls/hr .Q24H FLASH Titration Protocol Sodium Chloride 1,000 mls @ 999 mls/hr 08/25/18 20:00 Sodium Chloride 0.9% IV 08/26/18 19:55 .Q1H1M FLASH Dopamine HCl/Dextrose 400 mg in 250 mls @ 4.552 mls/hr 08/25/18 23:16 08/25/18 23:45 Dopamine 400mg/250ml D5w IV 08/26/18 23:15 2 mcg/kg/min .Q24H ONE 4.552 mls/hr Administration Protocol 2 MCG/KG/MIN Insulin Detemir 15 units 08/24/18 22:00 08/25/18 21:33 Levemir SC 15 units HS FLASH Administration Insulin Human Regular 0 units 08/22/18 22:00 08/26/18 08:50 Humulin R SC 2 units ACHS FLASH Administration Protocol Latanoprost 1 drop 08/22/18 22:00 08/25/18 21:20 Xalatan Opht OU 1 drop HS FLASH Administration Levalbuterol HCl 0.63 mg 08/23/18 16:00 08/25/18 23:39 Xopenex INH 0.63 mg RQ8 FLASH Administration Sevelamer Carbonate 2,400 mg 08/24/18 09:00 08/26/18 08:48 Renvela PO 2,400 mg TID FLASH Administration Timolol Maleate 1 drop 08/23/18 09:00 08/26/18 08:49 Timoptic 0.5% Ophth Soln OD 1 drop QAM FLASH Administration - Patient Studies Lab Studies: Microbiology Studies 08/24/18 14:40 Urine Culture - Final Urine,Quiroz No Growth (<1,000 CFU/ML) 08/24/18 12:10 Blood Culture - Preliminary Blood-Venous NO GROWTH AFTER 24 HOURS 08/24/18 12:30 Blood Culture - Preliminary Blood-Venous NO GROWTH AFTER 24 HOURS Lab Studies 08/26/18 08/26/18 08/26/18 Range/Units 06:31 04:15 04:15 WBC (4.8-10.8) K/uL RBC (4.40-5.90) Mil/uL Hgb (12.0-18.0) g/dL Hct (35.0-51.0) % MCV (80.0-94.0) fl MCH (27.0-31.0) pg MCHC (33.0-37.0) g/dL RDW (11.5-14.5) % Plt Count (130-400) K/uL MPV (7.2-11.7) fl Neut % (Auto) (50.0-75.0) % Lymph % (Auto) (20.0-40.0) % Burt % (Auto) (0.0-10.0) % Eos % (Auto) (0.0-4.0) % Baso % (Auto) (0.0-2.0) % Neut # (Auto) (1.8-7.0) K/uL Lymph # (Auto) (1.0-4.3) K/uL Burt # (Auto) (0.0-0.8) K/uL Eos # (Auto) (0.0-0.7) K/uL Baso # (Auto) (0.0-0.2) K/uL Neutrophils % (Manual) (42-75) % Band Neutrophils % (0-2) % Lymphocytes % (Manual) (20-50) % Monocytes % (Manual) (0-10) % Eosinophils % (Manual) (0-7) % Platelet Estimate (NORMAL) RBC Morphology (NORMAL) Hypochromasia (manual) Anisocytosis (manual) Acanthocytes (Spur) APTT 79.2 H (25.6-37.1) Seconds Sodium 129 L (132-148) mmol/l Potassium 2.7 L (3.6-5.0) MMOL/L Chloride 87 L (98-107) mmol/L Carbon Dioxide 32 H (22-30) mmol/L Anion Gap 13 (10-20) BUN 74 H (9-20) mg/dl Creatinine 2.2 H (0.8-1.5) mg/dl Est GFR ( Amer) 36 Est GFR (Non-Af Amer) 30 POC Glucose (mg/dL) 196 H (65-110) mg/dL Random Glucose 236 H (75-110) mg/dL Calcium 7.5 L (8.4-10.2) mg/dL Phosphorus 3.4 (2.5-4.5) mg/dl Magnesium 1.7 (1.6-2.3) MG/DL Total Bilirubin 2.2 H (0.2-1.3) mg/dl Direct Bilirubin (0.0-0.4) mg/ml AST 726 H D (17-59) U/L ALT 1646 H (21-72) U/L Alkaline Phosphatase 134 H (38-126) U/L Total Protein 5.7 L (6.3-8.2) G/DL Albumin 2.6 L (3.5-5.0) g/dL Globulin 3.1 (2.2-3.9) gm/dL Albumin/Globulin Ratio 0.8 L (1.0-2.1) PTH Intact Whole Molec (14-64) pg/mL Hepatitis C Antibody (NEGATIVE) 08/26/18 08/25/18 08/25/18 Range/Units 04:15 21:28 17:19 WBC 7.6 (4.8-10.8) K/uL RBC 4.56 (4.40-5.90) Mil/uL Hgb 14.3 (12.0-18.0) g/dL Hct 42.4 (35.0-51.0) % MCV 93.0 (80.0-94.0) fl MCH 31.5 H (27.0-31.0) pg MCHC 33.8 (33.0-37.0) g/dL RDW 14.0 (11.5-14.5) % Plt Count 116 L D (130-400) K/uL MPV 9.6 (7.2-11.7) fl Neut % (Auto) 94.4 H (50.0-75.0) % Lymph % (Auto) 4.2 L (20.0-40.0) % Burt % (Auto) 0.7 (0.0-10.0) % Eos % (Auto) 0.6 (0.0-4.0) % Baso % (Auto) 0.1 (0.0-2.0) % Neut # (Auto) 7.2 H (1.8-7.0) K/uL Lymph # (Auto) 0.3 L (1.0-4.3) K/uL Burt # (Auto) 0.0 (0.0-0.8) K/uL Eos # (Auto) 0.0 (0.0-0.7) K/uL Baso # (Auto) 0.0 (0.0-0.2) K/uL Neutrophils % (Manual) 94 H (42-75) % Band Neutrophils % 3 H (0-2) % Lymphocytes % (Manual) 2 L (20-50) % Monocytes % (Manual) 0 (0-10) % Eosinophils % (Manual) 1 (0-7) % Platelet Estimate Slightly decreased L (NORMAL) RBC Morphology (NORMAL) Hypochromasia (manual) Slight Anisocytosis (manual) Slight Acanthocytes (Spur) Moderate APTT (25.6-37.1) Seconds Sodium (132-148) mmol/l Potassium (3.6-5.0) MMOL/L Chloride (98-107) mmol/L Carbon Dioxide (22-30) mmol/L Anion Gap (10-20) BUN (9-20) mg/dl Creatinine (0.8-1.5) mg/dl Est GFR ( Amer) Est GFR (Non-Af Amer) POC Glucose (mg/dL) 170 H 124 H (65-110) mg/dL Random Glucose (75-110) mg/dL Calcium (8.4-10.2) mg/dL Phosphorus (2.5-4.5) mg/dl Magnesium (1.6-2.3) MG/DL Total Bilirubin (0.2-1.3) mg/dl Direct Bilirubin (0.0-0.4) mg/ml AST (17-59) U/L ALT (21-72) U/L Alkaline Phosphatase (38-126) U/L Total Protein (6.3-8.2) G/DL Albumin (3.5-5.0) g/dL Globulin (2.2-3.9) gm/dL Albumin/Globulin Ratio (1.0-2.1) PTH Intact Whole Molec (14-64) pg/mL Hepatitis C Antibody (NEGATIVE) 08/25/18 08/25/18 08/25/18 Range/Units 16:45 16:45 12:47 WBC 10.0 (4.8-10.8) K/uL RBC 4.79 (4.40-5.90) Mil/uL Hgb 15.2 (12.0-18.0) g/dL Hct 44.6 (35.0-51.0) % MCV 93.1 (80.0-94.0) fl MCH 31.7 H (27.0-31.0) pg MCHC 34.0 (33.0-37.0) g/dL RDW 14.0 (11.5-14.5) % Plt Count 145 (130-400) K/uL MPV 9.5 (7.2-11.7) fl Neut % (Auto) 95.6 H (50.0-75.0) % Lymph % (Auto) 3.1 L (20.0-40.0) % Burt % (Auto) 0.7 (0.0-10.0) % Eos % (Auto) 0.3 (0.0-4.0) % Baso % (Auto) 0.3 (0.0-2.0) % Neut # (Auto) 9.6 H (1.8-7.0) K/uL Lymph # (Auto) 0.3 L (1.0-4.3) K/uL Burt # (Auto) 0.1 (0.0-0.8) K/uL Eos # (Auto) 0.0 (0.0-0.7) K/uL Baso # (Auto) 0.0 (0.0-0.2) K/uL Neutrophils % (Manual) 91 H (42-75) % Band Neutrophils % 4 H (0-2) % Lymphocytes % (Manual) 3 L (20-50) % Monocytes % (Manual) 2 (0-10) % Eosinophils % (Manual) (0-7) % Platelet Estimate Normal (NORMAL) RBC Morphology Normal (NORMAL) Hypochromasia (manual) Anisocytosis (manual) Acanthocytes (Spur) APTT (25.6-37.1) Seconds Sodium 133 (132-148) mmol/l Potassium 2.8 L (3.6-5.0) MMOL/L Chloride 86 L (98-107) mmol/L Carbon Dioxide 31 H (22-30) mmol/L Anion Gap 19 (10-20) BUN 93 H (9-20) mg/dl Creatinine 2.8 H (0.8-1.5) mg/dl Est GFR ( Amer) 27 Est GFR (Non-Af Amer) 23 POC Glucose (mg/dL) 342 H (65-110) mg/dL Random Glucose 152 H (75-110) mg/dL Calcium 7.2 L (8.4-10.2) mg/dL Phosphorus 4.8 H (2.5-4.5) mg/dl Magnesium (1.6-2.3) MG/DL Total Bilirubin 2.5 H (0.2-1.3) mg/dl Direct Bilirubin 1.0 H (0.0-0.4) mg/ml AST 1373 H (17-59) U/L ALT 1946 H (21-72) U/L Alkaline Phosphatase 146 H (38-126) U/L Total Protein 6.2 L (6.3-8.2) G/DL Albumin 2.9 L (3.5-5.0) g/dL Globulin 3.3 (2.2-3.9) gm/dL Albumin/Globulin Ratio 0.9 L (1.0-2.1) PTH Intact Whole Molec (14-64) pg/mL Hepatitis C Antibody (NEGATIVE) 08/24/18 08/23/18 Range/Units 14:50 14:25 WBC (4.8-10.8) K/uL RBC (4.40-5.90) Mil/uL Hgb (12.0-18.0) g/dL Hct (35.0-51.0) % MCV (80.0-94.0) fl MCH (27.0-31.0) pg MCHC (33.0-37.0) g/dL RDW (11.5-14.5) % Plt Count (130-400) K/uL MPV (7.2-11.7) fl Neut % (Auto) (50.0-75.0) % Lymph % (Auto) (20.0-40.0) % Burt % (Auto) (0.0-10.0) % Eos % (Auto) (0.0-4.0) % Baso % (Auto) (0.0-2.0) % Neut # (Auto) (1.8-7.0) K/uL Lymph # (Auto) (1.0-4.3) K/uL Burt # (Auto) (0.0-0.8) K/uL Eos # (Auto) (0.0-0.7) K/uL Baso # (Auto) (0.0-0.2) K/uL Neutrophils % (Manual) (42-75) % Band Neutrophils % (0-2) % Lymphocytes % (Manual) (20-50) % Monocytes % (Manual) (0-10) % Eosinophils % (Manual) (0-7) % Platelet Estimate (NORMAL) RBC Morphology (NORMAL) Hypochromasia (manual) Anisocytosis (manual) Acanthocytes (Spur) APTT (25.6-37.1) Seconds Sodium (132-148) mmol/l Potassium (3.6-5.0) MMOL/L Chloride (98-107) mmol/L Carbon Dioxide (22-30) mmol/L Anion Gap (10-20) BUN (9-20) mg/dl Creatinine (0.8-1.5) mg/dl Est GFR ( Amer) Est GFR (Non-Af Amer) POC Glucose (mg/dL) (65-110) mg/dL Random Glucose (75-110) mg/dL Calcium (8.4-10.2) mg/dL Phosphorus (2.5-4.5) mg/dl Magnesium (1.6-2.3) MG/DL Total Bilirubin (0.2-1.3) mg/dl Direct Bilirubin (0.0-0.4) mg/ml AST (17-59) U/L ALT (21-72) U/L Alkaline Phosphatase (38-126) U/L Total Protein (6.3-8.2) G/DL Albumin (3.5-5.0) g/dL Globulin (2.2-3.9) gm/dL Albumin/Globulin Ratio (1.0-2.1) PTH Intact Whole Molec 435 H (14-64) pg/mL Hepatitis C Antibody Negative (NEGATIVE) Laboratory Results - last 24 hr 08/23/18 08/24/18 08/25/18 14:25 14:50 12:47 WBC RBC Hgb Hct MCV MCH MCHC RDW Plt Count MPV Neut % (Auto) Lymph % (Auto) Burt % (Auto) Eos % (Auto) Baso % (Auto) Neut # (Auto) Lymph # (Auto) Burt # (Auto) Eos # (Auto) Baso # (Auto) Neutrophils % (Manual) Band Neutrophils % Lymphocytes % (Manual) Monocytes % (Manual) Eosinophils % (Manual) Platelet Estimate RBC Morphology Hypochromasia (manual) Anisocytosis (manual) Acanthocytes (Spur) APTT Sodium Potassium Chloride Carbon Dioxide Anion Gap BUN Creatinine Est GFR ( Amer) Est GFR (Non-Af Amer) POC Glucose (mg/dL) 342 H Random Glucose Calcium Phosphorus Magnesium Total Bilirubin Direct Bilirubin AST ALT Alkaline Phosphatase Total Protein Albumin Globulin Albumin/Globulin Ratio PTH Intact Whole Molec 435 H Hepatitis C Antibody Negative 08/25/18 08/25/18 08/25/18 16:45 16:45 17:19 WBC 10.0 RBC 4.79 Hgb 15.2 Hct 44.6 MCV 93.1 MCH 31.7 H MCHC 34.0 RDW 14.0 Plt Count 145 MPV 9.5 Neut % (Auto) 95.6 H Lymph % (Auto) 3.1 L Burt % (Auto) 0.7 Eos % (Auto) 0.3 Baso % (Auto) 0.3 Neut # (Auto) 9.6 H Lymph # (Auto) 0.3 L Burt # (Auto) 0.1 Eos # (Auto) 0.0 Baso # (Auto) 0.0 Neutrophils % (Manual) 91 H Band Neutrophils % 4 H Lymphocytes % (Manual) 3 L Monocytes % (Manual) 2 Eosinophils % (Manual) Platelet Estimate Normal RBC Morphology Normal Hypochromasia (manual) Anisocytosis (manual) Acanthocytes (Spur) APTT Sodium 133 Potassium 2.8 L Chloride 86 L Carbon Dioxide 31 H Anion Gap 19 BUN 93 H Creatinine 2.8 H Est GFR ( Amer) 27 Est GFR (Non-Af Amer) 23 POC Glucose (mg/dL) 124 H Random Glucose 152 H Calcium 7.2 L Phosphorus 4.8 H Magnesium Total Bilirubin 2.5 H Direct Bilirubin 1.0 H AST 1373 H ALT 1946 H Alkaline Phosphatase 146 H Total Protein 6.2 L Albumin 2.9 L Globulin 3.3 Albumin/Globulin Ratio 0.9 L PTH Intact Whole Molec Hepatitis C Antibody 08/25/18 08/26/18 08/26/18 21:28 04:15 04:15 WBC 7.6 RBC 4.56 Hgb 14.3 Hct 42.4 MCV 93.0 MCH 31.5 H MCHC 33.8 RDW 14.0 Plt Count 116 L D MPV 9.6 Neut % (Auto) 94.4 H Lymph % (Auto) 4.2 L Burt % (Auto) 0.7 Eos % (Auto) 0.6 Baso % (Auto) 0.1 Neut # (Auto) 7.2 H Lymph # (Auto) 0.3 L Burt # (Auto) 0.0 Eos # (Auto) 0.0 Baso # (Auto) 0.0 Neutrophils % (Manual) 94 H Band Neutrophils % 3 H Lymphocytes % (Manual) 2 L Monocytes % (Manual) 0 Eosinophils % (Manual) 1 Platelet Estimate Slightly decreased L RBC Morphology Hypochromasia (manual) Slight Anisocytosis (manual) Slight Acanthocytes (Spur) Moderate APTT Sodium 129 L Potassium 2.7 L Chloride 87 L Carbon Dioxide 32 H Anion Gap 13 BUN 74 H Creatinine 2.2 H Est GFR ( Amer) 36 Est GFR (Non-Af Amer) 30 POC Glucose (mg/dL) 170 H Random Glucose 236 H Calcium 7.5 L Phosphorus 3.4 Magnesium 1.7 Total Bilirubin 2.2 H Direct Bilirubin AST 726 H D ALT 1646 H Alkaline Phosphatase 134 H Total Protein 5.7 L Albumin 2.6 L Globulin 3.1 Albumin/Globulin Ratio 0.8 L PTH Intact Whole Molec Hepatitis C Antibody 08/26/18 08/26/18 04:15 06:31 WBC RBC Hgb Hct MCV MCH MCHC RDW Plt Count MPV Neut % (Auto) Lymph % (Auto) Burt % (Auto) Eos % (Auto) Baso % (Auto) Neut # (Auto) Lymph # (Auto) Burt # (Auto) Eos # (Auto) Baso # (Auto) Neutrophils % (Manual) Band Neutrophils % Lymphocytes % (Manual) Monocytes % (Manual) Eosinophils % (Manual) Platelet Estimate RBC Morphology Hypochromasia (manual) Anisocytosis (manual) Acanthocytes (Spur) APTT 79.2 H Sodium Potassium Chloride Carbon Dioxide Anion Gap BUN Creatinine Est GFR ( Amer) Est GFR (Non-Af Amer) POC Glucose (mg/dL) 196 H Random Glucose Calcium Phosphorus Magnesium Total Bilirubin Direct Bilirubin AST ALT Alkaline Phosphatase Total Protein Albumin Globulin Albumin/Globulin Ratio PTH Intact Whole Molec Hepatitis C Antibody Fingerstick Blood Sugar Results: 196 Critical Care Progress Note - Nutrition Nutrition: Nutrition Category Date Time Status Heart Healthy Diet [DIET] Diets 08/23/18 Breakfast Active Assessment/Plan (1) Acute exacerbation of CHF (congestive heart failure) Current Visit: Yes Status: Acute Priority: High Comment: Chest x-ray consistent with bilateral pulmonary vascular congestion with bilateral pleural effusion secondary to acute on chronic systolic congestive heart failure Labs with elevated troponin level Continue ICU care for hemodynamic cardiac and respiratory monitoring As needed diuresis as blood pressure permits Wean off Dopamine drip Heparin drip, monitor PTT (2) Elevated liver enzymes Current Visit: Yes Status: Acute Priority: High Comment: Elevated liver enzymes likely due to hepatic congestion in the setting of acute CHF Also Hypotension on admission Hepatitis B and C serology negative results of ultrasound of the liver and gallbladder reviewed May need abdomen CT scan but will defer that in the setting of Acute kidney injury This morning labs revealed improved liver function AST/ALT/AP down to 726/1646/134, Nikolai 2.2 (3) Acute on chronic renal failure Current Visit: Yes Status: Chronic Priority: High Comment: Acute renal failure due to circulatory failure severe sepsis and possible cardiorenal syndrome Hemodynamic monitoring and support Optimize volume status Avoid nephrotoxic medication This morning labs revealed improved renal and liver function BUN/Cr down to 74/2.2 (4) Severe sepsis Current Visit: Yes Status: Acute Comment: Persistent leukocytosis patient was started empirically on broad-spectrum anti biotic coverage with IV Zosyn Follow-up blood culture, no growth to date Chest x-ray negative for acute infiltrate Urine analysis is negative Infectious disease consult appreciated Afebrile This morning labs revealed No Leucocytosis BUN/Cr down to 74/2.2 (5) Atrial fibrillation with rapid ventricular response Current Visit: Yes Status: Acute Priority: High Comment: Heparin drip, monitor PTT
[2018-08-26] MEDS ORDERED: Sodium Chloride 0.9% 250 ML IV SCH (12:45)
[2018-08-26] MEDS: Levalbuterol 0.63 MG/3 ML Inhal Soln UD INH SCH ×2 (15:53→23:24)
[2018-08-26] MEDS: Milrinone 20mg/100ml D5W 100 ML IV SCH (18:46)
--- NOTE | 2018-08-26 21:09 | CP.PCM.PN ---
Subjective - Date & Time of Evaluation Date of Evaluation: 08/26/18 Time of Evaluation: 14:00 - Subjective Subjective: Pt seen and examined this morning at bedside. No new complaints at this time. Objective - Vital Signs/Intake and Output Vital Signs (last 24 hours): Temp Pulse Resp BP Pulse Ox 98 F 112 H 14 114/77 100 08/26/18 16:00 08/26/18 18:00 08/26/18 18:00 08/26/18 18:00 08/26/18 17:00 Intake and Output: 08/26/18 08/27/18 18:59 06:59 Intake Total 2517 Output Total 2500 Balance 17 - Medications Medications: Current Medications Atorvastatin Calcium (Lipitor) 40 mg PO HS [facility] Last Admin: 08/25/18 21:20 Dose: 40 mg Calcitriol (Rocaltrol) 0.5 mcg PO DAILY [facility] Last Admin: 08/26/18 08:48 Dose: 0.5 mcg Calcium Carbonate (Oscal) 500 mg PO BIDWM [facility] Last Admin: 08/26/18 16:43 Dose: 500 mg Docusate Sodium (Colace) 100 mg PO BID [facility] Last Admin: 08/26/18 16:42 Dose: 100 mg Piperacillin Sod/Tazobactam (Sod 2.25 gm/ Sodium Chloride) 100 mls @ 100 mls/hr IVPB Q6 [facility]; Protocol Last Admin: 08/26/18 16:39 Dose: 100 mls/hr Heparin Sodium/Dextrose (Heparin 25,000 Units/250ml In D5w) 25,000 units in 250 mls @ 7 mls/hr IV .Q24H [facility]; Protocol Last Titration: 08/26/18 05:49 Dose: 6 mls/hr Sodium Chloride (Sodium Chloride 0.9%) 250 mls @ 999 mls/hr IV .Q16M [facility] Stop: 08/27/18 12:33 Last Admin: 08/26/18 12:50 Dose: 999 mls/hr Milrinone Lactate/Dextrose (Primacor 20mg/100ml D5w) 100 mls @ 6.46 mls/hr IV .[id number] [facility]; Protocol Last Admin: 08/26/18 18:46 Dose: 0.375 mcg/kg/min, 6.46 mls/hr Insulin Detemir (Levemir) 15 units SC [facility] Last Admin: 08/25/18 21:33 Dose: 15 units Insulin Human Regular (Humulin R) 0 units SC ACHS [facility]; Protocol Last Admin: 08/26/18 17:24 Dose: 2 units Latanoprost (Xalatan Opht) 1 drop OU HS [facility] Last Admin: 08/25/18 21:20 Dose: 1 drop Levalbuterol HCl (Xopenex) 0.63 mg INH RQ8 [facility] Last Admin: 08/26/18 15:53 Dose: 0.63 mg Sevelamer Carbonate (Renvela) 2,400 mg PO TID [facility] Last Admin: 08/26/18 16:43 Dose: 2,400 mg Timolol Maleate (Timoptic 0.5% Ophth Soln) 1 drop OD QAM [facility] Last Admin: 08/26/18 08:49 Dose: 1 drop - Labs Labs: 08/26/18 04:15 08/26/18 04:15 PT 16.1 Seconds (9.8-13.1) H 08/22/18 17:39 INR 1.4 08/22/18 17:39 APTT 55.1 Seconds (25.6-37.1) H 08/26/18 20:01 - Constitutional Appears: No Acute Distress - Head Exam Head Exam: ATRAUMATIC, NORMOCEPHALIC - Eye Exam Eye Exam: EOMI - ENT Exam ENT Exam: Mucous Membranes Moist - Neck Exam Neck Exam: Full ROM - Respiratory Exam Respiratory Exam: Clear to Ausculation Bilateral, NORMAL BREATHING PATTERN. absent: Accessory Muscle Use - Cardiovascular Exam Cardiovascular Exam: Diastolic murmur, RRR, +S1, +S2, Murmur - GI/Abdominal Exam GI & Abdominal Exam: Soft, Normal Bowel Sounds. absent: Tenderness - Extremities Exam Extremities Exam: Full ROM, Normal Inspection. absent: Calf Tenderness, Pedal Edema, Tenderness - Neurological Exam Neurological Exam: Alert, Awake, Oriented x3 - Psychiatric Exam Psychiatric exam: Normal Affect, Normal Mood - Skin Skin Exam: Dry, Normal Color, Warm Assessment and Plan - Assessment and Plan (Free Text) Assessment: (1) Acute exacerbation of CHF (congestive heart failure) Status: Acute Priority: High (2) Atrial fibrillation with rapid ventricular response Assessment and Plan: Status: Acute Priority: High (3) Respiratory insufficiency Assessment and Plan: Status: Acute Priority: High (4) Acute on chronic renal failure Status: Chronic Priority: High (5) History of coronary artery stent placement Status: Chronic Priority: High (6) Hx of CABG Status: Chronic Priority: High (7) CAD (coronary atherosclerotic disease) Status: Chronic Priority: Medium (8) HTN (hypertension) Status: Chronic Priority: Medium Plan: started milrinone 0.375 EF 15-20% pt will likely need a BiV pacemaker in the future will add dopamine in the future if BP is too low HR well controlled at this time pt going to [facility] [place] tomorrow for cath Pt seen, examined, assessment and plan discussed with Dr Sarwat Serra PGY1, Internal Medicine Resident
[2018-08-26] MEDS: Latanoprost 0.005% Opht SOUTION OU SCH (21:30)
[2018-08-26] MEDS: Insulin Detemir 100 Units/ml Inj SC SCH (21:32)
[2018-08-27 05:39] LABS: HEMOGLOBIN 13.2 g/dL (12.0-18.0); MEAN CELL VOLUME 93.2 fl (80.0-94.0); MEAN CORPUSCULAR HEMOGLOBIN 31.7 pg (27.0-31.0); RBC 4.18 Mil/uL (4.40-5.90); RED CELL DISTRIBUTION WIDTH 13.7 % (11.5-14.5); WHITE BLOOD COUNT 8.2 K/uL (4.8-10.8)
[2018-08-27 05:58] LABS: ALB/GLOB RATIO 0.8 (1.0-2.1); ALBUMIN 2.6 g/dL (3.5-5.0); CALCIUM 8.8 mg/dL (8.4-10.2)
[2018-08-27 06:34] VITALS: O2SAT 100
[2018-08-27] MEDS ORDERED: Heparin 25,000units in D5W 25,000 UNITS/250 ML BAG IV SCH (06:45)
[2018-08-27] MEDS: Levalbuterol 0.63 MG/3 ML Inhal Soln UD INH SCH ×2 (07:32→15:26)
[2018-08-27 08:35] VITALS: BP 92/60; PULSE 130; RESP 12; TEMP 98
[2018-08-27] MEDS: Insulin Regular 100 units/ml SC SCH (09:02)
[2018-08-27] MEDS: Milrinone 20mg/100ml D5W 100 ML IV SCH (09:02)
--- NOTE | 2018-08-27 13:31 | CP.PCM.PN ---
Subjective - Date & Time of Evaluation Date of Evaluation: 08/27/18 Time of Evaluation: 13:31 - Subjective Subjective: went to see pt but as per nurse pt. was [facility]ferred to [facility] for cardiac work up . Objective - Vital Signs/Intake and Output Vital Signs (last 24 hours): Temp Pulse Resp BP Pulse Ox 98.0 F 130 H 12 92/60 L 100 08/27/18 08:00 08/27/18 09:00 08/27/18 09:00 08/27/18 09:00 08/27/18 09:00 Intake and Output: 08/27/18 08/27/18 06:59 18:59 Intake Total 93 100 Balance 93 100 - Medications Medications: Current Medications Atorvastatin Calcium (Lipitor) 40 mg PO HS [facility] Last Admin: 08/26/18 21:32 Dose: 40 mg Calcitriol (Rocaltrol) 0.5 mcg PO DAILY [facility] Last Admin: 08/27/18 09:04 Dose: Not Given Calcium Carbonate (Oscal) 500 mg PO BIDWM [facility] Last Admin: 08/27/18 09:02 Dose: Not Given Docusate Sodium (Colace) 100 mg PO BID [facility] Last Admin: 08/27/18 09:01 Dose: Not Given Piperacillin Sod/Tazobactam (Sod 2.25 gm/ Sodium Chloride) 100 mls @ 100 mls/hr IVPB Q6 [facility]; Protocol Last Admin: 08/27/18 09:04 Dose: 100 mls/hr Heparin Sodium/Dextrose (Heparin 25,000 Units/250ml In D5w) 25,000 units in 250 mls @ 7 mls/hr IV .Q24H [facility]; Protocol Last Titration: 08/26/18 21:20 Dose: 6 mls/hr Milrinone Lactate/Dextrose (Primacor 20mg/100ml D5w) 100 mls @ 6.46 mls/hr IV .[id number] [facility]; Protocol Last Admin: 08/27/18 09:02 Dose: 0.375 mcg/kg/min, 6.46 mls/hr Heparin Sodium/Dextrose (Heparin 25,000 Units/250ml In D5w) 25,000 units in 250 mls @ 7 mls/hr IV .Q24H [facility]; Protocol Last Admin: 08/27/18 06:45 Dose: 7 mls/hr Insulin Detemir (Levemir) 15 units SC HS [facility] Last Admin: 08/26/18 21:32 Dose: 15 units Insulin Human Regular (Humulin R) 0 units SC ACHS [facility]; Protocol Last Admin: 08/27/18 09:02 Dose: Not Given Latanoprost (Xalatan Opht) 1 drop OU HS [facility] Last Admin: 08/26/18 21:30 Dose: 1 drop Levalbuterol HCl (Xopenex) 0.63 mg INH RQ8 [facility] Last Admin: 08/27/18 07:32 Dose: 0.63 mg Sevelamer Carbonate (Renvela) 2,400 mg PO TID [facility] Last Admin: 08/27/18 09:03 Dose: Not Given Timolol [facility]ate [facility] 1 drop OD QAM [facility] Last Admin: 08/27/18 09:04 Dose: 1 drop - Labs Labs: 08/27/18 04:55 08/27/18 04:55 PT 16.1 Seconds (9.8-13.1) H 08/22/18 17:39 INR 1.4 08/22/18 17:39 APTT 46.9 Seconds (25.6-37.1) H 08/27/18 04:55 Assessment and Plan (1) Acute on chronic renal failure Status: Chronic (2) Acute exacerbation of CHF (congestive heart failure) Status: Acute (3) CAD (coronary atherosclerotic disease) Status: Chronic (4) Leukocytosis Status: Acute
--- NOTE | 2018-08-27 13:40 | CP.PCM.PN ---
Subjective - Date & Time of Evaluation Date of Evaluation: 08/27/18 Time of Evaluation: 13:42 - Subjective Subjective: Patient awake and conscious Feeling good No chest pain Objective - Vital Signs/Intake and Output Vital Signs (last 24 hours): Temp Pulse Resp BP Pulse Ox 98.0 F 130 H 12 92/60 L 100 08/27/18 08:00 08/27/18 09:00 08/27/18 09:00 08/27/18 09:00 08/27/18 09:00 Intake and Output: 08/27/18 08/27/18 06:59 18:59 Intake Total 93 100 Balance 93 100 - Medications Medications: Current Medications Atorvastatin Calcium (Lipitor) 40 mg PO HS [facility] Last Admin: 08/26/18 21:32 Dose: 40 mg Calcitriol (Rocaltrol) 0.5 mcg PO DAILY [facility] Last Admin: 08/27/18 09:04 Dose: Not Given Calcium Carbonate (Oscal) 500 mg PO BIDWM [facility] Last Admin: 08/27/18 09:02 Dose: Not Given Docusate Sodium (Colace) 100 mg PO BID [facility] Last Admin: 08/27/18 09:01 Dose: Not Given Piperacillin Sod/Tazobactam (Sod 2.25 gm/ Sodium Chloride) 100 mls @ 100 mls/hr IVPB Q6 [facility]; Protocol Last Admin: 08/27/18 09:04 Dose: 100 mls/hr Heparin Sodium/Dextrose (Heparin 25,000 Units/250ml In D5w) 25,000 units in 250 mls @ 7 mls/hr IV .Q24H [facility]; Protocol Last Titration: 08/26/18 21:20 Dose: 6 mls/hr Milrinone Lactate/Dextrose (Primacor 20mg/100ml D5w) 100 mls @ 6.46 mls/hr IV .[id number] [facility]; Protocol Last Admin: 08/27/18 09:02 Dose: 0.375 mcg/kg/min, 6.46 mls/hr Heparin Sodium/Dextrose (Heparin 25,000 Units/250ml In D5w) 25,000 units in 250 mls @ 7 mls/hr IV .Q24H [facility]; Protocol Last Admin: 08/27/18 06:45 Dose: 7 mls/hr Insulin Detemir (Levemir) 15 units SC [facility] Last Admin: 08/26/18 21:32 Dose: 15 units Insulin Human Regular (Humulin R) 0 units SC ACHS [facility]; Protocol Last Admin: 08/27/18 09:02 Dose: Not Given Latanoprost (Xalatan Opht) 1 drop OU HS [facility] Last Admin: 08/26/18 21:30 Dose: 1 drop Levalbuterol HCl (Xopenex) 0.63 mg INH RQ8 [facility] Last Admin: 08/27/18 07:32 Dose: 0.63 mg Sevelamer Carbonate (Renvela) 2,400 mg PO TID [facility] Last Admin: 08/27/18 09:03 Dose: Not Given Timolol Maleate (Timoptic 0.5% Ophth Soln) 1 drop OD QAM [facility] Last Admin: 08/27/18 09:04 Dose: 1 drop - Labs Labs: 08/27/18 04:55 08/27/18 04:55 PT 16.1 Seconds (9.8-13.1) H 08/22/18 17:39 INR 1.4 08/22/18 17:39 APTT 46.9 Seconds (25.6-37.1) H 08/27/18 04:55 - Constitutional Appears: No Acute Distress - Eye Exam Eye Exam: absent: Conjunctival injection - ENT Exam ENT Exam: Mucous Membranes Moist - Neck Exam Neck Exam: absent: Lymphadenopathy - Respiratory Exam Respiratory Exam: NORMAL BREATHING PATTERN. absent: Chest Wall Tenderness - Cardiovascular Exam Cardiovascular Exam: absent: Gallop, JVD, Rubs - GI/Abdominal Exam GI & Abdominal Exam: Soft, Normal Bowel Sounds - Extremities Exam Extremities Exam: absent: Calf Tenderness - Back Exam Back Exam: absent: CVA tenderness (L), CVA tenderness (R) - Neurological Exam Neurological Exam: Alert - Psychiatric Exam Psychiatric exam: Normal Affect - Skin Skin Exam: absent: Cyanosis Assessment and Plan (1) Hyperkalemia Status: Acute (2) Leukocytosis Status: Acute (3) Acute on chronic renal failure Assessment & Plan: ARF / Acute on chronic systolic heart failure/ Hypokalemia continue potassium supplement as needed anemia / hyponatremia continue to improve serum sodium coming up Hyperphosphatemia corrected DC binders Hypocalcemia corrected serum calcium is acceptable therefore DC calcitriol and DC Os-Sharif medical history significant for hypertension, type 2 diabetes mellitus, hyperlipidemia, coronary artery disease, chronic atrial fibrillation, systolic congestive heart failure, chronic kidney disease and asthma Patient also status post coronary artery bypass graft and coronary artery stent The plan Acute renal failure perhaps related to cardiorenal syndrome. Improving Urine output improving patient making very good urine and fluid balance has been negative. Potassium chloride supplement See above Status: Chronic
--- NOTE | 2018-08-27 17:58 | CP.PCM.PN ---
Subjective - Date & Time of Evaluation Date of Evaluation: 08/27/18 Time of Evaluation: 06:20 - Subjective Subjective: Pt seen and examined at bedside in the ICU this morning. Pt states he has no new complaints at this time. Objective - Vital Signs/Intake and Output Vital Signs (last 24 hours): Temp Pulse Resp BP Pulse Ox 98.0 F 130 H 12 92/60 L 100 08/27/18 08:00 08/27/18 09:00 08/27/18 09:00 08/27/18 09:00 08/27/18 09:00 Intake and Output: 08/27/18 08/27/18 06:59 18:59 Intake Total 93 100 Balance 93 100 - Medications Medications: Current Medications Atorvastatin Calcium (Lipitor) 40 mg PO HS [facility] Last Admin: 08/26/18 21:32 Dose: 40 mg Calcium Carbonate (Oscal) 500 mg PO BIDWM [facility] Last Admin: 08/27/18 09:02 Dose: Not Given Docusate Sodium (Colace) 100 mg PO BID [facility] Last Admin: 08/27/18 09:01 Dose: Not Given Piperacillin Sod/Tazobactam (Sod 2.25 gm/ Sodium Chloride) 100 mls @ 100 mls/hr IVPB Q6 [facility]; Protocol Last Admin: 08/27/18 09:04 Dose: 100 mls/hr Milrinone Lactate/Dextrose (Primacor 20mg/100ml D5w) 100 mls @ 6.46 mls/hr IV .[id number] [facility]; Protocol Last Admin: 08/27/18 09:02 Dose: 0.375 mcg/kg/min, 6.46 mls/hr Heparin Sodium/Dextrose (Heparin 25,000 Units/250ml In D5w) 25,000 units in 250 mls @ 7 mls/hr IV .Q24H [facility]; Protocol Last Admin: 08/27/18 06:45 Dose: 7 mls/hr Insulin Detemir (Levemir) 15 units SC [facility] Last Admin: 08/26/18 21:32 Dose: 15 units Insulin Human Regular (Humulin R) 0 units SC ACHS [facility]; Protocol Last Admin: 08/27/18 09:02 Dose: Not Given Latanoprost (Xalatan Opht) 1 drop OU HS [facility] Last Admin: 08/26/18 21:30 Dose: 1 drop Levalbuterol HCl (Xopenex) 0.63 mg INH RQ8 [facility] Last Admin: 08/27/18 15:26 Dose: Not Given Timolol Maleate (Timoptic 0.5% Ophth Soln) 1 drop OD QAM [facility] Last Admin: 08/27/18 09:04 Dose: 1 drop - Labs Labs: 08/27/18 04:55 08/27/18 04:55 PT 16.1 Seconds (9.8-13.1) H 08/22/18 17:39 INR 1.4 08/22/18 17:39 APTT 46.9 Seconds (25.6-37.1) H 08/27/18 04:55 - Constitutional Appears: No Acute Distress - Head Exam Head Exam: ATRAUMATIC, NORMOCEPHALIC - Eye Exam Eye Exam: EOMI - ENT Exam ENT Exam: Mucous Membranes Moist - Neck Exam Neck Exam: Full ROM - Respiratory Exam Respiratory Exam: Clear to Ausculation Bilateral, NORMAL BREATHING PATTERN. absent: Accessory Muscle Use - Cardiovascular Exam Cardiovascular Exam: +S1, +S2. absent: Diastolic murmur, Murmur - GI/Abdominal Exam GI & Abdominal Exam: Soft, Normal Bowel Sounds. absent: Tenderness - Extremities Exam Extremities Exam: Full ROM. absent: Calf Tenderness, Pedal Edema, Tenderness - Neurological Exam Neurological Exam: Alert, Awake, Oriented x3 - Psychiatric Exam Psychiatric exam: Normal Affect, Normal Mood - Skin Skin Exam: Dry, Intact, Warm Assessment and Plan - Assessment and Plan (Free Text) Assessment: (1) Acute exacerbation of CHF (congestive heart failure) Status: Acute Priority: High (2) Atrial fibrillation with rapid ventricular response Assessment and Plan: Status: Acute Priority: High (3) Respiratory insufficiency Assessment and Plan: Status: Acute Priority: High (4) Acute on chronic renal failure Status: Chronic Priority: High (5) History of coronary artery stent placement Status: Chronic Priority: High (6) Hx of CABG Status: Chronic Priority: High (7) CAD (coronary atherosclerotic disease) Status: Chronic Priority: Medium (8) HTN (hypertension) Status: Chronic Priority: Medium Plan: EF 15-20% pt will likely need a BiV pacemaker in the future will try to set up transfer to [place] ICU as soon as possible Cardiac Cath 08/27/18: pt only has Circ OM which is 90% stenosed medications lipitor milrinone 0.375 dopamine heparin 25,000 ASA 81 plavix 75 amio 400 BID Pt seen, examined, assessment and plan discussed with Dr Sarwat Serra PGY1, Internal Medicine Resident
--- NOTE | 2018-08-28 17:51 | CP.PCM.DIS ---
Provider - Provider Date of Admission: 08/22/18 19:08 Attending physician: Bill Bhatti MD Consults: 08/22/18 18:43 Nephrology Consult Stat Comment: Consulting Provider: Hernan Zhong Consulting Physician: Hernan Zhong Reason for Consult: renal failure, hyperkalemia 08/22/18 18:59 Cardiology Consult Stat Comment: Consulting Provider: Sam Fam Consulting Physician: Sam Fam Reason for Consult: rapid atrial fib, CHF 08/22/18 19:27 Critical Care Consult Stat Comment: Consulting Provider: Chele Singh Consulting Physician: Chele Singh Reason for Consult: hyperkalemia, acute renal failure, chf, rapid afib 08/24/18 08:10 Infectious Disease Consult Routine Comment: Consulting Provider: Anne Herrmann Consulting Physician: Anne Herrmann Reason for Consult: CHF,Leuckocytosis, ?sepsis Diagnosis - Discharge Diagnosis (1) Respiratory insufficiency Status: Acute Priority: High (2) Acute exacerbation of CHF (congestive heart failure) Status: Acute Priority: High (3) Asthma Status: Chronic Priority: High (4) Acute on chronic renal failure Status: Chronic Priority: High (5) DM2 (diabetes mellitus, type 2) Status: Chronic Priority: High (6) Atrial fibrillation with rapid ventricular response Status: Acute Priority: High (7) Hyperkalemia Status: Acute Priority: High (8) CAD (coronary atherosclerotic disease) Status: Chronic Priority: Medium (9) HTN (hypertension) Status: Chronic Priority: Medium (10) Hx of CABG Status: Chronic Priority: High (11) History of coronary artery stent placement Status: Chronic Priority: High Hospital Course - Lab Results Lab Results: Micro Results 08/24/18 12:10 Blood-Venous Blood Culture - Preliminary NO GROWTH AFTER 4 DAYS 08/24/18 12:30 Blood-Venous Blood Culture - Preliminary NO GROWTH AFTER 4 DAYS 08/24/18 14:40 Urine,Quiroz Urine Culture - Final No Growth (<1,000 CFU/ML) 08/22/18 11:30 Nose MRSA Culture (Admit) - Final MRSA NOT DETECTED 08/22/18 22:27 Urine,Catheterized Urine Culture - Final No Growth (<1,000 CFU/ML) Most Recent Lab Values WBC 8.2 K/uL (4.8-10.8) 08/27/18 04:55 RBC 4.18 Mil/uL (4.40-5.90) L 08/27/18 04:55 Hgb 13.2 g/dL (12.0-18.0) 08/27/18 04:55 Hct 38.9 % (35.0-51.0) 08/27/18 04:55 MCV 93.2 fl (80.0-94.0) 08/27/18 04:55 MCH 31.7 pg (27.0-31.0) H 08/27/18 04:55 MCHC 34.0 g/dL (33.0-37.0) 08/27/18 04:55 RDW 13.7 % (11.5-14.5) 08/27/18 04:55 Plt Count 110 K/uL (130-400) L 08/27/18 04:55 MPV 9.6 fl (7.2-11.7) 08/26/18 04:15 Neut % (Auto) 94.4 % (50.0-75.0) H 08/26/18 04:15 Lymph % (Auto) 4.2 % (20.0-40.0) L 08/26/18 04:15 Stanley % (Auto) 0.7 % (0.0-10.0) 08/26/18 04:15 Eos % (Auto) 0.6 % (0.0-4.0) 08/26/18 04:15 Baso % (Auto) 0.1 % (0.0-2.0) 08/26/18 04:15 Neut # (Auto) 7.2 K/uL (1.8-7.0) H 08/26/18 04:15 Lymph # (Auto) 0.3 K/uL (1.0-4.3) L 08/26/18 04:15 Stanley # (Auto) 0.0 K/uL (0.0-0.8) 08/26/18 04:15 Eos # (Auto) 0.0 K/uL (0.0-0.7) 08/26/18 04:15 Baso # (Auto) 0.0 K/uL (0.0-0.2) 08/26/18 04:15 Neutrophils % (Manual) 94 % (42-75) H 08/26/18 04:15 Band Neutrophils % 3 % (0-2) H 08/26/18 04:15 Lymphocytes % (Manual) 2 % (20-50) L 08/26/18 04:15 Monocytes % (Manual) 0 % (0-10) 08/26/18 04:15 Eosinophils % (Manual) 1 % (0-7) 08/26/18 04:15 Toxic Granulation Present 08/24/18 05:00 Platelet Estimate Slightly decreased (NORMAL) L 08/26/18 04:15 Large Platelets Present 08/24/18 05:00 RBC Morphology Normal (NORMAL) 08/25/18 16:45 Hypochromasia (manual) Slight 08/26/18 04:15 Anisocytosis (manual) Slight 08/26/18 04:15 Acanthocytes (Spur) Moderate 08/26/18 04:15 PT 16.1 Seconds (9.8-13.1) H 08/22/18 17:39 INR 1.4 08/22/18 17:39 APTT 46.9 Seconds (25.6-37.1) H 08/27/18 04:55 D-Dimer, Quantitative < 200 ng/mlDDU (0-230) 08/22/18 17:39 pCO2 22 mm/Hg (35-45) L 08/23/18 01:40 pO2 83 mm/Hg (80-100) 08/23/18 01:40 HCO3 15.4 mmol/L (21-28) L 08/23/18 01:40 ABG pH 7.33 (7.35-7.45) L 08/23/18 01:40 ABG Total CO2 12.3 mmol/L (22-28) L 08/23/18 01:40 ABG O2 Saturation 97.1 % (95-98) 08/23/18 01:40 ABG O2 Content 19.4 ML/dL (15-23) 08/23/18 01:40 ABG Base Excess -12.1 mmol/L (-2.0-3.0) L 08/23/18 01:40 ABG Hemoglobin 14.6 g/dL (11.7-17.4) 08/23/18 01:40 ABG Carboxyhemoglobin 2.0 % (0.5-1.5) H 08/23/18 01:40 POC ABG HHb (Measured) 2.8 % (0.0-5.0) 08/23/18 01:40 ABG Methemoglobin 0.9 % (0.0-3.0) 08/23/18 01:40 ABG O2 Capacity 20.0 mL/dL (16-24) 08/23/18 01:40 Vick Test Yes 08/23/18 01:40 ABG Potassium 6.0 mmol/L (3.6-5.2) H 08/22/18 16:57 A-a O2 Difference 175.0 mm/Hg 08/23/18 01:40 Hgb O2 Saturation 94.4 % (95.0-98.0) L 08/23/18 01:40 Sodium 133.0 mmol/L (132-148) 08/22/18 16:57 Chloride 105.0 mmol/L (98-107) 08/22/18 16:57 Glucose 244 mg/dL (75-110) H 08/22/18 16:57 Lactate 6.7 mmol/L (0.7-2.1) H* 08/22/18 16:57 Vent Mode Vm 08/23/18 01:40 FiO2 40.0 % 08/23/18 01:40 Blood Gas Comments 3.5l/m nc.rr 08/22/18 16:57 Crit Value Called To Md elsa camara 08/22/18 16:57 Crit Value Called By 15 08/22/18 16:57 Crit Value Read Back Y 08/22/18 16:57 Blood Gas Notified Time 1717 08/22/18 16:57 Sodium 134 mmol/l (132-148) 08/27/18 04:55 Potassium 3.1 MMOL/L (3.6-5.0) L 08/27/18 04:55 Chloride 90 mmol/L (98-107) L 08/27/18 04:55 Carbon Dioxide 34 mmol/L (22-30) H 08/27/18 04:55 Anion Gap 13 (10-20) 08/27/18 04:55 BUN 52 mg/dl (9-20) H 08/27/18 04:55 Creatinine 1.7 mg/dl (0.8-1.5) H 08/27/18 04:55 Est GFR ( Amer) 49 08/27/18 04:55 Est GFR (Non-Af Amer) 40 08/27/18 04:55 POC Glucose (mg/dL) 111 mg/dL (65-110) H 08/27/18 05:57 Random Glucose 122 mg/dL (75-110) H 08/27/18 04:55 Hemoglobin A1c 10.0 % (4.2-6.5) H 08/23/18 05:00 Lactic Acid 2.4 mmol/L (0.7-2.1) H 08/25/18 04:55 Calcium 8.8 mg/dL (8.4-10.2) 08/27/18 04:55 Phosphorus 3.4 mg/dl (2.5-4.5) 08/26/18 04:15 Magnesium 1.7 MG/DL (1.6-2.3) 08/26/18 04:15 Total Bilirubin 1.8 mg/dl (0.2-1.3) H 08/27/18 04:55 Direct Bilirubin 1.0 mg/ml (0.0-0.4) H 08/25/18 16:45 AST 306 U/L (17-59) H D 08/27/18 04:55 ALT 951 U/L (21-72) H D 08/27/18 04:55 Alkaline Phosphatase 128 U/L (38-126) H 08/27/18 04:55 Troponin I 1.2700 ng/mL (0.00-0.120) H* 08/23/18 05:00 NT-Pro-B Natriuret Pep 65051 pg/ml (0-900) H 08/22/18 17:39 Total Protein 5.7 G/DL (6.3-8.2) L 08/27/18 04:55 Albumin 2.6 g/dL (3.5-5.0) L 08/27/18 04:55 Globulin 3.1 gm/dL (2.2-3.9) 08/27/18 04:55 Albumin/Globulin Ratio 0.8 (1.0-2.1) L 08/27/18 04:55 PTH Intact Whole Molec 435 pg/mL (14-64) H 08/23/18 14:25 Arterial Blood Potassium 6.0 mmol/L (3.6-5.2) H 08/22/18 16:57 Urine Color Yellow (YELLOW) 08/24/18 14:40 Urine Clarity Cloudy (Clear) 08/24/18 14:40 Urine pH 6.0 (5.0-8.0) 08/24/18 14:40 Ur Specific [place] 1.010 (1.003-1.030) 08/24/18 14:40 Urine Protein 30 mg/dL (NEGATIVE) 08/24/18 14:40 Urine Glucose (UA) 50 mg/dL (NEGATIVE) 08/24/18 14:40 Urine Ketones Negative mg/dL (NEGATIVE) 08/24/18 14:40 Urine Blood Large (NEGATIVE) 08/24/18 14:40 Urine Nitrate Negative (NEGATIVE) 08/24/18 14:40 Urine Bilirubin Negative (NEGATIVE) 08/24/18 14:40 Urine Urobilinogen 0.2-1.0 mg/dL (0.2-1.0) 08/24/18 14:40 Ur Leukocyte Esterase Small [place]/uL (Negative) 08/24/18 14:40 Urine RBC (Auto) 64 /hpf (0-3) H 08/24/18 14:40 Urine Microscopic WBC 13 /hpf (0-5) H 08/24/18 14:40 Ur Squamous Epith Cells < 1 /hpf (0-5) 08/24/18 14:40 Urine Bacteria Occ (<OCC) H 08/24/18 14:40 Hyaline Casts 0-2 /hpf (0-2) 08/24/18 14:40 U Random Total Protein 1636 mg/g creat (22-128) H 08/26/18 18:00 Ur Random Sodium 5 mmol/L 08/24/18 06:15 Urine Opiates Screen Negative (NEGATIVE) 08/22/18 22:27 Urine Methadone Screen Negative (NEGATIVE) 08/22/18 22:27 Ur Barbiturates Screen Negative (NEGATIVE) 08/22/18 22:27 Ur Phencyclidine Scrn Negative (NEGATIVE) 08/22/18 22:27 Ur Amphetamines Screen Negative (NEGATIVE) 08/22/18 22:27 U Benzodiazepines Scrn Negative (NEGATIVE) 08/22/18 22:27 U Oth Cocaine Metabols Negative (NEGATIVE) 08/22/18 22:27 U Cannabinoids Screen Negative (NEGATIVE) 08/22/18 22:27 Alcohol, Quantitative < 10 mg/dl (0-10) 08/22/18 17:39 Serum Immunofixation Not detected (Not Detected) 08/23/18 14:25 Urine Immunofixation Not detected (Not Detected) 08/26/18 18:00 Tot [place]/Lambda Ratio 1.63 (1.29-2.55) 08/23/18 14:25 [place] Light Chain Anal 386 mg/dL (176-443) 08/23/18 14:25 Lambda Light Chain Anal 237 mg/dL (91-240) 08/23/18 14:25 Hepatitis A IgM Ab Negative (NEGATIVE) 08/24/18 14:50 Hep Bs Antigen Negative (NEGATIVE) 08/24/18 14:50 Hep B Core IgM Ab Negative (NEGATIVE) 08/24/18 14:50 Hepatitis C Antibody Negative (NEGATIVE) 08/24/18 14:50 Influenza Typ A,B (EIA) Negative for flu a/b (NEGATIVE) 08/22/18 23:15 Ur L.pneumophila Ag Negative (NEGATIVE) 08/24/18 14:40 Mycoplasma pneumon IgG 3.22 (<=0.90) H 08/24/18 14:50 Mycoplasma pneumon IgM 138 U/mL (<770) 08/24/18 14:50 Discharge Exam - Head Exam Head Exam: ATRAUMATIC, NORMOCEPHALIC Discharge Plan - Follow Up Plan Condition: CRITICAL Disposition: Trans to Other Acute Care Hosp
--- NOTE | 2018-09-02 13:56 | PQF ---
PROVIDER RESPONSE TEXT: CKD stage 3 REVIEWER QUERY TEXT: Kidney Disease, Chronic CKD Stage Chronic Kidney Disease (CKD) is documented in the Medical Record. Please specify the disease stage ( includes probable or suspected) Such as: -- Chronic kidney disease Stage 1 -- Chronic kidney disease Stage 2 -- Chronic kidney disease Stage 3 -- Chronic kidney disease Stage 4 -- Chronic kidney disease Stage 5 -- Chronic kidney disease Stage 5, requiring dialysis -- End Stage Renal Disease -- Other, please specify Stages are defined by the [employer] as follows: CKD Stage I GFR >= 90 ml / min per 1.73 m2 and persistent albuminuria CKD Stage 2 GFR between 60 and 89 with persistent albuminuria CKD Stage 3 GFR between 30 and 59 CKD Stage 4 GFR between 15 and 29 CKD Stage 5 GFR between <15 or End Stage Renal Disease The patient's Clinical Indicators include: Documentation of CKD throughout record; Nephro. PN 08/[address] Zhong states " Acute on Chronic renal failure". Please clarify the Stage of pt.'s CKD if known. Query created by: Clare Kemp on 08/28/2018 1:05 PM Electronically signed by: Bill Bhatti MD 09/02/2018 1:54 PM
--- NOTE | 2018-09-02 13:56 | PQF ---
PROVIDER RESPONSE TEXT: Sepsis ruled out. REVIEWER QUERY TEXT: Rule Out Sepsis Clarification Rule out Sepsis is documented in the Medical Record. Please clarify whether: -- Patient has sepsis - Please document confirmed, suspected or probable causative organism - Please document confirmed, suspected or probable localized infection - Please clarify if sepsis is related to a device - Please clarify if sepsis was present on admission -- Sepsis was ruled out (include corresponding diagnosis for patient?s clinical picture and treatment ) -- Patient had sepsis which is resolved -- Other, please specify The patient's Clinical Indicators include: Pt.'s WBC - 14.1 on 08/23 and 22.0 on 08/24 ; per [employer] PN 08/24 Dr De Guzman documents " SEPTIC MET ABOLIC ENCEPHALOPATHY"; CC PN's 08/25 - 08/26 Dr. See documents - "Severe Sepsis , acute ; start b road spectrum antibiotic coverage w/ IV Zosyn". I.D. consult 08/24 Dr. Herrmann documents -" acute L eukocytosis". Please clarify if diagnosis of SEPSIS was ruled in or out. Query created by: Clare Kemp on 08/28/2018 1:01 PM Electronically signed by: Bill Bhatti MD 09/02/2018 1:54 PM
== END 2018-08-27 15:40 | disposition short-term general hospital (02) | DRG 291 ==
LOC: H.ER 15:56 → H.ERHOLD 19:08 → H.ICU/CCU 22:46
PROVIDERS: ADMIT Internal Medicine Pulmonary Disease; ATTEND Internal Medicine Pulmonary Disease
DX: I13.0 Hypertensive heart and chronic kidney disease with heart failure and stage 1 through stage 4 chronic kidney disease, or unspecified chronic kidney disease (principal); G93.41 Metabolic encephalopathy; I50.23 Acute on chronic systolic (congestive) heart failure; N17.9 Acute kidney failure, unspecified; K82.1 Hydrops of gallbladder; E87.4 Mixed disorder of acid-base balance; R18.8 Other ascites; E87.1 Hypo-osmolality and hyponatremia; N18.3 Chronic kidney disease, stage 3 (moderate); E87.5 Hyperkalemia; I48.2 Chronic atrial fibrillation; E87.6 Hypokalemia; E83.51 Hypocalcemia; R09.02 Hypoxemia; E83.39 Other disorders of phosphorus metabolism; E11.22 Type 2 diabetes mellitus with diabetic chronic kidney disease; I25.10 Atherosclerotic heart disease of native coronary artery without angina pectoris; K76.1 Chronic passive congestion of liver; I95.89 Other hypotension; E78.5 Hyperlipidemia, unspecified; E78.00 Pure hypercholesterolemia, unspecified; J45.909 Unspecified asthma, uncomplicated; Z95.1 Presence of aortocoronary bypass graft; Z95.5 Presence of coronary angioplasty implant and graft; Z79.84 Long term (current) use of oral hypoglycemic drugs; Z79.01 Long term (current) use of anticoagulants; Z87.891 Personal history of nicotine dependence